=== PATIENT | female | born 1935 | race Caucasian/White ===

== ENCOUNTER → 2016-08-31 | Outpatient (CLI) | payer OTHER, MEDICARE ==
[~2016-08-31] MED LIST: ACET-1256 PO; ACET-1311 PO; ALEN70TA3 PO; ALPR1TAB2 PO; CALC-211 PO; CALC500C70 PO; CHOL1CAP57 PO; CYAN100020 PO; EMOLOIN3 EXT; FERR1TAB13 PO; FIBER PO; LACT1CAP6 PO; LACT1TAB4 PO; LISI20TA3 PO; MULT-16 PO; MULT-845 PO; PANT40TA PO; PSYL58.636 PO; SERT-234 PO; TRAM-10 PO
--- NOTE | 2016-08-31 16:37 | MAMMOGRAPHY REPORT ---
UNILATERAL RIGHT DIGITAL SCREENING MAMMOGRAM TOMOSYNTHESIS WITH CAD: 08/31/2016 CLINICAL HISTORY: Asymptomatic. Personal history of left breast cancer. TECHNIQUE: Breast tomosynthesis in addition to standard 2D mammography was performed. Current study was also evaluated with a Computer Aided Detection (CAD) system. COMPARISON: Comparison is made to exams dated: 08/29/2015 mammogram, 08/27/2014 mammogram, 08/23/2013 mammogram, 08/18/2012 mammogram, 08/17/2011 mammogram, and 08/13/2010 mammogram - [facility] nter. BREAST COMPOSITION: There are scattered areas of fibroglandular density in the right breast. FINDINGS: The parenchymal pattern is unchanged. No developing mass, architectural distortion or clu ster of suspicious microcalcifications is seen. IMPRESSION: ACR BI-RADS CATEGORY 2: BENIGN There is no mammographic evidence of malignancy. A 1 year screening mammogram is recommended. The p atient will receive written notification of the results. Approximately 10% of breast cancers are not detected with mammography. A negative mammographic repor t should not delay biopsy if a clinically suggestive mass is present. Emily St M.D. ay/:08/31/2016 15:54:14 Road Monkey: Daniella SOLOMON([place])([place]), [facility] letter sent: Normal 1/2 BI-RADS Code: ACR BI-RADS Category 2: Benign
== END | disposition home or self-care (01) ==
LOC: C.MAMM 11:40
PROVIDERS: ATTEND Internal Medicine Hematology & Oncology
DX: Z12.31 Encounter for screening mammogram for malignant neoplasm of breast (principal); Z85.3 Personal history of malignant neoplasm of breast; Z90.12 Acquired absence of left breast and nipple

== ENCOUNTER → 2016-10-15 | Outpatient (CLI) | payer OTHER, MEDICARE ==
[2015-10-15 13:19] VITALS: BP 120/79; PULSE 70
[2016-10-15 13:10] VITALS: BP 129/76; PULSE 62; TEMP 36.4; O2SAT 97
--- NOTE | 2016-10-15 16:13 | Radiation Oncology Follow-Up ---
Radiation Oncology Follow-Up Date of Visit October 15, 2016. Reason For Visit Annual follow-up Radiation Completion Date 06/21/2015 Diagnosis (1) Other specified malignant neoplasm of skin of other part of trunk Status: Acute Onset Date: 11/30/2014 Permanent Comment: Skin lesion left scapular area Status post cryotherapy Status post shave biopsy 12/04/2014 revealing squamous cell carcinoma Status post punch biopsy 04/02/2015 revealing squamous cell carcinoma Status post reexcision 04/09/2015 continued squamous cell carcinoma positive margin Status post completion of radiation therapy 06/21/2015 received 6250 cGy Last Edited By: Lissa Singh on October 15, 2015 14:12 History of Present Illness This is an 80-year-old white female previously treated for left breast cancer. She had a modified radical mastectomy in 2000. She had chemotherapy with Adriamycin and Cytoxan. Following completion of the radiation therapy she took tamoxifen for a total of 12 years. She continued regular follow-up with Dr. Stone. She unfortunately developed lesion of the left scapular area. This showed changes in appearance. She saw Dr. Diggs the lesion was evaluated and treated with cryotherapy. She then saw Dr. Maddox and had a shave biopsy and this showed an invasive well-differentiated squamous cell carcinoma extending to the base of the biopsy. He performed a punch biopsy on 04/02/2015 this showed invasive well-differentiated squamous cell carcinoma. She then went on for reexcision 04/09/2015. This showed invasive moderately squamous cell carcinoma and it extended to the peripheral margins. Due to the positive margin she was referred to referred to our office and underwent radiation therapy. She was treated from 05/05/2015 to 06/21/2015. She received 6250 cGy. 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 She was seen regularly and had close follow-up with dressing changes and debridements. The skin steadily healed without difficulty. Interim History She has been doing well over the past year. She denies any changes to her skin. She has a small area of dryness of the left scapular area. She is followed closely by dermatology. She was seen last week and there is been no signs of recurrence. She has been having some issues with her right shoulder and this is related to previous injury. She also was hospitalized last December for GI bleeding. She had the finding of a superficial gastric ulcer. Allergies Coded Allergies: Cephalexin (Verified Allergy, Intermediate, RASH, 02/24/16) Nitrofurazone (Verified Allergy, Unknown, *, 02/24/16) Nystatin (Verified Allergy, Unknown, ., 02/24/16) Penicillins (Verified Allergy, Unknown, ANAPHYLAXIS, 02/24/16) Codeine (Verified Adverse Reaction, Intermediate, N/V - can take Oxycodone , 02/19/16) Erythromycin (Verified Adverse Reaction, Unknown, GI UPSET, 02/19/16) Home Medications Scheduled Calcium/Vitamin D (Os-Vasyl 500 Plus D), 2 TAB PO BID Cholecalciferol (Vitamin D3), 2 CAPSULE PO DAILY Cyanocobalamin (Vitamin B12), 1 TAB PO QAM Fiber Laxative (Fiber Laxative), 2 TSP PO QAM Lactobacillus (Probiotic), 1 PO QAM Lisinopril (Prinivil), 20 MG PO QAM Multiple Vitamins W/ Minerals (Centrum Silver Adult 50+), 1 TAB PO QAM Pantoprazole Sodium (Protonix), 40 MG PO BID Scheduled PRN Acetaminophen (Tylenol), 500 MG PO DAILY PRN for Pain Alprazolam (Xanax), 0.5 MG PO TID PRN for Anxiety/Insomnia Review of Systems Gastrointestinal: Symptoms: WNL GI Comments: has IBS ," encourgaged to increase amounts of fiber , this helps " Oral: Symptoms: No Problems Other Oral Symptoms: Mouth is sore from having extensive dental work done recently Respiratory: Symptoms: WNL Other Respiratory: PHELPS, Dry cough at times Urinary: Symptoms: WNL Skin: Symptoms: No Problems Other Skin Symptoms: had patches of skin removed on chest and right side of face " Physical Exam Vital Signs Date Time Temp Pulse Resp B/P Pulse Ox O2 Delivery O2 Flow Rate FiO2 10/15/16 13:10 36.4 62 16 129/76 97 Pain: Pain Onset: for months Pain Duration: gets worse at times Side: Left Patient Pain Scale: 0 - 10 Initial Pain Intensity: 4.0 Pain Description: Dull, Sharp Additional Comments: occ sharp pain in the inside of her left leg Fatigue: None General Appearance: no apparent distress Eyes: normal inspection, EOMI ENT: normal ENT inspection, hearing grossly normal Neck: no adenopathy, thyroid normal Respiratory/Chest: lungs clear, no respiratory distress, no accessory muscle use Cardiovascular: regular rate, rhythm, no gallop, no murmur Extremities: no pedal edema Neurologic/Psychiatric: no motor/sensory deficits, alert, normal mood/affect Skin: warm/dry, + pertinent finding (there is an area of skin dryness left scapular area. There are no visible or palpable lesions in the area of treatment.) Assessment & Plan Plan: Continue regular follow-up with Dr. Maddox and her primary care physician. Note was sent to [facility]. This requests that Aquaphor be placed on the area of dryness in the left scapular area. We asked her to return to our office in 1 year. She may call if she has any questions or concerns in the interim. She'll continue follow-up with her primary care physician in regards to her shoulder issue. Total Time In Follow-Up I spent 20 minutes speaking to the patient and performing examination. I spent 15 minutes reviewing information in completing this note. Copy To Fermín Krishnamurthy M.D.; Sameer Maddox MD
== END | disposition home or self-care (01) ==
LOC: C.ONC 13:04
PROVIDERS: ATTEND Radiology Radiation Oncology
DX: Z08 Encounter for follow-up examination after completed treatment for malignant neoplasm (principal); Z92.3 Personal history of irradiation; Z85.89 Personal history of malignant neoplasm of other organs and systems

== ENCOUNTER 2016-11-22 05:17 | Emergency (ER) | payer OTHER, MEDICARE ==
[~2016-11-22] VITALS: Ht 157.5 cm; Wt 62.4 kg
[~2016-11-22 05:17] MED LIST changes: -ACET-1311 PO; -ALEN70TA3 PO; -CALC-211 PO; -EMOLOIN3 EXT; -FERR1TAB13 PO; -LACT1TAB4 PO; -MULT-16 PO; -PSYL58.636 PO; -SERT-234 PO; -TRAM-10 PO
[2016-11-22 05:28] VITALS: TEMP 36.6; Ht 157.5 cm; Wt 62.4 kg
[2016-11-22] MEDS ORDERED: ACETAMINOPHEN 500 MG TAB PO STA (05:34)
[2016-11-22] MEDS ORDERED: ACET-1311 PO (05:36)
[2016-11-22] MEDS ORDERED: ALEN70TA3 PO (05:37)
[2016-11-22] MEDS ORDERED: EMOLOIN3 EXT (05:40)
[2016-11-22] MEDS ORDERED: FERR1TAB13 PO (05:41)
[2016-11-22] MEDS ORDERED: LACT1TAB4 PO (05:43)
[2016-11-22] MEDS ORDERED: PSYL58.636 PO (05:46)
[2016-11-22] MEDS ORDERED: CALC-211 PO (05:47)
[2016-11-22] MEDS ORDERED: PANT40TA PO (05:48)
[2016-11-22] MEDS ORDERED: MULT-16 PO (05:50)
[2016-11-22] MEDS ORDERED: TRAM-10 PO (05:51)
--- NOTE | 2016-11-22 06:25 | EMERGENCY ROOM VISIT NOTE ---
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 Status post left modified radical mastectomy 2000 Status post chemotherapy with Adriamycin and Cytoxan followed by 5 years of tamoxifen Status post completion radiation therapy 11/30/2001 Subsequent use and completion of Arimidex Status: Resolved (3) CKD (chronic kidney disease) stage 3, GFR 30-59 ml/min Status: Chronic (4) Deep venous thrombosis Status: Resolved (5) Essential tremor Status: Chronic (6) History of breast cancer Status: Chronic (7) History of calculus of kidney Status: Chronic (8) Hyperlipidemia Status: Chronic (9) Intracranial meningioma Status: Chronic (10) left foot fracture Status: Resolved (11) left hip fracture Status: Resolved (12) Left lower extremity hematoma Status: Resolved (13) Osteoporosis Status: Chronic (14) Patent foramen ovale Status: Chronic (15) Restless legs Status: Chronic (16) Squamous cell carcinoma of leg Status: Resolved (17) Unilateral modified radical mastectomy Permanent Comment: 2000 Status: Resolved Surgical Problems: (1) Status post appendectomy Status: Chronic (2) Status post left mastectomy Status: Chronic (3) Status post total knee replacement Status: Chronic Current/Historical Medications Scheduled Alendronate/Cholecalciferol (Fosamax+D 70MG/5600 Iu), 70 MG PO WK Calcium Carbonate-Cholecalcife (Oyster Shell Calcium + D), 1 TAB PO BID Cholecalciferol (Vitamin D3), 2 CAP PO DAILY Cyanocobalamin (Vitamin B12), 1 TAB PO QAM Emollient (Aquaphor), 1 APPLN EXT HS Ferrous Sulfate (Kp Ferrous Sulfate), 325 MG PO DAILY Lactobacillus (Probiotic), 1 PO QAM Lisinopril (Prinivil), 10 MG PO QAM Multiple Vitamins W/ Minerals (Thera-M), 400 MCG PO DAILY Pantoprazole (Protonix), 40 MG PO DAILY Psyllium (Metamucil Fiber), 2 TSP PO DAILY Scheduled PRN Acetaminophen (Tylenol), 650 MG PO Q6 PRN for Pain Alprazolam (Xanax), 0.5 MG PO Q6 PRN for Anxiety/Insomnia Tramadol (Ultram), 50 MG PO Q6 PRN for Pain Allergies Coded Allergies: Cephalexin (Verified Allergy, Intermediate, RASH, 11/22/16) Nitrofurazone (Verified Allergy, Unknown, *, 11/22/16) Nystatin (Verified Allergy, Unknown, ., 11/22/16) Penicillins (Verified Allergy, Unknown, ANAPHYLAXIS, 11/22/16) Codeine (Verified Adverse Reaction, Intermediate, N/V - can take Oxycodone , 11/22/16) Erythromycin (Verified Adverse Reaction, Unknown, GI UPSET, 11/22/16) Vital Signs Date Time Temp Pulse Resp B/P (MAP) Pulse Ox O2 Delivery O2 Flow Rate FiO2 11/22/16 05:28 36.6 74 20 201/72 98 Room Air Medications Administered Medications (Trade) Dose Ordered Sig/Marzena Route Start Time Stop Time Status Last Admin Dose Admin Acetaminophen (Tylenol Tab) 1,000 mg NOW STAT PO 11/22/16 05:34 11/22/16 05:36 DC 11/22/16 05:44 1,000 MG Departure Information Referrals Timur Rabago, D.O. (PCP) Patient Instructions My [facility]
[2016-11-22] MEDS ORDERED: LISINOPRIL 20 MG TAB PO STA (06:26)
--- NOTE | 2016-11-22 07:18 | DIAGNOSTIC IMAGING REPORT ---
CT HEAD WITHOUT CONTRAST (CT) CLINICAL HISTORY: Head pain status post trauma COMPARISON STUDY: 11/06/2015 TECHNIQUE: Axial CT of the brain is performed from the vertex to the skull base. IV contrast was not administered for this examination. CT DOSE: FINDINGS: There is no CT evidence of acute cortical infarction. There is no midline shift. There is no evidence of acute hemorrhage. No calvarial fractures are visualized. There is a stable 7 mm left frontal dural based calcification. This is consistent with a small an ostosis or old burned-out meningioma. This is of doubtful acute clinical significance. There are patchy white matter hypodensities likely on a small vessel basis. There is an old lacunar infarct in the left basal ganglia versus a dilated perivascular space. There is no evidence of pathologic ventricular dilatation. There is no evidence of acute sinusitis IMPRESSION: No acute intracranial findings Electronically signed by: Jb Slaughter M.D. 11/22/2016 7:17 AM Dictated Date/Time: 11/22/2016 7:14 AM
--- NOTE | 2016-11-22 07:23 | EMERGENCY ROOM VISIT NOTE ---
History First contact with patient: 05:34 Chief Complaint: FALL Stated Complaint: FALL History of Present Illness The patient is a 81 year old female who presents to the Emergency Room with complaints of mechanical fall tonight landing on her walker sustaining a head and right shoulder injury. She follows with orthopedics. She's had prior imaging on the shoulder. Patient denies chest pain, dyspnea, back pain, numbness, tingling, abdominal pain, facial pain. No other injuries per patient. No loss of consciousness. Review of Systems See HPI for pertinent positives & negatives. A total of 10 systems reviewed and were otherwise negative. Past Medical/Surgical History Medical Problems: (1) Benign hypertension (2) Carcinoma of breast (3) CKD (chronic kidney disease) stage 3, GFR 30-59 ml/min (4) Deep venous thrombosis (5) Essential tremor (6) Gastric ulcer due to nonsteroidal anti-inflammatory drug (NSAID) (7) GI bleed (8) History of breast cancer (9) History of calculus of kidney (10) Hyperlipidemia (11) Intracranial meningioma (12) left foot fracture (13) left hip fracture (14) Left lower extremity hematoma (15) Osteoporosis (16) Patent foramen ovale (17) Restless legs (18) Squamous cell carcinoma of leg (19) Unilateral modified radical mastectomy Surgical Problems: (1) Status post appendectomy (2) Status post left mastectomy (3) Status post total knee replacement Family History Patient reports no known family medical history. Social History Smoking Status: Former Smoker Alcohol Use: none Drug Use: none Marital Status: Housing Status: lives with family Occupation Status: retired Current/Historical Medications Scheduled Alendronate/Cholecalciferol (Fosamax+D 70MG/5600 Iu), 70 MG PO WK Calcium Carbonate-Cholecalcife (Oyster Shell Calcium + D), 1 TAB PO BID Cholecalciferol (Vitamin D3), 2 CAP PO DAILY Cyanocobalamin (Vitamin B12), 1 TAB PO QAM Emollient (Aquaphor), 1 APPLN EXT HS Ferrous Sulfate (Kp Ferrous Sulfate), 325 MG PO DAILY Lactobacillus (Probiotic), 1 PO QAM Lisinopril (Prinivil), 10 MG PO QAM Multiple Vitamins W/ Minerals (Thera-M), 400 MCG PO DAILY Pantoprazole (Protonix), 40 MG PO DAILY Psyllium (Metamucil Fiber), 2 TSP PO DAILY Scheduled PRN Acetaminophen (Tylenol), 650 MG PO Q6 PRN for Pain Alprazolam (Xanax), 0.5 MG PO Q6 PRN for Anxiety/Insomnia Tramadol (Ultram), 50 MG PO Q6 PRN for Pain Allergies Coded Allergies: Cephalexin (Verified Allergy, Intermediate, RASH, 11/22/16) Nitrofurazone (Verified Allergy, Unknown, *, 11/22/16) Nystatin (Verified Allergy, Unknown, ., 11/22/16) Penicillins (Verified Allergy, Unknown, ANAPHYLAXIS, 11/22/16) Codeine (Verified Adverse Reaction, Intermediate, N/V - can take Oxycodone , 11/22/16) Erythromycin (Verified Adverse Reaction, Unknown, GI UPSET, 11/22/16) Physical Exam Vital Signs Date Time Temp Pulse Resp B/P (MAP) Pulse Ox O2 Delivery O2 Flow Rate FiO2 11/22/16 07:13 65 17 176/73 98 Room Air 11/22/16 06:22 65 18 163/60 98 Room Air 11/22/16 05:28 36.6 74 20 201/72 98 Room Air Physical Exam PHYSICAL EXAM: VITALS: Vitals are noted on the nurse's note and reviewed by myself. Vital signs stable. GENERAL: Pleasant female, in no acute distress, nondiaphoretic, well-developed well-nourished. SKIN: The skin was without obvious lacerations or abrasions. Capillary reflex less than 2 seconds. HEAD: Normocephalic atraumatic. EARS: External auditory canals clear, tympanic membranes pearly barrientos without erythema or effusion bilaterally. No hemotympanums. No lauren sign. No mastoid tenderness. EYES: Pupils equal round and reactive to light and accommodation. Conjunctivae without injection, sclerae without icterus. Extraocular movements intact. NOSE: Patent, turbinates without inflammation or discharge. No sinus tenderness. No septal hematoma or bleeding. FACE: No facial bone tenderness. Full range of motion of the jaw without tenderness. MOUTH: Mucous membranes moist. Pharynx without erythema or exudate. Uvula midline. Airway patent. Tongue does not deviate. NECK: Supple without nuchal rigidity. Cervical spine is nontender. Full range of motion of the neck without tenderness. No JVD. HEART: Regular rate and rhythm LUNGS: Clear to auscultation bilaterally without wheezes, rales or rhonchi. No dullness to percussion. No retractions or accessory muscle use. No chest wall tenderness. ABDOMEN: Positive bowel sounds x 4. Normal tympanic percussion. Soft, nontender, without masses or organomegaly. No guarding or rebound tenderness. MUSCULOSKELETAL: No tenderness of the thoracic or lumbar spine. No tenderness with pelvic rocking. Right shoulder tender to palpation with increased pain with range of motion, Full range of motion without tenderness to palpation in all other extremities. Strength 5/5 throughout. Peripheral pulses 2+. NEURO: Patient was alert and oriented to person place and time. Normal Mini- Mental status exam. Normal sensation to light and sharp touch. Cerebellar function intact. No focal neurological deficits. Medical Decision & Procedures Medications Administered Medications (Trade) Dose Ordered Sig/Marzena Route Start Time Stop Time Status Last Admin Dose Admin Acetaminophen (Tylenol Tab) 1,000 mg NOW STAT PO 11/22/16 05:34 11/22/16 05:36 DC 11/22/16 05:44 1,000 MG Lisinopril (Zestril Tab) 20 mg NOW STAT PO 11/22/16 06:26 11/22/16 06:27 DC 11/22/16 06:46 20 MG ED Course Prior records/ancillary studies reviewed. Triage Nursing notes reviewed. Additional history obtained from family. The patient's history was concerning for traumatic head injury and shoulder Differential diagnosis: Etiologies such as concussion, contusion, fracture, subdural hematoma, epidural hematoma, intraparenchymal hemorrhage, as well as other traumatic pathologies were entertained. Physical examination findings: As above. ER treatment provided: P.o. Tylenol On reassessment the patient felt better. Diagnostics interpreted by me: Imaging studies: CT HEAD WITHOUT CONTRAST (CT) CLINICAL HISTORY: Head pain status post trauma COMPARISON STUDY: 11/06/2015 TECHNIQUE: Axial CT of the brain is performed from the vertex to the skull base. IV contrast was not administered for this examination. CT DOSE: FINDINGS: There is no CT evidence of acute cortical infarction. There is no midline shift. There is no evidence of acute hemorrhage. No calvarial fractures are visualized. There is a stable 7 mm left frontal dural based calcification. This is consistent with a small an ostosis or old burned-out meningioma. This is of doubtful acute clinical significance. There are patchy white matter hypodensities likely on a small vessel basis. There is an old lacunar infarct in the left basal ganglia versus a dilated perivascular space. There is no evidence of pathologic ventricular dilatation. There is no evidence of acute sinusitis IMPRESSION: No acute intracranial findings CT OF THE CERVICAL SPINE CLINICAL HISTORY: Neck pain status post trauma COMPARISON STUDY: [address] DOSE: 930.46 mGy.cm TECHNIQUE: CT scan of the cervical spine was performed from the skull base to the thoracic inlet. Images are reviewed in the axial, sagittal, and coronal planes. IV contrast was not administered for this examination. FINDINGS: The visualized portions of the lung apices reveal no evidence of pneumothorax. There are apical blebs present. There are advanced degenerative changes present. Mild anterior subluxation of C2 on C3 and C3 on C4 is felt to be degenerative. There is partial ankylosis of the C4-C5 and C6 vertebra. Mild retrolisthesis of C4 on C5 and C5 on C6 is felt to be arthritic. No acute fractures or traumatic subluxations are visualized. IMPRESSION: Advanced multilevel degenerative change. No acute fractures or traumatic subluxations are visualized. Electronically signed by: Jb Slaughter M.D. shoulder xray with no acute fracture/dislocation or effusion per my interpretation It appears the patient has head injury and shoulder injury. Patient is neurovascularly and neurologically intact. She is well-appearing. Patient had unremarkable workup as above. No other injuries are noted. She is tolerating fluids. She was counseled on head is signs and symptoms and verbalized understanding of this. She is advised follow-up family care tomorrow here in the ER sooner for headache, fevers, numbness, tingling, worsening signs or symptoms or as needed. By the evaluation outlined above emergent etiologies such as fracture, subdural hematoma, epidural hematoma, intraparenchymal hemorrhage, as well as others were deemed relatively unlikely. The pt informed about the findings as listed above. All questions were answered and pleased with the treatment. Return instructions were outlined and the patient was discharged in stable condition. Case reviewed with my attending Referral: The patient was referred back to their primary care physician for follow-up in 2 to 3 days for a recheck of the current condition. Medical Decision As above Patient was found to have elevated blood pressure and was referred to their family doctor for recheck and further treatment. Medications reviewed. Impression Primary Impression: Fall Additional Impressions: Head injury Shoulder injury Departure Information Dispostion Home / Self-Care Condition GOOD Referrals Timur Rabago D.ODeshaun (PCP) Patient Instructions My [facility] Additional Instructions Monitor your blood pressure. It was high. Read head injury handout and return for any symptoms. Tylenol 1000 mg as needed for pain (Maximum 3000 mg Tylenol in 24 hr period). Avoid alcohol and contact sports/activities for one week and follow up with family doctor prior to returning to these activities if still symptomatic. Ice and elevate head. If your symptoms persist more than a week then follow up with the concussion clinic. Call [phone]. Return to ER sooner for headache, fevers, confusion, worsening signs or symptoms or as needed. Follow-up with family care in 2-3 days. Follow up with your orthopedics in 2-3 days. Problem Qualifiers Primary Impression: Fall Encounter type: initial encounter Qualified Codes: W19.XXXA - Unspecified fall, initial encounter Additional Impressions: Head injury Encounter type: initial encounter Qualified Codes: S09.90XA - Unspecified injury of head, initial encounter Shoulder injury Encounter type: initial encounter Laterality: right Qualified Codes: S49.91XA - Unspecified injury of right shoulder and upper arm, initial encounter
--- NOTE | 2016-11-22 08:11 | DIAGNOSTIC IMAGING REPORT ---
RIGHT SHOULDER MIN 2 VIEWS ROUTINE CLINICAL HISTORY: Right shoulder pain status post trauma COMPARISON: None. DISCUSSION: No fractures or dislocations are visualized. There is mild narrowing of the humeral acromial distance. IMPRESSION: No acute fractures or dislocations identified. Electronically signed by: Jb Slaughter M.D. 11/22/2016 8:09 AM Dictated Date/Time: 11/22/2016 8:09 AM
[2016-11-22 08:20] VITALS: BP 186/86; PULSE 65; O2SAT 98
== END 2016-11-22 08:20 | disposition home or self-care (01) ==
LOC: EDBD 05:17 → C.EDB 05:19
DX: S09.90XA Unspecified injury of head, initial encounter (principal); S49.91XA Unspecified injury of right shoulder and upper arm, initial encounter; W19.XXXA Unspecified fall, initial encounter; I10 Essential (primary) hypertension; Z85.3 Personal history of malignant neoplasm of breast; Z86.718 Personal history of other venous thrombosis and embolism; Z87.442 Personal history of urinary calculi; E78.5 Hyperlipidemia, unspecified; Z85.828 Personal history of other malignant neoplasm of skin; G25.81 Restless legs syndrome; Z87.891 Personal history of nicotine dependence; Z79.899 Other long term (current) drug therapy

== ENCOUNTER → 2017-09-29 | Outpatient (CLI) | payer OTHER, MEDICARE ==
[~2017-09-29] MED LIST changes: -ACET-1256 PO; +ACET-1311 PO; +ALEN70TA3 PO; +CALC-211 PO; -CALC500C70 PO; +EMOLOIN3 EXT; +FERR1TAB13 PO; -FIBER PO; +MULT-16 PO; -MULT-845 PO; +PSYL58.636 PO; +TRAM-10 PO
--- NOTE | 2017-09-30 14:54 | MAMMOGRAPHY REPORT ---
UNILATERAL RIGHT DIGITAL SCREENING MAMMOGRAM TOMOSYNTHESIS WITH CAD: 09/29/2017 CLINICAL HISTORY: Asymptomatic. Personal history of breast cancer. TECHNIQUE: Right breast tomosynthesis in addition to standard 2D mammography was performed. Current study was also evaluated with a Computer Aided Detection (CAD) system. COMPARISON: Comparison is made to exams dated: 08/31/2016 mammogram, 08/29/2015 mammogram, 08/27/2014 m ammogram, 08/23/2013 mammogram, 08/18/2012 mammogram, and [facility] BREAST COMPOSITION: There are scattered areas of fibroglandular density in the right breast. FINDINGS: No suspicious mass, architectural distortion or cluster of microcalcifications is seen. IMPRESSION: ACR BI-RADS CATEGORY 1: NEGATIVE There is no mammographic evidence of malignancy. A 1 year screening mammogram is recommended. The pa tient will receive written notification of the results. Approximately 10% of breast cancers are not detected with mammography. A negative mammographic report should not delay biopsy if a clinically suggestive mass is present. Emily St M.D. ay/:09/29/2017 16:05:35 [employer]: Linnette SOLOMON([place])([place]), [facility] letter sent: Normal 1/2 BI-RADS Code: ACR BI-RADS Category 1: Negative
== END | disposition home or self-care (01) ==
LOC: C.MAMM 15:17
PROVIDERS: ATTEND Family Medicine
DX: Z12.31 Encounter for screening mammogram for malignant neoplasm of breast (principal); Z90.12 Acquired absence of left breast and nipple

== ENCOUNTER 2021-07-15 16:18 | Inpatient (IN) ==
[~2021-07-15 16:18] MED LIST changes: -ACET-1311 PO; -ALEN70TA3 PO; -ALPR1TAB2 PO; -CALC-211 PO; -CHOL1CAP57 PO; -CYAN100020 PO; -EMOLOIN3 EXT; -FERR1TAB13 PO; -LACT1CAP6 PO; -LISI20TA3 PO; -MULT-16 PO; -PANT40TA PO; -PSYL58.636 PO; +SODIUM CHLORIDE 0.9% 1000ML 1,000 ML IV SCH; -TRAM-10 PO
[2021-07-15] MEDS ORDERED: OPTIRAY 320 125ml IV ONE (16:32)
[2021-07-15 16:41] LABS: Basophils # (auto) 0.03 K/uL (0-0.2); Basophils % (auto) 0.3 %; Eosinophils % (auto) 3.5 %; Hematocrit (blood only) 41.1 % (37-47); Hemoglobin 13.1 g/dL (12.0-16.0); Immature Granulocytes # (auto) 0.02 K/uL (0.00-0.02); Immature Granulocytes % (auto) 0.2 %; Lymphocytes # (auto) 3.03 K/uL (1.2-3.4); Lymphocytes % (auto) 35.1 %; Mean Corpuscular Hgb Conc 31.9 g/dL (32-36); Mean Corpuscular Volume 97.4 fL (80-100); Mean Platelet Volume 9.8 fL (7.4-10.4); Monocytes # (auto) 0.87 K/uL (0.11-0.59); Monocytes % (auto) 10.1 %; Neutrophils # (auto) 4.39 K/uL (1.4-6.5); Neutrophils % (auto) 50.8 %; Platelet Count 337 K/uL (130-400); RDW Coefficient of Variation 14.3 % (11.5-14.5); RDW Standard Deviation 51.4 fL (36.4-46.3); Red Blood Count 4.22 M/uL (4.2-5.4); White Blood Count 8.64 K/uL (4.8-10.8)
--- NOTE | 2021-07-15 16:44 | CT Scan Report ---
UNENHANCED CT OF THE BRAIN; CT ANGIOGRAM OF THE BRAIN; CT ANGIOGRAM OF THE NECK CLINICAL HISTORY: Change in mental status. Stroke like symptoms. COMPARISON STUDY: CT of the brain dated 05/17/2018. TECHNIQUE: Unenhanced axial CT scan of the brain is performed. Subsequently, following the IV adminis tration of 115 of [address] [address], CT angiogram of the head and neck was performed from the aortic arch t o the vertex. Images are reviewed in the axial, sagittal, and coronal planes. 3-D MIPS images are cre ated and assessed. IV contrast was administered without complication. All measurements were calculate d based on NASCET criteria. A dose lowering technique was utilized adhering to the principles of ALA RA. The unenhanced CT of the brain was performed twice due to motion artifact. CT DOSE: 2286.23 mGy.cm FINDINGS: Brain parenchyma: There is age-related involutional change noting [id number] subcortical and pe riventricular microangiopathic disease. There is no hemorrhage, mass effect, or evidence of acute ter ritorial ischemia by CT criteria. There is no evidence of enhancing mass lesion on the angiogram phas e images. The ventricles, sulci, and cisterns are prominent secondary to involutional change. Small c hronic lacunar infarcts are noted in the left internal capsule an the left thalamus. Handley-white matte r differentiation is preserved. No extra-axial fluid collection is seen. A 9 mm extra-axial calcifica tion along the high left frontal convexity is unchanged. Thoracic aorta: There is atherosclerotic calcification of the thoracic aorta. Visualized portions of the thoracic aorta are normal in caliber. The aortic arch demonstrates standard 3-vessel anatomy. Right carotid arterial system: The right common carotid artery is widely patent, as is the right inte rnal carotid artery. Advanced atherosclerotic plaque is noted in the carotid bulb. This causes mild t o moderate stenosis at the origin of the right external carotid artery. 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 Calcified plaque is noted in the carotid bulb. Vertebral arteries: The vertebral arteries are widely patent bilaterally and codominant. Subclavian arteries: Widely patent bilaterally. Intracranial vasculature: There is atherosclerotic calcification of the cavernous carotid and vertebr al arteries. The internal carotid arteries are patent at the skull base, as are the anterior and midd le cerebral arteries bilaterally. The vertebrobasilar system and posterior cerebral arteries are wide ly patent. The vertebral arteries are codominant. There is no aneurysm, high-grade stenosis, or focal vessel cut off seen throughout the intracranial circulation. Jugular veins: Patent bilaterally. Dural sinuses: Patent. Lung apices: Mild emphysematous change is noted in the upper lobes. Upper lobe lung parenchyma is oth erwise clear as visualized. Soft tissues: The visualized pharyngeal soft tissues are normal in appearance noting angiographic pha se technique. The oropharyngeal airway appears widely patent. The salivary and thyroid glands are nor mal in appearance. No cervical lymphadenopathy is seen. Skeletal structures: The skeletal structures are osteopenic. The calvarium appears intact. The cervic al spine is maintained noting multilevel spondylosis. No lytic or blastic lesion is seen. Arthritic c hange is seen in the shoulders, right greater than left. Bursal fluid surrounds the right shoulder. Orbits: The bony orbits are intact. Orbital contents are normal as visualized noting bilateral ocular lens implants. Sinuses and mastoids: The paranasal sinuses are clear. The mastoid air cells are well pneumatized. IMPRESSION: 1. There is no hemorrhage, mass effect, or evidence of acute territorial ischemia by CT criteria. 2. Unremarkable CT angiogram of the brain. 3. There is mild to moderate stenosis at the origin of the right external carotid artery. 4. Otherwise unremarkable CT angiogram of the neck. 5. Emphysema. 6. Additional findings as above. ACT 112: Negative or not required by law. Electronically signed by: Austen Aguilar M.D. 07/15/2021 4:43 PM
[2021-07-15] MEDS ORDERED: LABETALOL HCL IV 5 MG/ML 20ML IV STA (16:50)
[2021-07-15] MEDS ORDERED: ASPIRIN 300 MG SUPP PR ONE (16:51)
[2021-07-15 17:00] LABS: Partial Thromboplastin Ratio 1.1; Partial Thromboplastin Time 28.8 Seconds (21.0-31.0); Prothrombin Time 10.1 Seconds (9.0-12.0)
--- NOTE | 2021-07-15 17:09 | Emergency Department Note ---
History of Present Illness General Chief complaint: Stroke/CVA Symptoms Stated complaint: STROKE ALERT History of Present Illness 85-year-old female presents to the ED with a chief complaint of expressive aphasia. The patient's last known well was at 1330. She was playing bingo and was having difficulty getting words out. EMS was called and transported her here. The patient has some chronic right shoulder pain related to a rotator cuff injury. She denies any other significant symptoms. She does have a history of PE in the past. She is currently not on anticoagulation. She does have a history of GI bleed as well. The patient's expressive aphasia seems to be about 50% of the words. The patient understands speech and follows commands. Denies other complaints at this time. Home Medications Medication Instructions Recorded Confirmed Type escitalopram oxalate 10 mg tablet 10 mg PO HS 07/29/18 07/15/21 History (Lexapro) loratadine 10 mg tablet (Claritin) 10 mg PO QAM 07/29/18 07/15/21 History vitamins A,C,S-ciue-uwmscs 14,320 1 cap PO BID 07/29/18 07/15/21 History unit-226 mg-200 unit capsule (PreserVision AREDS) calcium carbonate 500 mg-vitamin 1 tab PO DAILY 08/29/19 07/15/21 History D3 5 mcg (200 unit) tablet (Calcium 500 + D) meloxicam 15 mg tablet (Mobic) 15 mg PO DAILY #30 tab 12/25/20 07/15/21 Rx alprazolam 0.5 mg tablet 0.5 mg PO Q6H PRN 03/14/21 07/15/21 History calcium polycarbophil 625 mg tablet 625 mg PO DAILY 03/14/21 07/15/21 History lisinopril 40 mg tablet 40 mg PO DAILY 03/14/21 07/15/21 History Lactobacillus acidophilus 10 10,000 mmu cells PO DAILY 07/15/21 07/15/21 History billion cell capsule (Probiotic) acetaminophen 500 mg tablet 1,000 mg PO Q OTHER DAY 07/15/21 07/15/21 History (Tylenol Extra Strength) albuterol sulfate 90 mcg/actuation 2 puff INHALATION Q6H PRN 07/15/21 07/15/21 History aerosol inhaler cholecalciferol (vitamin D3) 50 50 mcg PO DAILY 07/15/21 07/15/21 History mcg (2,000 unit) capsule (Vitamin D3) guaifenesin 600 mg tablet, 600 mg PO Q12H PRN 07/15/21 07/15/21 History extended release 12 hr (Mucinex) tdjzfmfd-quc-zvwns acid 0.4 1 tab PO DAILY 07/15/21 07/15/21 History mg-lycopene 300 mcg-lutein 250 mcg tablet (Centrum Silver) trazodone 50 mg tablet 50 mg PO HS PRN 07/15/21 07/15/21 History Allergies Allergy/AdvReac Type Severity Reaction Status Date / Time Penicillins Allergy Severe ANAPHYLAXIS--HEART Verified 07/15/21 16:31 STOPPED denosumab Allergy Intermediate bone pain Verified 07/15/21 16:31 mouse protein Allergy Intermediate bone pain Verified 07/15/21 16:31 cephalexin Allergy Mild RASH Verified 07/15/21 16:31 nitrofurazone Allergy Unknown PT NOT SURE Verified 07/15/21 16:31 nystatin Allergy Unknown PT NOT SURE Verified 07/15/21 16:31 codeine AdvReac Intermediate N/V - can Verified 07/15/21 16:31 take Oxycodone erythromycin base AdvReac Intermediate GI UPSET Verified 07/15/21 16:31 narcotics AdvReac Intermediate extreme Uncoded 07/15/21 16:31 drowsy and nausea Past Med/Surg History Medical History (Updated 07/15/21 @ 17:13 by Magan Walton DO) Anxiety and depression Asthma hasn't used PRN INH in over a year Cardiac murmur follows w/ Dr. Dhillon Cataract CKD (chronic kidney disease) stage 3, GFR 30-59 ml/min PT DENIES KIDNEY PROBLEMS Essential tremor Hearing deficit Hip problem LEFT History of breast cancer s/p left mastectomy + chemo/radiation History of DVT (deep vein thrombosis) WITHIN LAST 10 YRS History of hypothyroidism History of pulmonary embolism WITHIN LAST 10 YRS History of skin cancer removed History of stomach ulcers Hypertension Intracranial meningioma (Unknown) pt could not confirm. states "there was something small on my brain that was n't supposed to be there. nobody was really worried about it." says it was found "years ago" Limb alert care status LUE Osteoarthritis Osteoporosis Patent foramen ovale PT DENIES Rotator cuff tear, right TMJ click Surgical History History of appendectomy History of breast biopsy History of colonoscopy History of esophagogastroduodenoscopy (EGD) History of left hip replacement History of right cataract surgery Slow to wake up after anesthesia Status post left mastectomy HX OF Status post total knee replacement HX OF - BL Family History Father Diabetes Other No significant family history Social History Smoking Status: Never smoker Second Hand Exposure: Yes; Hx Alcohol Use: No Hx Substance Use: No Preferred Language: P[place] Communication Ability: Effective 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 Beliefs That Will Affect Care: None Current Living Situation: Alone and Other Current Living Situation Comment: [facility] Feels Safe at Home: Yes Assistive Devices: Cane, Glasses and Hearing Aid - Bilateral Review of Systems A total of 10 systems reviewed and were otherwise negative Physical Exam Vital Signs Vital Signs - 24 hr 07/15/21 16:17 07/15/21 16:55 07/15/21 16:58 Temperature 36.9 C Temperature Source Oral Pulse Rate 123 H Pulse Rate [Right Finger] 112 H Pulse Rate from SpO2 Sensor Respiratory Rate 24 24 Respiratory Effort / Characteristics Spontaneous Spontaneous Blood Pressure 204/117 H Blood Pressure [Right Arm] 197/92 H Blood Pressure Mean 146 Blood Pressure Mean [Right Arm] 127 Blood Pressure Position Lying Blood Pressure Position [Right Arm] Sitting Pulse Oximetry 92 89 L 100 Oxygen Delivery Method Room Air Room Air Nasal Cannula Oxygen Flow Rate 2 Sepsis Recent Fever Within 48 Hours No Sepsis New/Unexplained Change in Mental Status No Sepsis Action Taken by Nursing Physician Notified Oxygen Flow Rate - Titration 2 Pulse Oximetry Post Tiitration 100 07/15/21 17:06 07/15/21 17:10 07/15/21 17:20 Temperature Temperature Source Pulse Rate 120 H 117 H Pulse Rate [Right Finger] Pulse Rate from SpO2 Sensor 120 H 116 H 110 H Respiratory Rate 16 16 16 Respiratory Effort / Characteristics Blood Pressure Blood Pressure [Right Arm] Blood Pressure Mean Blood Pressure Mean [Right Arm] Blood Pressure Position Blood Pressure Position [Right Arm] Pulse Oximetry 99 99 100 Oxygen Delivery Method Nasal Cannula Nasal Cannula Nasal Cannula Oxygen Flow Rate 2 2 2 Sepsis Recent Fever Within 48 Hours Sepsis New/Unexplained Change in Mental Status Sepsis Action Taken by Nursing Oxygen Flow Rate - Titration Pulse Oximetry Post Tiitration 07/15/21 17:30 07/15/21 17:32 07/15/21 17:40 Temperature Temperature Source Pulse Rate 107 H 109 H 105 H Pulse Rate [Right Finger] Pulse Rate from SpO2 Sensor 107 H 105 H 104 H Respiratory Rate 17 16 15 Respiratory Effort / Characteristics Blood Pressure 194/118 H 194/118 H Blood Pressure [Right Arm] Blood Pressure Mean 143 143 Blood Pressure Mean [Right Arm] Blood Pressure Position Blood Pressure Position [Right Arm] Pulse Oximetry 99 99 99 Oxygen Delivery Method Nasal Cannula Nasal Cannula Nasal Cannula Oxygen Flow Rate 2 2 2 Sepsis Recent Fever Within 48 Hours Sepsis New/Unexplained Change in Mental Status Sepsis Action Taken by Nursing Oxygen Flow Rate - Titration Pulse Oximetry Post Tiitration 07/15/21 17:45 07/15/21 17:46 07/15/21 17:47 Temperature Temperature Source Pulse Rate 109 H 108 H 106 H Pulse Rate [Right Finger] Pulse Rate from SpO2 Sensor 109 H 111 H 107 H Respiratory Rate 23 26 H 19 Respiratory Effort / Characteristics Blood Pressure 200/105 H 200/105 H Blood Pressure [Right Arm] Blood Pressure Mean 136 136 Blood Pressure Mean [Right Arm] Blood Pressure Position Blood Pressure Position [Right Arm] Pulse Oximetry 97 99 99 Oxygen Delivery Method Nasal Cannula Nasal Cannula Oxygen Flow Rate 2 2 Sepsis Recent Fever Within 48 Hours Sepsis New/Unexplained Change in Mental Status Sepsis Action Taken by Nursing Oxygen Flow Rate - Titration Pulse Oximetry Post Tiitration 07/15/21 17:50 07/15/21 18:00 07/15/21 18:03 Temperature Temperature Source Pulse Rate 106 H 98 H 99 H Pulse Rate [Right Finger] 101 H Pulse Rate from SpO2 Sensor 105 H 96 H 99 H Respiratory Rate 18 22 20 Respiratory Effort / Characteristics Spontaneous Blood Pressure 171/91 H Blood Pressure [Right Arm] 171/91 H Blood Pressure Mean 117 Blood Pressure Mean [Right Arm] 117 Blood Pressure Position Blood Pressure Position [Right Arm] Sitting Pulse Oximetry 99 99 99 Oxygen Delivery Method Nasal Cannula Nasal Cannula Nasal Cannula Oxygen Flow Rate 2 2 2 Sepsis Recent Fever Within 48 Hours Sepsis New/Unexplained Change in Mental Status Sepsis Action Taken by Nursing Oxygen Flow Rate - Titration Pulse Oximetry Post Tiitration 07/15/21 18:10 07/15/21 18:15 07/15/21 18:20 Temperature Temperature Source Pulse Rate 94 H 93 H 95 H Pulse Rate [Right Finger] Pulse Rate from SpO2 Sensor 94 H 91 H 95 H Respiratory Rate 13 15 20 Respiratory Effort / Characteristics Blood Pressure 181/110 H Blood Pressure [Right Arm] Blood Pressure Mean 133 Blood Pressure Mean [Right Arm] Blood Pressure Position Blood Pressure Position [Right Arm] Pulse Oximetry 99 99 99 Oxygen Delivery Method Oxygen Flow Rate Sepsis Recent Fever Within 48 Hours Sepsis New/Unexplained Change in Mental Status Sepsis Action Taken by Nursing Oxygen Flow Rate - Titration Pulse Oximetry Post Tiitration 07/15/21 18:30 07/15/21 18:40 Temperature Temperature Source Pulse Rate 88 86 Pulse Rate [Right Finger] Pulse Rate from SpO2 Sensor 90 86 Respiratory Rate 14 16 Respiratory Effort / Characteristics Blood Pressure 175/96 H Blood Pressure [Right Arm] Blood Pressure Mean 122 Blood Pressure Mean [Right Arm] Blood Pressure Position Blood Pressure Position [Right Arm] Pulse Oximetry 99 99 Oxygen Delivery Method Oxygen Flow Rate Sepsis Recent Fever Within 48 Hours Sepsis New/Unexplained Change in Mental Status Sepsis Action Taken by Nursing Oxygen Flow Rate - Titration Pulse Oximetry Post Tiitration CONSTITUTIONAL/VITAL SIGNS: Reviewed / noted above. GENERAL: Non-toxic in appearance. INTEGUMENTARY: Warm, dry, and [place]. HEAD: Normocephalic. EYES: without scleral icterus or trauma. ENT/OROPHARYNX: clear and moist. LYMPHADENOPATHY/NECK: Is supple without lymphadenopathy or meningismus. RESPIRATORY: Clear to auscultation bilaterally. No increased work of breathing. CARDIOVASCULAR: Regular rate and rhythm. GI/ABDOMEN: Soft and nontender. No organomegaly or pulsatile mass. EXTREMITIES: Warm and well perfused. BACK: No CVA tenderness. NEUROLOGICAL: Intact without focal deficits. PSYCHIATRIC: normal affect. MUSCULOSKELETAL: Normally developed with good muscle tone. TRIAGE NURSING DOCUMENTATION REVIEWED. Course Administered Medications Sodium Chloride (Nss 1000ml) 1,000 mls @ 50 mls/hr IV .Q20H HAZEL Stop: 08/14/21 16:14 Last Admin: 07/15/21 17:13 Dose: 50 mls/hr Documented by: [id number] Discontinued Medications Aspirin (Aspirin 300 Mg Supp) 600 mg AL ONE ONE Stop: 07/15/21 16:52 Last Admin: 07/15/21 17:39 Dose: 600 mg Documented by: [id number] Ioversol (Optiray 320 125ml) 115 ml IV ONCE ONE Stop: 07/15/21 16:33 Last Admin: 07/15/21 16:32 Dose: 115 ml Documented by: [id number] Labetalol HCl (Labetalol Hcl Iv 5 Mg/Ml 20ml) 5 mg IV NOW STA Stop: 07/15/21 16:51 Last Admin: 07/15/21 17:50 Dose: 5 mg Documented by: [id number] Cosigned by: [id number] Morphine Sulfate (Morphine Sulfate 2 Mg/Ml Carp) 2 mg IV NOW STA Stop: 07/15/21 17:20 Last Admin: 07/15/21 17:35 Dose: 2 mg Documented by: [id number] Medical Decision Making Differential Diagnosis Differential includes acute coronary syndrome, myocardial infarction, CVA, TIA, anemia, infection, pneumonia, UTI, pyelonephritis, poor nutrition, dehydration, electrolyte disturbance,hypoglycemia. Medical Records Attestation: I reviewed the patient's medical records. Home Medications Current Medication List: was personally reviewed by me Laboratory Data Attestation: I reviewed the patient's lab results. Result diagrams: 07/15/21 16:34 07/15/21 16:34 Lab Results 07/15/21 07/15/21 07/15/21 Range/Units 16:34 16:34 16:34 WBC 8.64 (4.8-10.8) K/uL RBC 4.22 (4.2-5.4) M/uL Hgb 13.1 (12.0-16.0) g/dL Hct 41.1 (37-47) % MCV 97.4 (80-100) fL MCH 31.0 (25-34) pg MCHC 31.9 L (32-36) g/dL RDW Std Deviation 51.4 H (36.4-46.3) fL RDW Coeff of Alessandro 14.3 (11.5-14.5) % Plt Count 337 (130-400) K/uL MPV 9.8 (7.4-10.4) fL Immature Gran % (Auto) 0.2 % Neut % (Auto) 50.8 % Lymph % (Auto) 35.1 % Cross % (Auto) 10.1 % Eos % (Auto) 3.5 % Baso % (Auto) 0.3 % Neut # (Auto) 4.39 (1.4-6.5) K/uL Lymph # (Auto) 3.03 (1.2-3.4) K/uL Cross # (Auto) 0.87 H (0.11-0.59) K/uL Eos # (Auto) 0.30 (0-0.5) K/uL Baso # (Auto) 0.03 (0-0.2) K/uL Immature Gran # (Auto) 0.02 (0.00-0.02) K/uL PT 10.1 (9.0-12.0) Seconds INR 1.0 (0.9-1.1) APTT 28.8 (21.0-31.0) Seconds PTT Ratio 1.1 Sodium 136 (136-145) mmol/L Potassium 4.5 (3.5-5.1) mmol/L Chloride 101 (98-107) mmol/L Carbon Dioxide 27 (21-32) mmol/L Anion Gap 8 (3-11) BUN 17 (6-23) mg/dl Creatinine 0.79 (0.6-1.2) mg/dl Est Cr Clr Drug Dosing Not Reportable Est GFR ( Amer) 78.6 ml/min Est GFR (Non-Af Amer) 67.8 ml/min BUN/Creatinine Ratio 21.5 H (10-20) Glucose 99 (70-99(Fasting)) mg/dl Calcium 9.2 (8.5-10.1) mg/dl Magnesium 1.9 (1.7-2.4) mg/dl Total Bilirubin 0.3 (0.2-1.0) mg/dl AST 20 (13-39) U/L ALT 11 (7-52) U/L Alkaline Phosphatase 79 (34-104) U/L Troponin I < 0.03 (0-0.04) ng/ml Total Protein 7.1 (6.0-8.3) gm/dl Albumin 4.2 (3.4-5.0) gm/dl Globulin 2.9 (2.5-4.0) gm/dl Albumin/Globulin Ratio 1.4 (0.9-2) SARS-CoV-2, RNA, NAAT (NEGATIVE) 07/15/21 Range/Units 17:17 WBC (4.8-10.8) K/uL RBC (4.2-5.4) M/uL Hgb (12.0-16.0) g/dL Hct (37-47) % MCV (80-100) fL MCH (25-34) pg MCHC (32-36) g/dL RDW Std Deviation (36.4-46.3) fL RDW Coeff of Alessandro (11.5-14.5) % Plt Count (130-400) K/uL MPV (7.4-10.4) fL Immature Gran % (Auto) % Neut % (Auto) % Lymph % (Auto) % Cross % (Auto) % Eos % (Auto) % Baso % (Auto) % Neut # (Auto) (1.4-6.5) K/uL Lymph # (Auto) (1.2-3.4) K/uL Cross # (Auto) (0.11-0.59) K/uL Eos # (Auto) (0-0.5) K/uL Baso # (Auto) (0-0.2) K/uL Immature Gran # (Auto) (0.00-0.02) K/uL PT (9.0-12.0) Seconds INR (0.9-1.1) APTT (21.0-31.0) Seconds PTT Ratio Sodium (136-145) mmol/L Potassium (3.5-5.1) mmol/L Chloride (98-107) mmol/L Carbon Dioxide (21-32) mmol/L Anion Gap (3-11) BUN (6-23) mg/dl Creatinine (0.6-1.2) mg/dl Est Cr Clr Drug Dosing Est GFR ( Amer) ml/min Est GFR (Non-Af Amer) ml/min BUN/Creatinine Ratio (10-20) Glucose (70-99(Fasting)) mg/dl Calcium (8.5-10.1) mg/dl Magnesium (1.7-2.4) mg/dl Total Bilirubin (0.2-1.0) mg/dl AST (13-39) U/L ALT (7-52) U/L Alkaline Phosphatase (34-104) U/L Troponin I (0-0.04) ng/ml Total Protein (6.0-8.3) gm/dl Albumin (3.4-5.0) gm/dl Globulin (2.5-4.0) gm/dl Albumin/Globulin Ratio (0.9-2) SARS-CoV-2, RNA, NAAT NEGATIVE (NEGATIVE) Imaging Data Radiologist's Impression: Head CT 07/15/21 16:[address] OF THE BRAIN; CT ANGIOGRAM OF THE BRAIN; CT ANGIOGRAM OF THE NECK CLINICAL HISTORY: Change in mental status. Stroke like symptoms. COMPARISON STUDY: CT of the brain dated 05/17/2018. TECHNIQUE: Unenhanced axial CT scan of the brain is performed. Subsequently, following the IV administration of 115 of Optiray 320, CT angiogram of the head and neck was performed from the aortic arch to the vertex. Images are reviewed in the axial, sagittal, and coronal planes. 3-D MIPS images are created and assessed. IV contrast was administered without complication. All measurements were calculated based on NASCET criteria. A dose lowering technique was utilized adhering to the principles of ALARA. The unenhanced CT of the brain was performed twice due to motion artifact. CT DOSE: 2286.23 mGy.cm FINDINGS: Brain parenchyma: There is age-related involutional change noting [id number] subcortical and periventricular microangiopathic disease. There is no hemorrhage, mass effect, or evidence of acute territorial ischemia by CT criteria. There is no evidence of enhancing mass lesion on the angiogram phase images. The ventricles, sulci, and cisterns are prominent secondary to involutional change. Small chronic lacunar infarcts are noted in the left internal capsule an the left thalamus. Handley-white matter differentiation is pres erved. No extra-axial fluid collection is seen. A 9 mm extra-axial calcification along the high left frontal convexity is unchanged. Thoracic aorta: There is atherosclerotic calcification of the thoracic aorta. Visualized portions of the thoracic aorta are normal in caliber. The aortic arch demonstrates standard 3-vessel anatomy. Right carotid arterial system: The right common carotid artery is widely patent, as is the right internal carotid artery. Advanced atherosclerotic plaque is noted in the carotid bulb. This causes mild to moderate stenosis at the origin of the right external carotid artery. Left carotid arterial system: The left common carotid artery is widely patent, as are the left internal and external carotid arteries. Calcified plaque is noted in the carotid bulb. Vertebral arteries: The vertebral arteries are widely patent bilaterally and codominant. Subclavian arteries: Widely patent bilaterally. Intracranial vasculature: There is atherosclerotic calcification of the cavernous carotid and vertebral arteries. The internal carotid arteries are patent at the skull base, as are the anterior and middle cerebral arteries bilaterally. The vertebrobasilar system and posterior cerebral arteries are widely patent. The vertebral arteries are codominant. There is no aneurysm, high-grade stenosis, or focal vessel cut off seen throughout the intracranial circulation. Jugular veins: Patent bilaterally. Dural sinuses: Patent. Lung apices: Mild emphysematous change is noted in the upper lobes. Upper lobe lung parenchyma is otherwise clear as visualized. Soft tissues: The visualized pharyngeal soft tissues are normal in appearance noting angiographic phase technique. The oropharyngeal airway appears widely patent. The salivary and thyroid glands are normal in appearance. No cervical lymphadenopathy is seen. Skeletal structures: The skeletal structures are osteopenic. The calvarium alfredo ears intact. The cervical spine is maintained noting multilevel spondylosis. No lytic or blastic lesion is seen. Arthritic change is seen in the shoulders, right greater than left. Bursal fluid surrounds the right shoulder. Orbits: The bony orbits are intact. Orbital contents are normal as visualized noting bilateral ocular lens implants. Sinuses and mastoids: The paranasal sinuses are clear. The mastoid air cells are well pneumatized. IMPRESSION: 1. There is no hemorrhage, mass effect, or evidence of acute territorial ischemia by CT criteria. 2. Unremarkable CT angiogram of the brain. 3. There is mild to moderate stenosis at the origin of the right external carotid artery. 4. Otherwise unremarkable CT angiogram of the neck. 5. Emphysema. 6. Additional findings as above. ACT 112: Negative or not required by law. Electronically signed by: Austen Aguilar M.D. 07/15/2021 4:43 PM Head CTA 07/15/21 16:[address] OF THE BRAIN; CT ANGIOGRAM OF THE BRAIN; CT ANGIOGRAM OF THE NECK CLINICAL HISTORY: Change in mental status. Stroke like symptoms. COMPARISON STUDY: CT of the brain dated 05/17/2018. TECHNIQUE: Unenhanced axial CT scan of the brain is performed. Subsequently, following the IV administration of 115 of Optiray 320, CT angiogram of the head and neck was performed from the aortic arch to the vertex. Images are reviewed in the axial, sagittal, and coronal planes. 3-D MIPS images are created and assessed. IV contrast was administered without complication. All measurements were calculated based on NASCET criteria. A dose lowering technique was utilized adhering to the principles of ALARA. The unenhanced CT of the brain was performed twice due to motion artifact. CT DOSE: 2286.23 mGy.cm FINDINGS: Brain parenchyma: There is age-related involutional change noting [id number] subcortical and periventricular microangiopathic disease. There is no hemorrhage, mass effect, or evidence of acute territorial ischemia by CT criteria. There is no evidence of enhancing mass lesion on the angiogram phase images. The ventricles, sulci, and cisterns are prominent secondary to involutional change. Small chronic lacunar infarcts are noted in the left internal capsule an the left thalamus. Handley-white matter differentiation is preserved. No extra-axial fluid collection is seen. A 9 mm extra-axial calcification along the high left frontal convexity is unchanged. Thoracic aorta: There is atherosclerotic calcification of the thoracic aorta. Visualized portions of the thoracic aorta are normal in caliber. The aortic arch demonstrates standard 3-vessel anatomy. Right carotid arterial system: The right common carotid artery is widely patent, as is the right internal carotid artery. Advanced atherosclerotic plaque is noted in the carotid bulb. This causes mild to moderate stenosis at the origin of the right external carotid artery. Left carotid arterial system: The left common carotid artery is widely patent, as are the left internal and external carotid arteries. Calcified plaque is noted in the carotid bulb. Vertebral arteries: The vertebral arteries are widely patent bilaterally and codominant. Subclavian arteries: Widely patent bilaterally. Intracranial vasculature: There is atherosclerotic calcification of the cavernous carotid and vertebral arteries. The internal carotid arteries are patent at the skull base, as are the anterior and middle cerebral arteries bilaterally. The vertebrobasilar system and posterior cerebral arteries are widely patent. The vertebral arteries are codominant. There is no aneurysm, high-grade stenosis, or focal vessel cut off seen throughout the intracranial circulation. Jugular veins: Patent bilaterally. Dural sinuses: Patent. Lung apices: Mild emphysematous change is noted in the upper lobes. Upper lobe lung parenchyma is otherwise clear as visualized. Soft tissues: The visualized pharyngeal soft tissues are normal in appearance noting angiographic phase technique. The oropharyngeal airway appears widely patent. The salivary and thyroid glands are normal in appearance. No cervical lymphadenopathy is seen. Skeletal structures: The skeletal structures are osteopenic. The calvarium appears intact. The cervical spine is maintained noting multilevel spondylosis. No lytic or blastic lesion is seen. Arthritic change is seen in the shoulders, right greater than left. Bursal fluid surrounds the right shoulder. Orbits: The bony orbits are intact. Orbital contents are normal as visualized noting bilateral ocular lens implants. Sinuses and mastoids: The paranasal sinuses are clear. The mastoid air cells are well pneumatized. IMPRESSION: 1. There is no hemorrhage, mass effect, or evidence of acute territorial ischemia by CT criteria. 2. Unremarkable CT angiogram of the brain. 3. There is mild to moderate stenosis at the origin of the right external carotid artery. 4. Otherwise unremarkable CT angiogram of the neck. 5. Emphysema. 6. Additional findings as above. ACT 112: Negative or not required by law. Electronically signed by: Austen Aguilar M.D. 07/15/2021 4:43 PM Neck CTA 07/15/21 16:[address] OF THE BRAIN; CT ANGIOGRAM OF THE BRAIN; CT ANGIOGRAM OF THE NECK CLINICAL HISTORY: Change in mental status. Stroke like symptoms. COMPARISON STUDY: CT of the brain dated 05/17/2018. TECHNIQUE: Unenhanced axial CT scan of the brain is performed. Subsequently, following the IV administration of 115 of Optiray 320, CT angiogram of the head and neck was performed from the aortic arch to the vertex. Images are reviewed in the axial, sagittal, and coronal planes. 3-D MIPS images are created and assessed. IV contrast was administered without complication. All measurements were calculated based on NASCET criteria. A dose lowering technique was utilized adhering to the principles of ALARA. The unenhanced CT of the brain was performed twice due to motion artifact. CT DOSE: 2286.23 mGy.cm FINDINGS: Brain parenchyma: There is age-related involutional change noting [id number] subcortical and periventricular microangiopathic disease. There is no hemorrhage, mass effect, or evidence of acute territorial ischemia by CT criteria. There is no evidence of enhancing mass lesion on the angiogram phase images. The ventricles, sulci, and cisterns are prominent secondary to involutional change. Small chronic lacunar infarcts are noted in the left internal capsule an the left thalamus. Handley-white matter differentiation is preserved. No extra-axial fluid collection is seen. A 9 mm extra-axial calcification along the high left frontal convexity is unchanged. Thoracic aorta: There is atherosclerotic calcification of the thoracic aorta. Visualized portions of the thoracic aorta are normal in caliber. The aortic arch demonstrates standard 3-vessel anatomy. Right carotid arterial system: The right common carotid artery is widely patent, as is the right internal carotid artery. Advanced atherosclerotic plaque is noted in the carotid bulb. This causes mild to moderate stenosis at the origin of the right external carotid artery. Left carotid arterial system: The left common carotid artery is widely patent, as are the left internal and external carotid arteries. Calcified plaque is noted in the carotid bulb. Vertebral arteries: The vertebral arteries are widely patent bilaterally and codominant. Subclavian arteries: Widely patent bilaterally. Intracranial vasculature: There is atherosclerotic calcification of the cavernous carotid and vertebral arteries. The internal carotid arteries are patent at the skull base, as are the anterior and middle cerebral arteries bilaterally. The vertebrobasilar system and posterior cerebral arteries are widely patent. The vertebral arteries are codominant. There is no aneurysm, high-grade stenosis, or focal vessel cut off seen throughout the intracranial circulation. Jugular veins: Patent bilaterally. Dural sinuses: Patent. Lung apices: Mild emphysematous change is noted in the upper lobes. Upper lobe lung parenchyma is otherwise clear as visualized. Soft tissues: The visualized pharyngeal soft tissues are normal in appearance noting angiographic phase technique. The oropharyngeal airway appears widely patent. The salivary and thyroid glands are normal in appearance. No cervical lymphadenopathy is seen. Skeletal structures: The skeletal structures are osteopenic. The calvarium appears intact. The cervical spine is maintained noting multilevel spondylosis. No lytic or blastic lesion is seen. Arthritic change is seen in the shoulders, right greater than left. Bursal fluid surrounds the right shoulder. Orbits: The bony orbits are intact. Orbital contents are normal as visualized noting bilateral ocular lens implants. Sinuses and mastoids: The paranasal sinuses are clear. The mastoid air cells are well pneumatized. IMPRESSION: 1. There is no hemorrhage, mass effect, or evidence of acute territorial ischemia by CT criteria. 2. Unremarkable CT angiogram of the brain. 3. There is mild to moderate stenosis at the origin of the right external carotid artery. 4. Otherwise unremarkable CT angiogram of the neck. 5. Emphysema. 6. Additional findings as above. ACT 112: Negative or not required by law. Electronically signed by: Austen Aguilar M.D. 07/15/2021 4:43 PM ECG Data Attestation: I personally reviewed and interpreted this ECG as follows: Additional Comments: Twelve-lead EKG: Per my interpretation shows a sinus tach at a rate of 118. No ST elevation. No PVCs. Normal QTC. MDM Narrative 85-year-old female presents with expressive aphasia. Her aphasia represents about 50% of her words. No other focal findings on exam. Stroke scale was 1. I did speak with Dr. Hicks from stroke neurology from [facility]. Patient is not felt to be a candidate for thrombolytics based on various criteria. She recommended blood pressure control to keep the blood pressure less than 200 systolic. Rectal aspirin was also recommended although possibly not long-term depending on the patient's GI bleed risk factors. She also recommended IV fluids. I did speak to the hospitalist. They will see the patient for further inpatient evaluation and care. The patient was given aspirin rectally. She was also given some IV morphine for her shoulder pain as well as some IV fluids. Labetalol was not given as the patient's blood pressure came down after pain management. Impression & Plan Acute cerebrovascular accident (CVA) Discharge Plan Visit Data Chief Complaint: Stroke/CVA Symptoms Stated Complaint: STROKE ALERT ED Provider: Magan Walton Discharge Problem: Acute cerebrovascular accident (CVA) Patient Disposition: Admitted As Inpatient Forms Stand Alone Forms: My [facility] Prescriptions Prescriptions: No Action loratadine [Claritin] 10 mg tablet 10 mg PO QAM RF: 0 escitalopram oxalate [Lexapro] 10 mg tablet 10 mg PO HS RF: 0 vitamins A,C,[id number] [PreserVision AREDS] [id number],320-226-200 [id number] capsule 1 cap PO BID RF: 0 meloxicam [Mobic] 15 mg tablet 15 mg PO DAILY Qty: 30 RF: 3 calcium carbonate-vitamin D3 [Calcium 500 + D] 500 mg(1,250mg) -200 unit Tablet 1 tab PO DAILY RF: 0 calcium polycarbophil 625 mg Tablet 625 mg PO DAILY RF: 0 lisinopril 40 mg Tablet 40 mg PO DAILY RF: 0 alprazolam 0.5 mg tablet 0.5 mg PO Q6H PRN (Reason: Anxiety/SLEEP) RF: 0 trazodone 50 mg Tablet 50 mg PO HS PRN (Reason: Sleep) RF: 0 acetaminophen [Tylenol Extra Strength] 500 mg Tablet 1,000 mg PO Q OTHER DAY RF: 0 albuterol sulfate 90 mcg/actuation Hfa Aerosol Inhaler 2 puff INHALATION Q6H PRN (Reason: Shortness Of Breath Or Wheezing) RF: 0 Centrum Silver 0.4-300-250 mg-mcg-mcg Tablet 1 tab PO DAILY RF: 0 cholecalciferol (vitamin D3) [Vitamin D3] 50 mcg (2,000 unit) Capsule 50 mcg PO DAILY RF: 0 Probiotic 10 billion cell Capsule 10,000 mmu cells PO DAILY RF: 0 guaifenesin [Mucinex] 600 mg Tablet Extended Release 12hr 600 mg PO Q12H PRN (Reason: Congestion) RF: 0 Referrals Referrals: Timur Rabago DO [Primary Care Provider] -
[2021-07-15 17:14] LABS: Alanine Aminotransferase 11 U/L (7-52); Albumin Globulin Ratio 1.4 (0.9-2); Albumin Level 4.2 gm/dl (3.4-5.0); Alkaline Phosphatase 79 U/L (34-104); Anion Gap 8 (3-11); Aspartate Aminotransferase 20 U/L (13-39); BUN Creatinine Ratio 21.5 (10-20); Bilirubin,Total 0.3 mg/dl (0.2-1.0); Blood Urea Nitrogen 17 mg/dl (6-23); Calcium 9.2 mg/dl (8.5-10.1); Carbon Dioxide 27 mmol/L (21-32); Chloride 101 mmol/L (98-107); Est GFR (African American) 78.6 ml/min; Est GFR (Non-African American) 67.8 ml/min; Globulin 2.9 gm/dl (2.5-4.0); Glucose 99 mg/dl (70-99(Fasting)); Magnesium 1.9 mg/dl (1.7-2.4); Potassium 4.5 mmol/L (3.5-5.1); Sodium 136 mmol/L (136-145); Total Protein 7.1 gm/dl (6.0-8.3); Troponin I < 0.03 ng/ml (0-0.04)
[2021-07-15] MEDS ORDERED: MoRPHine SULFATE 2 MG/ML CARP IV STA (17:19)
--- NOTE | 2021-07-15 17:27 | History & Physical Report ---
Date of Service July 15, 2021 Assessment & Plan (1) Expressive aphasia: (2) Hypertension: (3) Asthma: (4) Anxiety and depression: Plan: This is an 85-year-old female from [facility] living with PMH of hypertension, history of TIA, dyslipidemia, history of breast cancer, asthma, R rotator cuff arthropathy, depression, history of PE and other medical problems listed below who presents as a stroke alert from [facility] this afternoon. Expressive aphasia Developed this afternoon around [address] Ct head, CTA head/neck without acute changes Brain MRI pending Given aspirin [place], statin ordered for AM History of GI bleed to consider with antiplatelet therapy Has h/o TIA and patent foramen ovale per chart review Keep NPO until able to pass dysphagia screen, speech evaluates Routine neuro consult, PT/OT consultations, neuro checks per protocol Allow for permissive HTN for first 24-48 hrs unless BP >220/120 HTN Holding lisinopril to allow for permissive HTN Asthma Stable; home inhalers PRN Anxiety Depression Continue SSRI tomorrow Chronic rotator cuff arthropathy Follows with ortho surgery at [facility]; conservative mgmt with subacromial injection on 06/19/20 DVT Ppx: SQ heparin Code status: DNR per POLST form, copy on paper chart PCP: Amanda Rabago Dispo: Admitted to PCU Patient seen in collaboration with Dr. Blackwell. Please see addendum. History of Present Illness Chief Complaint: Expressive aphasia Primary Care Provider: Timur Rabago, This is an 85-year-old female from [facility] living with PMH of hypertension, history of TIA, dyslipidemia, history of breast cancer, asthma, R rotator cuff arthropathy, depression, history of PE and other medical problems listed below who presents as a stroke alert from [facility] this afternoon. Was reportedly playing bingo with friends when she had difficulty "getting her words out". States she could think of them but could just not express them. Denies any focal weakness or difficulty swallowing. Was brought to the hospital for further evaluation and evaluate as a stroke alert. Does have history of a GI bleed in the past. Per [facility] [place], not felt to be a candidate for thrombolytics. Was given aspirin rectally. BP initially elevated but thought to be due in part to pain from chronic right shoulder injury. BP improved to 175/96 with administration of 2 mg of morphine. Patient continues to have difficulty with word finding. No fever, chills, headache, lightheadedness, chest pain, shortness of breath, nausea, vomiting, abdominal pain, dysuria, diarrhea constipation. Allergies Allergy/AdvReac Type Severity Reaction Status Date / Time Penicillins Allergy Severe ANAPHYLAXIS--HEART Verified 07/15/21 16:31 STOPPED denosumab Allergy Intermediate bone pain Verified 07/15/21 16:31 mouse protein Allergy Intermediate bone pain Verified 07/15/21 16:31 cephalexin Allergy Mild RASH Verified 07/15/21 16:31 nitrofurazone Allergy Unknown PT NOT SURE Verified 07/15/21 16:31 nystatin Allergy Unknown PT NOT SURE Verified 07/15/21 16:31 codeine AdvReac Intermediate N/V - can Verified 07/15/21 16:31 take Oxycodone erythromycin base AdvReac Intermediate GI UPSET Verified 07/15/21 16:31 narcotics AdvReac Intermediate extreme Uncoded 07/15/21 16:31 drowsy and nausea Home Medications Medication Instructions Recorded Confirmed Type escitalopram oxalate 10 mg tablet 10 mg PO DAILY 07/29/18 07/15/21 History (Lexapro) loratadine 10 mg tablet (Claritin) 10 mg PO QAM 07/29/18 07/15/21 History vitamins A,C,Z-pajv-kzumfh 14,320 1 cap PO BID 07/29/18 07/15/21 History unit-226 mg-200 unit capsule (PreserVision AREDS) calcium carbonate 500 mg-vitamin 1 tab PO DAILY 08/29/19 07/15/21 History D3 5 mcg (200 unit) tablet (Calcium 500 + D) meloxicam 15 mg tablet (Mobic) 15 mg PO DAILY #30 tab 12/25/20 07/15/21 Rx alprazolam 0.5 mg tablet 0.5 mg PO Q6H PRN 03/14/21 07/15/21 History calcium polycarbophil 625 mg tablet 625 mg PO DAILY 03/14/21 07/15/21 History lisinopril 40 mg tablet 40 mg PO DAILY 03/14/21 07/15/21 History Lactobacillus acidophilus 10 10,000 mmu cells PO DAILY 07/15/21 07/15/21 History billion cell capsule (Probiotic) acetaminophen 500 mg tablet 1,000 mg PO Q OTHER DAY 07/15/21 07/15/21 History (Tylenol Extra Strength) albuterol sulfate 90 mcg/actuation 2 puff INHALATION Q6H PRN 07/15/21 07/15/21 History aerosol inhaler cholecalciferol (vitamin D3) 50 50 mcg PO DAILY 07/15/21 07/15/21 History mcg (2,000 unit) capsule (Vitamin D3) guaifenesin 600 mg tablet, 600 mg PO Q12H PRN 07/15/21 07/15/21 History extended release 12 hr (Mucinex) twspcxlr-xcg-tbqut acid 0.4 1 tab PO DAILY 07/15/21 07/15/21 History mg-lycopene 300 mcg-lutein 250 mcg tablet (Centrum Silver) trazodone 50 mg tablet 50 mg PO HS PRN 07/15/21 07/15/21 History Past Med/Surg History Medical History (Updated 07/15/21 @ 20:13 by Consuelo Cohn PA-C) Anxiety and depression Asthma hasn't used PRN INH in over a year Cataract Essential tremor Hearing deficit Hip problem LEFT History of breast cancer s/p left mastectomy + chemo/radiation History of DVT (deep vein thrombosis) WITHIN LAST 10 YRS History of hypothyroidism History of pulmonary embolism WITHIN LAST 10 YRS History of skin cancer removed History of stomach ulcers Hypertension Intracranial meningioma (Unknown) pt could not confirm. states "there was something small on my brain that wasn't supposed to be there. nobody was really worried about it." says it was found "years ago" Limb alert care status LUE Osteoarthritis Osteoporosis Patent foramen ovale PT DENIES Rotator cuff tear, right Rupture of hip abductor tendon TMJ click Surgical History History of appendectomy History of breast biopsy History of colonoscopy History of esophagogastroduodenoscopy (EGD) History of left hip replacement History of right cataract surgery Slow to wake up after anesthesia Status post left mastectomy HX OF Status post total knee replacement HX OF - BL Family History (Updated 07/15/21 @ 19:49 by Consuelo Cohn PA-C) Father Diabetes Social History Smoking Status: Never smoker Second Hand Exposure: Yes; Hx Alcohol Use: No Hx Substance Use: No Preferred Language: Bulgarian Communication Ability: Impaired Communication Ability Comment: pt has expressive aphasia 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 Physical Exam Physical Exam: General Appearance: WD/WN, vitals as above, NAD, sitting up in bed, pleasant, anxious Head: normocephalic, atraumatic Eyes: normal inspection, PERRL, conjunctivae normal, anicteric sclerae ENT: external ear and nose normal, oropharynx normal Neck: normal visual inspection, trachea midline, no thyromegaly Respiratory: normal respiratory effort, lungs clear to auscultation, no wheeze, rales, rhonchi. No accessory muscle use Cardiovascular: tachycardic rate, regular rhythm, no murmur, normal peripheral pulses, no BLE edema. Vessels: no JVD Chest: normal inspection of chest Abdomen/GI: normal bowel sounds, soft, nontender, no hepatosplenomegaly Extremities/Musculoskeletal: + chronic RUE pain and reduced ROM, tremor. No cyanosis or clubbing, extremities motor strength 5/5 Neurologic: PERRL, EOMI, accommodation nl, no face palsy, + expressive aphasia, CN's II-XI intact bilaterally and moves all extremities Psychiatric: A+Ox3, anxious Skin: no rashes, normal color, warm/dry Results & Data Results & Data ([facility]) Vital Signs (Past 12 Hours) Vital Signs Temp Pulse Pulse Resp BP BP Pulse Ox 07/15/21 17:20 16 100 07/15/21 17:10 117 H 16 99 07/15/21 17:06 120 H 16 99 07/15/21 16:58 112 H 24 197/92 H 100 07/15/21 16:55 89 L 07/15/21 16:17 36.9 C 123 H 24 204/117 H 92 Laboratory Results Short CBC 07/15/21 Range/Units 16:34 WBC 8.64 (4.8-10.8) K/uL Hgb 13.1 (12.0-16.0) g/dL Hct 41.1 (37-47) % Plt Count 337 (130-400) K/uL BMP 07/15/21 16:34 Sodium 136 Potassium 4.5 Chloride 101 Carbon Dioxide 27 BUN 17 Creatinine 0.79 Glucose 99 Calcium 9.2 Cardiac Enzymes 07/15/21 Range/Units 16:34 Troponin I < 0.03 (0-0.04) ng/ml Liver Function 07/15/21 Range/Units 16:34 Total Bilirubin 0.3 (0.2-1.0) mg/dl AST 20 (13-39) U/L ALT 11 (7-52) U/L Alkaline Phosphatase 79 (34-104) U/L Albumin 4.2 (3.4-5.0) gm/dl Diagnostic Findings Head CT 07/15/21 16:[address] OF THE BRAIN; CT ANGIOGRAM OF THE BRAIN; CT ANGIOGRAM OF THE NECK CLINICAL HISTORY: Change in mental status. Stroke like symptoms. COMPARISON STUDY: CT of the brain dated 05/17/2018. TECHNIQUE: Unenhanced axial CT scan of the brain is performed. Subsequently, following the IV administration of 115 of Optiray 320, CT angiogram of the head and neck was performed from the aortic arch to the vertex. Images are reviewed in the axial, sagittal, and coronal planes. 3-D MIPS images are created and assessed. IV contrast was administered without complication. All measurements were calculated based on NASCET criteria. A dose lowering technique was utilized adhering to the principles of ALARA. The unenhanced CT of the brain was performed twice due to motion artifact. CT DOSE: 2286.23 mGy.cm FINDINGS: Brain parenchyma: There is age-related involutional change noting zzli-yj-zdlvprtn subcortical and periventricular microangiopathic disease. There is no hemorrhage, mass effect, or evidence of acute territorial ischemia by CT criteria. There is no evidence of enhancing mass lesion on the angiogram phase images. The ventricles, sulci, and cisterns are prominent secondary to involutional change. Small chronic lacunar infarcts are noted in the left internal capsule an the left thalamus. Handley-white matter differentiation is preserved. No extra-axial fluid collection is seen. A 9 mm extra-axial calcification along the high left frontal convexity is unchanged. Thoracic aorta: There is atherosclerotic calcification of the thoracic aorta. Visualized portions of the thoracic aorta are normal in caliber. The aortic arch demonstrates standard 3-vessel anatomy. Right carotid arterial system: The right common carotid artery is widely patent, as is the right internal carotid artery. Advanced atherosclerotic plaque is noted in the carotid bulb. This causes mild to moderate stenosis at the origin of the right external carotid artery. Left carotid arterial system: The left common carotid artery is widely patent, as are the left internal and external carotid arteries. Calcified plaque is noted in the carotid bulb. Vertebral arteries: The vertebral arteries are widely patent bilaterally and codominant. Subclavian arteries: Widely patent bilaterally. Intracranial vasculature: There is atherosclerotic calcification of the cavernous carotid and vertebral arteries. The internal carotid arteries are patent at the skull base, as are the anterior and middle cerebral arteries bilaterally. The vertebrobasilar system and posterior cerebral arteries are widely patent. The vertebral arteries are codominant. There is no aneurysm, high-grade stenosis, or focal vessel cut off seen throughout the intracranial circulation. Jugular veins: Patent bilaterally. Dural sinuses: Patent. Lung apices: Mild emphysematous change is noted in the upper lobes. Upper lobe lung parenchyma is otherwise clear as visualized. Soft tissues: The visualized pharyngeal soft tissues are normal in appearance noting angiographic phase technique. The oropharyngeal airway appears widely patent. The salivary and thyroid glands are normal in appearance. No cervical lymphadenopathy is seen. Skeletal structures: The skeletal structures are osteopenic. The calvarium appears intact. The cervical spine is maintained noting multilevel spondylosis. No lytic or blastic lesion is seen. Arthritic change is seen in the shoulders, right greater than left. Bursal fluid surrounds the right shoulder. Orbits: The bony orbits are intact. Orbital contents are normal as visualized noting bilateral ocular lens implants. Sinuses and mastoids: The paranasal sinuses are clear. The mastoid air cells are well pneumatized. IMPRESSION: 1. There is no hemorrhage, mass effect, or evidence of acute territorial ischemia by CT criteria. 2. Unremarkable CT angiogram of the brain. 3. There is mild to moderate stenosis at the origin of the right external carotid artery. 4. Otherwise unremarkable CT angiogram of the neck. 5. Emphysema. 6. Additional findings as above. ACT 112: Negative or not required by law. Electronically signed by: Austen Aguilar M.D. 07/15/2021 4:43 PM Head CTA 07/15/21 16:[address] OF THE BRAIN; CT ANGIOGRAM OF THE BRAIN; CT ANGIOGRAM OF THE NECK CLINICAL HISTORY: Change in mental status. Stroke like symptoms. COMPARISON STUDY: CT of the brain dated 05/17/2018. TECHNIQUE: Unenhanced axial CT scan of the brain is performed. Subsequently, following the IV administration of 115 of Optiray 320, CT angiogram of the head and neck was performed from the aortic arch to the vertex. Images are reviewed in the axial, sagittal, and coronal planes. 3-D MIPS images are created and assessed. IV contrast was administered without complication. All measurements were calculated based on NASCET criteria. A dose lowering technique was utilized adhering to the principles of ALARA. The unenhanced CT of the brain was performed twice due to motion artifact. CT DOSE: 2286.23 mGy.cm FINDINGS: Brain parenchyma: There is age-related involutional change noting mi uq-qt-izmxzlvm subcortical and periventricular microangiopathic disease. There is no hemorrhage, mass effect, or evidence of acute territorial ischemia by CT criteria. There is no evidence of enhancing mass lesion on the angiogram phase images. The ventricles, sulci, and cisterns are prominent secondary to involutional change. Small chronic lacunar infarcts are noted in the left internal capsule an the left thalamus. Handley-white matter differentiation is preserved. No extra-axial fluid collection is seen. A 9 mm extra-axial calcification along the high left frontal convexity is unchanged. Thoracic aorta: There is atherosclerotic calcification of the thoracic aorta. Visualized portions of the thoracic aorta are normal in caliber. The aortic arch demonstrates standard 3-vessel anatomy. Right carotid arterial system: The right common carotid artery is widely patent, as is the right internal carotid artery. Advanced atherosclerotic plaque is noted in the carotid bulb. This causes mild to moderate stenosis at the origin of the right external carotid artery. Left carotid arterial system: The left common carotid artery is widely patent, as are the left internal and external carotid arteries. Calcified plaque is noted in the carotid bulb. Vertebral arteries: The vertebral arteries are widely patent bilaterally and codominant. Subclavian arteries: Widely patent bilaterally. Intracranial vasculature: There is atherosclerotic calcification of the cavernous carotid and vertebral arteries. The internal carotid arteries are patent at the skull base, as are the anterior and middle cerebral arteries bilaterally. The vertebrobasilar system and posterior cerebral arteries are widely patent. The vertebral arteries are codominant. There is no aneurysm, high-grade stenosis, or focal vessel cut off seen throughout the intracranial circulation. Jugular veins: Patent bilaterally. Dural sinuses: Patent. Lung apices: Mild emphysematous change is noted in the upper lobes. Upper lobe lung parenchyma is otherwise clear as visualized. Soft tissues: The visualized pharyngeal soft tissues are normal in appearance noting angiographic phase technique. The oropharyngeal airway appears widely patent. The salivary and thyroid glands are normal in appearance. No cervical lymphadenopathy is seen. Skeletal structures: The skeletal structures are osteopenic. The calvarium appea rs intact. The cervical spine is maintained noting multilevel spondylosis. No lytic or blastic lesion is seen. Arthritic change is seen in the shoulders, right greater than left. Bursal fluid surrounds the right shoulder. Orbits: The bony orbits are intact. Orbital contents are normal as visualized noting bilateral ocular lens implants. Sinuses and mastoids: The paranasal sinuses are clear. The mastoid air cells are well pneumatized. IMPRESSION: 1. There is no hemorrhage, mass effect, or evidence of acute territorial ischemia by CT criteria. 2. Unremarkable CT angiogram of the brain. 3. There is mild to moderate stenosis at the origin of the right external carotid artery. 4. Otherwise unremarkable CT angiogram of the neck. 5. Emphysema. 6. Additional findings as above. ACT 112: Negative or not required by law. Electronically signed by: Austen Aguilar M.D. 07/15/2021 4:43 PM Neck CTA 07/15/21 16:[address] OF THE BRAIN; CT ANGIOGRAM OF THE BRAIN; CT ANGIOGRAM OF THE NECK CLINICAL HISTORY: Change in mental status. Stroke like symptoms. COMPARISON STUDY: CT of the brain dated 05/17/2018. TECHNIQUE: Unenhanced axial CT scan of the brain is performed. Subsequently, following the IV administration of 115 of Optiray 320, CT angiogram of the head and neck was performed from the aortic arch to the vertex. Images are reviewed in the axial, sagittal, and coronal planes. 3-D MIPS images are created and assessed. IV contrast was administered without complication. All measurements were calculated based on NASCET criteria. A dose lowering technique was utilized adhering to the principles of ALARA. The unenhanced CT of the brain was performed twice due to motion artifact. CT DOSE: 2286.23 mGy.cm FINDINGS: Brain parenchyma: There is age-related involutional change noting qevb-dm-cdytnjau subcortical and periventricular microangiopathic disease. There is no hemorrhage, mass effect, or evidence of acute territorial ischemia by CT criteria. There is no evidence of enhancing mass lesion on the angiogram phase images. The ventricles, sulci, and cisterns are prominent secondary to involutional change. Small chronic lacunar infarcts are noted in the left internal capsule an the left thalamus. Handley-white matter differentiation is preserved. No extra-axial fluid collection is seen. A 9 mm extra-axial calci fication along the high left frontal convexity is unchanged. Thoracic aorta: There is atherosclerotic calcification of the thoracic aorta. Visualized portions of the thoracic aorta are normal in caliber. The aortic arch demonstrates standard 3-vessel anatomy. Right carotid arterial system: The right common carotid artery is widely patent, as is the right internal carotid artery. Advanced atherosclerotic plaque is noted in the carotid bulb. This causes mild to moderate stenosis at the origin of the right external carotid artery. Left carotid arterial system: The left common carotid artery is widely patent, as are the left internal and external carotid arteries. Calcified plaque is noted in the carotid bulb. Vertebral arteries: The vertebral arteries are widely patent bilaterally and codominant. Subclavian arteries: Widely patent bilaterally. Intracranial vasculature: There is atherosclerotic calcification of the cavernous carotid and vertebral arteries. The internal carotid arteries are patent at the skull base, as are the anterior and middle cerebral arteries bilaterally. The vertebrobasilar system and posterior cerebral arteries are widely patent. The vertebral arteries are codominant. There is no aneurysm, high-grade stenosis, or focal vessel cut off seen throughout the intracranial circulation. Jugular veins: Patent bilaterally. Dural sinuses: Patent. Lung apices: Mild emphysematous change is noted in the upper lobes. Upper lobe lung parenchyma is otherwise clear as visualized. Soft tissues: The visualized pharyngeal soft tissues are normal in appearance noting angiographic phase technique. The oropharyngeal airway appears widely patent. The salivary and thyroid glands are normal in appearance. No cervical lymphadenopathy is seen. Skeletal structures: The skeletal structures are osteopenic. The calvarium appears intact. The cervical spine is maintained noting multilevel spondylosis. No lytic or blastic lesion is seen. Arthritic change is seen in the shoulders, right greater than left. Bursal fluid surrounds the right shoulder. Orbits: The bony orbits are intact. Orbital contents are normal as visualized noting bilateral ocular lens implants. Sinuses and mastoids: The paranasal sinuses are clear. The mastoid air cells are well pneumatized. IMPRESSION: 1. There is no hemorrhage, mass effect, or evidence of acute territorial i schemia by CT criteria. 2. Unremarkable CT angiogram of the brain. 3. There is mild to moderate stenosis at the origin of the right external carotid artery. 4. Otherwise unremarkable CT angiogram of the neck. 5. Emphysema. 6. Additional findings as above. ACT 112: Negative or not required by law. Electronically signed by: Austen Aguilar M.D. 07/15/2021 4:43 PM ECG Additional Comments: Sinus tachycardia at 118, nonspecific ST and T wave abnormalities Supervising Physician Co-Signing Physician Notes I have seen and examined the patient and have discussed the case with the provider above. I agree with the assessment and plan as stated. 85 yo resident of [facility] presents with stroke-like symptoms. Brain MRI reveals small chronic lacunar infarcts in the left thalamus and the left cerebellar he misphere, but no acute abnormality can be seen on the imaging. Angiograms of head and neck are unremarkable, also. She is currently articulating her words well but has some difficulty with word finding, especially when it comes to describing her right arm which she reports is limited and very sore. She is guarding this arm and winces in pain wtih each BP measurement that is taken. She has restricted ROM. She is oriented x 3 and able to answer most questions correctly. Physical exam reveals a WNWD elderly woman in [facility], CN 2-12 intact, oriented, speech is normal, some word finding difficulty observed with frustration apparent, moving extremities equally except for her right arm with is fully straight by her side with limited movement in all planes and limited bending at the elbow. Lungs are CTAB and CV exam reveals S1/2 heard without m/g/r. No peripheral edema and sensation reportedly intact. Extremities are warm and well perfused. Patellar DTR 2+ bilaterally. Gait not assessed as she is a fall risk. Cont with aspirin/statin. TTE in am, speech PT and OT evaluation and neuro consulted. DO Rishi
--- NOTE | 2021-07-15 19:52 | Magnetic Resonance Report ---
MRI OF THE BRAIN WITHOUT IV CONTRAST CLINICAL HISTORY: Strokelike symptoms. Aphasia. COMPARISON STUDY: CT of the brain dated 07/15/2021. TECHNIQUE: MRI of the brain was performed utilizing various T1 and T2-weighted sequences in the axial , sagittal, and coronal planes. IV contrast was not administered for this examination. FINDINGS: Brain parenchyma: There is age-related involutional change noting moderate subcortical and periventri cular microangiopathic disease. There is no hemorrhage or mass effect. There is no restricted diffusi on to suggest acute ischemia. There are small chronic lacunar infarcts in the left thalamus and the l eft cerebellar hemisphere. Handley-white matter differentiation is preserved. No extra-axial fluid colle ction is seen. The cerebellar tonsils are normal in configuration. Ventricles, sulci, and cisterns: Prominent secondary to involutional change. Pituitary and sella: Unremarkable. Intracranial vasculature: Normal flow voids are maintained at the skull base. Orbits: The bony orbits are grossly intact. Orbital contents are normal in appearance noting bilatera l ocular lens implants. Sinuses and mastoids: Clear. Calvarium: Unremarkable. Cervical cord: Partially visualized cervical spinal cord is normal in morphology and signal intensity . IMPRESSION: No acute intracranial abnormality. ACT 112: Negative or not required by law. Electronically signed by: Austen Aguilar M.D. 07/15/2021 7:51 PM
[2021-07-15] MEDS ORDERED: ACETAMINOPHEN 1,000 MG/100 ML VIAL IV PRN (20:20)
[2021-07-15] MEDS ORDERED: PHARMACIST DISCHARGE MED REC CONSULT PRN (20:33)
[2021-07-15] MEDS ORDERED: ALPRAZolam 0.5 MG TABLET PO PRN (20:33)
[2021-07-15] MEDS ORDERED: ALBUTEROL HFA 8 GM INHALER INH PRN (20:33)
[2021-07-16 07:21] LABS: Hematocrit (blood only) 36.7 % (37-47); Hemoglobin 11.5 g/dL (12.0-16.0); Mean Corpuscular Hgb Conc 31.3 g/dL (32-36); Mean Corpuscular Volume 95.8 fL (80-100); Platelet Count 280 K/uL (130-400); RDW Coefficient of Variation 14.5 % (11.5-14.5); RDW Standard Deviation 51.2 fL (36.4-46.3); Red Blood Count 3.83 M/uL (4.2-5.4); White Blood Count 6.71 K/uL (4.8-10.8)
[2021-07-16 07:32] LABS: Estimated Average Glucose 123 mg/dl; Hemoglobin A1C 5.9 % (4.5-5.6)
[2021-07-16 07:48] LABS: BUN Creatinine Ratio 16.7 (10-20); Calcium 8.3 mg/dl (8.5-10.1); Chol HDL Ratio 3.5 (0-5); Creatinine Clr Calc Pharmacy 48.4 ml/min; Est GFR (African American) 92.7 ml/min; Potassium 4.1 mmol/L (3.5-5.1)
[2021-07-16] MEDS: ESCITALOPRAM OXALATE 10 MG TAB PO SCH (08:58)
[2021-07-16] MEDS: ATORVASTATIN 40 MG TAB PO SCH (08:59)
[2021-07-16] MEDS: CEROVITE ADV FORMULA TAB PO SCH (09:00)
[2021-07-16] MEDS ORDERED: lisinopril 5 MG TAB PO SCH (09:00)
[2021-07-16] MEDS: HEPARIN SOD 5,000 UNIT/0.5 ML VIAL SQ SCH ×2 (09:02→19:41)
[2021-07-16] MEDS: ASPIRIN 81 MG ECTAB PO SCH (09:02)
--- NOTE | 2021-07-16 10:36 | Neurology Consultation ---
Date of Consultation July 16, 2021 Assessment & Plan (1) Expressive aphasia: 1. aspirin 81 mg daily 2. PT/OT for discharge needs 3. MRI no acute findings 4. CTA head and neck no acute findings 5. optimize HTN HLD DM LDL <70 consider patients age 6. fall precautions 7. ZIO as outpatient (2) Acute cerebrovascular accident (CVA): (3) Hypertension: Supervising Physician Co-Signing Physician Notes Patient was seen and examined. Had intermittent speach difficulty which has since resolved. Denies numbness weakness or facial droop. No history of stroke. Not on ASA recently. Stopped per direction of provider per patient. MRI Negative. CTA head and neck Negative for high grade stenosis. Differential diagnosis includes TIA. Recommend restarting home ASA 81 mg daily. Follow up with Neuro in 8 weeks. History of Present Illness Reason for Consultation: stroke work up Requesting Physician: Wilber Millan MD Attending Physician: Wilber Millan MD History of Present Illness Evy is an 85 year old female living at [facility] independent living with PMH- HTN, history of TIA, HLD, history of breast cancer, asthma, R rotator cuff arthropathy, depression, history of PE. She presented to [facility] as a stroke alert from [facility] 07/15/21. She was reportedly playing bingo with friends when she had difficulty "getting her words out".She could think of them but could just not express them.She was brought to the hospital for further evaluation and evaluate as a stroke alert. She was not a candidate for thrombolytics. She was given aspirin rectally. Her BP was elevated at presentation and was continuing to have difficulty with word finding but in the am the word finding issues had resolved. She remembers something like this happening years ago when she was on a flight from [place] to [place]. She thinks that episode lasted about 20 minutes. denies CP, SOB, abdominal pain, one sided weakness, +right shoulder pain. Allergies Allergy/AdvReac Type Severity Reaction Status Date / Time Penicillins Allergy Severe ANAPHYLAXIS--HEART Verified 07/15/21 16:31 STOPPED denosumab Allergy Intermediate bone pain Verified 07/15/21 16:31 mouse protein Allergy Intermediate bone pain Verified 07/15/21 16:31 cephalexin Allergy Mild RASH Verified 07/15/21 16:31 nitrofurazone Allergy Unknown PT NOT SURE Verified 07/15/21 16:31 nystatin Allergy Unknown PT NOT SURE Verified 07/15/21 16:31 codeine AdvReac Intermediate N/V - can Verified 07/15/21 16:31 take Oxycodone erythromycin base AdvReac Intermediate GI UPSET Verified 07/15/21 16:31 narcotics AdvReac Intermediate extreme Uncoded 07/15/21 16:31 drowsy and nausea Home Medications Medication Instructions Recorded Confirmed Type escitalopram oxalate 10 mg tablet 10 mg PO DAILY 07/29/18 07/15/21 History (Lexapro) loratadine 10 mg tablet (Claritin) 10 mg PO QAM 07/29/18 07/15/21 History vitamins A,C,K-pujx-hlbkys 14,320 1 cap PO BID 07/29/18 07/15/21 History unit-226 mg-200 unit capsule (PreserVision AREDS) calcium carbonate 500 mg-vitamin 1 tab PO DAILY 08/29/19 07/15/21 History D3 5 mcg (200 unit) tablet (Calcium 500 + D) meloxicam 15 mg tablet (Mobic) 15 mg PO DAILY #30 tab 12/25/20 07/15/21 Rx alprazolam 0.5 mg tablet 0.5 mg PO Q6H PRN 03/14/21 07/15/21 History calcium polycarbophil 625 mg tablet 625 mg PO DAILY 03/14/21 07/15/21 History lisinopril 40 mg tablet 40 mg PO DAILY 03/14/21 07/15/21 History Lactobacillus acidophilus 10 10,000 mmu cells PO DAILY 07/15/21 07/15/21 History billion cell capsule (Probiotic) acetaminophen 500 mg tablet 1,000 mg PO Q OTHER DAY 07/15/21 07/15/21 History (Tylenol Extra Strength) albuterol sulfate 90 mcg/actuation 2 puff INHALATION Q6H PRN 07/15/21 07/15/21 History aerosol inhaler cholecalciferol (vitamin D3) 50 50 mcg PO DAILY 07/15/21 07/15/21 History mcg (2,000 unit) capsule (Vitamin D3) guaifenesin 600 mg tablet, 600 mg PO Q12H PRN 07/15/21 07/15/21 History extended release 12 hr (Mucinex) hxiifnpz-muz-pwuld acid 0.4 1 tab PO DAILY 07/15/21 07/15/21 History mg-lycopene 300 mcg-lutein 250 mcg tablet (Centrum Silver) trazodone 50 mg tablet 50 mg PO HS PRN 07/15/21 07/15/21 History Patient History Medical History (Updated 07/15/21 @ 20:13 by Consuelo Cohn PA-C) Anxiety and depression Asthma hasn't used PRN INH in over a year Cataract Essential tremor Hearing deficit Hip problem LEFT History of breast cancer s/p left mastectomy + chemo/radiation History of DVT (deep vein thrombosis) WITHIN LAST 10 YRS History of hypothyroidism History of pulmonary embolism WITHIN LAST 10 YRS History of skin cancer removed History of stomach ulcers Hypertension Intracranial meningioma (Unknown) pt could not confirm. states "there was something small on my brain that wasn't supposed to be there. nobody was really worried about it." says it was found "years ago" Limb alert care status LUE Osteoarthritis Osteoporosis Patent foramen ovale PT DENIES Rotator cuff tear, right Rupture of hip abductor tendon TMJ click Surgical History History of appendectomy History of breast biopsy History of colonoscopy History of esophagogastroduodenoscopy (EGD) History of left hip replacement History of right cataract surgery Slow to wake up after anesthesia Status post left mastectomy HX OF Status post total knee replacement HX OF - BL Family History (Updated 07/15/21 @ 19:49 by Consuelo Cohn PA-C) Father Diabetes Social History Smoking Status: Never smoker Second Hand Exposure: Yes; Hx Alcohol Use: No Hx Substance Use: No Preferred Language: Estonian Communication Ability: Impaired Communication Ability Comment: pt has expressive aphasia and 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 [employer] Required: No Beliefs That Will Affect Care: None Current Living Situation: Other Current Living Situation Comment: pt lives in [facility] independent living Feels Safe at Home: Yes Safety Concerns: Feels Safe At This Time Assistive Devices: Walker Review of Systems Review of Systems: All systems reviewed & are unremarkable except as noted in HPI & below Physical Exam Physical Exam: Physical Exam: Constitutional: appearance nourished, healthy and thin Ears, Nose, Mouth and Throat: mucous membranes moist, no injection and skin normal, eyes normal Cardiovascular: normal S-1 and S-2 and regular rate and rhythm Respiratory: clear to auscultation (CTA) and no rales, rhonchi or wheeze Musculoskeletal: no peripheral edema and good distal pulses, limited ROM left shoulder Skin: no stigmata of neurocutaneous disease noted and normal and intact, left buttock bullous free moving fluid Eyes: extraocular muscles intact (EOMI) and pupils equal, round and reactive to light (PERRL) NEUROLOGIC EXAMINATION: Mental status: Alert and interactive Oriented to person Speech fluent with no evidence of aphasia Cranial Nerves smile eye brow raise symmetric Reflexes: Deep tendon reflexes were symmetrical and graded 2/5. Sensory: light and cool touch Coordination: finger to nose on left but right unable due to shoulder pain Gait/Stance: Posture normal. Gait normal: with steady with steps, base, turning, heel and toe walking and tandem gait. Motor: Negative for pronator drift of out stretched arms with eyes closed. Strength: Normal - 5/5 all extremities Results & Data ([facility]) Vital Signs (Past 12 Hours) Vital Signs Temp Pulse Pulse Resp BP Pulse Ox 07/16/21 08:25 37.1 C 75 145/78 H 95 07/16/21 03:39 37.0 C 79 22 158/89 H 93 07/16/21 01:06 76 07/15/21 23:11 36.8 C 81 18 160/79 H 93 Laboratory Results Abnormal lab results 07/15/21 07/15/21 07/16/21 Range/Units 16:34 16:34 06:37 RBC 3.83 L (4.2-5.4) M/uL Hgb 11.5 L (12.0-16.0) g/dL Hct 36.7 L (37-47) % MCHC 31.9 L 31.3 L (32-36) g/dL RDW Std Deviation 51.4 H 51.2 H (36.4-46.3) fL Cherry # (Auto) 0.87 H (0.11-0.59) K/uL BUN/Creatinine Ratio 21.5 H (10-20) Hemoglobin A1c (4.5-5.6) % Calcium (8.5-10.1) mg/dl 07/16/21 07/16/21 Range/Units 06:37 06:37 RBC (4.2-5.4) M/uL Hgb (12.0-16.0) g/dL Hct (37-47) % MCHC (32-36) g/dL RDW Std Deviation (36.4-46.3) fL Cherry # (Auto) (0.11-0.59) K/uL BUN/Creatinine Ratio (10-20) Hemoglobin A1c 5.9 H (4.5-5.6) % Calcium 8.3 L (8.5-10.1) mg/dl Diagnostic Findings CT CTA head-There is no hemorrhage, mass effect, or evidence of acute territorial ischemia by CT criteria. Unremarkable CT angiogram of the brain. There is mild to moderate stenosis at the origin of the right external carotid artery. CTA- neck unremarkable. MRI brain- Brain parenchyma: There is age-related involutional change noting moderate subcortical and periventricular microangiopathic disease. There is no hemorrhage or mass effect. There is no restricted diffusion to suggest acute ischemia. There are small chronic lacunar infarcts in the left thalamus and the left cerebellar hemisphere. Handley-white matter differentiation is preserved. No extra-axial fluid collection is seen. The cerebellar tonsils are normal in configuration. TTE- 50-55% EF, severe atrial enlargement, known PFO
--- NOTE | 2021-07-16 11:22 | Electrocardiogram Report ---
Test Reason : Blood Pressure : / mmHG Vent. Rate : 118 BPM Atrial Rate : 118 BPM P-R Int : 162 ms QRS Dur : 084 ms QT Int : 318 ms P-R-T Axes : 079 065 -32 degrees QTc Int : 445 ms Poor data quality, interpretation may be adversely affected Sinus tachycardia Voltage criteria for left ventricular hypertrophy Nonspecific ST and T wave abnormality Abnormal ECG When compared with ECG of 17-DEC-2015 16:34, Significant changes have occurred Confirmed by Polo Valenzuela ([id number]) on 07/16/2021 11:22:13 AM Referred By: REFERRED SELF Confirmed By:Polo Valenzuela
--- NOTE | 2021-07-16 13:05 | Hospitalist Progress Note ---
Date of Service July 16, 2021 Assessment & Plan (1) Expressive aphasia: Plan: Likely TIA MRI brain negative for stroke Does not need permissive HTN with stroke ruled out aspirin, statin CTA head/neck shows mild- mod right external carotid disease TTE - normal EF, grade 2 diastolic dysfunction, mod MR neurology consult pending (2) Hypertension: Plan: resume lisinopril but at 5mg daily avoid hypotension (3) Asthma: Plan: stable (4) Anxiety and depression: Plan: stable, continue home medications Plan: DVT Ppx: SQ heparin Code status: DNR per POLST form, copy on paper chart PCP: Amanda Rabago Dispo: from [facility], evaluated by PT --recommending SNF. CM notified Admission and Anticipated Discharge Date Admission Date: July 15, 2021 Subjective Patient reports her speech difficulties have resolved but she is having difficulty remembering her 's phone number Patient dissatisfied with having a room mate Patient would consider SNF only at certain facilities Review of Systems Review of Systems: denies difficulty with word finding or speech, chest pain, shortness of breath, weakness Reports memory impairment (uncertain if this is new) Physical Exam Physical Exam: sitting in chair at bedside, no acute distress, comfortable ENMT: mucous membrane moist Neck: supple Respiratory: breathing comfortably on room air, no wheezing/rhonchi/rales Cardiovascular: regular rate and rhythm, no murmurs/rubs/gallops Gastrointestinal (Abdomen): soft, non tender Musculoskeletal: no edema Neurologic: awake, alert, reliable historian, 5/5 strength upper and lower extremities bilaterally, speech is intact Results & Data Results & Data ([facility]) Vital Signs (Past 12 Hours) Vital Signs Temp Pulse Pulse Resp BP Pulse Ox 07/16/21 11:28 37.0 C 71 156/81 H 94 07/16/21 08:25 37.1 C 75 145/78 H 95 07/16/21 03:39 37.0 C 79 22 158/89 H 93 07/16/21 01:06 76
[2021-07-16] MEDS: ACETAMINOPHEN 325 MG TAB PO PRN (18:03)
[2021-07-17 07:00] LABS: Hematocrit (blood only) 37.9 % (37-47); Hemoglobin 12.1 g/dL (12.0-16.0); Mean Corpuscular Hemoglobin 30.3 pg (25-34); Mean Corpuscular Hgb Conc 31.9 g/dL (32-36); Mean Corpuscular Volume 94.8 fL (80-100); Mean Platelet Volume 9.9 fL (7.4-10.4); Platelet Count 270 K/uL (130-400); RDW Coefficient of Variation 14.2 % (11.5-14.5); RDW Standard Deviation 49.1 fL (36.4-46.3); White Blood Count 4.89 K/uL (4.8-10.8)
[2021-07-17 07:26] LABS: BUN Creatinine Ratio 20.6 (10-20); Calcium 8.6 mg/dl (8.5-10.1); Creatinine Clr Calc Pharmacy 50.7 ml/min; Est GFR (African American) 94.1 ml/min; Est GFR (Non-African American) 81.2 ml/min
[2021-07-17] MEDS: ASPIRIN 81 MG ECTAB PO SCH (08:53)
[2021-07-17] MEDS: lisinopril 40 MG TAB PO SCH (08:54)
[2021-07-17] MEDS: ATORVASTATIN 40 MG TAB PO SCH (08:54)
[2021-07-17] MEDS: CEROVITE ADV FORMULA TAB PO SCH (08:55)
[2021-07-17] MEDS: ESCITALOPRAM OXALATE 10 MG TAB PO SCH (08:55)
[2021-07-17] MEDS: CALCIUM 600MG + VIT D 400 IU TAB PO SCH (08:55)
[2021-07-17] MEDS: HEPARIN SOD 5,000 UNIT/0.5 ML VIAL SQ SCH ×2 (08:56→20:37)
[2021-07-17] MEDS: ACETAMINOPHEN 325 MG TAB PO PRN (09:27)
--- NOTE | 2021-07-17 13:07 | Hospitalist Progress Note ---
Date of Service July 17, 2021 Assessment & Plan (1) Expressive aphasia: Plan: Likely TIA MRI brain negative for stroke Does not need permissive HTN with stroke ruled out aspirin, statin CTA head/neck shows mild- mod right external carotid disease TTE - normal EF, grade 2 diastolic dysfunction, mod MR neurology consult, appreciate input (2) Hypertension: Plan: s/p lisinopril 5mg daily yesterday with poor BP control Lisinopril 40mg daily resumed today (3) Asthma: Plan: stable (4) Anxiety and depression: Plan: stable, continue home medications Plan: DVT Ppx: SQ heparin Code status: DNR per POLST form, copy on paper chart PCP: Amanda Rabago Dispo: from [facility], evaluated by PT --recommending SNF. Referral made to [facility] Admission and Anticipated Discharge Date Admission Date: July 15, 2021 Anticipated date of discharge: 07/18/21 Subjective Patient feels well but is "devastated I am still here" Physical Exam Physical Exam: Sitting in bed, pleasant, comfortable Respiratory: breathing comfortably on room air, no wheezing/rhonchi/rales Cardiovascular: regular rate and rhythm, no murmurs/rubs/gallops Gastrointestinal (Abdomen): soft, non tender, non distended Neurologic: awake, alert, spontaneously moving extremities Results & Data Results & Data ([facility]) Vital Signs (Past 12 Hours) Vital Signs Temp Pulse Pulse Resp BP Pulse Ox 07/17/21 12:13 36.5 C 80 20 149/86 H 96 07/17/21 10:25 78 07/17/21 08:00 36.8 C 88 18 159/72 H 95 07/17/21 03:44 36.6 C 87 16 162/79 H 93
[2021-07-18] MEDS: ACETAMINOPHEN 325 MG TAB PO PRN (02:28)
[2021-07-18] MEDS: CALCIUM 600MG + VIT D 400 IU TAB PO SCH (08:37)
[2021-07-18] MEDS: HEPARIN SOD 5,000 UNIT/0.5 ML VIAL SQ SCH (08:37)
[2021-07-18] MEDS: ASPIRIN 81 MG ECTAB PO SCH (08:37)
[2021-07-18] MEDS: ATORVASTATIN 40 MG TAB PO SCH (08:37)
[2021-07-18] MEDS: CEROVITE ADV FORMULA TAB PO SCH (08:37)
[2021-07-18] MEDS: ESCITALOPRAM OXALATE 10 MG TAB PO SCH (08:38)
[2021-07-18] MEDS: lisinopril 40 MG TAB PO SCH (08:39)
--- NOTE | 2021-07-18 12:08 | Discharge Summary ---
Date of Service July 18, 2021 Admission HPI Per Admitting Provider This is an 85-year-old female from [facility] independent living with PMH of hypertension, history of TIA, dyslipidemia, history of breast cancer, asthma, R rotator cuff arthropathy, depression, history of PE and other medical problems listed below who presents as a stroke alert from [facility] this afternoon. Was reportedly playing bingo with friends when she had difficulty "getting her words out". States she could think of them but could just not express them. Denies any focal weakness or difficulty swallowing. Was brought to the hospital for further evaluation and evaluate as a stroke alert. Does have history of a GI bleed in the past. Per [facility] telestroke evaluation, not felt to be a candidate for thrombolytics. Was given aspirin rectally. BP initially elevated but thought to be due in part to pain from chronic right shoulder injury. BP improved to 175/96 with administration of 2 mg of morphine. Patient continues to have difficulty with word finding. No fever, chills, headache, lightheadedness, chest pain, shortness of breath, nausea, vomiting, abdominal pain, dysuria, diarrhea constipation. Principal Diagnosis TIA Debility Mild to mod right external carotid stenosis Discharge Exam Patient was observed ambulating with physical therapy using a walker. Towards end of session she appeared fatigue. When back in bed, she was well. Breathing comfortably on room air. Happy to be leaving today Discharge Data Allergies Allergy/AdvReac Type Severity Reaction Status Date / Time Penicillins Allergy Severe ANAPHYLAXIS--HEART Verified 07/15/21 16:31 STOPPED denosumab Allergy Intermediate bone pain Verified 07/15/21 16:31 mouse protein Allergy Intermediate bone pain Verified 07/15/21 16:31 cephalexin Allergy Mild RASH Verified 07/15/21 16:31 nitrofurazone Allergy Unknown PT NOT SURE Verified 07/15/21 16:31 nystatin Allergy Unknown PT NOT SURE Verified 07/15/21 16:31 codeine AdvReac Intermediate N/V - can Verified 07/15/21 16:31 take Oxycodone erythromycin base AdvReac Intermediate GI UPSET Verified 07/15/21 16:31 narcotics AdvReac Intermediate extreme Uncoded 07/15/21 16:31 drowsy and nausea Consultations 07/15/21 17:19 ED Decision to Admit Stat 07/15/21 20:33 Consult Neurology Routine Ordered Studies 07/15/21 16:19 CT angio head w con Stat CT angio neck with con Stat - mild to moderate right external carotid artery stenosis CT head/brain wo con Stat 07/15/21 17:10 MR brain wo con Stat - negative for acute findings Hospital Course (1) Expressive aphasia: Likely TIA MRI brain negative for stroke started aspirin, atorvastatin 40mg while here CTA head/neck shows mild- mod right external carotid disease TTE - normal EF, grade 2 diastolic dysfunction, mod MR neurology consult, appreciate input (2) Hypertension: well controlled on Lisinopril 40mg daily (3) Asthma: stable (4) Anxiety and depression: stable, continue home medications DVT Ppx: SQ heparin Code status: DNR per POLST form, copy on paper chart PCP: Amanda Rabago Dispo: from [facility], evaluated by PT --recommending SNF. Referral made to [facility] Total Time Total Time Spent Total Time Spent (In Minutes): 38 minutes Discharge Plan Discharge Items Patient Disposition: Transfer Care Home Fac Reason For Visit: STROKE EVAL Discharge Diagnosis: TIA Expressive Aphasia Debility Condition on Discharge: Good Health Concerns: Ongoing blood pressure management Activity: Resume your previous activity Weightbearing: Full weightbearing Non-emergency contact: Primary Care Provider and Neurologist Call non-emergency contact if: you have any medication questions Follow-up/Referrals: Timur Rabago, [Primary Care Provider] - Diet: Low Fat and Low Sodium (2gm) Addtl Attending Provider Instructions: You were admitted for difficulty speaking which has since resolved. Your blood pressure was elevated on presentation but is now improved Your stroke workup was negative but did show some mild disease in your right external carotid artery You were started on aspirin and lipitor Please follow up with Neurology Pending Studies at Discharge: No Stand-Alone Forms: My [facility] Skilled Items Patient informed of condition?: Yes DNR: Yes Discharge Level of Care: Skilled Communicable Disease: No Discharge Prognosis: Stable Lines: None Urinary Catheter: No Medications and DC Order Prescriptions: New atorvastatin 40 mg Tablet 40 mg PO QAM 30 Days Qty: 30 RF: 0 aspirin 81 mg Tablet,Delayed Release (Dr/Ec) 81 mg PO QAM 90 Days Qty: 90 RF: 0 Continued loratadine [Claritin] 10 mg tablet 10 mg PO QAM RF: 0 escitalopram oxalate [Lexapro] 10 mg tablet 10 mg PO DAILY RF: 0 vitamins A,C,R-zioj-aznyil [PreserVision AREDS] 14,320-226-200 pghk-bb-vxtx capsule 1 cap PO BID RF: 0 meloxicam [Mobic] 15 mg tablet 15 mg PO DAILY Qty: 30 RF: 3 calcium carbonate-vitamin D3 [Calcium 500 + D] 500 mg(1,250mg) -200 unit Tablet 1 tab PO DAILY RF: 0 calcium polycarbophil 625 mg Tablet 625 mg PO DAILY RF: 0 lisinopril 40 mg Tablet 40 mg PO DAILY RF: 0 alprazolam 0.5 mg tablet 0.5 mg PO Q6H PRN (Reason: Anxiety/SLEEP) RF: 0 trazodone 50 mg Tablet 50 mg PO HS PRN (Reason: Sleep) RF: 0 acetaminophen [Tylenol Extra Strength] 500 mg Tablet 1,000 mg PO Q OTHER DAY RF: 0 albuterol sulfate 90 mcg/actuation Hfa Aerosol Inhaler 2 puff INHALATION Q6H PRN (Reason: Shortness Of Breath Or Wheezing) RF: 0 Centrum Silver 0.4-300-250 mg-mcg-mcg Tablet 1 tab PO DAILY RF: 0 cholecalciferol (vitamin D3) [Vitamin D3] 50 mcg (2,000 unit) Capsule 50 mcg PO DAILY RF: 0 Probiotic 10 billion cell Capsule 10,000 mmu cells PO DAILY RF: 0 guaifenesin [Mucinex] 600 mg Tablet Extended Release 12hr 600 mg PO Q12H PRN (Reason: Congestion) RF: 0 Discharge Orders: Discharge Order (Routine); Ordered 07/18/21 Ordered By: Wilber Bowman/Other Patient Handouts: Stroke and Heart Disease, Hypertension Dc Admission Data Admit Date/Time: 07/15/21 17:31 Attending Provider: Wilber Millan Admit Provider: Love Blackwell Primary Care Provider: Timur Rabago Other Providers: Love Blackwell ; Enoc Solano ; [facility]
--- NOTE | 2021-07-18 12:13 | Hospitalist Progress Note ---
Date of Service July 16, 2021 Assessment & Plan Admission and Anticipated Discharge Date Admission Date: July 15, 2021 Results & Data Results & Data ([facility]) Vital Signs (Past 12 Hours) Vital Signs Temp Pulse Resp BP Pulse Ox 07/16/21 11:28 37.0 C 71 156/81 H 94 07/16/21 08:25 37.1 C 75 145/78 H 95 07/16/21 03:39 37.0 C 79 22 158/89 H 93
== END 2021-07-18 13:02 | DRG 69 ==
LOC: ED 16:18 → 2S 17:31 → SUATTDRO 17:31 → 2S 20:05

== ENCOUNTER 2021-12-31 12:55 | Inpatient (IN) ==
[2021-12-31 13:50] LABS: Basophils # (auto) 0.08 K/uL (0-0.2); Eosinophils # (auto) 0.16 K/uL (0-0.50); Eosinophils % (auto) 2.1 %; Hematocrit (blood only) 31.5 % (34.1-44.9); Immature Granulocytes # (auto) 0.03 K/uL (0.00-0.02); Immature Granulocytes % (auto) 0.4 %; Lymphocytes # (auto) 1.86 K/uL (1.2-3.4); Lymphocytes % (auto) 24.3 %; Mean Corpuscular Hemoglobin 28.7 pg (25.0-34.0); Mean Corpuscular Hgb Conc 31.7 g/dL (32.0-36.0); Mean Corpuscular Volume 90.5 fL (80.0-100.0); Mean Platelet Volume 9.8 fL (9.4-12.3); Monocytes % (auto) 9.2 %; Neutrophils # (auto) 4.81 K/uL (1.4-6.5); Platelet Count 354 K/uL (130-400); RDW Coefficient of Variation 14.6 % (11.5-14.5); RDW Standard Deviation 48.6 fL (36.4-46.3); Red Blood Count 3.48 M/uL (3.93-5.22); White Blood Count 7.64 K/ul (4.8-10.8)
--- NOTE | 2021-12-31 13:59 | XRay Report ---
XR chest 1V portable CLINICAL HISTORY: Chest Pain. COMPARISON STUDY: 12 4 ACT TECHNIQUE: 1 view of the chest FINDINGS: Single frontal view of the chest demonstrates the heart to now be moderately enlarged. Increased alve olar density is present in the retrocardiac space suspicious for the presence of an underlying pneumo mabel. There is also blunting left costophrenic angle representing small to moderate-sized left pleural effusion. The right hemithorax is clear. No definite right pleural effusion is seen. There is no evidence for v ascular congestion. There is no acute osseous pathology. IMPRESSION: 1. Increased alveolar opacity in the retrocardiac space on the left and evidence for left pleural eff usion. PA and lateral radiographs would be the study of choice for further evaluation. ACT 112: Negative or not required by law. Electronically signed by: Tony Mcguire M.D. 12/31/2021 1:58 PM
[2021-12-31 14:04] LABS: INR 1.2 (0.9-1.1); Prothrombin Time 12.4 Seconds (9.0-12.0)
[2021-12-31 14:07] LABS: Troponin I High Sensitivity 18.3 pg/ml (0-14)
[2021-12-31 14:14] LABS: Alanine Aminotransferase 15 U/L (7-52); Albumin Globulin Ratio 1.4 (0.9-2); Albumin Level 3.8 gm/dl (3.4-5.0); Alkaline Phosphatase 82 U/L (34-104); Anion Gap 8 (3-11); Aspartate Aminotransferase 21 U/L (13-39); BUN Creatinine Ratio 20.5 (10-20); Bilirubin,Total 0.4 mg/dl (0.2-1.0); Blood Urea Nitrogen 16 mg/dl (6-23); Calcium 8.7 mg/dl (8.5-10.1); Carbon Dioxide 25 mmol/L (21-32); Chloride 101 mmol/L (98-107); Est GFR (African American) 79.2 ml/min; Est GFR (Non-African American) 68.4 ml/min; Globulin 2.8 gm/dl (2.5-4.0); Glucose 96 mg/dl (70-99(Fasting)); Lipase 49 U/L (11-82); Potassium 4.5 mmol/L (3.5-5.1); Sodium 134 mmol/L (136-145); Total Protein 6.6 gm/dl (6.0-8.3)
--- NOTE | 2021-12-31 14:36 | Emergency Department Note ---
Impression & Plan PHELPS (dyspnea on exertion), Chest pain, Diastolic CHF ED Provider Note Provider: Henok Zuniga MD DATE OF SERVICE: 12/31/2021 CHIEF COMPLAINT:Chest pain, leg swelling HISTORY OF PRESENT ILLNESS: Patient is a 86-year-old female with a past medical history including hypertension, pulmonary embolism, GI bleed, TIA, Grade 2 diastolic dysfunction presenting here today referred from outpatient clinic for chest pain on and off over the past 25 to 6 days worsened overnight last night into this morning as well as some leg swelling the last several days. Patient states she has felt may be a touch short of breath as well. Denies abdominal symptoms of significance. Denies falling but states she was having some difficulty ambulating this morning due to her leg swelling and fatigue. Not currently on anticoagulation. Denies fever. REVIEW OF SYSTEMS: A total of 10 review of systems was obtained and negative except as stated above in the HPI. PAST MEDICAL HISTORY: As noted above MEDICATIONS: Home medications reviewed SOCIAL HISTORY: , currently living in assisted living PHYSICAL EXAM: GENERAL: alert and oriented in no acute distress on stretcher Head: normocephalic and atraumatic EYES: No injection, discharge or icterus. NECK: Trachea midline. ENT: Mucous membranes pink and moist. LUNGS: Airway patent. No retractions. Breath sounds with some diminished bases/crackles HEART: Irregular rate and rhythm. No chest wall tenderness ABDOMEN: Soft and non-tender, without guarding or rebound. SKIN: Acyanotic, warm, dry, without rashes EXTREMITIES: Without significant deformity and some stockings still with 1-2+ edema bilaterally. NEUROLOGICAL: No focal deficits. No aphasia. No facial droop or slurred speech. Ambulatory. EK beats for a sinus rhythm with PAC. No acute ST segment elevation or depression with a QTC of 440. CONTINUOUS CARDIAC MONITORING: was ordered and showed a heart rate of 60s-80s bpm in sinus rhythm w/ PACs Patient's laboratory studies and imaging reviewed. Differential includes Reactive airway disease, pneumonia, pneumothorax, COPD, CH F, infections, cardiac ischemia, pulmonary embolism, musculoskeletal, gastrointestinal, as well as other pathologies. IMPRESSION/MEDICAL DECISION MAKING: Patient with some leg swelling and developing intermittent chest pain describes a burning sensation in the mid chest with dyspnea on exertion. PET scan negative. Numbers pneumonia. Doubt this is infectious. Question some fluid overload and has a history of type II diastolic dysfunction. Will give a small amount of Lasix. Did order ultrasounds to exclude DVT in lower extremities although again I think is likely fluid overload. COVID-negative. Discussed with the patient. Troponin minimally elevated. Given her age with significant dyspnea with ambulation to the bathroom here feel, that monitored diuresis would be beneficial. She is in agreement. Hospitalist to be contacted. DIAGNOSIS: Dyssystolic CHF exacerbation, dyspnea on exertion, chest pain DISPOSITION: Hospitalist will evaluate Patient was agreeable with this plan. Past Med/Surg History Medical History (Updated 12/31/21 @ 15:56 by Henok Zuniga M.D.) Anxiety and depression Asthma hasn't used PRN INH in over a year Cataract Essential tremor Hearing deficit Hip problem LEFT History of breast cancer s/p left mastectomy + chemo/radiation History of DVT (deep vein thrombosis) WITHIN LAST 10 YRS History of hypothyroidism History of pulmonary embolism WITHIN LAST 10 YRS History of skin cancer removed History of stomach ulcers Hypertension Intracranial meningioma (Unknown) pt could not confirm. states "there was something small on my brain that wasn't supposed to be there. nobody was really worried about it." says it was found "years ago" Limb alert care status LUE Osteoarthritis Osteoporosis Patent foramen ovale PT DENIES Rotator cuff tear, right Rupture of hip abductor tendon TMJ click Surgical History History of appendectomy History of breast biopsy History of colonoscopy History of esophagogastroduodenoscopy (EGD) History of left hip replacement History of right cataract surgery Slow to wake up after anesthesia Status post left mastectomy HX OF Status post total knee replacement HX OF - BL Family History (Updated 07/15/21 @ 19:49 by Consuelo Cohn PA-C) Father Diabetes Social History Smoking Status: Unknown if ever smoked Second Hand Exposure: Yes; Hx Alcohol Use: No Hx Substance Use: No Preferred Language: Portuguese Communication Ability: Effective Molder Machine Required: No Beliefs That Will Affect Care: None marital status: Current Living Situation: Other Current Living Situation Comment: pt lives in [facility] independent living How many Children do You have: 2 Feels Safe at Home: Yes Assistive Devices: Walker Allergies Allergies Allergy/AdvReac Type Severity Reaction Status Date / Time Penicillins Allergy Severe ANAPHYLAXIS--HEART Verified 12/31/21 17:11 STOPPED denosumab Allergy Intermediate bone pain Verified 12/31/21 17:11 mouse protein Allergy Intermediate bone pain Verified 12/31/21 17:11 cephalexin Allergy Mild RASH Verified 12/31/21 17:11 nitrofurazone Allergy Unknown PT NOT SURE Verified 12/31/21 17:11 nystatin Allergy Unknown PT NOT SURE Verified 12/31/21 17:11 codeine AdvReac Intermediate N/V - can Verified 12/31/21 17:11 take Oxycodone erythromycin base AdvReac Intermediate GI UPSET Verified 12/31/21 17:11 oxycodone AdvReac Intermediate NAUSEA/VOMI Verified 12/31/21 17:11 TING narcotics AdvReac Intermediate extreme Uncoded 12/31/21 17:11 drowsy and nausea Home Meds Home Medications Medication Instructions Recorded Confirmed escitalopram oxalate 10 mg tablet 10 mg PO DAILY 07/29/18 12/31/21 (Lexapro) loratadine 10 mg tablet (Claritin) 10 mg PO QAM 07/29/18 12/31/21 vitamins A,C,C-dxcx-xlunpd 14,320 1 cap PO BID 07/29/18 12/31/21 unit-226 mg-200 unit capsule (PreserVision AREDS) calcium carbonate 500 mg-vitamin 1 tab PO DAILY 08/29/19 12/31/21 D3 5 mcg (200 unit) tablet (Calcium 500 + D) alprazolam 0.5 mg tablet 0.5 mg PO HS PRN Anxiety/SLEEP 03/14/21 12/31/21 calcium polycarbophil 625 mg tablet 625 mg PO DAILY 03/14/21 12/31/21 lisinopril 40 mg tablet 40 mg PO DAILY 03/14/21 12/31/21 Lactobacillus acidophilus 10 10,000 mmu cells PO DAILY 07/15/21 12/31/21 billion cell capsule (Probiotic) acetaminophen 500 mg tablet 1,000 mg PO Q OTHER DAY 07/15/21 12/31/21 (Tylenol Extra Strength) albuterol sulfate 90 mcg/actuation 2 puff inhalation Q6H PRN 07/15/21 12/31/21 aerosol inhaler Shortness Of Breath Or Wheezing cholecalciferol (vitamin D3) 50 50 mcg PO DAILY 07/15/21 12/31/21 mcg (2,000 unit) capsule (Vitamin D3) guaifenesin 600 mg tablet, 600 mg PO Q12H PRN Congestion 07/15/21 12/31/21 extended release 12 hr (Mucinex) ntystmtq-gsc-otrjf acid 0.4 1 tab PO DAILY 07/15/21 12/31/21 mg-lycopene 300 mcg-lutein 250 mcg tablet (Centrum Silver) aspirin 81 mg tablet,delayed 81 mg PO DAILY 12/31/21 12/31/21 release atorvastatin 40 mg tablet 40 mg PO DAILY 12/31/21 12/31/21 diclofenac sodium 1 % topical gel 2 g topical QID PRN Pain 12/31/21 12/31/21 meloxicam 15 mg tablet 15 mg PO DAILY 12/31/21 12/31/21 metoprolol succinate 25 mg 25 mg PO DAILY 12/31/21 12/31/21 tablet,extended release 24 hr triamcinolone acetonide 0.05 % 1 applic topical BID PRN Skin 12/31/21 12/31/21 topical ointment Irritation Results & Data (ED) Vital Signs Vital Signs - 24 hr 12/31/21 13:42 12/31/21 13:15 12/31/21 13:20 Temperature 36.8 C Temperature Source Oral Pulse Rate 75 71 71 Pulse Rate from SpO2 Sensor 80 69 Pulse Rhythm Respiratory Rate 14 17 18 Respiratory Depth Normal Blood Pressure 150/81 H Blood Pressure Mean 104 Pulse Oximetry 95 95 95 Oxygen Delivery Method Room Air Sepsis Recent Fever Within 48 Hours No Sepsis New/Unexplained Change in Mental Status No Sepsis Action Taken by Nursing No Action Required 12/31/21 13:30 12/31/21 13:40 12/31/21 13:50 Temperature Temperature Source Pulse Rate 74 74 72 Pulse Rate from SpO2 Sensor Pulse Rhythm Respiratory Rate 22 19 22 Respiratory Depth Blood Pressure Blood Pressure Mean Pulse Oximetry Oxygen Delivery Method Sepsis Recent Fever Within 48 Hours Sepsis New/Unexplained Change in Mental Status Sepsis Action Taken by Nursing 12/31/21 15:22 Temperature Temperature Source Pulse Rate 70 Pulse Rate from SpO2 Sensor Pulse Rhythm Irregular Respiratory Rate Respiratory Depth Blood Pressure Blood Pressure Mean Pulse Oximetry 95 Oxygen Delivery Method Room Air Sepsis Recent Fever Within 48 Hours Sepsis New/Unexplained Change in Mental Status Sepsis Action Taken by Nursing Laboratory Data Result diagrams: 12/31/21 13:10 12/31/21 13:10 Lab Results 12/31/21 12/31/21 12/31/21 Range/Units 13:10 13:10 13:10 WBC 7.64 (4.8-10.8) K/ul RBC 3.48 L (3.93-5.22) M/uL Hgb 10.0 L (12.0-16.0) g/dl Hct 31.5 L (34.1-44.9) % MCV 90.5 (80.0-100.0) fL MCH 28.7 (25.0-34.0) pg MCHC 31.7 L (32.0-36.0) g/dL RDW Std Deviation 48.6 H (36.4-46.3) fL RDW Coeff of Alessandro 14.6 H (11.5-14.5) % Plt Count 354 (130-400) K/uL MPV 9.8 (9.4-12.3) fL Immature Gran % (Auto) 0.4 % Neut % (Auto) 63.0 % Lymph % (Auto) 24.3 % Sebastian % (Auto) 9.2 % Eos % (Auto) 2.1 % Baso % (Auto) 1.0 % Neut # (Auto) 4.81 (1.4-6.5) K/uL Lymph # (Auto) 1.86 (1.2-3.4) K/uL Sebastian # (Auto) 0.70 (0.24-0.82) K/uL Eos # (Auto) 0.16 (0-0.50) K/uL Baso # (Auto) 0.08 (0-0.2) K/uL Immature Gran # (Auto) 0.03 H (0.00-0.02) K/uL PT 12.4 H (9.0-12.0) Seconds INR 1.2 H (0.9-1.1) APTT 28.0 (21.0-31.0) Seconds PTT Ratio 1.0 Sodium 134 L (136-145) mmol/L Potassium 4.5 (3.5-5.1) mmol/L Chloride 101 (98-107) mmol/L Carbon Dioxide 25 (21-32) mmol/L Anion Gap 8 (3-11) BUN 16 (6-23) mg/dl Creatinine 0.78 (0.6-1.2) mg/dl Est Cr Clr Drug Dosing Not Reportable Est GFR ( Amer) 79.2 ml/min Est GFR (Non-Af Amer) 68.4 ml/min BUN/Creatinine Ratio 20.5 H (10-20) Glucose 96 (70-99(Fasting)) mg/dl Calcium 8.7 (8.5-10.1) mg/dl Total Bilirubin 0.4 (0.2-1.0) mg/dl AST 21 (13-39) U/L ALT 15 (7-52) U/L Alkaline Phosphatase 82 (34-104) U/L Troponin I High Sens 18.3 H (0-14) pg/ml Total Protein 6.6 (6.0-8.3) gm/dl Albumin 3.8 (3.4-5.0) gm/dl Globulin 2.8 (2.5-4.0) gm/dl Albumin/Globulin Ratio 1.4 (0.9-2) Lipase 49 (11-82) U/L SARS-CoV-2, RNA, NAAT (NEGATIVE) 12/31/21 Range/Units 13:50 WBC (4.8-10.8) K/ul RBC (3.93-5.22) M/uL Hgb (12.0-16.0) g/dl Hct (34.1-44.9) % MCV (80.0-100.0) fL MCH (25.0-34.0) pg MCHC (32.0-36.0) g/dL RDW Std Deviation (36.4-46.3) fL RDW Coeff of Alessandro (11.5-14.5) % Plt Count (130-400) K/uL MPV (9.4-12.3) fL Immature Gran % (Auto) % Neut % (Auto) % Lymph % (Auto) % Sebastian % (Auto) % Eos % (Auto) % Baso % (Auto) % Neut # (Auto) (1.4-6.5) K/uL Lymph # (Auto) (1.2-3.4) K/uL Sebastian # (Auto) (0.24-0.82) K/uL Eos # (Auto) (0-0.50) K/uL Baso # (Auto) (0-0.2) K/uL Immature Gran # (Auto) (0.00-0.02) K/uL PT (9.0-12.0) Seconds INR (0.9-1.1) APTT (21.0-31.0) Seconds PTT Ratio Sodium (136-145) mmol/L Potassium (3.5-5.1) mmol/L Chloride (98-107) mmol/L Carbon Dioxide (21-32) mmol/L Anion Gap (3-11) BUN (6-23) mg/dl Creatinine (0.6-1.2) mg/dl Est Cr Clr Drug Dosing Est GFR ( Amer) ml/min Est GFR (Non-Af Amer) ml/min BUN/Creatinine Ratio (10-20) Glucose (70-99(Fasting)) mg/dl Calcium (8.5-10.1) mg/dl Total Bilirubin (0.2-1.0) mg/dl AST (13-39) U/L ALT (7-52) U/L Alkaline Phosphatase (34-104) U/L Troponin I High Sens (0-14) pg/ml Total Protein (6.0-8.3) gm/dl Albumin (3.4-5.0) gm/dl Globulin (2.5-4.0) gm/dl Albumin/Globulin Ratio (0.9-2) Lipase (11-82) U/L SARS-CoV-2, RNA, NAAT NEGATIVE (NEGATIVE) Administered Medications Discontinued Medications Ioversol (Optiray 320 125ml) 120 ml IV ONCE ONE Stop: 12/31/21 15:03 Last Admin: 12/31/21 15:05 Dose: 120 ml Documented By: [facility] Imaging Data Radiologist's Impression: Chest CTA 12/31/21 13:42 CHEST CTA for PULMONARY ARTERIES CT DOSE: 223.61 mGy.cm HISTORY: Atypical chest pain. Shortness of breath. TECHNIQUE: Multiaxial CT images of the chest were performed following the intravenous administration of contrast to evaluate the pulmonary arteries. Maximal intensity projection images were also obtained. A dose lowering technique was utilized adhering to the principles of ALARA. COMPARISON STUDY: Chest CTA 02/26/2015. FINDINGS: There is an old mild superior endplate compression deformity at L1. Old, healed fractures within the right posterior 11th rib and mid sternum. There is mild motion artifact. No definite acute fractures identified within the chest. Mild retrograde opacification of the hepatic veins. Otherwise, the visual ized liver, spleen, and adrenal glands appear unremarkable. Small bilateral pleural effusions. No significant mediastinal or hilar lymphadenopathy. The heart is enlarged. No pericardial effusion. Normal esophagus. Mild body wall edema. There are mitral annulus calcifications. Mild calcified plaque within the left coronary artery. The thoracic aorta is not opacified due to the timing of contrast but appears normal in caliber. Nondiagnostic evaluation of the bilateral lower lobe subsegmental pulmonary arteries due to the motion artifact. However, the remaining pulmonary arteries show no filling defects to suggest a pulmonary embolus. There is a fat-containing right-sided Bochdalek hernia. No p neumothorax. Mild bronchial wall thickening. Otherwise, the central airways are patent. There is mild emphysema. A few scattered micronodules are seen within the lungs. These are of doubtful clinical significance given the patient's age. Mild bibasilar subsegmental atelectasis. Otherwise, no focal lung consolidations to suggest pneumonia. IMPRESSION: 1. No evidence for pulmonary embolus with limitations as described above. 2. Small bilateral pleural effusions. 3. Cardiomegaly. 4. Emphysema. ACT 112: Negative or not required by law. Electronically signed by: Royer Garcia M.D. 12/31/2021 3:29 PM Chest X-Ray 12/31/21 13:42 XR chest 1V portable CLINICAL HISTORY: Chest Pain. COMPARISON STUDY: 12 4 ACT TECHNIQUE: 1 view of the chest FINDINGS: Single frontal view of the chest demonstrates the heart to now be moderately e nlarged. Increased alveolar density is present in the retrocardiac space suspicious for the presence of an underlying pneumonia. There is also blunting left costophrenic angle representing small to moderate-sized left pleural effusion. The right hemithorax is clear. No definite right pleural effusion is seen. There is no evidence for vascular congestion. There is no acute osseous pathology. IMPRESSION: 1. Increased alveolar opacity in the retrocardiac space on the left and evidence for left pleural effusion. PA and lateral radiographs would be the study of choice for further evaluation. ACT 112: Negative or not required by law. Electronically signed by: Tony Mcguire M.D. 12/31/2021 1:58 PM Discharge Plan Visit Data Chief Complaint: Chest Pain Stated Complaint: CHEST PAIN, SOB ED Provider: Henok Zuniga Discharge Problem: PHELPS (dyspnea on exertion), Chest pain, Diastolic CHF Patient Disposition: Being Evaluated by Hospitalist Forms Stand Alone Forms: My [facility] Prescriptions Prescriptions: No Action loratadine [Claritin] 10 mg tablet 10 mg PO QAM escitalopram oxalate [Lexapro] 10 mg tablet 10 mg PO DAILY vitamins A,C,E-misx-aclsto [PreserVision AREDS] 14,320-226-200 lxnc-tg-scvt capsule 1 cap PO BID calcium carbonate-vitamin D3 [Calcium 500 + D] 500 mg(1,250mg) -200 unit Tablet 1 tab PO DAILY calcium polycarbophil 625 mg Tablet 625 mg PO DAILY lisinopril 40 mg Tablet 40 mg PO DAILY alprazolam 0.5 mg tablet 0.5 mg PO HS PRN (Reason: Anxiety/SLEEP) atorvastatin 40 mg tablet 40 mg PO DAILY meloxicam 15 mg tablet 15 mg PO DAILY aspirin 81 mg Tablet,Delayed Release (Dr/Ec) 81 mg PO DAILY metoprolol succinate 25 mg tablet extended release 24 hr 25 mg PO DAILY triamcinolone acetonide 0.05 % Ointment 1 applic TOPICAL BID PRN (Reason: Skin Irritation) diclofenac sodium 1 % Gel 2 g TOPICAL QID PRN (Reason: Pain) Rx Instructions: apply to single elbow, wrist or hand; for hand includes palm/fingers/back of hand acetaminophen [Tylenol Extra Strength] 500 mg Tablet 1,000 mg PO Q OTHER DAY albuterol sulfate 90 mcg/actuation Hfa Aerosol Inhaler 2 puff INHALATION Q6H PRN (Reason: Shortness Of Breath Or Wheezing) Centrum Silver 0.4-300-250 mg-mcg-mcg Tablet 1 tab PO DAILY cholecalciferol (vitamin D3) [Vitamin D3] 50 mcg (2,000 unit) Capsule 50 mcg PO DAILY Probiotic 10 billion cell Capsule 10,000 mmu cells PO DAILY guaifenesin [Mucinex] 600 mg Tablet Extended Release 12hr 600 mg PO Q12H PRN (Reason: Congestion) Referrals Referrals: Timur Rabago, [Primary Care Provider] - : Chest pain Qualifiers: Chest pain type: unspecified Qualified Code(s): R07.9 - Chest pain, unspecified Diastolic CHF Qualifiers: Heart failure chronicity: acute on chronic Qualified Code(s): I50.33 - Acute on chronic diastolic (congestive) heart failure
[2021-12-31] MEDS ORDERED: OPTIRAY 320 125ml IV ONE (15:02)
--- NOTE | 2021-12-31 15:31 | CT Scan Report ---
CHEST CTA for PULMONARY ARTERIES CT DOSE: 223.61 mGy.cm HISTORY: Atypical chest pain. Shortness of breath. TECHNIQUE: Multiaxial CT images of the chest were performed following the intravenous administration of contrast to evaluate the pulmonary arteries. Maximal intensity projection images were also obtaine d. A dose lowering technique was utilized adhering to the principles of ALARA. COMPARISON STUDY: Chest CTA 02/26/2015. FINDINGS: There is an old mild superior endplate compression deformity at L1. Old, healed fractures w ithin the right posterior 11th rib and mid sternum. There is mild motion artifact. No definite acute fractures identified within the chest. Mild retrograde opacification of the hepatic veins. Otherwise, the visualized liver, spleen, and adrenal glands appear unremarkable. Small bilateral pleural effusi ons. No significant mediastinal or hilar lymphadenopathy. The heart is enlarged. No pericardial effus ion. Normal esophagus. Mild body wall edema. There are mitral annulus calcifications. Mild calcified plaque within the left coronary artery. The thoracic aorta is not opacified due to the timing of cont rast but appears normal in caliber. Nondiagnostic evaluation of the bilateral lower lobe subsegmental pulmonary arteries due to the motion artifact. However, the remaining pulmonary arteries show no michel ling defects to suggest a pulmonary embolus. There is a fat-containing right-sided Bochdalek hernia. No pneumothorax. Mild bronchial wall thickening. Otherwise, the central airways are patent. There is mild emphysema. A few scattered micronodules are seen within the lungs. These are of doubtful clinica l significance given the patient's age. Mild bibasilar subsegmental atelectasis. Otherwise, no focal lung consolidations to suggest pneumonia. IMPRESSION: 1. No evidence for pulmonary embolus with limitations as described above. 2. Small bilateral pleural effusions. 3. Cardiomegaly. 4. Emphysema. ACT 112: Negative or not required by law. Electronically signed by: Royer Garcia M.D. 12/31/2021 3:29 PM
[2021-12-31] MEDS ORDERED: FUROSEMIDE INJ 20 MG/2 ML VIAL IV ONE (15:52)
--- NOTE | 2021-12-31 16:54 | History & Physical Report ---
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 Patient presents with a 3 to 4-week history of feet swelling, progressively worsening PHELPS and 1 week of intermittent precordial chest pain along with easy fatigability. So far ER work-up relatively unremarkable. Imaging does reveal small bilateral pleural effusions and emphysema. She doesn't exam frankly volume overloaded. Does have a mildly bumped troponin, decrease in hemoglobin from 12-10 since July. Symptoms of PHELPS/chest burning may be multifactorial in setting of possible mild exacerbation of acute HFpEF, decrease in hemoglobin, findings of emphysema on chest CT; doubt ACS Precordial Chest Pain PHELPS Elevated troponin Possible acute HFpEF Admit to PCU Lasix 20 mg IV ordered in ED, will monitor response Given Lasix reta so will continue 20 mg IV daily Obtain updated echocardiogram, recently done in 08/05 which revealed preserved EF, moderate AV sclerosis, severe mitral annular calcification with moderate MR Cycle troponin Consult cardiology, she is an established patient with [facility] Obtain anemia panel to to monitor for iron deficiency events possible cause of easy fatigability Obtain TSH, BNP Doubt ACS Findings of emphysema on CT, no prior smoking history, if no improvement with d iuresis could consider LABA inhaler, no gabriela exacerbation of asthma/copd though hx of TIA continue asa, statin Anemia hgb 12 in feb, now 10 anemia panel in a.m. HTN PAC continue metoprolol RLE pretibial wound pt states old skin tear, non healing x 6 weeks consult wound care Depression with Anxiety continue escitalopram DVT ppx: SQ heparin bid Dispo: PCU PCP: Melly Rabago DNR/DNI Pt was seen and examined in collaboration with Dr. Razo, please see addendum History of Present Illness Chief Complaint: Lower ext swelling in feet x 3 week, increased SOB and intermittent CP. 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 She complains of bilateral lower ext swelling in feet x 3 weeks. She also complains of increased difficulty with breathing and burning chest pain. She noticed with in the last month she was having increased SOB with activity. She has noticed a gradual worsening of this to the point even walking to the bathroom makes her labored. She complains of lack of energy and wanting to sleep all the time. Her burning in the chest started ~ 1 week ago across the anterior aspect of chest. She describes it as a burning, comes and goes, breathing makes it worse, exertion makes it worse ( moving from bed to wheel chair), nitro spray seemed to help the sensation, it is not made worse with MSK movement, and she denies ever having anything like this in past. She denies cough, hemoptysis, URI sx, F/C/S, lightheaded, dizziness, n/v/d, dysuria, hematuria, increased urg/freq with urination, melena or hematochezia. She denies orthopnea/PND. She denies any prior cardiac history. She currently lives at [facility] and manages all of her medications. She has been taking them regularly. Of significance patient was hospitalized July 2021 due to expressive aphasia. She was diagnosed with TIA. She was placed on aspirin and statin. At this time an echocardiogram was performed which revealed EF 50 to 55%, grade 2 diastolic dysfunction, AV sclerosis, severe mitral annular calcification, moderate MR and severe left a trial enlargement. Post hospitalization she did follow-up with neurology and cardiology. She was placed on 25 mg of metoprolol succinate secondary to PACs. She did have a Zio patch which was negative for arrhythmia. In ED patient remained hemodynamically stable. Her H&H was 10.0 and 31.5, sodium 134 and troponin 18.3. Chest x-ray revealed evidence for left pleural effusion. Chest CTA was negative for PE revealed small bilateral pleural effusions, cardiomegaly and emphysema. Allergies Allergy/AdvReac Type Severity Reaction Status Date / Time Penicillins Allergy Severe ANAPHYLAXIS--HEART Verified 12/31/21 17:11 STOPPED denosumab Allergy Intermediate bone pain Verified 12/31/21 17:11 mouse protein Allergy Intermediate bone pain Verified 12/31/21 17:11 cephalexin Allergy Mild RASH Verified 12/31/21 17:11 nitrofurazone Allergy Unknown PT NOT SURE Verified 12/31/21 17:11 nystatin Allergy Unknown PT NOT SURE Verified 12/31/21 17:11 codeine AdvReac Intermediate N/V - can Verified 12/31/21 17:11 take Oxycodone erythromycin base AdvReac Intermediate GI UPSET Verified 12/31/21 17:11 oxycodone AdvReac Intermediate NAUSEA/VOMI Verified 12/31/21 17:11 TING narcotics AdvReac Intermediate extreme Uncoded 12/31/21 17:11 drowsy and nausea Home Medications Medication Instructions Recorded Confirmed Type escitalopram oxalate 10 mg tablet 10 mg PO DAILY 07/29/18 12/31/21 History (Lexapro) loratadine 10 mg tablet (Claritin) 10 mg PO QAM 07/29/18 12/31/21 History vitamins A,C,U-evgk-xiyfym 14,320 1 cap PO BID 07/29/18 12/31/21 History unit-226 mg-200 unit capsule (PreserVision AREDS) calcium carbonate 500 mg-vitamin 1 tab PO DAILY 08/29/19 12/31/21 History D3 5 mcg (200 unit) tablet (Calcium 500 + D) calcium polycarbophil 625 mg tablet 625 mg PO BID 03/14/21 12/31/21 History lisinopril 40 mg tablet 40 mg PO DAILY 03/14/21 12/31/21 History Lactobacillus acidophilus 10 10,000 mmu cells PO DAILY 07/15/21 12/31/21 History billion cell capsule (Probiotic) acetaminophen 500 mg tablet 1,000 mg PO TID 07/15/21 12/31/21 History (Tylenol Extra Strength) albuterol sulfate 90 mcg/actuation 2 puff inhalation Q6H PRN 07/15/21 12/31/21 History aerosol inhaler Shortness Of Breath Or Wheezing cholecalciferol (vitamin D3) 50 50 mcg PO DAILY 07/15/21 12/31/21 History mcg (2,000 unit) capsule (Vitamin D3) edcnagrb-nnk-eitmg acid 0.4 1 tab PO DAILY 07/15/21 12/31/21 History mg-lycopene 300 mcg-lutein 250 mcg tablet (Centrum Silver) aspirin 81 mg tablet,delayed 81 mg PO DAILY 12/31/21 12/31/21 History release atorvastatin 40 mg tablet 40 mg PO DAILY 12/31/21 12/31/21 History meloxicam 15 mg tablet 15 mg PO DAILY 12/31/21 12/31/21 History metoprolol succinate 25 mg 25 mg PO DAILY 12/31/21 12/31/21 History tablet,extended release 24 hr triamcinolone acetonide 0.05 % 1 applic topical BID PRN Skin 12/31/21 12/31/21 History topical ointment Irritation Past Med/Surg History Medical History Anxiety and depression Asthma hasn't used PRN INH in over a year Cataract Essential tremor Hearing deficit Hip problem LEFT History of breast cancer s/p left mastectomy + chemo/radiation History of DVT (deep vein thrombosis) WITHIN LAST 10 YRS History of hypothyroidism History of pulmonary embolism WITHIN LAST 10 YRS History of skin cancer removed History of stomach ulcers Hypertension Intracranial meningioma (Unknown) pt could not confirm. states "there was something small on my brain that wasn't supposed to be there. nobody was really worried about it." says it was found "years ago" Limb alert care status LUE Osteoarthritis Osteoporosis Patent foramen ovale PT DENIES Rotator cuff tear, right Rupture of hip abductor tendon TMJ click Surgical History History of appendectomy History of breast biopsy History of colonoscopy History of esophagogastroduodenoscopy (EGD) History of left hip replacement History of right cataract surgery Slow to wake up after anesthesia Status post left mastectomy HX OF Status post total knee replacement HX OF - BL Family History Father Diabetes Social History (Updated 12/31/21 @ 17:49 by Salima Hall PA-C) Smoking Status: Never smoker Second Hand Exposure: Yes; Hx Alcohol Use: No Hx Substance Use: No Preferred Language: Irish Communication Ability: Effective Relay Motorman Required: No Beliefs That Will Affect Care: None marital status: Current Living Situation: Other Current Living Situation Comment: pt lives in [facility] independent living How many Children do You have: 2 Feels Safe at Home: Yes Assistive Devices: Walker Review of Systems Review of Systems: All systems reviewed & are unremarkable except as noted in HPI & below Physical Exam Physical Exam: Constitutional: WD/WN, vitals as above, NAD, sitting up in bed, pleasant, conversing easily but does get dyspneic with conversation Head: Normocephalic, Atraumatic Eyes: PERRL, conjunctivae normal, anicteric sclerae ENMT: external ear and nose normal, oropharynx normal Neck: trachea midline, no thyromegaly normal visual inspection Respiratory: normal respiratory effort, lungs clear to auscultation, no wheeze, rales, rhonchi. Normal insp/exp effort, no accessory muscle use Cardiovascular: RRR with frequent ectopy, no murmur, no edema , evidence of nonhealing skin tear to the lateral aspect of right pretibial, no surrounding erythema or warmth. Bilateral pedal pulse +1 and equal vessels: no JVD or carotid bruit Chest: normal inspection of chest Abdomen: normal bowel sounds, soft, nontender, no hepatosplenomegaly Musculoskeletal: no cyanosis or clubbing, extremities motor strength 5/5 Skin: no rashes, warm and dry normal turgor Neurologic: PERRL, EOMI, accommodation nl, no face palsy, no dysarthria CN's II-XI intact bilaterally and moves all extremities Psychiatric: A+Ox3, euthymic affect Lymphatic: no cervical or axillary lymphadenopathy : deferred Results & Data Results & Data ([facility]) Vital Signs (Past 12 Hours) Vital Signs Temp Pulse Resp BP Pulse Ox O2 Del Method 12/31/21 15:22 70 95 Room Air 12/31/21 13:50 72 12/31/21 13:40 74 19 12/31/21 13:30 74 22 12/31/21 13:20 71 18 95 12/31/21 13:15 71 17 95 12/31/21 13:42 36.8 C 75 14 150/81 H 95 Room Air Diagnostic Findings Chest CTA 12/31/21 13:42 CHEST CTA for PULMONARY ARTERIES CT DOSE: 223.61 mGy.cm HISTORY: Atypical chest pain. Shortness of breath. TECHNIQUE: Multiaxial CT images of the chest were performed following the intravenous administration of contrast to evaluate the pulmonary arteries. Maximal intensity projection images were also obtained. A dose lowering technique was utilized adhering to the principles of ALARA. COMPARISON STUDY: Chest CTA 02/26/2015. FINDINGS: There is an old mild superior endplate compression deformity at L1. Old, healed fractures within the right posterior 11th rib and mid sternum. There is mild motion artifact. No definite acute fractures identified within the chest. Mild retrograde opacification of the hepatic veins. Otherwise, the visualized liver, spleen, and adrenal glands appear unremarkable. Small bilate ral pleural effusions. No significant mediastinal or hilar lymphadenopathy. The heart is enlarged. No pericardial effusion. Normal esophagus. Mild body wall edema. There are mitral annulus calcifications. Mild calcified plaque within the left coronary artery. The thoracic aorta is not opacified due to the timing of contrast but appears normal in caliber. Nondiagnostic evaluation of the bilateral lower lobe subsegmental pulmonary arteries due to the motion artifact. However, the remaining pulmonary arteries show no filling defects to suggest a pulmonary embolus. There is a fat-containing right-sided Bochdalek hernia. No pneumothorax. Mild bronchial wall thickening. Otherwise, the central airways are patent. There is mild emphysema. A few scattered micronodules are seen within the lungs. These are of doubtful clinical significance given the patient's age. Mild bibasilar subsegmental atelectasis. Otherwise, no focal lung consolidations to suggest pneumonia. IMPRESSION: 1. No evidence for pulmonary embolus with limitations as described above. 2. Small bilateral pleural effusions. 3. Cardiomegaly. 4. Emphysema. ACT 112: Negative or not required by law. Electronically signed by: Royer Garcia M.D. 12/31/2021 3:29 PM Chest X-Ray 12/31/21 13:42 XR chest 1V portable CLINICAL HISTORY: Chest Pain. COMPARISON STUDY: 12 4 ACT TECHNIQUE: 1 view of the chest FINDINGS: Single frontal view of the chest demonstrates the heart to now be moderately enlarged. Increased alveolar density is present in the retrocardiac space suspicious for the presence of an underlying pneumonia. There is also blunting left costophrenic angle representing small to moderate-sized left pleural effusion. The right hemithorax is clear. No definite right pleural effusion is seen. There is no evidence for vascular congestion. There is no acute osseous pathology. IMPRESSION: 1. Increased alveolar opacity in the retrocardiac space on the left and evidence for left pleural effusion. PA and lateral radiographs would be the study of choice for further evaluation. ACT 112: Negative or not required by law. Electronically signed by: Tony Mcguire M.D. 12/31/2021 1:58 PM Medications Administered Medication List Discontinued Medications Ioversol (Optiray 320 125ml) 120 ml IV ONCE ONE Stop: 12/31/21 15:03 Last Admin: 12/31/21 15:05 Dose: 120 ml Documented By: [facility] ECG Rate (beats per minute): 68 Rhythm: normal sinus Findings: + PAC Additional Comments: t wave flattening in leads v5-6 COVID-19 Results Results COVID-19 Adm Lab Results: RBC 3.48 M/uL (3.93-5.22) L 12/31/21 WBC 7.64 K/ul (4.8-10.8) 12/31/21 Hgb 10.0 g/dl (12.0-16.0) L 12/31/21 Hct 31.5 % (34.1-44.9) L 12/31/21 Plt Count 354 K/uL (130-400) 12/31/21 Neutrophils (%) (Auto) 63.0 % 12/31/21 Lymphocytes (%) (Auto) 24.3 % 12/31/21 Monocytes # (Auto) 0.70 K/uL (0.24-0.82) 12/31/21 Eosinophils # (Auto) 0.16 K/uL (0-0.50) 12/31/21 Immature Granulocyte % (Auto) 0.4 % 12/31/21 Neutrophils # (Auto) 4.81 K/uL (1.4-6.5) 12/31/21 Lymphocytes # (Auto) 1.86 K/uL (1.2-3.4) 12/31/21 Monocytes # (Auto) 0.70 K/uL (0.24-0.82) 12/31/21 Eosinophils # (Auto) 0.16 K/uL (0-0.50) 12/31/21 Basophils # (Auto) 0.08 K/uL (0-0.2) 12/31/21 Immature Granulocyte # (Auto) 0.03 K/uL (0.00-0.02) H 12/31 Na 134 mmol/L (136-145) L 12/31/21 K 4.5 mmol/L (3.5-5.1) 12/31/21 Cl 101 mmol/L (98-107) 12/31/21 CO2 25 mmol/L (21-32) 12/31/21 Anion Gap 8 (3-11) 12/31/21 BUN 16 mg/dl (6-23) 12/31/21 Creatinine 0.78 mg/dl (0.6-1.2) 12/31/21 BUN/Creatinine Ratio 20.5 (10-20) H 12/31/21 Glucose Level 96 mg/dl (70-99(Fasting)) 12/31/21 Ca 8.7 mg/dl (8.5-10.1) 12/31/21 Total Bilirubin 0.4 mg/dl (0.2-1.0) 12/31/21 AST/SGOT 21 U/L (13-39) 12/31/21 ALT/SGPT 15 U/L (7-52) 12/31/21 Alkaline Phosphatase 82 U/L (34-104) 12/31/21 Total Protein 6.6 gm/dl (6.0-8.3) 12/31/21 Albumin 3.8 gm/dl (3.4-5.0) 12/31/21 Globulin 2.8 gm/dl (2.5-4.0) 12/31/21 Albumin/Globulin Ratio 1.4 (0.9-2) 12/31/21 PTT 28.0 Seconds (21.0-31.0) 12/31/21 INR 1.2 (0.9-1.1) H 12/31/21 SARS-CoV-2, RNA, NAAT NEGATIVE (NEGATIVE) 12/31/21 Chest X-Ray 12/31/21 Code Status & VTE Plan Code Status DNR/DNI VTE Prophylaxis Plan VTE Prophylaxis will be ordered: Yes Supervising Physician Co-Signing Physician Notes This is an attending cosign note for full report and documentation please see the full dictation by SANIYA following is a synopsis. Patient presenting with worsening lower extremity edema worsening over the past 2 to 3 weeks associated with subsequent shortness of breath with exertional activity initially. Also noted to have vague chest pain. Also noted to have anemia 2 points below previous level had atraumatic chest largely clear mildly diminished at the base. Regular rate and rhythm. Abdomen soft. No significant lower extremity edema. We can obtain a limited echo. Cardiology consultation. Trend troponins. Low- dose Lasix. (1) Chest pain Chest pain type: unspecified Qualified Code(s): R07.9 - Chest pain, unspecified
--- NOTE | 2021-12-31 16:54 | Electrocardiogram Report ---
Test Reason : Blood Pressure : / mmHG Vent. Rate : 068 BPM Atrial Rate : 068 BPM P-R Int : 166 ms QRS Dur : 084 ms QT Int : 414 ms P-R-T Axes : 069 -13 077 degrees QTc Int : 440 ms Sinus rhythm with Premature atrial complexes Nonspecific T wave abnormality Abnormal ECG When compared with ECG of 15-JUL-2021 16:41, Premature atrial complexes are now Present Vent. rate has decreased BY 50 BPM Questionable change in QRS axis ST no longer depressed in Inferior leads T wave amplitude has decreased in Anterior leads Confirmed by Polo Valenzuela ([id number]) on 12/31/2021 4:54:50 PM Referred By: REFERRED SELF Confirmed By:Polo Valenzuela
--- NOTE | 2021-12-31 18:56 | Ultrasound Report ---
ULTRASOUND BILATERAL LOWER EXTREMITY VENOUS CLINICAL HISTORY: Lower extremity edema. COMPARISON STUDY: Right lower extremity venous ultrasound dated 03/09/2016. Left lower extremity venou s ultrasound dated 12/30/2015 TECHNIQUE: Real-time, grayscale, and color Doppler sonography of the deep veins of the right and left lower extremity was performed from the inguinal crease to the calf. Compression and augmentation wer e utilized. FINDINGS: There is no sonographic evidence of deep venous thrombosis identified in the right or left lower extremity. The common femoral, superficial femoral, and popliteal veins are patent and normally compressible bilaterally. The greater saphenous vein and the profunda femoris vein at the junction w ith the common femoral vein are clear in both legs. The visualized calf veins are patent bilaterally. Prominent inguinal lymph nodes are likely reactive. IMPRESSION: There is no sonographic evidence of deep venous thrombosis identified in the right or lef t lower extremity. ACT 112: Negative or not required by law. Electronically signed by: Austen Aguilar M.D. 12/31/2021 6:55 PM
[2021-12-31] MEDS ORDERED: ALUMINUM/MAGNESIUM SUSP 30 ML UDC PO PRN (19:18)
[2021-12-31] MEDS ORDERED: ONDANSETRON INJ 2 MG/ML 2 ML VIAL IV PRN (19:18)
[2021-12-31] MEDS ORDERED: POLYETHYLENE (MIRALAX) 17 GM PACK PO PRN (19:18)
[2021-12-31] MEDS ORDERED: ALBUTEROL HFA 8 GM INHALER INH PRN (19:18)
[2021-12-31] MEDS ORDERED: ACETAMINOPHEN 325 MG TAB PO PRN (19:18)
[2021-12-31 20:10] LABS: Troponin I High Sensitivity 17.7 pg/ml (0-14)
[2021-12-31 20:31] LABS: Magnesium 1.7 mg/dl (1.7-2.4)
[2021-12-31] MEDS: ACETAMINOPHEN 500 MG TAB PO SCH (21:10)
[2021-12-31] MEDS: ENOXAPARIN INJ 30 MG/0.3 ML SYR SQ SCH (21:10)
[2021-12-31] MEDS: CALCIUM POLYCARBOPHIL 625MG TAB PO SCH (21:10)
[2022-01-01 07:00] LABS: Basophils # (auto) 0.07 K/uL (0-0.2); Basophils % (auto) 0.9 %; Eosinophils # (auto) 0.12 K/uL (0-0.50); Eosinophils % (auto) 1.5 %; Hematocrit (blood only) 33.2 % (34.1-44.9); Hemoglobin 10.5 g/dl (12.0-16.0); Immature Granulocytes # (auto) 0.03 K/uL (0.00-0.02); Immature Granulocytes % (auto) 0.4 %; Lymphocytes # (auto) 1.97 K/uL (1.2-3.4); Lymphocytes % (auto) 24.6 %; Mean Corpuscular Hemoglobin 28.5 pg (25.0-34.0); Mean Corpuscular Hgb Conc 31.6 g/dL (32.0-36.0); Mean Platelet Volume 9.4 fL (9.4-12.3); Monocytes # (auto) 0.83 K/uL (0.24-0.82); Monocytes % (auto) 10.3 %; Neutrophils % (auto) 62.3 %; Platelet Count 331 K/uL (130-400); RDW Coefficient of Variation 14.4 % (11.5-14.5); RDW Standard Deviation 46.7 fL (36.4-46.3); Red Blood Count 3.69 M/uL (3.93-5.22); White Blood Count 8.02 K/ul (4.8-10.8)
[2022-01-01 07:25] LABS: Albumin Globulin Ratio 1.4 (0.9-2); Albumin Level 3.7 gm/dl (3.4-5.0); BUN Creatinine Ratio 18.5 (10-20); Bilirubin,Total 0.5 mg/dl (0.2-1.0); Calcium 8.3 mg/dl (8.5-10.1); Creatinine Clr Calc Pharmacy 48.2 ml/min; Est GFR (African American) 92.5 ml/min; Est GFR (Non-African American) 79.8 ml/min; Globulin 2.7 gm/dl (2.5-4.0); Magnesium 1.7 mg/dl (1.7-2.4); Potassium 4.1 mmol/L (3.5-5.1); Total Protein 6.4 gm/dl (6.0-8.3)
[2022-01-01 07:37] LABS: Ferritin 18.4 ng/ml (8-388)
[2022-01-01] MEDS: CALCIUM POLYCARBOPHIL 625MG TAB PO SCH ×2 (07:42→20:12)
[2022-01-01 07:43] LABS: Folate (Folic Acid) > 22.30 ng/ml (>5.38)
[2022-01-01] MEDS: LORATADINE 10 MG TAB PO SCH (07:43)
[2022-01-01] MEDS: CHOLECALCIFEROL 1,000 UNITS 25 MCG TAB PO SCH (07:43)
[2022-01-01] MEDS: ATORVASTATIN 40 MG TAB PO SCH (07:43)
[2022-01-01] MEDS: ESCITALOPRAM OXALATE 10 MG TAB PO SCH (07:43)
[2022-01-01] MEDS: CALCIUM 600MG + VIT D 400 IU TAB PO SCH (07:43)
[2022-01-01] MEDS: ASPIRIN 81 MG ECTAB PO SCH (07:43)
[2022-01-01] MEDS: ACETAMINOPHEN 500 MG TAB PO SCH ×3 (07:43→21:45)
[2022-01-01 07:44] LABS: Vitamin B12 1061 pg/ml (180-914)
[2022-01-01] MEDS: CEROVITE ADV FORMULA TAB PO SCH (07:44)
[2022-01-01] MEDS: MELOXICAM 7.5 MG TAB PO SCH (07:44)
[2022-01-01] MEDS: METOPROLOL SUCC 25MG EXT REL TAB PO SCH (07:44)
[2022-01-01] MEDS: lisinopril 40 MG TAB PO SCH (07:45)
[2022-01-01] MEDS: ADVANCED PROBIOTIC 1250 MG CAPSULE PO SCH (07:45)
[2022-01-01] MEDS: FUROSEMIDE INJ 20 MG/2 ML VIAL IV SCH ×2 (07:46→07:56)
--- NOTE | 2022-01-01 10:52 | Cardiology Consultation ---
Date of Consultation January 01, 2022 Assessment & Plan (1) Systolic and diastolic CHF, acute on chronic: (2) Orthopnea: (3) Elevated troponin: (4) PHELPS (dyspnea on exertion): (5) Chest pain: (6) Hypertension: Plan 86-year-old female admitted with complaints of progressive shortness of breath with activity and orthopnea, lower extremity peripheral edema, atypical chest discomfort. History, examination, and chest x-ray findings raise concern for left ventricular systolic dysfunction. Volume status: Mildly hypervolemic. Resting echocardiogram pending. Agree with low dose IV diuresis as prescribed. Recommend initiation of mineralocorticoid receptor antagonist therapy, low dose spironolactone, 12.5 mg/day. Continue evidence based beta-vijaya (metoprolol succinate 25 mg/day) and lisinopril, considering transitioning to Entresto down the road. Patient will likely require oral diuretic therapy on discharge which will be new. Continue aspirin and moderate intensity statin therapy. Further recommendations pending the above, evaluation by Dr. Dhillon, and the patient's ongoing hospitalization. Supervising Physician Co-Signing Physician Notes Patient was seen and examined, chart, medications, telemetry reviewed. Assessment and plan as above. Patient with prior history of low-grade cardiomyopathy with improved LV function after medical therapies who presents now with signs and symptoms of increasing lower extremity edema. Chest x-ray is consistent with mild congestive heart failure with left pleural effusion Echocardiogram today demonstrates reduced ejection fraction EF 25 to 30% with moderate to severe mitral and tricuspid insufficiency Symptoms have initially responded to IV diuretic. We will adjust medications as noted with ultimate goals achieving compensated status with medical therapies . Will need to treat underlying iron deficiency anemia Plan as above In addition we will add additional metoprolol succinate 12.5 mg every afternoon for further heart rate and blood pressure control Will add oral nitrates 10 mg Isordil twice daily History of Present Illness Reason for Consultation: Acute on chronic heart failure with preserved left ventricular systolic function Requesting Physician: Isabel Attending Physician: Juani History of Present Illness Ms. Evy Hancock is a pleasant 86-year-old female who was referred for hospitalization after initially presenting to [facility] on Wednesday, December 31, 2021 with complaints of worsening exertional dyspnea, orthopnea, lower extremity peripheral edema, and mild chest discomfort seem to be worse with deep inspiration. EKG on presentation revealed sinus rhythm at 68 bpm with premature atrial complexes, nonspecific T wave abnormality. High-sensitivity troponin I minimally elevated at 18.3 pg/mL then 17.7 pg/ml. Chest x-ray reveals a moderately enlarged heart with blunting on the left suggestive of a left-sided pleural effusion. CTA of the chest showed no evidence of pulmonary emboli, revealing small bilateral pleural effusions, cardiomegaly, and evidence of emphysema. Mild retrograde notification of the hepatic veins noted. Venous duplex on admission showed no evidence of DVT in either the right or the left lower extremity. Low-dose IV furosemide ordered on admission. Resting echocardiography pending. Increased patient notes ongoing symptoms, dyspnea, orthopnea. Peripheral edema has improved. No overt pleuritic chest pain. No overt angina. No palpitations. No PND. No dizziness or syncope. No fevers or chills. No melena or hematochezia. Past Medical and Surgical History: Prior LV systolic dysfunction, resolved, without documented history of ischemic heart disease Labile hypertension Diastolic dysfunction Mitral regurgitation Patent foramen ovale Frequent atrial ectopy, without documented history of atrial fibrillation Dyslipidemia History of left lower extremity DVT and PE, as complication of orthopedic surgery, 2012 Stage III chronic kidney disease Remote history of transient global amnesia Left-sided breast cancer status post chemotherapy, mastectomy History of NSAID induced gastric ulcer, with associated GI bleeding, December 2015 GERD Transient ischemic attack x2, lasting July 2021, with resultant expressive aphasia Chart history of asthma History of tobacco abuse, 1.5 ppd x 21 years, quit in 1976 Squamous cell carcinoma of leg Essential tremor Restless leg syndrome Cervical disc disease Lumbar disc disease Glaucoma Osteoporosis Left hip fracture status postrepair Status post bilateral knee replacements Bladder surgery Cataract extraction D&C Appendectomy Social History: History of tobacco abuse, 1.5 ppd x 21 years, quit in 1976. No significant alcohol. No illegal drug use. Resident of [facility]. Son in an MVA at 42. Family History: Father with CAD and diabetes, passing with an IL at 90. Mother with Parkinsons disease, passing at 88. Sister at 67, primary progressive aphasia. Daughter with atrial fibrillation Complete Review of Systems was difficult to discern. ? Underlying mild dementia. Otherwise, as stated above or negative. Allergies Allergy/AdvReac Type Severity Reaction Status Date / Time Penicillins Allergy Severe ANAPHYLAXIS--HEART Verified 12/31/21 17:11 STOPPED denosumab Allergy Intermediate bone pain Verified 12/31/21 17:11 mouse protein Allergy Intermediate bone pain Verified 12/31/21 17:11 cephalexin Allergy Mild RASH Verified 12/31/21 17:11 nitrofurazone Allergy Unknown PT NOT SURE Verified 12/31/21 17:11 nystatin Allergy Unknown PT NOT SURE Verified 12/31/21 17:11 codeine AdvReac Intermediate N/V - can Verified 12/31/21 17:11 take Oxycodone erythromycin base AdvReac Intermediate GI UPSET Verified 12/31/21 17:11 oxycodone AdvReac Intermediate NAUSEA/VOMI Verified 12/31/21 17:11 TING narcotics AdvReac Intermediate extreme Uncoded 12/31/21 17:11 drowsy and nausea Home Medications Medication Instructions Recorded Confirmed Type escitalopram oxalate 10 mg tablet 10 mg PO DAILY 07/29/18 12/31/21 History (Lexapro) loratadine 10 mg tablet (Claritin) 10 mg PO QAM 07/29/18 12/31/21 History vitamins A,C,Q-efkg-jxmtoi 14,320 1 cap PO BID 07/29/18 12/31/21 History unit-226 mg-200 unit capsule (PreserVision AREDS) calcium carbonate 500 mg-vitamin 1 tab PO DAILY 08/29/19 12/31/21 History D3 5 mcg (200 unit) tablet (Calcium 500 + D) calcium polycarbophil 625 mg tablet 625 mg PO BID 03/14/21 12/31/21 History lisinopril 40 mg tablet 40 mg PO DAILY 03/14/21 12/31/21 History Lactobacillus acidophilus 10 10,000 mmu cells PO DAILY 07/15/21 12/31/21 History billion cell capsule (Probiotic) acetaminophen 500 mg tablet 1,000 mg PO TID 07/15/21 12/31/21 History (Tylenol Extra Strength) albuterol sulfate 90 mcg/actuation 2 puff inhalation Q6H PRN 07/15/21 12/31/21 History aerosol inhaler Shortness Of Breath Or Wheezing cholecalciferol (vitamin D3) 50 50 mcg PO DAILY 07/15/21 12/31/21 History mcg (2,000 unit) capsule (Vitamin D3) [id number] acid 0.4 1 tab PO DAILY 07/15/21 12/31/21 History mg-lycopene 300 mcg-lutein 250 mcg tablet (Centrum Silver) aspirin 81 mg tablet,delayed 81 mg PO DAILY 12/31/21 12/31/21 History release atorvastatin 40 mg tablet 40 mg PO DAILY 12/31/21 12/31/21 History meloxicam 15 mg tablet 15 mg PO DAILY 12/31/21 12/31/21 History metoprolol succinate 25 mg 25 mg PO DAILY 12/31/21 12/31/21 History tablet,extended release 24 hr triamcinolone acetonide 0.05 % 1 applic topical BID PRN Skin 12/31/21 12/31/21 History topical ointment Irritation Patient History Medical History Anxiety and depression Asthma hasn't used PRN INH in over a year Cataract Essential tremor Hearing deficit Hip problem LEFT History of breast cancer s/p left mastectomy + chemo/radiation History of DVT (deep vein thrombosis) WITHIN LAST 10 YRS History of hypothyroidism History of pulmonary embolism WITHIN LAST 10 YRS History of skin cancer removed History of stomach ulcers Hypertension Intracranial meningioma (Unknown) pt could not confirm. states "there was something small on my brain that wasn't supposed to be there. nobody was really worried about it." says it was found "years ago" Limb alert care status LUE Osteoarthritis Osteoporosis Patent foramen ovale PT DENIES Rotator cuff tear, right Rupture of hip abductor tendon TMJ click Surgical History History of appendectomy History of breast biopsy History of colonoscopy History of esophagogastroduodenoscopy (EGD) History of left hip replacement History of right cataract surgery Slow to wake up after anesthesia Status post left mastectomy HX OF Status post total knee replacement HX OF - BL Family History Father Diabetes Social History Smoking Status: Never smoker Second Hand Exposure: Yes; Hx Alcohol Use: No Hx Substance Use: No Preferred Language: American Communication Ability: Effective Administrative Services Director Required: No Beliefs That Will Affect Care: None marital status: Current Living Situation: Personal Care Facility Current Living Situation Comment: pt lives in [facility] independent living How many Children do You have: 2 Other Information That Helps Us Care for You: No Feels Safe at Home: Yes Safety Concerns: Feels Safe At This Time Assistive Devices: Walker Physical Exam Physical Exam: General: A&Ox3. NAD. HENT: Normocephalic. Atraumatic. Eyes: PER. Conjunctiva pink, sclera clear. Neck: Bilateral carotid bruits. + JVD. + HJR. Heart: Regular with an occasional ectopic beat. Grade II/ apical systolic murmur. No diastolic murmur. No rub. Lungs: Decreased at the bases however clear to auscultation. Abdomen: +BS. Soft. Nontender. No masses or organomegaly. Extremities: No clubbing, cyanosis, or edema. Limited neurological examination is without focal deficits. Pulses: radial=2/4, posterior tibial=1/4. Results & Data ([facility]) Vital Signs (Past 12 Hours) Vital Signs Temp Pulse Pulse Resp BP Pulse Ox O2 Del Method 01/01/22 08:19 Room Air 01/01/22 07:31 36.4 C L 80 20 158/83 H 93 Room Air 01/01/22 07:18 55 L 01/01/22 04:45 36.5 C 10 L 16 152/93 H 93 Room Air 01/01/22 00:39 78 01/01/22 00:03 36.4 C L 79 16 159/77 H 92 Room Air Laboratory Results Laboratory Results - last 24 hr 12/31/21 12/31/21 12/31/21 13:10 13:10 13:10 WBC 7.64 RBC 3.48 L Hgb 10.0 L Hct 31.5 L MCV 90.5 MCH 28.7 MCHC 31.7 L RDW Std Deviation 48.6 H RDW Coeff of Alessandro 14.6 H Plt Count 354 MPV 9.8 Immature Gran % (Auto) 0.4 Neut % (Auto) 63.0 Lymph % (Auto) 24.3 [place] % (Auto) 9.2 Eos % (Auto) 2.1 Baso % (Auto) 1.0 Neut # (Auto) 4.81 Lymph # (Auto) 1.86 [place] # (Auto) 0.70 Eos # (Auto) 0.16 Baso # (Auto) 0.08 Immature Gran # (Auto) 0.03 H PT 12.4 H INR 1.2 H APTT 28.0 PTT Ratio 1.0 Sodium 134 L Potassium 4.5 Chloride 101 Carbon Dioxide 25 Anion Gap 8 BUN 16 Creatinine 0.78 Est Cr Clr Drug Dosing Not Reportable Est GFR ( Amer) 79.2 Est GFR (Non-Af Amer) 68.4 BUN/Creatinine Ratio 20.5 H Glucose 96 Calcium 8.7 Magnesium Iron Transferrin Ferritin Total Bilirubin 0.4 AST 21 ALT 15 Alkaline Phosphatase 82 Troponin I High Sens 18.3 H B-Natriuretic Peptide Total Protein 6.6 Albumin 3.8 Globulin 2.8 Albumin/Globulin Ratio 1.4 Lipase 49 Vitamin B12 Folate TSH SARS-CoV-2, RNA, NAAT 12/31/21 12/31/21 12/31/21 13:50 18:40 18:40 WBC RBC Hgb Hct MCV MCH MCHC RDW Std Deviation RDW Coeff of Alessandro Plt Count MPV Immature Gran % (Auto) Neut % (Auto) Lymph % (Auto) [place] % (Auto) Eos % (Auto) Baso % (Auto) Neut # (Auto) Lymph # (Auto) [place] # (Auto) Eos # (Auto) Baso # (Auto) Immature Gran # (Auto) PT INR APTT PTT Ratio Sodium Potassium Chloride Carbon Dioxide Anion Gap BUN Creatinine Est Cr Clr Drug Dosing Est GFR ( Amer) Est GFR (Non-Af Amer) BUN/Creatinine Ratio Glucose Calcium Magnesium 1.7 Iron Transferrin Ferritin Total Bilirubin AST ALT Alkaline Phosphatase Troponin I High Sens 17.7 H B-Natriuretic Peptide 2130 H Total Protein Albumin Globulin Albumin/Globulin Ratio Lipase Vitamin B12 Folate TSH SARS-CoV-2, RNA, NAAT NEGATIVE 12/31/21 01/01/22 01/01/22 18:40 06:41 06:41 WBC 8.02 RBC 3.69 L Hgb 10.5 L Hct 33.2 L MCV 90.0 MCH 28.5 MCHC 31.6 L RDW Std Deviation 46.7 H RDW Coeff of Alessandro 14.4 Plt Count 331 MPV 9.4 Immature Gran % (Auto) 0.4 Neut % (Auto) 62.3 Lymph % (Auto) 24.6 [place] % (Auto) 10.3 Eos % (Auto) 1.5 Baso % (Auto) 0.9 Neut # (Auto) 5.00 Lymph # (Auto) 1.97 [place] # (Auto) 0.83 H Eos # (Auto) 0.12 Baso # (Auto) 0.07 Immature Gran # (Auto) 0.03 H PT INR APTT PTT Ratio Sodium 133 L Potassium 4.1 Chloride 102 Carbon Dioxide 24 Anion Gap 7 BUN 12 Creatinine 0.65 Est Cr Clr Drug Dosing 48.2 Est GFR ( Amer) 92.5 Est GFR (Non-Af Amer) 79.8 BUN/Creatinine Ratio 18.5 Glucose 114 H Calcium 8.3 L Magnesium 1.7 Iron 21 L Transferrin 291 Ferritin 18.4 Total Bilirubin 0.5 AST 22 ALT 16 Alkaline Phosphatase 83 Troponin I High Sens B-Natriuretic Peptide Total Protein 6.4 Albumin 3.7 Globulin 2.7 Albumin/Globulin Ratio 1.4 Lipase Vitamin B12 Folate TSH 2.137 SARS-CoV-2, RNA, NAAT 01/01/22 06:41 WBC RBC Hgb Hct MCV MCH MCHC RDW Std Deviation RDW Coeff of Alessandro Plt Count MPV Immature Gran % (Auto) Neut % (Auto) Lymph % (Auto) [place] % (Auto) Eos % (Auto) Baso % (Auto) Neut # (Auto) Lymph # (Auto) [place] # (Auto) Eos # (Auto) Baso # (Auto) Immature Gran # (Auto) PT INR APTT PTT Ratio Sodium Potassium Chloride Carbon Dioxide Anion Gap BUN Creatinine Est Cr Clr Drug Dosing Est GFR ( Amer) Est GFR (Non-Af Amer) BUN/Creatinine Ratio Glucose Calcium Magnesium Iron Transferrin Ferritin Total Bilirubin AST ALT Alkaline Phosphatase Troponin I High Sens B-Natriuretic Peptide Total Protein Albumin Globulin Albumin/Globulin Ratio Lipase Vitamin B12 1061 H Folate > 22.30 TSH SARS-CoV-2, RNA, NAAT (1) Chest pain Chest pain type: unspecified Qualified Code(s): R07.9 - Chest pain, unspecified
[2022-01-01] MEDS: SPIRONOLACTONE 12.5 MG TAB PO SCH (12:16)
[2022-01-01] MEDS: ISOSORBIDE DINITRATE 10 MG TAB PO SCH (17:02)
--- NOTE | 2022-01-01 19:05 | Hospitalist Progress Note ---
Date of Service January 01, 2022 Assessment & Plan (1) Systolic and diastolic CHF, acute on chronic: (2) Anemia: (3) Hypertension: (4) Anxiety and depression: (5) Leg wound, right: Plan This is a 86-year-old female who has a significant past medical history of HTN, HLD, diastolic dysfunction, history of TIA, asthma, GERD, RLS, history of squamous cell carcinoma on back, migraine, polyneuropathy, depression, history of provoked DVT/PE postsurgery, history of NSAID induced peptic ulcer GI bleed, PFO who presents to ED secondary to feet swelling x3 weeks, worsening shortness of breath x3 weeks and chest pain x1 week. Acute on chronic systolic and diastolic CHF- - Echo 01/01/22 with EF 25-30 % with mod-sev mitral and tricuspid insufficiency - Cardio following - Continue iv lasix, daily weight, strict I and Os - Continue GDMT- toprol increased to bid, isordil and aldactone added per cardio H/o TIA- continue asa, statin Anemia- hgb 12 in jul, now 10. Iron def in labs. VIt B12 and folate normal. will start on iron supplementation HTN- continue metoprolol, lisinopri RLE pretibial wound- pt states old skin tear, non healing x 6 weeks; WOCN following Depression with Anxiety- continue escitalopram Generalized weakness- PT/OT eval DVT ppx: SQ lovenox Dispo: PCU; continue iv diuresis for volume optimization. PT/OT eval Admission and Anticipated Discharge Date Admission Date: December 31, 2021 Subjective Her external catheter had dislodged and she was all soaked during my encounter and was requesting for help to get changed. States she still feels weak. Dyspnea and swelling improved. No fever, chills, chest pain. No N/V Physical Exam Physical Exam: General: Elderly female, sitting in chair, not in distress, on room air HEENT: EOMI, KRYSTA, MMM Chest: Clear breath sounds bilaterally, decreased at bases CVS: Regular rate and rhythm, normal heart sounds, systolic murmur Abdomen: Soft, non tender, not distended, normal bowel sounds Neuro: Awake, alert, oriented, conversing well, non focal Extremities: No edema Results & Data Results & Data ([facility]) Vital Signs (Past 12 Hours) Vital Signs Temp Pulse Pulse Pulse Resp BP Pulse Ox 01/01/22 16:13 36.7 C 78 16 162/87 H 92 01/01/22 14:50 93 H 01/01/22 11:31 36.5 C 74 16 154/80 H 95 01/01/22 08:19 01/01/22 07:31 36.4 C L 80 20 158/83 H 93 01/01/22 07:18 55 L O2 Del Method 01/01/22 16:13 Room Air 01/01/22 14:50 01/01/22 11:31 Room Air 01/01/22 08:19 Room Air 01/01/22 07:31 Room Air 01/01/22 07:18 Laboratory Results Short CBC 01/01/22 Range/Units 06:41 WBC 8.02 (4.8-10.8) K/ul Hgb 10.5 L (12.0-16.0) g/dl Hct 33.2 L (34.1-44.9) % Plt Count 331 (130-400) K/uL BMP 01/01/22 06:41 Sodium 133 L Potassium 4.1 Chloride 102 Carbon Dioxide 24 BUN 12 Creatinine 0.65 Glucose 114 H Calcium 8.3 L Liver Function 01/01/22 Range/Units 06:41 Total Bilirubin 0.5 (0.2-1.0) mg/dl AST 22 (13-39) U/L ALT 16 (7-52) U/L Alkaline Phosphatase 83 (34-104) U/L Albumin 3.7 (3.4-5.0) gm/dl Medications Administered Current Inpatient Medications Acetaminophen (Acetaminophen 500 Mg Tab) 1,000 mg PO TID [facility] Stop: 01/30/22 20:59 Last Admin: 01/01/22 14:47 Dose: 1,000 mg Al Hydrox/Mg Hydrox/Simethicone (Aluminum/Magnesium Susp 30 Ml Udc) 15 ml PO Q4H PRN PRN Reason: Dyspepsia Stop: 01/30/22 19:17 Albuterol (Albuterol Hfa 8 Gm Inhaler) 2 puffs INH Q6H PRN PRN Reason: Shortness Of Breath Or Wheezin Stop: 01/30/22 19:17 Aspirin (Aspirin 81 Mg Ectab) 81 mg PO DAILY [facility] Stop: 01/31/22 08:59 Last Admin: 01/01/22 07:43 Dose: 81 mg Atorvastatin Calcium (Atorvastatin 40 Mg Tab) 40 mg PO DAILY [facility] Stop: 01/31/22 08:59 Last Admin: 01/01/22 07:43 Dose: 40 mg Calcium Polycarbophil (Calcium Polycarbophil 625mg Tab) 625 mg PO BID [facility] Stop: 01/30/22 20:59 Last Admin: 01/01/22 07:42 Dose: 625 mg Enoxaparin Sodium (Enoxaparin Inj 30 Mg/0.3 Ml Syr) 30 mg SQ Q24H [facility] Stop: 01/30/22 20:59 Last Admin: 12/31/21 21:10 Dose: 30 mg Escitalopram Oxalate (Escitalopram Oxalate 10 Mg Tab) 10 mg PO DAILY [facility] Stop: 01/31/22 08:59 Last Admin: 01/01/22 07:43 Dose: 10 mg Furosemide (Furosemide Inj 20 Mg/2 Ml Vial) 20 mg IV DAILY [facility] Stop: 01/31/22 07:59 Last Admin: 01/01/22 07:56 Dose: Not Given Isosorbide Dinitrate (Isosorbide Dinitrate 10 Mg Tab) 10 mg PO BID@0700,1200 [facility] Stop: 01/31/22 16:59 Last Admin: 01/01/22 17:02 Dose: 10 mg Lactobacillus Acidophilus (Advanced Probiotic 1250 Mg Capsule) 2 cap PO DAILY [facility] Stop: 01/31/22 08:59 Last Admin: 01/01/22 07:45 Dose: 2 cap Lisinopril (Lisinopril 40 Mg Tab) 40 mg PO DAILY [facility] Stop: 01/31/22 08:59 Last Admin: 01/01/22 07:45 Dose: 40 mg Loratadine (Loratadine 10 Mg Tab) 10 mg PO QAM [facility] Stop: 01/31/22 08:59 Last Admin: 01/01/22 07:43 Dose: 10 mg Meloxicam (Meloxicam 7.5 Mg Tab) 15 mg PO DAILY [facility] Stop: 01/31/22 08:59 Last Admin: 01/01/22 07:44 Dose: 15 mg Metoprolol Succinate (Metoprolol Succ 25mg Ext Rel Tab) 25 mg PO DAILY [facility] Stop: 01/31/22 08:59 Last Admin: 01/01/22 07:44 Dose: 25 mg Metoprolol Succinate (Metoprolol Succ 25mg Ext Rel Tab) 12.5 mg PO QPM [facility] Stop: 01/31/22 20:59 Miscellaneous (*Preservision Areds*Order Awaiting Action) 1 each N/A QS [facility] Stop: 01/31/22 00:00 Last Admin: 01/01/22 15:26 Dose: Not Given Multivitamins/Minerals (Cerovite Adv Formula Tab) 1 tab PO DAILY [facility] Stop: 01/31/22 08:59 Last Admin: 01/01/22 07:44 Dose: 1 tab Multivitamins/Minerals (Calcium 600mg + Vit D 400 Iu Tab) 1 tab PO DAILY [facility] Stop: 01/31/22 08:59 Last Admin: 01/01/22 07:43 Dose: 1 tab Ondansetron HCl (Ondansetron Inj 2 Mg/Ml 2 Ml Vial) 4 mg IV Q6H PRN PRN Reason: Nausea Stop: 01/30/22 19:17 Polyethylene Glycol (Polyethylene (Miralax) 17 Gm Pack) 17 gm PO DAILY PRN PRN Reason: Constipation Stop: 01/30/22 19:17 Spironolactone (Spironolactone 12.5 Mg Tab) 12.5 mg PO DAILY [facility] Stop: 01/31/22 11:29 Last Admin: 01/01/22 12:16 Dose: 12.5 mg Vitamin D (Cholecalciferol 1,000 Units 25 Mcg Tab) 2,000 units PO DAILY [facility] Stop: 01/31/22 08:59 Last Admin: 01/01/22 07:43 Dose: 2,000 units
[2022-01-01] MEDS: ENOXAPARIN INJ 30 MG/0.3 ML SYR SQ SCH (20:12)
[2022-01-01] MEDS: FERROUS SULFATE 325 MG TAB PO SCH (20:37)
[2022-01-01] MEDS ORDERED: METOPROLOL SUCC 25MG EXT REL TAB PO SCH (21:00)
[2022-01-02 06:24] LABS: Hematocrit (blood only) 31.6 % (34.1-44.9); Hemoglobin 10.2 g/dl (12.0-16.0); Mean Corpuscular Hemoglobin 28.3 pg (25.0-34.0); Mean Corpuscular Hgb Conc 32.3 g/dL (32.0-36.0); Mean Corpuscular Volume 87.5 fL (80.0-100.0); Mean Platelet Volume 9.6 fL (9.4-12.3); Platelet Count 344 K/uL (130-400); RDW Coefficient of Variation 14.2 % (11.5-14.5); RDW Standard Deviation 45.7 fL (36.4-46.3); Red Blood Count 3.61 M/uL (3.93-5.22); White Blood Count 7.37 K/ul (4.8-10.8)
[2022-01-02 06:59] LABS: BUN Creatinine Ratio 17.6 (10-20); Calcium 8.3 mg/dl (8.5-10.1); Creatinine Clr Calc Pharmacy 46.1 ml/min; Est GFR (African American) 91.2 ml/min; Est GFR (Non-African American) 78.6 ml/min; Magnesium 1.7 mg/dl (1.7-2.4); Phosphorus 3.4 mg/dl (2.5-4.9); Potassium 3.9 mmol/L (3.5-5.1)
[2022-01-02] MEDS: ACETAMINOPHEN 500 MG TAB PO SCH ×3 (07:27→20:34)
[2022-01-02] MEDS: ADVANCED PROBIOTIC 1250 MG CAPSULE PO SCH (07:28)
[2022-01-02] MEDS: FERROUS SULFATE 325 MG TAB PO SCH (07:28)
[2022-01-02] MEDS: lisinopril 40 MG TAB PO SCH (07:28)
[2022-01-02] MEDS: CHOLECALCIFEROL 1,000 UNITS 25 MCG TAB PO SCH (07:28)
[2022-01-02] MEDS: ISOSORBIDE DINITRATE 10 MG TAB PO SCH (07:29)
[2022-01-02] MEDS: CALCIUM POLYCARBOPHIL 625MG TAB PO SCH ×2 (07:29→20:33)
[2022-01-02] MEDS: LORATADINE 10 MG TAB PO SCH (07:29)
[2022-01-02] MEDS: MELOXICAM 7.5 MG TAB PO SCH (07:29)
[2022-01-02] MEDS: ESCITALOPRAM OXALATE 10 MG TAB PO SCH (07:29)
[2022-01-02] MEDS: CALCIUM 600MG + VIT D 400 IU TAB PO SCH (07:30)
[2022-01-02] MEDS: ASPIRIN 81 MG ECTAB PO SCH (07:30)
[2022-01-02] MEDS: SPIRONOLACTONE 12.5 MG TAB PO SCH (07:30)
[2022-01-02] MEDS: METOPROLOL SUCC 25MG EXT REL TAB PO SCH ×2 (07:30→20:34)
[2022-01-02] MEDS: CEROVITE ADV FORMULA TAB PO SCH (07:31)
[2022-01-02] MEDS: FUROSEMIDE INJ 20 MG/2 ML VIAL IV SCH (07:31)
[2022-01-02] MEDS: ATORVASTATIN 40 MG TAB PO SCH (08:18)
--- NOTE | 2022-01-02 09:53 | Cardiology Progress Note ---
Date of Service January 02, 2022 Assessment & Plan (1) Systolic and diastolic CHF, acute on chronic: (2) Orthopnea: (3) Elevated troponin: (4) PHELPS (dyspnea on exertion): (5) Chest pain: (6) Hypertension: Plan 86-year-old female admitted with signs and symptoms of acute acute decompensated systolic and diastolic congestive heart failure. Chest x-ray consistent with mild congestive heart failure with left pleural effusion. Resting echocardiography demonstrates an LVEF of 25 to 30% with moderate to severe mitral and tricuspidinsufficiency. Symptoms improving with IV diuretic therapy. Mild hyponatremia noted along with acceptable renal function and normokalemia. Blood pressures remain elevated. Continue IV diuresis today, reassessing need for ongoing use in AM Patient will require oral diuretic therapy on discharge which will be new. Spironolactone added this admission. Increase metoprolol succinate for heart rate (frequent atrial ectopy) and blood pressure control Increase Isordil for additional blood pressure control. Treat underlying iron deficiency anemia Outpatient [facility] Consultation to assist with transiting Lisinopril to Sacubitril and valsartan (Entresto) unless cost prohibitive. Outpatient Zio monitor to assess for atrial fibrillation. Continue aspirin and moderate intensity statin therapy. Admission and Anticipated Discharge Date Admission Date: December 31, 2021 Supervising Physician Co-Signing Physician Notes Patient was seen and personally examined. Assessment and plan as above. Patient clinically is improved by description though with increased wheezing on examination. No dizziness or lightheadedness. Blood pressure has increased allowing room for upward titration of medications as above Subjective Patient seen and examined. Chart, medications, and telemetry reviewed. Feeling better overall. Breathing easier. Less cough. Chest tightness has improved but not resolved. Legs are weak bilaterally. Decreased appetite. I/O's negative 915 mL's overall Telemetry: Sinus in the 70's with frequent PAC's. No atrial fibrillation. January 01, 2022 TTE Interpretation Summary ([facility], Dr. Dhillon): Normal size LV. Moderate concentric LVH. Moderate to severe global hypokinesis of the LV. EF 25- 30%. Severely dilated LA. Mild AI. Moderate to severe MR. Moderate TR. RVSP 40- 50 mmHg. Review of Systems Review of Systems: Complete Review of Systems is as stated above, negative, or noncontributory. Physical Exam Physical Exam: General: A&Ox3. NAD. HENT: Normocephalic. Atraumatic. Eyes: PER. Conjunctiva pink, sclera clear. Neck: Bilateral carotid bruits. No JVD. Heart: Irregular, with frequent ectopy. Soft apical systolic murmur. No diastolic murmur. No rub. Lungs: Decreased at the bases however clear to auscultation. Abdomen: +BS. Soft. Nontender. No masses or organomegaly. Extremities: No clubbing, cyanosis, or edema. Limited neurological examination is without focal deficits. Pulses: radial=2/4, posterior tibial=1/4. Results & Data ([facility]) Vital Signs (Past 12 Hours) Vital Signs Temp Pulse Pulse Resp BP Pulse Ox O2 Del Method 01/02/22 07:37 Room Air 01/02/22 07:13 36.5 C 72 18 187/83 H 94 Room Air 01/02/22 07:12 76 01/02/22 03:00 36.7 C 66 20 161/81 H 97 Room Air 01/01/22 22:58 72 01/01/22 22:23 36.3 C L 69 16 174/91 H 95 Room Air 01/01/22 22:08 60 24 94 Room Air Laboratory Results Laboratory Results - last 24 hr 01/02/22 01/02/22 06:06 06:06 WBC 7.37 RBC 3.61 L Hgb 10.2 L Hct 31.6 L MCV 87.5 MCH 28.3 MCHC 32.3 RDW Std Deviation 45.7 RDW Coeff of Alessandro 14.2 Plt Count 344 MPV 9.6 Sodium 131 L Potassium 3.9 Chloride 98 Carbon Dioxide 25 Anion Gap 8 BUN 12 Creatinine 0.68 Est Cr Clr Drug Dosing 46.1 Est GFR ( Amer) 91.2 Est GFR (Non-Af Amer) 78.6 BUN/Creatinine Ratio 17.6 Glucose 100 H Calcium 8.3 L Phosphorus 3.4 Magnesium 1.7 (1) Chest pain Chest pain type: unspecified Qualified Code(s): R07.9 - Chest pain, unspecified
--- NOTE | 2022-01-02 11:41 | Hospitalist Progress Note ---
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 Acute on chronic systolic and diastolic CHF- - Echo 01/01/22 with EF 25-30 % with mod-sev mitral and tricuspid insufficiency - Cardio following - Continue iv lasix, daily weight, strict I and Os - Continue GDMT- toprol increased to bid, isordil and aldactone added per cardio H/o TIA- continue asa, statin Anemia- hgb 12 in jul, now 10. Iron def in labs. VIt B12 and folate normal. will start on iron supplementation. Will give 1 dose iv venofer today. HTN- continue metoprolol, lisinopril RLE pretibial wound- pt states old skin tear, non healing x 6 weeks; WOCN following Depression with Anxiety- continue escitalopram Generalized weakness- PT/OT eval Hyponatremia- trending down, now 131, will monitor with diuresis. DVT ppx: SQ lovenox Dispo: PCU; continue iv diuresis for volume optimization. PT/OT eval Admission and Anticipated Discharge Date Admission Date: December 31, 2021 Subjective Still feels weak. States some dyspnea on exertion. She would like to be able to walk around and go to the bathroom. Leg swelling is resolved. No other issues. Physical Exam Physical Exam: General: Elderly female, sitting in chair, not in distress, on room air HEENT: EOMI, KRYSTA, MMM Chest: Clear breath sounds bilaterally, decreased at bases CVS: Regular rate and rhythm, normal heart sounds, systolic murmur Abdomen: Soft, non tender, not distended, normal bowel sounds Neuro: Awake, alert, oriented, conversing well, non focal Extremities: No edema Results & Data Results & Data ([facility]) Vital Signs (Past 12 Hours) Vital Signs Temp Pulse Pulse Resp BP Pulse Ox O2 Del Method 01/02/22 11:35 36.6 C 81 18 157/80 H 92 Room Air 01/02/22 07:37 Room Air 01/02/22 07:13 36.5 C 72 18 187/83 H 94 Room Air 01/02/22 07:12 76 01/02/22 03:00 36.7 C 66 20 161/81 H 97 Room Air Laboratory Results Short CBC 01/02/22 Range/Units 06:06 WBC 7.37 (4.8-10.8) K/ul Hgb 10.2 L (12.0-16.0) g/dl Hct 31.6 L (34.1-44.9) % Plt Count 344 (130-400) K/uL BMP 01/02/22 06:06 Sodium 131 L Potassium 3.9 Chloride 98 Carbon Dioxide 25 BUN 12 Creatinine 0.68 Glucose 100 H Calcium 8.3 L Medications Administered Current Inpatient Medications Acetaminophen (Acetaminophen 500 Mg Tab) 1,000 mg PO TID [facility] Stop: 01/30/22 20:59 Last Admin: 01/02/22 07:27 Dose: 1,000 mg Al Hydrox/Mg Hydrox/Simethicone (Aluminum/Magnesium Susp 30 Ml Udc) 15 ml PO Q4H PRN PRN Reason: Dyspepsia Stop: 01/30/22 19:17 Albuterol (Albuterol Hfa 8 Gm Inhaler) 2 puffs INH Q6H PRN PRN Reason: Shortness Of Breath Or Wheezin Stop: 01/30/22 19:17 Last Admin: 01/01/22 22:06 Dose: 2 puffs Aspirin (Aspirin 81 Mg Ectab) 81 mg PO DAILY [facility] Stop: 01/31/22 08:59 Last Admin: 01/02/22 07:30 Dose: 81 mg Atorvastatin Calcium (Atorvastatin 40 Mg Tab) 40 mg PO DAILY [facility] Stop: 01/31/22 08:59 Last Admin: 01/02/22 08:18 Dose: 40 mg Calcium Polycarbophil (Calcium Polycarbophil 625mg Tab) 625 mg PO BID [facility] Stop: 01/30/22 20:59 Last Admin: 01/02/22 07:29 Dose: 625 mg Enoxaparin Sodium (Enoxaparin Inj 30 Mg/0.3 Ml Syr) 30 mg SQ Q24H [facility] Stop: 01/30/22 20:59 Last Admin: 01/01/22 20:12 Dose: 30 mg Escitalopram Oxalate (Escitalopram Oxalate 10 Mg Tab) 10 mg PO DAILY [facility] Stop: 01/31/22 08:59 Last Admin: 01/02/22 07:29 Dose: 10 mg Ferrous Sulfate (Ferrous Sulfate 325 Mg Tab) 325 mg PO QAM [facility] Stop: 01/31/22 19:14 Last Admin: 01/02/22 07:28 Dose: 325 mg Furosemide (Furosemide Inj 20 Mg/2 Ml Vial) 20 mg IV DAILY [facility] Stop: 01/31/22 07:59 Last Admin: 01/02/22 07:31 Dose: 20 mg Isosorbide Dinitrate (Isosorbide Dinitrate 20 Mg Tab) 20 mg PO 0700,1200,1700 [facility] Stop: 02/01/22 10:44 Lactobacillus Acidophilus (Advanced Probiotic 1250 Mg Capsule) 2 cap PO DAILY [facility] Stop: 01/31/22 08:59 Last Admin: 01/02/22 07:28 Dose: 2 cap Lisinopril (Lisinopril 40 Mg Tab) 40 mg PO DAILY [facility] Stop: 01/31/22 08:59 Last Admin: 01/02/22 07:28 Dose: 40 mg Loratadine (Loratadine 10 Mg Tab) 10 mg PO QAM [facility] Stop: 01/31/22 08:59 Last Admin: 01/02/22 07:29 Dose: 10 mg Meloxicam (Meloxicam 7.5 Mg Tab) 15 mg PO DAILY [facility] Stop: 01/31/22 08:59 Last Admin: 01/02/22 07:29 Dose: 15 mg Metoprolol Succinate (Metoprolol Succ 25mg Ext Rel Tab) 25 mg PO BID [facility] Stop: 02/01/22 20:59 Multivitamins/Minerals (Cerovite Adv Formula Tab) 1 tab PO DAILY [facility] Stop: 01/31/22 08:59 Last Admin: 01/02/22 07:31 Dose: 1 tab Multivitamins/Minerals (Calcium 600mg + Vit D 400 Iu Tab) 1 tab PO DAILY [facility] Stop: 01/31/22 08:59 Last Admin: 01/02/22 07:30 Dose: 1 tab Ondansetron HCl (Ondansetron Inj 2 Mg/Ml 2 Ml Vial) 4 mg IV Q6H PRN PRN Reason: Nausea Stop: 01/30/22 19:17 Polyethylene Glycol (Polyethylene (Miralax) 17 Gm Pack) 17 gm PO DAILY PRN PRN Reason: Constipation Stop: 01/30/22 19:17 Last Admin: 01/01/22 20:08 Dose: 17 gm Spironolactone (Spironolactone 12.5 Mg Tab) 12.5 mg PO DAILY [facility] Stop: 01/31/22 11:29 Last Admin: 01/02/22 07:30 Dose: 12.5 mg Vitamin D (Cholecalciferol 1,000 Units 25 Mcg Tab) 2,000 units PO DAILY [facility] Stop: 01/31/22 08:59 Last Admin: 01/02/22 07:28 Dose: 2,000 units
[2022-01-02] MEDS: ISOSORBIDE DINITRATE 20 MG TAB PO SCH ×2 (11:46→18:16)
[2022-01-02] MEDS ORDERED: IRON SUCROSE 300 MG in SODIUM CHLORIDE 0.9% 250 ML IV ONE (12:15)
[2022-01-02] MEDS: ENOXAPARIN INJ 30 MG/0.3 ML SYR SQ SCH (20:33)
[2022-01-03] MEDS: ISOSORBIDE DINITRATE 20 MG TAB PO SCH ×3 (06:02→17:10)
[2022-01-03 08:41] LABS: Creatinine Clr Calc Pharmacy 48.2 ml/min; Est GFR (African American) 92.5 ml/min; Est GFR (Non-African American) 79.8 ml/min; Magnesium 1.6 mg/dl (1.7-2.4); Potassium 3.7 mmol/L (3.5-5.1)
[2022-01-03] MEDS: ATORVASTATIN 40 MG TAB PO SCH (09:03)
[2022-01-03] MEDS: CHOLECALCIFEROL 1,000 UNITS 25 MCG TAB PO SCH (09:03)
[2022-01-03] MEDS: SPIRONOLACTONE 12.5 MG TAB PO SCH (09:03)
[2022-01-03] MEDS: lisinopril 40 MG TAB PO SCH (09:03)
[2022-01-03] MEDS: ADVANCED PROBIOTIC 1250 MG CAPSULE PO SCH (09:03)
[2022-01-03] MEDS: CALCIUM 600MG + VIT D 400 IU TAB PO SCH (09:03)
[2022-01-03] MEDS: ACETAMINOPHEN 500 MG TAB PO SCH ×3 (09:03→21:00)
[2022-01-03] MEDS: LORATADINE 10 MG TAB PO SCH (09:03)
[2022-01-03] MEDS: ESCITALOPRAM OXALATE 10 MG TAB PO SCH (09:03)
[2022-01-03] MEDS: CEROVITE ADV FORMULA TAB PO SCH (09:03)
[2022-01-03] MEDS: FERROUS SULFATE 325 MG TAB PO SCH (09:03)
[2022-01-03] MEDS: METOPROLOL SUCC 25MG EXT REL TAB PO SCH ×2 (09:04→21:00)
[2022-01-03] MEDS: FUROSEMIDE INJ 20 MG/2 ML VIAL IV SCH (09:04)
[2022-01-03] MEDS: CALCIUM POLYCARBOPHIL 625MG TAB PO SCH ×2 (09:04→21:00)
[2022-01-03] MEDS: ASPIRIN 81 MG ECTAB PO SCH (09:04)
[2022-01-03] MEDS: methylPREDNISolone 40 MG in SYRINGE 0 ML IV SCH ×2 (10:01→17:10)
[2022-01-03] MEDS: MELOXICAM 7.5 MG TAB PO SCH (10:01)
[2022-01-03] MEDS: MAGNESIUM OXIDE 400 MG TAB PO SCH ×2 (10:01→20:59)
[2022-01-03] MEDS: ALBUT/IPRATROP 3MG/0.5MG NEB 3 ML VIAL NEB SCH ×3 (11:33→19:14)
[2022-01-03] MEDS: BUDESONIDE 0.5 MG/2 ML VIAL (PULMICORT) NEB SCH ×2 (11:33→19:15)
--- NOTE | 2022-01-03 11:36 | Hospitalist Progress Note ---
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 Acute on chronic systolic and diastolic CHF- - Echo 01/01/22 with EF 25-30 % with mod-sev mitral and tricuspid insufficiency - Cardio following - Continue iv lasix, daily weight, strict I and Os - Continue GDMT- toprol increased to bid, isordil and aldactone added per cardio Ashtma exacerbation- bilateral diffuse wheezes but saturating well in room air. Will start on iv solumedrol, nebs. Likely change to po prednisone in am. H/o TIA- continue asa, statin Anemia- hgb 12 in feb, now 10. Iron def in labs. Vitamin B12 and folate normal. s/p iv venofer x1 01/02. Continue oral iron supplementation. will start on iron supplementation. Will give 1 dose iv venofer today. HTN- continue metoprolol, lisinopril RLE pretibial wound- pt states old skin tear, non healing x 6 weeks; WOCN following Depression with Anxiety- continue escitalopram Generalized weakness- PT/OT eval Hyponatremia- trending up, now 132, will monitor with diuresis. Hypomagnesemia- replete, rechecek in am DVT ppx: SQ lovenox Dispo: PCU; continue iv diuresis for volume optimization, iv steroids for asthma exacerbation, PT/OT eval Admission and Anticipated Discharge Date Admission Date: December 31, 2021 Subjective States her breathing does not feel right. Has some cough, wheezing and dyspnea on exertion. She thinks this is her asthma acting up. No fever or chills. No chest pain, dizziness. States she is still weak. Physical Exam Physical Exam: General: Elderly female, sitting in bed, not in distress, on room air HEENT: EOMI, KRYSTA, MMM Chest: Bilateral diffuse wheezes CVS: Regular rate and rhythm, normal heart sounds, systolic murmur Abdomen: Soft, non tender, not distended, normal bowel sounds Neuro: Awake, alert, oriented, conversing well, non focal Extremities: No edema Results & Data Results & Data ([facility]) Vital Signs (Past 12 Hours) Vital Signs Temp Pulse Pulse Resp BP Pulse Ox O2 Del Method 01/03/22 11:27 36.9 C 64 16 135/74 97 Room Air 01/03/22 10:20 Room Air 01/03/22 08:28 62 01/03/22 07:26 36.8 C 68 18 142/70 H 92 Room Air 01/03/22 02:37 36.6 C 67 16 157/84 H 90 Room Air Laboratory Results [facility] 01/03/22 07:17 Sodium 132 L Potassium 3.7 Chloride 98 Carbon Dioxide 27 BUN 13 Creatinine 0.65 Glucose 84 Calcium 8.0 L Medications Administered Current Inpatient Medications Acetaminophen (Acetaminophen 500 Mg Tab) 1,000 mg PO TID [facility] Stop: 01/30/22 20:59 Last Admin: 01/03/22 09:03 Dose: 1,000 mg Al Hydrox/Mg Hydrox/Simethicone (Aluminum/Magnesium Susp 30 Ml Udc) 15 ml PO Q4H PRN PRN Reason: Dyspepsia Stop: 01/30/22 19:17 Albuterol (Albuterol Hfa 8 Gm Inhaler) 2 puffs INH Q6H PRN PRN Reason: Shortness Of Breath Or Wheezin Stop: 01/30/22 19:17 Last Admin: 01/01/22 22:06 Dose: 2 puffs Albuterol (Albut/Ipratrop 3mg/0.5mg Neb 3 Ml Vial) 3 ml NEB QIDR [facility]; Protocol Stop: 02/02/22 10:59 Last Admin: 01/03/22 11:33 Dose: 3 ml Aspirin (Aspirin 81 Mg Ectab) 81 mg PO DAILY [facility] Stop: 01/31/22 08:59 Last Admin: 01/03/22 09:04 Dose: 81 mg Atorvastatin Calcium (Atorvastatin 40 Mg Tab) 40 mg PO DAILY [facility] Stop: 01/31/22 08:59 Last Admin: 01/03/22 09:03 Dose: 40 mg Budesonide (Budesonide 0.5 Mg/2 Ml Vial (Pulmicort)) 0.5 mg NEB BIDR [facility] Stop: 02/02/22 09:44 Last Admin: 01/03/22 11:33 Dose: 0.5 mg Calcium Polycarbophil (Calcium Polycarbophil 625mg Tab) 625 mg PO BID [facility] Stop: 01/30/22 20:59 Last Admin: 01/03/22 09:04 Dose: 625 mg Enoxaparin Sodium (Enoxaparin Inj 30 Mg/0.3 Ml Syr) 30 mg SQ Q24H [facility] Stop: 01/30/22 20:59 Last Admin: 01/02/22 20:33 Dose: 30 mg Escitalopram Oxalate (Escitalopram Oxalate 10 Mg Tab) 10 mg PO DAILY [facility] Stop: 01/31/22 08:59 Last Admin: 01/03/22 09:03 Dose: 10 mg Ferrous Sulfate (Ferrous Sulfate 325 Mg Tab) 325 mg PO QAM [facility] Stop: 01/31/22 19:14 Last Admin: 01/03/22 09:03 Dose: 325 mg Furosemide (Furosemide Inj 20 Mg/2 Ml Vial) 20 mg IV DAILY [facility] Stop: 01/31/22 07:59 Last Admin: 01/03/22 09:04 Dose: 20 mg Methylprednisolone 40 mg/ (Syringe) 0.64 mls @ 1.5 mls/min IV Q8H [facility] Stop: 02/02/22 09:59 Last Admin: 01/03/22 10:01 Dose: 1.5 mls/min Isosorbide Dinitrate (Isosorbide Dinitrate 20 Mg Tab) 20 mg PO 0700,1200,1700 [facility] Stop: 02/01/22 10:44 Last Admin: 01/03/22 06:02 Dose: 20 mg Lactobacillus Acidophilus (Advanced Probiotic 1250 Mg Capsule) 2 cap PO DAILY [facility] Stop: 01/31/22 08:59 Last Admin: 01/03/22 09:03 Dose: 2 cap Lisinopril (Lisinopril 40 Mg Tab) 40 mg PO DAILY [facility] Stop: 01/31/22 08:59 Last Admin: 01/03/22 09:03 Dose: 40 mg Loratadine (Loratadine 10 Mg Tab) 10 mg PO QAM [facility] Stop: 01/31/22 08:59 Last Admin: 01/03/22 09:03 Dose: 10 mg Magnesium Oxide (Magnesium Oxide 400 Mg Tab) 400 mg PO BID [facility] Stop: 02/02/22 09:44 Last Admin: 01/03/22 10:01 Dose: 400 mg Meloxicam (Meloxicam 7.5 Mg Tab) 15 mg PO DAILY [facility] Stop: 01/31/22 08:59 Last Admin: 01/03/22 10:01 Dose: 15 mg Metoprolol Succinate (Metoprolol Succ 25mg Ext Rel Tab) 25 mg PO BID [facility] Stop: 02/01/22 20:59 Last Admin: 01/03/22 09:04 Dose: 25 mg Multivitamins/Minerals (Cerovite Adv Formula Tab) 1 tab PO DAILY [facility] Stop: 01/31/22 08:59 Last Admin: 01/03/22 09:03 Dose: 1 tab Multivitamins/Minerals (Calcium 600mg + Vit D 400 Iu Tab) 1 tab PO DAILY [facility] Stop: 01/31/22 08:59 Last Admin: 01/03/22 09:03 Dose: 1 tab Ondansetron HCl (Ondansetron Inj 2 Mg/Ml 2 Ml Vial) 4 mg IV Q6H PRN PRN Reason: Nausea Stop: 01/30/22 19:17 Polyethylene Glycol (Polyethylene (Miralax) 17 Gm Pack) 17 gm PO DAILY PRN PRN Reason: Constipation Stop: 01/30/22 19:17 Last Admin: 01/01/22 20:08 Dose: 17 gm Spironolactone (Spironolactone 12.5 Mg Tab) 12.5 mg PO DAILY [facility] Stop: 01/31/22 11:29 Last Admin: 01/03/22 09:03 Dose: 12.5 mg Vitamin D (Cholecalciferol 1,000 Units 25 Mcg Tab) 2,000 units PO DAILY [facility] Stop: 01/31/22 08:59 Last Admin: 01/03/22 09:03 Dose: 2,000 units
--- NOTE | 2022-01-03 14:47 | Cardiology Progress Note ---
Date of Service January 03, 2022 Assessment & Plan (1) Systolic and diastolic CHF, acute on chronic: (2) Orthopnea: (3) Elevated troponin: (4) PHELPS (dyspnea on exertion): (5) Chest pain: (6) Hypertension: Plan 86-year-old female admitted with signs and symptoms of acute acute decompensated systolic and diastolic congestive heart failure. Chest x-ray consistent with mild congestive heart failure with left pleural effusion. Resting echocardiography demonstrates an LVEF of 25 to 30% with moderate to severe mitral and tricuspidinsufficiency. Symptoms improving with IV diuretic therapy. Mild hyponatremia noted along with acceptable renal function and normokalemia. Blood pressures remain elevated. Continue IV diuresis today, will follow volume status clinically Patient will require oral diuretic therapy on discharge which will be new. Spironolactone added this admission. Continue current doses of metoprolol succinate and Isordil Treat underlying iron deficiency anemia Outpatient [facility] Consultation to assist with transiting Lisinopril to Sacubitril and valsartan (Entresto) unless cost prohibitive. Outpatient Zio monitor to assess for atrial fibrillation. Continue aspirin and moderate intensity statin therapy. Admission and Anticipated Discharge Date Admission Date: December 31, 2021 Subjective Patient seen and examined, chart reviewed. States that her breathing is improved but nursing reports significant wheezing this a.m. and received nebs. Otherwise states that she feels well and denies chest pain or palpitations Telemetry reviewed: Normal sinus rhythm without arrhythmia Review of Systems Review of Systems: All systems reviewed & are unremarkable except as noted in HPI & below Physical Exam Physical Exam: General: Awake, alert and oriented x 3. No acute distress. HEENT: Normocephalic, atraumatic. Pupils equal, round and reactive to light and accommodation. Extraocular muscles are intact. Anicteric sclera. Moist mucous membranes. Neck: No JVD. No bruit. Cardiovascular: Regular. Positive S-4. Normal S-1 and S-2. No S-3. 3/6 holosystolic ejection murmur, left sternal border, mid-clavicular line with radiation to the axilla. No rubs. Pulmonary: Coarse breath sounds with diffuse wheezing Abdomen: Bowel sounds x 4, soft. No rebound, guarding or tenderness. No organomegaly. Extremities: No clubbing, cyanosis or edema. +2 pedal pulses bilaterally. Skin: Warm and dry. Results & Data ([facility]) Vital Signs (Past 12 Hours) Vital Signs Temp Pulse Pulse Pulse Resp BP Pulse Ox 01/03/22 14:29 70 18 95 01/03/22 12:52 95 01/03/22 12:50 88 L 01/03/22 11:33 87 16 94 01/03/22 11:27 36.9 C 64 16 135/74 97 01/03/22 10:20 01/03/22 08:28 62 01/03/22 07:26 36.8 C 68 18 142/70 H 92 O2 Del Method O2 Flow Rate 01/03/22 14:29 Nasal Cannula 2 01/03/22 12:52 Nasal Cannula 2 01/03/22 12:50 Room Air 01/03/22 11:33 Room Air 01/03/22 11:27 Room Air 01/03/22 10:20 Room Air 01/03/22 08:28 01/03/22 07:26 Room Air (1) Chest pain Chest pain type: unspecified Qualified Code(s): R07.9 - Chest pain, unspecified
[2022-01-03] MEDS: ENOXAPARIN INJ 30 MG/0.3 ML SYR SQ SCH (21:05)
[2022-01-04] MEDS: methylPREDNISolone 40 MG in SYRINGE 0 ML IV SCH (01:43)
[2022-01-04] MEDS: ISOSORBIDE DINITRATE 20 MG TAB PO SCH ×3 (06:15→18:04)
[2022-01-04] MEDS: ALBUT/IPRATROP 3MG/0.5MG NEB 3 ML VIAL NEB SCH ×4 (06:59→19:52)
[2022-01-04] MEDS: BUDESONIDE 0.5 MG/2 ML VIAL (PULMICORT) NEB SCH ×2 (06:59→19:53)
[2022-01-04 07:41] LABS: BUN Creatinine Ratio 22.4 (10-20); Calcium 8.3 mg/dl (8.5-10.1); Creatinine Clr Calc Pharmacy 46.8 ml/min; Est GFR (African American) 91.6 ml/min; Potassium 4.1 mmol/L (3.5-5.1)
[2022-01-04] MEDS: ACETAMINOPHEN 500 MG TAB PO SCH ×3 (08:04→20:49)
[2022-01-04] MEDS: MAGNESIUM OXIDE 400 MG TAB PO SCH ×2 (08:04→20:48)
[2022-01-04] MEDS: CALCIUM POLYCARBOPHIL 625MG TAB PO SCH ×2 (08:05→20:48)
[2022-01-04] MEDS: LORATADINE 10 MG TAB PO SCH (08:06)
[2022-01-04] MEDS: METOPROLOL SUCC 25MG EXT REL TAB PO SCH ×2 (08:06→20:48)
[2022-01-04] MEDS: FUROSEMIDE INJ 20 MG/2 ML VIAL IV SCH (08:06)
[2022-01-04] MEDS: CEROVITE ADV FORMULA TAB PO SCH (08:07)
[2022-01-04] MEDS: ATORVASTATIN 40 MG TAB PO SCH (08:07)
[2022-01-04] MEDS: CHOLECALCIFEROL 1,000 UNITS 25 MCG TAB PO SCH (08:07)
[2022-01-04] MEDS: ESCITALOPRAM OXALATE 10 MG TAB PO SCH (08:07)
[2022-01-04] MEDS: ADVANCED PROBIOTIC 1250 MG CAPSULE PO SCH (08:08)
[2022-01-04] MEDS: lisinopril 40 MG TAB PO SCH (08:08)
[2022-01-04] MEDS: FERROUS SULFATE 325 MG TAB PO SCH (08:08)
[2022-01-04] MEDS: MELOXICAM 7.5 MG TAB PO SCH (08:08)
[2022-01-04] MEDS: ASPIRIN 81 MG ECTAB PO SCH (08:09)
[2022-01-04] MEDS: SPIRONOLACTONE 12.5 MG TAB PO SCH (08:09)
[2022-01-04] MEDS: CALCIUM 600MG + VIT D 400 IU TAB PO SCH (08:09)
[2022-01-04] MEDS: predniSONE 20 MG TAB PO SCH (10:11)
--- NOTE | 2022-01-04 10:49 | Cardiology Progress Note ---
Date of Service January 04, 2022 Assessment & Plan (1) Systolic and diastolic CHF, acute on chronic: (2) Orthopnea: (3) Elevated troponin: (4) PHELPS (dyspnea on exertion): (5) Chest pain: (6) Hypertension: Plan 86-year-old female admitted with signs and symptoms of acute acute decompensated systolic and diastolic congestive heart failure. Chest x-ray consistent with mild congestive heart failure with left pleural effusion. Resting echocardiography demonstrates an LVEF of 25 to 30% with moderate to severe mitral and tricuspidinsufficiency. Symptoms improving with IV diuretic therapy. Mild hyponatremia noted along with acceptable renal function and normokalemia. Blood pressures remain elevated. Spironolactone added this admission. Continue current doses of metoprolol succinate and Isordil Treat underlying iron deficiency anemia Outpatient [facility] Consultation to assist with transiting Lisinopril to Sacubitril and valsartan (Entresto) unless cost prohibitive. Outpatient Zio monitor to assess for atrial fibrillation. Continue aspirin and moderate intensity statin therapy. No longer examines as volume overloaded and shortness of breath improved Will DC IV diuretics Should be discharged to home with torsemide 20 mg p.o. every morning along with as needed dose in the p.m. for shortness of breath, weight gain or signs of volume overload My office will arrange for close follow-up in the CHF clinic Okay to discharge from a cardiac standpoint Admission and Anticipated Discharge Date Admission Date: December 31, 2021 Subjective Patient seen and examined, chart reviewed. States that she is feeling much better today and breathing appears to be back to baseline. Denies chest pain or palpitations Review of Systems Review of Systems: All systems reviewed & are unremarkable except as noted in HPI & below Physical Exam Physical Exam: General: Awake, alert and oriented x 3. No acute distress. HEENT: Normocephalic, atraumatic. Pupils equal, round and reactive to light and accommodation. Extraocular muscles are intact. Anicteric sclera. Moist mucous membranes. Neck: No JVD. No bruit. Cardiovascular: Regular. Positive S-4. Normal S-1 and S-2. No S-3. 3/6 holosystolic ejection murmur, left sternal border, mid-clavicular line with radiation to the axilla. No rubs. Pulmonary: Coarse breath sounds with diffuse wheezing Abdomen: Bowel sounds x 4, soft. No rebound, guarding or tenderness. No organomegaly. Extremities: No clubbing, cyanosis or edema. +2 pedal pulses bilaterally. Skin: Warm and dry. Results & Data ([facility]) Vital Signs (Past 12 Hours) Vital Signs Temp Pulse Pulse Resp BP Pulse Ox O2 Del Method 01/04/22 10:39 Nasal Cannula 01/04/22 07:37 75 01/04/22 06:59 76 16 94 Nasal Cannula 01/04/22 06:43 36.5 C 86 16 166/80 H 97 Room Air 01/04/22 03:00 36.5 C 81 16 163/91 H 98 Room Air 01/04/22 00:32 83 01/03/22 23:56 Nasal Cannula 01/03/22 22:55 36.6 C 78 18 122/84 90 Room Air O2 Flow Rate 01/04/22 10:39 2 01/04/22 07:37 01/04/22 06:59 2 01/04/22 06:43 01/04/22 03:00 01/04/22 00:32 01/03/22 23:56 2 01/03/22 22:55 (1) Chest pain Chest pain type: unspecified Qualified Code(s): R07.9 - Chest pain, unspecified
--- NOTE | 2022-01-04 11:54 | Hospitalist Progress Note ---
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 Acute on chronic systolic and diastolic CHF- - Echo 01/01/22 with EF 25-30 % with mod-sev mitral and tricuspid insufficiency - Cardio following - Continue iv lasix, daily weight, strict I and Os - Continue GDMT- toprol increased to bid, isordil and aldactone added per cardio - Will need oral diuretic at discharge, likely change iv o po tomorrow - OP Noelle [facility] clinic consult to assist with transitioning lisinopril to entresto per cardio PAF- went into Afib overnight, rate controlled. Per cardio, OP zio monitor to assess for A fib. Defer anticoag decision to cardiology. Asthma exacerbation- bilateral diffuse wheezes significantly improved, will change iv solumedrol to prednisone for 5 day course. Continue nebs, inhalers. No indication for ABx. H/o TIA- continue asa, statin Anemia- hgb 12 in feb, now 10. Iron def in labs. Vitamin B12 and folate normal. s/p iv venofer x1 01/02. Continue oral iron supplementation. HTN- continue metoprolol, lisinopril RLE pretibial wound- pt states old skin tear, non healing x 6 weeks; WOCN following Depression with Anxiety- continue escitalopram Generalized weakness- PT/OT eval Hyponatremia- overall stable at 131-132. monitor with diuresis. Hypomagnesemia- repleted, recheck in am DVT ppx: SQ lovenox Dispo: PT eval pending. Will need 2 step O2 eval at discharge. Admission and Anticipated Discharge Date Admission Date: December 31, 2021 Subjective States her heart rate were high overnight. Breathing and wheezing improved. States she still feels weak and can't walk to the bathroom. Asking when she will be released. Physical Exam Physical Exam: General: Elderly female, sitting in bed, not in distress, on NC HEENT: EOMI, KRYSTA, MMM Chest: Fair breath sounds bilaterally, no wheezes CVS:Irregular, normal heart sounds, systolic murmur Abdomen: Soft, non tender, not distended, normal bowel sounds Neuro: Awake, alert, oriented, conversing well, non focal Extremities: No edema Results & Data Results & Data ([facility]) Vital Signs (Past 12 Hours) Vital Signs Temp Pulse Pulse Pulse Resp BP Pulse Ox 01/04/22 11:27 36.8 C 97 H 18 135/68 94 01/04/22 11:03 73 18 98 01/04/22 10:39 01/04/22 07:37 75 01/04/22 06:59 76 16 94 01/04/22 06:43 36.5 C 86 16 166/80 H 97 01/04/22 03:00 36.5 C 81 16 163/91 H 98 01/04/22 00:32 83 01/03/22 23:56 O2 Del Method O2 Flow Rate 01/04/22 11:27 Nasal Cannula 2 01/04/22 11:03 Nasal Cannula 2 01/04/22 10:39 Nasal Cannula 2 01/04/22 07:37 01/04/22 06:59 Nasal Cannula 2 01/04/22 06:43 Room Air 01/04/22 03:00 Room Air 01/04/22 00:32 01/03/22 23:56 Nasal Cannula 2 Laboratory Results [facility] 01/04/22 07:04 Sodium 131 L Potassium 4.1 Chloride 96 L Carbon Dioxide 29 BUN 15 Creatinine 0.67 Glucose 155 H Calcium 8.3 L Medications Administered Current Inpatient Medications Acetaminophen (Acetaminophen 500 Mg Tab) 1,000 mg PO TID [facility] Stop: 01/30/22 20:59 Last Admin: 01/04/22 08:04 Dose: 1,000 mg Al Hydrox/Mg Hydrox/Simethicone (Aluminum/Magnesium Susp 30 Ml Udc) 15 ml PO Q4H PRN PRN Reason: Dyspepsia Stop: 01/30/22 19:17 Albuterol (Albuterol Hfa 8 Gm Inhaler) 2 puffs INH Q6H PRN PRN Reason: Shortness Of Breath Or Wheezin Stop: 01/30/22 19:17 Last Admin: 01/01/22 22:06 Dose: 2 puffs Albuterol (Albut/Ipratrop 3mg/0.5mg Neb 3 Ml Vial) 3 ml NEB QIDR [facility]; Protocol Stop: 02/02/22 10:59 Last Admin: 01/04/22 11:02 Dose: 3 ml Aspirin (Aspirin 81 Mg Ectab) 81 mg PO DAILY [facility] Stop: 01/31/22 08:59 Last Admin: 01/04/22 08:09 Dose: 81 mg Atorvastatin Calcium (Atorvastatin 40 Mg Tab) 40 mg PO DAILY [facility] Stop: 01/31/22 08:59 Last Admin: 01/04/22 08:07 Dose: 40 mg Budesonide (Budesonide 0.5 Mg/2 Ml Vial (Pulmicort)) 0.5 mg NEB BIDR [facility] Stop: 02/02/22 09:44 Last Admin: 01/04/22 06:59 Dose: 0.5 mg Calcium Polycarbophil (Calcium Polycarbophil 625mg Tab) 625 mg PO BID [facility] Stop: 01/30/22 20:59 Last Admin: 01/04/22 08:05 Dose: 625 mg Enoxaparin Sodium (Enoxaparin Inj 30 Mg/0.3 Ml Syr) 30 mg SQ Q24H [facility] Stop: 01/30/22 20:59 Last Admin: 01/03/22 21:05 Dose: 30 mg Escitalopram Oxalate (Escitalopram Oxalate 10 Mg Tab) 10 mg PO DAILY [facility] Stop: 01/31/22 08:59 Last Admin: 01/04/22 08:07 Dose: 10 mg Ferrous Sulfate (Ferrous Sulfate 325 Mg Tab) 325 mg PO QAM [facility] Stop: 01/31/22 19:14 Last Admin: 01/04/22 08:08 Dose: 325 mg Furosemide (Furosemide Inj 20 Mg/2 Ml Vial) 20 mg IV DAILY [facility] Stop: 01/31/22 07:59 Last Admin: 01/04/22 08:06 Dose: 20 mg Isosorbide Dinitrate (Isosorbide Dinitrate 20 Mg Tab) 20 mg PO 0700,1200,1700 [facility] Stop: 02/01/22 10:44 Last Admin: 01/04/22 06:15 Dose: 20 mg Lactobacillus Acidophilus (Advanced Probiotic 1250 Mg Capsule) 2 cap PO DAILY [facility] Stop: 01/31/22 08:59 Last Admin: 01/04/22 08:08 Dose: 2 cap Lisinopril (Lisinopril 40 Mg Tab) 40 mg PO DAILY [facility] Stop: 01/31/22 08:59 Last Admin: 01/04/22 08:08 Dose: 40 mg Loratadine (Loratadine 10 Mg Tab) 10 mg PO QAM [facility] Stop: 01/31/22 08:59 Last Admin: 01/04/22 08:06 Dose: 10 mg Magnesium Oxide (Magnesium Oxide 400 Mg Tab) 400 mg PO BID [facility] Stop: 02/02/22 09:44 Last Admin: 01/04/22 08:04 Dose: 400 mg Meloxicam (Meloxicam 7.5 Mg Tab) 15 mg PO DAILY [facility] Stop: 01/31/22 08:59 Last Admin: 01/04/22 08:08 Dose: 15 mg Metoprolol Succinate (Metoprolol Succ 25mg Ext Rel Tab) 25 mg PO BID [facility] Stop: 02/01/22 20:59 Last Admin: 01/04/22 08:06 Dose: 25 mg Multivitamins/Minerals (Cerovite Adv Formula Tab) 1 tab PO DAILY [facility] Stop: 01/31/22 08:59 Last Admin: 01/04/22 08:07 Dose: 1 tab Multivitamins/Minerals (Calcium 600mg + Vit D 400 Iu Tab) 1 tab PO DAILY [facility] Stop: 01/31/22 08:59 Last Admin: 01/04/22 08:09 Dose: 1 tab Ondansetron HCl (Ondansetron Inj 2 Mg/Ml 2 Ml Vial) 4 mg IV Q6H PRN PRN Reason: Nausea Stop: 01/30/22 19:17 Polyethylene Glycol (Polyethylene (Miralax) 17 Gm Pack) 17 gm PO DAILY PRN PRN Reason: Constipation Stop: 01/30/22 19:17 Last Admin: 01/01/22 20:08 Dose: 17 gm Prednisone (Prednisone 20 Mg Tab) 40 mg PO DAILY [facility] Stop: 01/09/22 09:59 Last Admin: 01/04/22 10:11 Dose: 40 mg Spironolactone (Spironolactone 12.5 Mg Tab) 12.5 mg PO DAILY [facility] Stop: 01/31/22 11:29 Last Admin: 01/04/22 08:09 Dose: 12.5 mg Vitamin D (Cholecalciferol 1,000 Units 25 Mcg Tab) 2,000 units PO DAILY [facility] Stop: 01/31/22 08:59 Last Admin: 01/04/22 08:07 Dose: 2,000 units
[2022-01-04] MEDS: ENOXAPARIN INJ 30 MG/0.3 ML SYR SQ SCH (20:48)
[2022-01-05 05:45] LABS: Hematocrit (blood only) 29.9 % (34.1-44.9); Hemoglobin 9.8 g/dl (12.0-16.0)
[2022-01-05 06:06] LABS: BUN Creatinine Ratio 35.1 (10-20); Calcium 8.5 mg/dl (8.5-10.1); Creatinine Clr Calc Pharmacy 40.7 ml/min; Est GFR (African American) 80.5 ml/min; Est GFR (Non-African American) 69.4 ml/min; Magnesium 1.9 mg/dl (1.7-2.4); Potassium 4.3 mmol/L (3.5-5.1)
[2022-01-05] MEDS: ALBUT/IPRATROP 3MG/0.5MG NEB 3 ML VIAL NEB SCH (07:06)
[2022-01-05] MEDS: BUDESONIDE 0.5 MG/2 ML VIAL (PULMICORT) NEB SCH (07:06)
[2022-01-05] MEDS: CALCIUM POLYCARBOPHIL 625MG TAB PO SCH ×2 (08:32→20:34)
[2022-01-05] MEDS: MAGNESIUM OXIDE 400 MG TAB PO SCH ×2 (08:32→20:33)
[2022-01-05] MEDS: ACETAMINOPHEN 500 MG TAB PO SCH ×3 (08:33→20:33)
[2022-01-05] MEDS: METOPROLOL SUCC 25MG EXT REL TAB PO SCH ×2 (08:33→20:31)
[2022-01-05] MEDS: ADVANCED PROBIOTIC 1250 MG CAPSULE PO SCH (08:34)
[2022-01-05] MEDS: ESCITALOPRAM OXALATE 10 MG TAB PO SCH (08:34)
[2022-01-05] MEDS: ATORVASTATIN 40 MG TAB PO SCH (08:34)
[2022-01-05] MEDS: SPIRONOLACTONE 12.5 MG TAB PO SCH (08:35)
[2022-01-05] MEDS: CEROVITE ADV FORMULA TAB PO SCH (08:35)
[2022-01-05] MEDS: ASPIRIN 81 MG ECTAB PO SCH (08:35)
[2022-01-05] MEDS: FERROUS SULFATE 325 MG TAB PO SCH (08:35)
[2022-01-05] MEDS: lisinopril 40 MG TAB PO SCH (08:35)
[2022-01-05] MEDS: CALCIUM 600MG + VIT D 400 IU TAB PO SCH (08:35)
[2022-01-05] MEDS: ISOSORBIDE DINITRATE 20 MG TAB PO SCH ×3 (08:36→17:14)
[2022-01-05] MEDS: LORATADINE 10 MG TAB PO SCH (08:36)
[2022-01-05] MEDS: predniSONE 20 MG TAB PO SCH (08:37)
[2022-01-05] MEDS: CHOLECALCIFEROL 1,000 UNITS 25 MCG TAB PO SCH (08:37)
[2022-01-05] MEDS ORDERED: BUDESONIDE 0.5 MG/2 ML VIAL (PULMICORT) NEB PRN (08:52)
[2022-01-05 15:54] LABS: BUN Creatinine Ratio 22.9 (10-20); Calcium 8.8 mg/dl (8.5-10.1); Creatinine Clr Calc Pharmacy 26.6 ml/min; Est GFR (Non-African American) 41.4 ml/min; Potassium 4.8 mmol/L (3.5-5.1)
--- NOTE | 2022-01-05 16:58 | Hospitalist Progress Note ---
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 Acute on chronic systolic and diastolic CHF- - Echo 01/01/22 with EF 25-30 % with mod-sev mitral and tricuspid insufficiency - Cardio following - s/p iv lasix now on hold due to worsening hyponatremia, daily weight, strict I and Os - Continue GDMT- toprol increased to bid, isordil and aldactone added per cardio - Will need oral diuretic at discharge - OP Noelle [facility] clinic consult to assist with transitioning lisinopril to entresto per cardio PAF- on NSR. Per cardio, OP zio monitor to assess for A fib. Defer anticoag decision to cardiology. Asthma exacerbation- improved, no more wheezes, on room air. s/p iv solumedrol and now on prednisone for 5 day course. Continue nebs, inhalers. No indication for ABx. H/o TIA- continue asa, statin Anemia- hgb 12 in jul, now 10. Iron def in labs. Vitamin B12 and folate normal. will give 1 more dose of venofer. Follow up Hb. HTN- continue metoprolol, lisinopril RLE pretibial wound- pt states old skin tear, non healing x 6 weeks- improving- no infection Depression with Anxiety- continue escitalopram Generalized weakness- PT recommends rehab Hyponatremia- worsening Na down to 125. Labs do not suggest SIADH but patient was receiving diuretics. Holding lasix for now. Recommended extra salt, liberalize diet. Nephrology managing. Recheck in am. Hypomagnesemia- resolved DEXTER- Cr worsened from 0.7 to 1.2. Holding lasix. Might need gentle ivf but cautious with EF of 25-30%. Recheck in am. DVT ppx: SQ lovenox Dispo: Worsening hyponatremia- being managed and monitored. PT recommends rehab- CM following. Updated stepdaughter Reema at bedside Admission and Anticipated Discharge Date Admission Date: December 31, 2021 Subjective She feels better today. Asking when she will go to rehab. Asking how her insurance would cover her rehab stay. No fever, chills, N/V, CP, shortness of breath. Physical Exam Physical Exam: General: Elderly female, sitting in bed, not in distress, on room air HEENT: EOMI, KRYSTA, MMM Chest: Fair breath sounds bilaterally, no wheezes CVS:Irregular, normal heart sounds, systolic murmur Abdomen: Soft, non tender, not distended, normal bowel sounds Neuro: Awake, alert, oriented, conversing well, non focal Extremities: No edema Results & Data Results & Data ([facility]) Vital Signs (Past 12 Hours) Vital Signs Temp Pulse Pulse Resp BP Pulse Ox O2 Del Method 01/05/22 16:16 80 01/05/22 15:19 37.2 C 71 16 150/75 H 93 Room Air 01/05/22 11:18 36.9 C 74 16 151/79 H 93 Room Air 01/05/22 10:12 Room Air 01/05/22 08:00 36.7 C 75 18 160/90 H 100 Room Air 01/05/22 07:07 67 16 93 Room Air 01/05/22 07:08 80 Laboratory Results Short CBC 01/05/22 Range/Units 05:27 Hgb 9.8 L (12.0-16.0) g/dl Hct 29.9 L (34.1-44.9) % BMP 01/05/22 01/05/22 05:27 15:15 Sodium 127 L 125 L Potassium 4.3 4.8 Chloride 93 L 91 L Carbon Dioxide 28 30 BUN 27 H 27 H Creatinine 0.77 1.18 D Glucose 121 H 162 H Calcium 8.5 8.8 Medications Administered Current Inpatient Medications Acetaminophen (Acetaminophen 500 Mg Tab) 1,000 mg PO TID [facility] Stop: 01/30/22 20:59 Last Admin: 01/05/22 14:44 Dose: 1,000 mg Al Hydrox/Mg Hydrox/Simethicone (Aluminum/Magnesium Susp 30 Ml Udc) 15 ml PO Q4H PRN PRN Reason: Dyspepsia Stop: 01/30/22 19:17 Albuterol (Albuterol Hfa 8 Gm Inhaler) 2 puffs INH Q6H PRN PRN Reason: Shortness Of Breath Or Wheezin Stop: 01/30/22 19:17 Last Admin: 01/01/22 22:06 Dose: 2 puffs Aspirin (Aspirin 81 Mg Ectab) 81 mg PO DAILY [facility] Stop: 01/31/22 08:59 Last Admin: 01/05/22 08:35 Dose: 81 mg Atorvastatin Calcium (Atorvastatin 40 Mg Tab) 40 mg PO DAILY [facility] Stop: 01/31/22 08:59 Last Admin: 01/05/22 08:34 Dose: 40 mg Budesonide (Budesonide 0.5 Mg/2 Ml Vial (Pulmicort)) 0.5 mg NEB BIDR PRN PRN Reason: Shortness Of Breath Or Wheezin Stop: 02/02/22 09:44 Calcium Polycarbophil (Calcium Polycarbophil 625mg Tab) 625 mg PO BID [facility] Stop: 01/30/22 20:59 Last Admin: 01/05/22 08:32 Dose: 625 mg Enoxaparin Sodium (Enoxaparin Inj 30 Mg/0.3 Ml Syr) 30 mg SQ Q24H [facility] Stop: 01/30/22 20:59 Last Admin: 01/04/22 20:48 Dose: 30 mg Escitalopram Oxalate (Escitalopram Oxalate 10 Mg Tab) 10 mg PO DAILY [facility] Stop: 01/31/22 08:59 Last Admin: 01/05/22 08:34 Dose: 10 mg Ferrous Sulfate (Ferrous Sulfate 325 Mg Tab) 325 mg PO QAM [facility] Stop: 01/31/22 19:14 Last Admin: 01/05/22 08:35 Dose: 325 mg Furosemide (Furosemide Inj 20 Mg/2 Ml Vial) 20 mg IV DAILY [facility] Stop: 01/31/22 07:59 Last Admin: 01/04/22 08:06 Dose: 20 mg Isosorbide Dinitrate (Isosorbide Dinitrate 20 Mg Tab) 20 mg PO 0700,1200,1700 [facility] Stop: 02/01/22 10:44 Last Admin: 01/05/22 11:34 Dose: 20 mg Lactobacillus Acidophilus (Advanced Probiotic 1250 Mg Capsule) 2 cap PO DAILY [facility] Stop: 01/31/22 08:59 Last Admin: 01/05/22 08:34 Dose: 2 cap Lisinopril (Lisinopril 40 Mg Tab) 40 mg PO DAILY [facility] Stop: 01/31/22 08:59 Last Admin: 01/05/22 08:35 Dose: 40 mg Loratadine (Loratadine 10 Mg Tab) 10 mg PO QAM [facility] Stop: 01/31/22 08:59 Last Admin: 01/05/22 08:36 Dose: 10 mg Magnesium Oxide (Magnesium Oxide 400 Mg Tab) 400 mg PO BID [facility] Stop: 02/02/22 09:44 Last Admin: 01/05/22 08:32 Dose: 400 mg Meloxicam (Meloxicam 7.5 Mg Tab) 15 mg PO DAILY [facility] Stop: 01/31/22 08:59 Last Admin: 01/04/22 08:08 Dose: 15 mg Metoprolol Succinate (Metoprolol Succ 25mg Ext Rel Tab) 25 mg PO BID [facility] Stop: 02/01/22 20:59 Last Admin: 01/05/22 08:33 Dose: 25 mg Multivitamins/Minerals (Cerovite Adv Formula Tab) 1 tab PO DAILY [facility] Stop: 01/31/22 08:59 Last Admin: 01/05/22 08:35 Dose: 1 tab Multivitamins/Minerals (Calcium 600mg + Vit D 400 Iu Tab) 1 tab PO DAILY [facility] Stop: 01/31/22 08:59 Last Admin: 01/05/22 08:35 Dose: 1 tab Ondansetron HCl (Ondansetron Inj 2 Mg/Ml 2 Ml Vial) 4 mg IV Q6H PRN PRN Reason: Nausea Stop: 01/30/22 19:17 Last Admin: 01/05/22 08:39 Dose: 4 mg Polyethylene Glycol (Polyethylene (Miralax) 17 Gm Pack) 17 gm PO DAILY PRN PRN Reason: Constipation Stop: 01/30/22 19:17 Last Admin: 01/01/22 20:08 Dose: 17 gm Prednisone (Prednisone 20 Mg Tab) 40 mg PO DAILY [facility] Stop: 01/09/22 09:59 Last Admin: 01/05/22 08:37 Dose: 40 mg Spironolactone (Spironolactone 12.5 Mg Tab) 12.5 mg PO DAILY [facility] Stop: 01/31/22 11:29 Last Admin: 01/05/22 08:35 Dose: 12.5 mg Vitamin D (Cholecalciferol 1,000 Units 25 Mcg Tab) 2,000 units PO DAILY [facility] Stop: 01/31/22 08:59 Last Admin: 01/05/22 08:37 Dose: 2,000 units
[2022-01-05] MEDS ORDERED: IRON SUCROSE 300 MG in SODIUM CHLORIDE 0.9% 250 ML IV ONE (17:03)
--- NOTE | 2022-01-05 17:53 | Nephrology Consultation ---
Date of Consultation January 05, 2022 Assessment & Plan (1) Chronic hyponatremia: hypervolemic hyponatremia. sodium 125 on steady downtrend since yesterday AM value of 131 and already on lower side. she is 2.7 L negativ marlene admission at least and actually heavier on standing wts today (57.1) than 12/31 56.3 -last lasix IV dose yesterday AM -no torsemide given today >will give lasix 20 mg IV x 1 now and again same dose in 4 hrs >recheck bmp in am and evaluate for next steps >K should tolerate lasix above History of Present Illness Reason for Consultation: worsening hyponatremia Requesting Physician: Dr Gloria Attending Physician: Simon Gloria MD History of Present Illness 86 y/o F whom I'm asked to see for worsening hyponatremia was admitted 12/31 for a combined systolic and diastolic acute on chronic HF exacerbation and serum sodium of 134 after presenting with 3 wks of worsening edema and dyspnea and 1 wk of chest pain. Her soduim stayed in the low 130s until this am when it was 127, 125 on repeat this PM. 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 She has been diuresed. Today cardiology stopped lasix 20 mg daily IV w/ transition to torsemide 20 mg p o daily w/ prn dose same mg for worsening OL sx and for close cardiology f/u. Spironolactone also added this admission. She denies sob or uncontrolled edema or pain or palptiations. she is frustrated not to have a clear handle on on inpatient care plan and that her medications are changing. no dysuria or gross hematuria. + conistipation. Allergies Allergy/AdvReac Type Severity Reaction Status Date / Time Penicillins Allergy Severe ANAPHYLAXIS--HEART Verified 12/31/21 17:11 STOPPED denosumab Allergy Intermediate bone pain Verified 12/31/21 17:11 mouse protein Allergy Intermediate bone pain Verified 12/31/21 17:11 cephalexin Allergy Mild RASH Verified 12/31/21 17:11 nitrofurazone Allergy Unknown PT NOT SURE Verified 12/31/21 17:11 nystatin Allergy Unknown PT NOT SURE Verified 12/31/21 17:11 codeine AdvReac Intermediate N/V - can Verified 12/31/21 17:11 take Oxycodone erythromycin base AdvReac Intermediate GI UPSET Verified 12/31/21 17:11 oxycodone AdvReac Intermediate NAUSEA/VOMI Verified 12/31/21 17:11 TING narcotics AdvReac Intermediate extreme Uncoded 12/31/21 17:11 drowsy and nausea Home Medications Medication Instructions Recorded Confirmed Type escitalopram oxalate 10 mg tablet 10 mg PO DAILY 07/29/18 12/31/21 History (Lexapro) loratadine 10 mg tablet (Claritin) 10 mg PO QAM 07/29/18 12/31/21 History vitamins A,C,A-ulmz-ccdlhw 14,320 1 cap PO BID 07/29/18 12/31/21 History unit-226 mg-200 unit capsule (PreserVision AREDS) calcium carbonate 500 mg-vitamin 1 tab PO DAILY 08/29/19 12/31/21 History D3 5 mcg (200 unit) tablet (Calcium 500 + D) calcium polycarbophil 625 mg tablet 625 mg PO BID 03/14/21 12/31/21 History lisinopril 40 mg tablet 40 mg PO DAILY 03/14/21 12/31/21 History Lactobacillus acidophilus 10 10,000 mmu cells PO DAILY 07/15/21 12/31/21 History billion cell capsule (Probiotic) acetaminophen 500 mg tablet 1,000 mg PO TID 07/15/21 12/31/21 History (Tylenol Extra Strength) albuterol sulfate 90 mcg/actuation 2 puff inhalation Q6H PRN 07/15/21 12/31/21 History aerosol inhaler Shortness Of Breath Or Wheezing cholecalciferol (vitamin D3) 50 50 mcg PO DAILY 07/15/21 12/31/21 History mcg (2,000 unit) capsule (Vitamin D3) [id number] acid 0.4 1 tab PO DAILY 07/15/21 12/31/21 History mg-lycopene 300 mcg-lutein 250 mcg tablet (Centrum Silver) aspirin 81 mg tablet,delayed 81 mg PO DAILY 12/31/21 12/31/21 History release atorvastatin 40 mg tablet 40 mg PO DAILY 12/31/21 12/31/21 History meloxicam 15 mg tablet 15 mg PO DAILY 12/31/21 12/31/21 History metoprolol succinate 25 mg 25 mg PO DAILY 12/31/21 12/31/21 History tablet,extended release 24 hr triamcinolone acetonide 0.05 % 1 applic topical BID PRN Skin 12/31/21 12/31/21 History topical ointment Irritation Patient History Medical History Anxiety and depression Asthma hasn't used PRN INH in over a year Cataract Essential tremor Hearing deficit Hip problem LEFT History of breast cancer s/p left mastectomy + chemo/radiation History of DVT (deep vein thrombosis) WITHIN LAST 10 YRS History of hypothyroidism History of pulmonary embolism WITHIN LAST 10 YRS History of skin cancer removed History of stomach ulcers Hypertension Intracranial meningioma (Unknown) pt could not confirm. states "there was something small on my brain that wasn't supposed to be there. nobody was really worried about it." says it was found "years ago" Limb alert care status LUE Osteoarthritis Osteoporosis Patent foramen ovale PT DENIES Rotator cuff tear, right Rupture of hip abductor tendon TMJ click Surgical History History of appendectomy History of breast biopsy History of colonoscopy History of esophagogastroduodenoscopy (EGD) History of left hip replacement History of right cataract surgery Slow to wake up after anesthesia Status post left mastectomy HX OF Status post total knee replacement HX OF - BL Family History Father Diabetes Social History Smoking Status: Never smoker Second Hand Exposure: Yes; Hx Alcohol Use: No Hx Substance Use: No Preferred Language: Dutch Communication Ability: Effective Waste Management Specialist Required: No Beliefs That Will Affect Care: None marital status: Current Living Situation: Personal Care Facility Current Living Situation Comment: pt lives in [facility] independent living How many Children do You have: 2 Other Information That Helps Us Care for You: No Feels Safe at Home: Yes Safety Concerns: Feels Safe At This Time Assistive Devices: Walker Physical Exam Constitutional: well developed, well nourished, + frail appearing and cooperative; no acute distress Eyes: EOM intact bilaterally ENMT: Ears: no external ear abnormality Nose: no external nose abnormality Mouth: + dry oral mucous membranes Neck: no nuchal rigidity Respiratory: normal respiratory effort Auscultation: + diminished lung sounds Cardiovascular: Rate/Rhythm: regular rate and regular rhythm Extremities: no edema Gastrointestinal (Abdomen): Inspection/Auscultation: normal bowel sounds Percussion/Palpation: abdomen soft; abdomen nontender Musculoskeletal: Extremities: strength 5/5 throughout Skin: no rashes, warm and dry Neurologic: buchanan, fluent speech, no tremor Results & Data ([facility]) Vital Signs (Past 12 Hours) Vital Signs Temp Pulse Pulse Resp BP Pulse Ox O2 Del Method 01/05/22 16:16 80 01/05/22 15:19 37.2 C 71 16 150/75 H 93 Room Air 01/05/22 11:18 36.9 C 74 16 151/79 H 93 Room Air 01/05/22 10:12 Room Air 01/05/22 08:00 36.7 C 75 18 160/90 H 100 Room Air 01/05/22 07:07 67 16 93 Room Air 01/05/22 07:08 80 Laboratory Results 01/05/22 05:27 01/05/22 15:15 Diagnostic Findings CTA 12/31 1. No evidence for pulmonary embolus with limitations as described above. 2. Small bilateral pleural effusions. 3. Cardiomegaly. 4. Emphysema.
[2022-01-05] MEDS ORDERED: FUROSEMIDE INJ 20 MG/2 ML VIAL IV ONE ×2 (18:00→22:00)
[2022-01-05] MEDS: ENOXAPARIN INJ 30 MG/0.3 ML SYR SQ SCH (20:34)
[2022-01-06 06:09] LABS: Hematocrit (blood only) 28.9 % (34.1-44.9); Hemoglobin 9.4 g/dl (12.0-16.0); Mean Corpuscular Hemoglobin 28.7 pg (25.0-34.0); Mean Corpuscular Hgb Conc 32.5 g/dL (32.0-36.0); Mean Corpuscular Volume 88.4 fL (80.0-100.0); Mean Platelet Volume 9.2 fL (9.4-12.3); Platelet Count 297 K/uL (130-400); RDW Standard Deviation 47.1 fL (36.4-46.3); Red Blood Count 3.27 M/uL (3.93-5.22); White Blood Count 9.01 K/ul (4.8-10.8)
[2022-01-06 06:38] LABS: BUN Creatinine Ratio 30.7 (10-20); Calcium 8.4 mg/dl (8.5-10.1); Creatinine Clr Calc Pharmacy 35.6 ml/min; Est GFR (African American) 68.5 ml/min; Est GFR (Non-African American) 59.1 ml/min
[2022-01-06] MEDS: MAGNESIUM OXIDE 400 MG TAB PO SCH (08:28)
[2022-01-06] MEDS: CEROVITE ADV FORMULA TAB PO SCH (08:28)
[2022-01-06] MEDS: ISOSORBIDE DINITRATE 20 MG TAB PO SCH ×2 (08:28→12:38)
[2022-01-06] MEDS: CALCIUM POLYCARBOPHIL 625MG TAB PO SCH (08:28)
[2022-01-06] MEDS: lisinopril 40 MG TAB PO SCH (08:29)
[2022-01-06] MEDS: ATORVASTATIN 40 MG TAB PO SCH (08:29)
[2022-01-06] MEDS: FERROUS SULFATE 325 MG TAB PO SCH (08:29)
[2022-01-06] MEDS: SPIRONOLACTONE 12.5 MG TAB PO SCH (08:29)
[2022-01-06] MEDS: ASPIRIN 81 MG ECTAB PO SCH (08:29)
[2022-01-06] MEDS: METOPROLOL SUCC 25MG EXT REL TAB PO SCH (08:29)
[2022-01-06] MEDS: ACETAMINOPHEN 500 MG TAB PO SCH ×2 (08:29→13:00)
[2022-01-06] MEDS: CALCIUM 600MG + VIT D 400 IU TAB PO SCH (08:29)
[2022-01-06] MEDS: ESCITALOPRAM OXALATE 10 MG TAB PO SCH (08:30)
[2022-01-06] MEDS: ADVANCED PROBIOTIC 1250 MG CAPSULE PO SCH (08:31)
[2022-01-06] MEDS: LORATADINE 10 MG TAB PO SCH (08:31)
[2022-01-06] MEDS: predniSONE 20 MG TAB PO SCH (08:31)
[2022-01-06] MEDS: CHOLECALCIFEROL 1,000 UNITS 25 MCG TAB PO SCH (08:31)
[2022-01-06] MEDS ORDERED: POTASSIUM CHLORIDE CRTAB 20 MEQ TABCR PO ONE (13:54)
--- NOTE | 2022-01-06 13:55 | Nephrology Progress Note ---
Date of Service January 06, 2022 Assessment & Plan (1) Chronic hyponatremia: Plan: hypervolemic hyponatremiamarkedly improved w/ low dose lasix sodium 125 on 01/05 on steady downtrend since 01/06 AM value of 131 and already on lower side. she is 2.7 L negative on admission at least and actually heavier on standing wts 01/05 (57.1) than 12/31 56.3 -no torsemide given today >will give lasix 20 mg IV x 1 now and again same dose in 4 hrs >recheck bmp in am and evaluate for next steps >will give po K 40 mEq po x 1 Admission and Anticipated Discharge Date Admission Date: December 31, 2021 Subjective drowsy but wakens enough to deny pain or worsenign sob or n/v Review of Systems Review of Systems: All systems reviewed & are unremarkable except as noted in Subjective Physical Exam Constitutional: well developed, well nourished, + frail appearing and cooperative; no acute distress Eyes: EOM intact bilaterally ENMT: Ears: no external ear abnormality Nose: no external nose abnormality Mouth: + dry oral mucous membranes Neck: no nuchal rigidity Respiratory: normal respiratory effort Auscultation: + diminished lung sounds Cardiovascular: Rate/Rhythm: regular rate and regular rhythm Extremities: no edema Gastrointestinal (Abdomen): Inspection/Auscultation: normal bowel sounds Percussion/Palpation: abdomen soft; abdomen nontender Musculoskeletal: Extremities: strength 5/5 throughout Skin: no rashes, warm and dry Neurologic: buchanan, fluent speech, no tremor Psychiatric: Orientation: oriented to person and oriented to place Results & Data ([facility]) Vital Signs (Past 12 Hours) Vital Signs Temp Pulse Pulse Pulse Resp BP Pulse Ox 01/06/22 12:12 37.1 C 82 16 173/96 H 90 01/06/22 09:38 01/06/22 07:01 36.6 C 70 18 150/81 H 97 01/06/22 06:52 76 01/06/22 03:00 36.6 C 73 18 163/85 H 99 01/06/22 02:10 76 O2 Del Method O2 Flow Rate 01/06/22 12:12 Nasal Cannula 2 01/06/22 09:38 Room Air 01/06/22 07:01 Nasal Cannula 2 01/06/22 06:52 01/06/22 03:00 Nasal Cannula 2 01/06/22 02:10 Laboratory Results 01/06/22 05:46 01/06/22 05:46
[2022-01-06] MEDS ORDERED: FUROSEMIDE 40 MG/4 ML VIAL IV SCH (14:00)
--- NOTE | 2022-01-06 15:43 | Discharge Summary ---
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 She complains of bilateral lower ext swelling in feet x 3 weeks. She also complains of increased difficulty with breathing and burning chest pain. She noticed with in the last month she was having increased SOB with activity. She has noticed a gradual worsening of this to the point even walking to the bathroom makes her labored. She complains of lack of energy and wanting to sleep all the time. Her burning in the chest started ~ 1 week ago across the anterior aspect of chest. She describes it as a burning, comes and goes, breathing makes it worse, exertion makes it worse ( mo ving from bed to wheel chair), nitro spray seemed to help the sensation, it is not made worse with MSK movement, and she denies ever having anything like this in past. She denies cough, hemoptysis, URI sx, F/C/S, lightheaded, dizziness, n/v/d, dysuria, hematuria, increased urg/freq with urination, melena or hematochezia. She denies orthopnea/PND. She denies any prior cardiac history. She currently lives at [facility] and manages all of her medications. She has been taking them regularly. Of significance patient was hospitalized July 2021 due to expressive aphasia. She was diagnosed with TIA. She was placed on aspirin and statin. At this time an echocardiogram was performed which revealed EF 50 to 55%, grade 2 diastolic dysfunction, AV sclerosis, severe mitral annular calcification, moderate MR and severe left atrial enlargement. Post hospitalization she did follow-up with neurology and cardiology. She was placed on 25 mg of metoprolol succinate secondary to PACs. She did have a Zio patch which was negative for arrhythmia. In ED patient remained hemodynamically stable. Her H&H was 10.0 and 31.5, sodium 134 and troponin 18.3. Chest x-ray revealed evidence for left pleural effusion. Chest CTA was negative for PE revealed small bilateral pleural effusions, cardiomegaly and emphysema. Admission Exam Per Admitting Provider Constitutional: WD/WN, vitals as above, NAD, sitting up in bed, pleasant, conversing easily but does get dyspneic with conversation Head: Normocephalic, Atraumatic Eyes: PERRL, conjunctivae normal, anicteric sclerae ENMT: external ear and nose normal, oropharynx normal Neck: trachea midline, no thyromegaly normal visual inspection Respiratory: normal respiratory effort, lungs clear to auscultation, no wheeze, rales, rhonchi. Normal insp/exp effort, no accessory muscle use Cardiovascular: RRR with frequent ectopy, no murmur, no edema , evidence of nonhealing skin tear to the lateral aspect of right pretibial, no surrounding erythema or warmth. Bilateral pedal pulse +1 and equal vessels: no JVD or carotid bruit Chest: normal inspection of chest Abdomen: normal bowel sounds, soft, nontender, no hepatosplenomegaly Musculoskeletal: no cyanosis or clubbing, extremities motor strength 5/5 Skin: no rashes, warm and dry normal turgor Neurologic: PERRL, EOMI, accommodation nl, no face palsy, no dysarthria CN's II-XI intact bilaterally and moves all extremities Psychiatric: A+Ox3, euthymic affect Lymphatic: no cervical or axillary lymphadenopathy : deferred Principal Diagnosis Acute on chronic systolic diastolic CHF, hyponatremia, Asthma exacerbation Discharge Exam General: Elderly female, Lying comfortably in bed, not in distress, on room air HEENT: EOMI, KRYSTA, MMM Chest: Diminished breath sounds bilaterally, no wheezes or crackles appreciated CVS: Regular rate and rhythm, normal heart sounds, no murmur Abdomen: Soft, non tender, not distended, normal bowel sounds Neuro: Awake, alert, oriented, conversing well, non focal Extremities: No cyanosis, clubbing or edema Discharge Data Allergies Allergy/AdvReac Type Severity Reaction Status Date / Time Penicillins Allergy Severe ANAPHYLAXIS--HEART Verified 12/31/21 17:11 STOPPED denosumab Allergy Intermediate bone pain Verified 12/31/21 17:11 mouse protein Allergy Intermediate bone pain Verified 12/31/21 17:11 cephalexin Allergy Mild RASH Verified 12/31/21 17:11 nitrofurazone Allergy Unknown PT NOT SURE Verified 12/31/21 17:11 nystatin Allergy Unknown PT NOT SURE Verified 12/31/21 17:11 codeine AdvReac Intermediate N/V - can Verified 12/31/21 17:11 take Oxycodone erythromycin base AdvReac Intermediate GI UPSET Verified 12/31/21 17:11 oxycodone AdvReac Intermediate NAUSEA/VOMI Verified 12/31/21 17:11 TING narcotics AdvReac Intermediate extreme Uncoded 12/31/21 17:11 drowsy and nausea Consultations 12/31/21 15:58 ED Decision to Admit Stat 12/31/21 19:18 Consult Cardiology Routine 01/05/22 07:43 Consult Nephrology Routine Ordered Studies 12/31/21 13:41 US venous doppler LE BI Stat 12/31/21 13:42 CT angio chest PE protocol Stat Laboratory Results WBC 9.01 K/ul (4.8-10.8) 01/06/22 05:46 RBC 3.27 M/uL (3.93-5.22) L 01/06/22 05:46 Hgb 9.4 g/dl (12.0-16.0) L 01/06/22 05:46 Hct 28.9 % (34.1-44.9) L 01/06/22 05:46 MCV 88.4 fL (80.0-100.0) 01/06/22 05:46 MCH 28.7 pg (25.0-34.0) 01/06/22 05:46 MCHC 32.5 g/dL (32.0-36.0) 01/06/22 05:46 RDW Std Deviation 47.1 fL (36.4-46.3) H 01/06/22 05:46 RDW Coeff of Alessandro 15.0 % (11.5-14.5) H 01/06/22 05:46 Plt Count 297 K/uL (130-400) 01/06/22 05:46 MPV 9.2 fL (9.4-12.3) L 01/06/22 05:46 Immature Gran % (Auto) 0.4 % 01/01/22 06:41 Neut % (Auto) 62.3 % 01/01/22 06:41 Lymph % (Auto) 24.6 % 01/01/22 06:41 [place] % (Auto) 10.3 % 01/01/22 06:41 Eos % (Auto) 1.5 % 01/01/22 06:41 Baso % (Auto) 0.9 % 01/01/22 06:41 Neut # (Auto) 5.00 K/uL (1.4-6.5) 01/01/22 06:41 Lymph # (Auto) 1.97 K/uL (1.2-3.4) 01/01/22 06:41 [place] # (Auto) 0.83 K/uL (0.24-0.82) H 01/01/22 06:41 Eos # (Auto) 0.12 K/uL (0-0.50) 01/01/22 06:41 Baso # (Auto) 0.07 K/uL (0-0.2) 01/01/22 06:41 Immature Gran # (Auto) 0.03 K/uL (0.00-0.02) H 01/01/22 06:41 PT 12.4 Seconds (9.0-12.0) H 12/31/21 13:10 INR 1.2 (0.9-1.1) H 12/31/21 13:10 APTT 28.0 Seconds (21.0-31.0) 12/31/21 13:10 PTT Ratio 1.0 12/31/21 13:10 Sodium 132 mmol/L (136-145) L 01/06/22 05:46 Potassium 4.0 mmol/L (3.5-5.1) 01/06/22 05:46 Chloride 94 mmol/L (98-107) L 01/06/22 05:46 Carbon Dioxide 34 mmol/L (21-32) H 01/06/22 05:46 Anion Gap 4 (3-11) 01/06/22 05:46 BUN 27 mg/dl (6-23) H 01/06/22 05:46 Creatinine 0.88 mg/dl (0.6-1.2) D 01/06/22 05:46 Est Cr Clr Drug Dosing 35.6 ml/min 01/06/22 05:46 Est GFR ( Amer) 68.5 ml/min 01/06/22 05:46 Est GFR (Non-Af Amer) 59.1 ml/min 01/06/22 05:46 BUN/Creatinine Ratio 30.7 (10-20) H 01/06/22 05:46 Glucose 116 mg/dl (70-99(Fasting)) H 01/06/22 05:46 Osmolality 276 mOsm/kg (280-300) L 01/05/22 15:15 Calcium 8.4 mg/dl (8.5-10.1) L 01/06/22 05:46 Phosphorus 3.4 mg/dl (2.5-4.9) 01/02/22 06:06 Magnesium 2.0 mg/dl (1.7-2.4) 01/06/22 05:46 Iron 21 mcg/dl (35-150) L 01/01/22 06:41 Transferrin 291 mg/dl (200-360) 01/01/22 06:41 Ferritin 18.4 ng/ml (8-388) 01/01/22 06:41 Total Bilirubin 0.5 mg/dl (0.2-1.0) 01/01/22 06:41 AST 22 U/L (13-39) 01/01/22 06:41 ALT 16 U/L (7-52) 01/01/22 06:41 Alkaline Phosphatase 83 U/L (34-104) 01/01/22 06:41 Troponin I High Sens 17.7 pg/ml (0-14) H 12/31/21 18:40 B-Natriuretic Peptide 2130 pg/ml (0-100) H 12/31/21 18:40 Total Protein 6.4 gm/dl (6.0-8.3) 01/01/22 06:41 Albumin 3.7 gm/dl (3.4-5.0) 01/01/22 06:41 Globulin 2.7 gm/dl (2.5-4.0) 01/01/22 06:41 Albumin/Globulin Ratio 1.4 (0.9-2) 01/01/22 06:41 Lipase 49 U/L (11-82) 12/31/21 13:10 Vitamin B12 1061 pg/ml (180-914) H 01/01/22 06:41 Folate > 22.30 ng/ml (>5.38) 01/01/22 06:41 TSH 2.137 uIu/ml (0.300-4.500) 12/31/21 18:40 Urine Osmolality 559 mOsm/kg (500-800) 01/05/22 11:29 Ur Random Sodium 12 mmol/L 01/05/22 11:29 SARS-CoV-2, RNA, NAAT NEGATIVE (NEGATIVE) 12/31/21 13:50 Impressions Venous Doppler Study 12/31/21 13:41 ULTRASOUND BILATERAL LOWER EXTREMITY VENOUS CLINICAL HISTORY: Lower extremity edema. COMPARISON STUDY: Right lower extremity venous ultrasound dated 03/09/2016. Left lower extremity venous ultrasound dated 12/30/2015 TECHNIQUE: Real-time, grayscale, and color Doppler sonography of the deep veins of the right and left lower extremity was performed from the inguinal crease to the calf. Compression and augmentation were utilized. FINDINGS: There is no sonographic evidence of deep venous thrombosis identified in the right or left lower extremity. The common femoral, superficial femoral, and popliteal veins are patent and normally compressible bilaterally. The greater saphenous vein and the profunda femoris vein at the junction with the common femoral vein are clear in both legs. The visualized calf veins are patent bilaterally. Prominent inguinal lymph nodes are likely reactive. IMPRESSION: There is no sonographic evidence of deep venous thrombosis identified in the right or left lower extremity. ACT 112: Negative or not required by law. Electronically signed by: Austen Aguilar M.D. 12/31/2021 6:55 PM Chest CTA 12/31/21 13:42 CHEST CTA for PULMONARY ARTERIES CT DOSE: 223.61 mGy.cm HISTORY: Atypical chest pain. Shortness of breath. TECHNIQUE: Multiaxial CT images of the chest were performed following the intravenous administration of contrast to evaluate the pulmonary arteries. Maximal intensity projection images were also obtained. A dose lowering technique was utilized adhering to the principles of ALARA. COMPARISON STUDY: Chest CTA 02/26/2015. FINDINGS: There is an old mild superior endplate compression deformity at L1. Old, healed fractures within the right posterior 11th rib and mid sternum. There is mild motion artifact. No definite acute fractures identified within the chest. Mild retrograde opacification of the hepatic veins. Otherwise, the visualized liver, spleen, and adrenal glands appear unremarkable. Small bilateral pleural effusions. No significant mediastinal or hilar lymphade nopathy. The heart is enlarged. No pericardial effusion. Normal esophagus. Mild body wall edema. There are mitral annulus calcifications. Mild calcified plaque within the left coronary artery. The thoracic aorta is not opacified due to the timing of contrast but appears normal in caliber. Nondiagnostic evaluation of the bilateral lower lobe subsegmental pulmonary arteries due to the motion artifact. However, the remaining pulmonary arteries show no filling defects to suggest a pulmonary embolus. There is a fat-containing right-sided Bochdalek hernia. No pneumothorax. Mild bronchial wall thickening. Otherwise, the central airways are patent. There is mild emphysema. A few scattered micronodules are seen within the lungs. These are of doubtful clinical significance given the patient's age. Mild bibasilar subsegmental atelectasis. Otherwise, no focal lung consolidations to suggest pneumonia. IMPRESSION: 1. No evidence for pulmonary embolus with limitations as described above. 2. Small bilateral pleural effusions. 3. Cardiomegaly. 4. Emphysema. ACT 112: Negative or not required by law. Electronically signed by: Royer Garcia M.D. 12/31/2021 3:29 PM Chest X-Ray 12/31/21 13:42 XR chest 1V portable CLINICAL HISTORY: Chest Pain. COMPARISON STUDY: 12 4 ACT TECHNIQUE: 1 view of the chest FINDINGS: Single frontal view of the chest demonstrates the heart to now be moderately enlarged. Increased alveolar density is present in the retrocardiac space suspicious for the presence of an underlying pneumonia. There is also blunting left costophrenic angle representing small to moderate-sized left pleural effusion. The right hemithorax is clear. No definite right pleural effusion is seen. There is no evidence for vascular congestion. There is no acute osseous pathology. IMPRESSION: 1. Increased alveolar opacity in the retrocardiac space on the left and evidence for left pleural effusion. PA and lateral radiographs would be the study of choice for further evaluation. ACT 112: Negative or not required by law. Electronically signed by: Tony Mcguire M.D. 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 Found to have acute on chronic systolic diastolic CHF with valvular heart disease EF 25-30%. Diuresed well on lasix with improvement of symptoms but had hyponatremia and was seen by nephro. It was due to hypervolemic hyponatremia and improved with escalation of lasix dose. Also had asthma exacerbation which rapidly cleared with iv steroid and nebs and now on prednisone short course. Seen by PT and recommended rehab. Going to [facility]- comfortable and stable for discharge. Cleared by nephro and cardio for discharge. Acute on chronic systolic and diastolic CHF with valvular heart disease - Echo 01/01/22 with EF 25-30 % with mod-sev mitral and tricuspid insufficiency - s/p iv lasix with improvement and changed to torsemide at discharge (20 mg daily, additional 20 mg prn for shortness of breath, volume overload or weight gain) - Continue GDMT- toprol increased to bid, isordil and aldactone added per cardio - [facility] consult to assist with transitioning lisinopril to entresto per cardio - Seen by cardio and follow up with them at discharge PAF- on NSR. Per cardio, OP zio monitor to assess for A fib. Defer anticoag decision to cardiology. Asthma exacerbation- resolved, no more wheezes, on room air. s/p iv solumedrol and now on prednisone for 5 day course. Continue nebs, inhalers. No indication for ABx. H/o TIA- continue asa, statin Anemia- hgb 12 in b, now 10. Iron def in labs. Vitamin B12 and folate normal. s/p iv venoferx2. Hb stable >9. continue oral iron supplementation at discharge HTN- continue metoprolol, lisinopril, torsemide RLE pretibial wound- pt states old skin tear, non healing x 6 weeks- improving- no infection. local wound care Depression with Anxiety- continue escitalopram Generalized weakness- PT recommends rehab. [facility] Hyponatremia- due to hypervolemia, improving to 132 at discharge with escalation of lasix dose. repeat BMP in 3 days and a week afterward per nephro. Hypomagnesemia- resolved Total Time Total Time Spent Total Time Spent (In Minutes): 50 Discharge Plan Discharge Items Patient Disposition: Transfer Inpatient Rehab Fac Reason For Visit: A/C HFPEF, ELEVATED TROP Discharge Diagnosis: Acute systolic CHF, hyponatremia, Asthma exacerbation Condition on Discharge: Good Activity: Resume your previous activity Non-emergency contact: Primary Care Provider Call non-emergency contact if: you have any medication questions and your symptoms worsen Follow-up/Referrals: Linnette Leonard MD, PhD [Physician] - Timur Rabago DO [Primary Care Provider] - Diet: Heart Healthy Fluids: 1500ml (6 cups) Addtl Attending Provider Instructions: Continue torsemide 1 tab daily in the morning. If you have increasing shortness of breath, weight gain or swelling, you can take an extra dose in the afternoon. Monitor your weight daily Increase your toprol to two times daily Aldactone and isordil have been added to help the heart's pumping function Continue prednisone for 3 more days for your asthma Stop meloxicam and other over the counter pain medications like advil/motrin/aleve etc as they can hurt the kidney. you can take tylenol for pain Repeat blood work on 01/09 and in a week Follow up with the heart doctor, kidney doctor and family doctor Addtl [employer] Provider Instructions: Call 911 and go to the Emergency Room if: * You have tightness or pain in your chest that does not go away with rest or Nitroglycerin * You are very short of breath even with rest Call your doctor if any of the following symptoms or problems start or get worse: * Shortness of breath or difficulty breathing * Wake up at night short of breath * Chest pain * Cough * Swelling of your hands, fee, or legs * More fatigued or tired with your normal activity * Palpitations - sudden fast heart beats WEIGHT * Weigh yourself every morning after using the bathroom. * Use the same scale. * Wear the same amount of clothing. * Write your weight down on your chart. * Call your doctor if you gain more than 2-3 pounds in 1-2 days. MEDICATIONS * Use this discharge instruction sheet for instructions. * Take your medications at the time your doctor ordered. * Do not skip a dose of your medicines. * If you miss a dose of medicine, take as soon as possible, but DO NOT DOUBLE A DOSE. * Read your medicine information when you get home. * Know all of the side effects of your medicine. * Call your doctor's office if you have any side effects. * Be sure all of your doctors know what medicine and herbs you take (including cold, flu, and herbal medicine). * Pain Medicine: If you do not get relief from your pain, please call your doctor for help. Take the following with you to your follow-up doctor appointments: * Weight Chart * Medication List * List of questions Do not drink excessive alcohol, beer or wine. Pending Studies at Discharge: No Stand-Alone Forms: [employer], Smoking Cessation Skilled Items Patient informed of condition?: Yes DNR: No Discharge Level of Care: Acute rehab Communicable Disease: No Discharge Prognosis: Stable Lines: None Urinary Catheter: No Medications and DC Order Prescriptions: New ferrous sulfate 325 mg (65 mg iron) Tablet,Delayed Release (Dr/Ec) 325 mg PO QAM Qty: 30 0RF isosorbide dinitrate 20 mg Tablet 20 mg PO TID Qty: 90 0RF spironolactone 25 mg Tablet 12.5 mg PO DAILY Qty: 30 0RF prednisone 20 mg Tablet 40 mg PO DAILY Qty: 3 0RF torsemide 20 mg tablet 20 mg PO UD Qty: 30 0RF Rx Instructions: Daily in am. Can take as needed dose in pm if shortness of breath, swelling or weight gain Continued loratadine [Claritin] 10 mg tablet 10 mg PO QAM escitalopram oxalate [Lexapro] 10 mg tablet 10 mg PO DAILY vitamins A,C,A-[id number] [PreserVision AREDS] [id number],[id number] [id number] capsule 1 cap PO BID calcium carbonate-vitamin D3 [Calcium 500 + D] 500 mg(1,250mg) -200 unit Tablet 1 tab PO DAILY calcium polycarbophil 625 mg Tablet 625 mg PO BID lisinopril 40 mg Tablet 40 mg PO DAILY atorvastatin 40 mg tablet 40 mg PO DAILY aspirin 81 mg Tablet,Delayed Release (Dr/Ec) 81 mg PO DAILY triamcinolone acetonide 0.05 % Ointment 1 applic TOPICAL BID PRN (Reason: Skin Irritation) acetaminophen [Tylenol Extra Strength] 500 mg Tablet 1,000 mg PO TID albuterol sulfate 90 mcg/actuation Hfa Aerosol Inhaler 2 puff INHALATION Q6H PRN (Reason: Shortness Of Breath Or Wheezing) Centrum Silver 0.4-300-250 mg-mcg-mcg Tablet 1 tab PO DAILY cholecalciferol (vitamin D3) [Vitamin D3] 50 mcg (2,000 unit) Capsule 50 mcg PO DAILY Probiotic 10 billion cell Capsule 10,000 mmu cells PO DAILY Changed metoprolol succinate 25 mg tablet extended release 24 hr 25 mg PO BID Qty: 60 0RF Discontinued meloxicam 15 mg tablet 15 mg PO DAILY Discharge Orders: Discharge Order (Routine); Ordered 01/06/22 Ordered By: Simon Gloria Admission Data Admit Date/Time: 12/31/21 16:47 Attending Provider: Simon Gloria Admit Provider: John Razo Primary Care Provider: Timur Rabago Other Providers: John Razo ; Isaiah Dhillon ; [facility] ; Linnette Leonard
== END 2022-01-06 17:30 | DRG 291 ==
LOC: ED 12:55 → 2S 16:47 → SUATTDRO 16:47 → 2S 18:05

== ENCOUNTER 2022-01-11 12:48 | Observation (INO) ==
--- NOTE | 2022-01-11 13:28 | CT Scan Report ---
CT OF THE HEAD WITHOUT CONTRAST CLINICAL HISTORY: Stroke Alert COMPARISON STUDY: Head CT and MRI the brain July 15, 2021. CT DOSE: 537.48 mGy.cm TECHNIQUE: Helical axial images of the head were obtained without IV contrast. Automated exposure con trol was utilized for the study. A dose lowering technique was utilized adhering to the principles o f ALARA. FINDINGS: No acute intracranial hemorrhage, midline shift or mass effect is present. The ventricular system is stable. White matter hypodensities are similar to prior examinations favor small vessel dis ease. Prominence of the extra-axial spaces is unchanged. 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 9 mm extra-axial calcific density along the inner table of the left frontal bone is stable . The basal cisterns are patent. No extra-axial collections are present. There are no findings to sug gest acute dural sinus thrombosis or acute territorial infarct. No significant calvarial abnormalitie s are present. Visualized portions of the sinuses and mastoid air cells are clear. IMPRESSION: No acute intracranial findings. ACT 112: Negative or not required by law. Electronically signed by: Mina Vora M.D. 01/11/2022 1:26 PM
--- NOTE | 2022-01-11 13:29 | XRay Report ---
XR chest 1V portable CLINICAL HISTORY: stroke alert COMPARISON STUDY: Chest radiograph and chest CT December 31, 2021. FINDINGS: Elevation of the left hemidiaphragm is unchanged. Bilateral pleural effusions have decrease d in size. No evidence for pulmonary edema. Hazy right basilar density corresponds to a fat attenuati on density on prior chest CT. This is benign. Cardiomediastinal silhouette is stable. There is mild j oint Calcification. Old right-sided rib fractures are incidentally noted IMPRESSION: 1. Interval decrease in size of small bilateral pleural effusions. 2. No consolidation to suggest pneumonia. 3. No evidence for pulmonary edema. ACT 112: Negative or not required by law. Electronically signed by: iMna Vora M.D. 01/11/2022 1:28 PM
[2022-01-11 13:46] LABS: iSTAT Hemoglobin 14.6 g/dl (12.0-16.0); iSTAT Ionized Calcium 1.13 mmol/l (1.12-1.32); iSTAT Potassium 4.3 mmol/L (3.3-5.0)
[2022-01-11 13:57] LABS: Hemoglobin 12.8 g/dl (12.0-16.0); Mean Corpuscular Hemoglobin 28.5 pg (25.0-34.0); Mean Corpuscular Hgb Conc 31.2 g/dL (32.0-36.0); Mean Corpuscular Volume 91.3 fL (80.0-100.0); Mean Platelet Volume 9.2 fL (9.4-12.3); Platelet Count 372 K/uL (130-400); RDW Coefficient of Variation 17.1 % (11.5-14.5); RDW Standard Deviation 53.1 fL (36.4-46.3); Red Blood Count 4.49 M/uL (3.93-5.22); White Blood Count 9.88 K/ul (4.8-10.8)
[2022-01-11 14:05] LABS: Partial Thromboplastin Ratio 0.9; Partial Thromboplastin Time 24.7 Seconds (21.0-31.0); Prothrombin Time 10.9 Seconds (9.0-12.0)
[2022-01-11 14:12] LABS: Albumin Globulin Ratio 1.5 (0.9-2); Albumin Level 3.8 gm/dl (3.4-5.0); BUN Creatinine Ratio 36.2 (10-20); Bilirubin,Total 0.6 mg/dl (0.2-1.0); Calcium 9.1 mg/dl (8.5-10.1); Creatinine Clr Calc Pharmacy 34.9 ml/min; Est GFR (African American) 63.2 ml/min; Est GFR (Non-African American) 54.5 ml/min; Globulin 2.6 gm/dl (2.5-4.0); Magnesium 2.2 mg/dl (1.7-2.4); Potassium 4.4 mmol/L (3.5-5.1); Total Protein 6.4 gm/dl (6.0-8.3)
--- NOTE | 2022-01-11 14:37 | Emergency Department Note ---
History of Present Illness General Chief complaint: TIA Symptoms Time Seen by Provider: 01/11/22 13:06 History of Present Illness -year-old female presents to the ED with a chief complaint of some expressive aphasia. The patient was at [facility] for rehab. She apparently had an episode today where she has some expressive aphasia. The exact timing of this was unclear but her last known well was around 11 AM. The patient had resolution of symptoms by the time she got here. While she was here she had a brief episode where she had some expressive aphasia when she was talking to the nurse. When I evaluated the patient, the patient did not have any symptoms. Patient denies any specific symptoms at this time. Home Medications Medication Instructions Recorded Confirmed Type escitalopram oxalate 10 mg tablet 10 mg PO DAILY 07/29/18 12/31/21 History (Lexapro) loratadine 10 mg tablet (Claritin) 10 mg PO QAM 07/29/18 12/31/21 History vitamins A,C,U-yzvr-pwzlex 14,320 1 cap PO BID 07/29/18 12/31/21 History unit-226 mg-200 unit capsule (PreserVision AREDS) calcium carbonate 500 mg-vitamin 1 tab PO DAILY 08/29/19 12/31/21 History D3 5 mcg (200 unit) tablet (Calcium 500 + D) calcium polycarbophil 625 mg tablet 625 mg PO BID 03/14/21 12/31/21 History lisinopril 40 mg tablet 40 mg PO DAILY 03/14/21 12/31/21 History Lactobacillus acidophilus 10 10,000 mmu cells PO DAILY 07/15/21 12/31/21 History billion cell capsule (Probiotic) acetaminophen 500 mg tablet 1,000 mg PO TID 07/15/21 12/31/21 History (Tylenol Extra Strength) albuterol sulfate 90 mcg/actuation 2 puff inhalation Q6H PRN 07/15/21 12/31/21 History aerosol inhaler Shortness Of Breath Or Wheezing cholecalciferol (vitamin D3) 50 50 mcg PO DAILY 07/15/21 12/31/21 History mcg (2,000 unit) capsule (Vitamin D3) [id number]-[id number] acid 0.4 1 tab PO DAILY 07/15/21 12/31/21 History mg-lycopene 300 mcg-lutein 250 mcg tablet (Centrum Silver) aspirin 81 mg tablet,delayed 81 mg PO DAILY 12/31/21 12/31/21 History release atorvastatin 40 mg tablet 40 mg PO DAILY 12/31/21 12/31/21 History triamcinolone acetonide 0.05 % 1 applic topical BID PRN Skin 12/31/21 12/31/21 History topical ointment Irritation ferrous sulfate 325 mg (65 mg 325 mg PO QAM #30 tabs 01/06/22 Rx iron) tablet,delayed release isosorbide dinitrate 20 mg tablet 20 mg PO TID #90 tabs 01/06/22 Rx metoprolol succinate 25 mg 25 mg PO BID #60 tabs 01/06/22 Rx tablet,extended release 24 hr prednisone 20 mg tablet 40 mg PO DAILY #3 tabs 01/06/22 Rx spironolactone 25 mg tablet 12.5 mg PO DAILY #30 tabs 01/06/22 Rx torsemide 20 mg tablet 20 mg PO UD #30 tabs 01/06/22 Rx Allergies Allergy/AdvReac Type Severity Reaction Status Date / Time Penicillins Allergy Severe ANAPHYLAXIS--HEART Verified 12/31/21 17:11 STOPPED denosumab Allergy Intermediate bone pain Verified 12/31/21 17:11 mouse protein Allergy Intermediate bone pain Verified 12/31/21 17:11 cephalexin Allergy Mild RASH Verified 12/31/21 17:11 nitrofurazone Allergy Unknown PT NOT SURE Verified 12/31/21 17:11 nystatin Allergy Unknown PT NOT SURE Verified 12/31/21 17:11 codeine AdvReac Intermediate N/V - can Verified 12/31/21 17:11 take Oxycodone erythromycin base AdvReac Intermediate GI UPSET Verified 12/31/21 17:11 oxycodone AdvReac Intermediate NAUSEA/VOMI Verified 12/31/21 17:11 TING narcotics AdvReac Intermediate extreme Uncoded 12/31/21 17:11 drowsy and nausea Past Med/Surg History Medical History Anxiety and depression Asthma hasn't used PRN INH in over a year Cataract Essential tremor Hearing deficit Hip problem LEFT History of breast cancer s/p left mastectomy + chemo/radiation History of DVT (deep vein thrombosis) WITHIN LAST 10 YRS History of hypothyroidism History of pulmonary embolism WITHIN LAST 10 YRS History of skin cancer removed History of stomach ulcers Hypertension Intracranial meningioma (Unknown) pt could not confirm. states "there was something small on my brain that wasn't supposed to be there. nobody was really worried about it." says it was found "years ago" Limb alert care status LUE Osteoarthritis Osteoporosis Patent foramen ovale PT DENIES Rotator cuff tear, right Rupture of hip abductor tendon TMJ click Surgical History History of appendectomy History of breast biopsy History of colonoscopy History of esophagogastroduodenoscopy (EGD) History of left hip replacement History of right cataract surgery Slow to wake up after anesthesia Status post left mastectomy HX OF Status post total knee replacement HX OF - BL Family History Father Diabetes Social History Smoking Status: Former smoker Tobacco Type: Cigarettes Second Hand Exposure: Yes; Hx Alcohol Use: No Hx Substance Use: No Preferred Language: [place] Communication Ability: Effective [employer]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 Beliefs That Will Affect Care: None marital status: Current Living Situation: Personal Care Facility Current Living Situation Comment: pt lives in [facility] How many Children do You have: 2 Feels Safe at Home: Yes Assistive Devices: Walker Review of Systems A total of 10 systems reviewed and were otherwise negative Physical Exam Vital Signs Vital Signs - 24 hr 01/11/22 12:54 01/11/22 13:30 01/11/22 13:40 Temperature 36.7 C Temperature Source Oral Pulse Rate 67 Pulse Rate [Apical] 68 67 Pulse Rhythm [Apical] Regular Pulse Strength [Apical] Normal Normal Respiratory Rate 18 18 16 Respiratory Effort / Characteristics Non-Labored Spontaneous Non-Labored Spontaneous Non-Labored Spontaneous Respiratory Depth Normal Normal Normal Respiratory Pattern Regular Regular Blood Pressure 159/82 H Blood Pressure [Right Arm] 142/78 H 136/68 Blood Pressure Mean 107 Blood Pressure Mean [Right Arm] 99 90 Blood Pressure Position Lying Blood Pressure Position [Right Arm] Lying Lying Pulse Oximetry 98 95 95 Oxygen Delivery Method Room Air Room Air Room Air Sepsis Recent Fever Within 48 Hours No Sepsis New/Unexplained Change in Mental Status No Sepsis Action Taken by Nursing No Action Required 01/11/22 13:53 Temperature Temperature Source Pulse Rate Pulse Rate [Apical] 70 Pulse Rhythm [Apical] Pulse Strength [Apical] Respiratory Rate 16 Respiratory Effort / Characteristics Non-Labored Spontaneous Respiratory Depth Normal Respiratory Pattern Blood Pressure Blood Pressure [Right Arm] 154/77 H Blood Pressure Mean Blood Pressure Mean [Right Arm] 102 Blood Pressure Position Blood Pressure Position [Right Arm] Pulse Oximetry 95 Oxygen Delivery Method Room Air Sepsis Recent Fever Within 48 Hours Sepsis New/Unexplained Change in Mental Status Sepsis Action Taken by Nursing CONSTITUTIONAL/VITAL SIGNS: Reviewed / noted above. GENERAL: Non-toxic in appearance. INTEGUMENTARY: Warm, dry, and [place]. HEAD: Normocephalic. EYES: without scleral icterus or trauma. ENT/OROPHARYNX: clear and moist. LYMPHADENOPATHY/NECK: Is supple without lymphadenopathy or meningismus. RESPIRATORY: Clear to auscultation bilaterally. No increased work of breathing. CARDIOVASCULAR: Regular rate and rhythm. GI/ABDOMEN: Soft and nontender. No organomegaly or pulsatile mass. EXTREMITIES: Warm and well perfused. BACK: No CVA tenderness. NEUROLOGICAL: The patient is awake, alert and oriented. She has no gross focal deficits. The only possible deficit is when she speaks, she occasionally seems to have some difficulty with her thought process. Sometimes she seems to have some difficulty with words although it is not clear if this is just based on some baseline confusion or acute process. PSYCHIATRIC: normal affect. MUSCULOSKELETAL: Normally developed with good muscle tone. TRIAGE NURSING DOCUMENTATION REVIEWED. Medical Decision Making Medical Records Attestation: I reviewed the patient's medical records. Home Medications Current Medication List: was personally reviewed by me Laboratory Data Attestation: I reviewed the patient's lab results. Result diagrams: 01/11/22 13:30 01/11/22 13:30 Lab Results 01/11/22 01/11/22 01/11/22 Range/Units 13:30 13:30 13:30 WBC 9.88 (4.8-10.8) K/ul RBC 4.49 (3.93-5.22) M/uL Hgb 12.8 (12.0-16.0) g/dl POC Hgb (12.0-16.0) g/dl Hct 41.0 (34.1-44.9) % POC Hct (37-47) % MCV 91.3 (80.0-100.0) fL MCH 28.5 (25.0-34.0) pg MCHC 31.2 L (32.0-36.0) g/dL RDW Std Deviation 53.1 H (36.4-46.3) fL RDW Coeff of Alessandro 17.1 H (11.5-14.5) % Plt Count 372 (130-400) K/uL MPV 9.2 L (9.4-12.3) fL PT 10.9 (9.0-12.0) Seconds INR 1.0 (0.9-1.1) APTT 24.7 (21.0-31.0) Seconds PTT Ratio 0.9 POC Sodium (135-144) mmol/L Sodium 134 L (136-145) mmol/L POC Potassium (3.3-5.0) mmol/L Potassium 4.4 (3.5-5.1) mmol/L POC Chloride (101-112) mmol/L Chloride 91 L (98-107) mmol/L Carbon Dioxide 36 H (21-32) mmol/L POC Total CO2 (24-31) mmol/L Anion Gap 7 (3-11) POC Anion Gap (16-25) mmol/L POC BUN (7-18) mg/dl BUN 34 H (6-23) mg/dl Creatinine 0.94 (0.6-1.2) mg/dl POC Creatinine (0.6-1.3) mg/dl Est Cr Clr Drug Dosing 34.9 ml/min Est GFR ( Amer) 63.2 ml/min Est GFR (Non-Af Amer) 54.5 ml/min BUN/Creatinine Ratio 36.2 H (10-20) Glucose 88 (70-99(Fasting)) mg/dl POC Glucose (other) (70-99) mg/dl Calcium 9.1 (8.5-10.1) mg/dl POC Ioniz Calcium Lucho (1.12-1.32) mmol/l Magnesium 2.2 (1.7-2.4) mg/dl Total Bilirubin 0.6 (0.2-1.0) mg/dl AST 22 (13-39) U/L ALT 17 (7-52) U/L Alkaline Phosphatase 59 (34-104) U/L Total Protein 6.4 (6.0-8.3) gm/dl Albumin 3.8 (3.4-5.0) gm/dl Globulin 2.6 (2.5-4.0) gm/dl Albumin/Globulin Ratio 1.5 (0.9-2) 01/11/22 Range/Units 13:34 WBC (4.8-10.8) K/ul RBC (3.93-5.22) M/uL Hgb (12.0-16.0) g/dl POC Hgb 14.6 (12.0-16.0) g/dl Hct (34.1-44.9) % POC Hct 43 (37-47) % MCV (80.0-100.0) fL MCH (25.0-34.0) pg MCHC (32.0-36.0) g/dL RDW Std Deviation (36.4-46.3) fL RDW Coeff of Alessandro (11.5-14.5) % Plt Count (130-400) K/uL MPV (9.4-12.3) fL PT (9.0-12.0) Seconds INR (0.9-1.1) APTT (21.0-31.0) Seconds PTT Ratio POC Sodium 133 L (135-144) mmol/L Sodium (136-145) mmol/L POC Potassium 4.3 (3.3-5.0) mmol/L Potassium (3.5-5.1) mmol/L POC Chloride 90 L (101-112) mmol/L Chloride (98-107) mmol/L Carbon Dioxide (21-32) mmol/L POC Total CO2 38 H (24-31) mmol/L Anion Gap (3-11) POC Anion Gap 10.0 L (16-25) mmol/L POC BUN 37 H (7-18) mg/dl BUN (6-23) mg/dl Creatinine (0.6-1.2) mg/dl POC Creatinine 1.0 (0.6-1.3) mg/dl Est Cr Clr Drug Dosing ml/min Est GFR ( Amer) ml/min Est GFR (Non-Af Amer) ml/min BUN/Creatinine Ratio (10-20) Glucose (70-99(Fasting)) mg/dl POC Glucose (other) 96 (70-99) mg/dl Calcium (8.5-10.1) mg/dl POC Ioniz Calcium Lucho 1.13 (1.12-1.32) mmol/l Magnesium (1.7-2.4) mg/dl Total Bilirubin (0.2-1.0) mg/dl AST (13-39) U/L ALT (7-52) U/L Alkaline Phosphatase (34-104) U/L Total Protein (6.0-8.3) gm/dl Albumin (3.4-5.0) gm/dl Globulin (2.5-4.0) gm/dl Albumin/Globulin Ratio (0.9-2) Imaging Data Radiologist's Impression: Chest X-Ray 01/11/22 13:08 XR chest 1V portable CLINICAL HISTORY: stroke alert COMPARISON STUDY: Chest radiograph and chest CT December 31, 2021. FINDINGS: Elevation of the left hemidiaphragm is unchanged. Bilateral pleural effusions have decreased in size. No evidence for pulmonary edema. Hazy right basilar density corresponds to a fat attenuation density on prior chest CT. This is benign. Cardiomediastinal silhouette is stable. There is mild joint Calcification. Old right-sided rib fractures are incidentally noted IMPRESSION: 1. Interval decrease in size of small bilateral pleural effusions. 2. No consolidation to suggest pneumonia. 3. No evidence for pulmonary edema. ACT 112: Negative or not required by law. Electronically signed by: Mina Vora M.D. 01/11/2022 1:[address] 01/11/22 13:08 CT OF THE HEAD WITHOUT CONTRAST CLINICAL HISTORY: Stroke Alert COMPARISON STUDY: Head CT and MRI the brain July 15, 2021. CT DOSE: 537.48 mGy.cm TECHNIQUE: Helical axial images of the head were obtained without IV contrast. Automated exposure control was utilized for the study. A dose lowering technique was utilized adhering to the principles of ALARA. FINDINGS: No acute intracranial hemorrhage, midline shift or mass effect is present. The ventricular system is stable. White matter hypodensities are similar to prior examinations favor small vessel disease. Prominence of the extra-axial spaces is unchanged. 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 9 mm extra-axial calcific density along the inner table of the left frontal bone is stable. The basal cisterns are patent. No extra-axial collections are present. There are no findings to suggest acute dural sinus thrombosis or acute territorial infarct. No significant calvarial abnormalities are present. Visualized portions of the sinuses and mastoid air cells are clear. IMPRESSION: No acute intracranial findings. ACT 112: Negative or not required by law. Electronically signed by: Mina Vora M.D. 01/11/2022 1:26 PM ECG Data Attestation: I personally reviewed and interpreted this ECG as follows: Additional Comments: 12 Lead EKG: Per my interpretation shows a normal sinus rhythm at a rate of 65. No ST elevation. No PVCs. Normal QTC. MDM Narrative 86-year-old female presents to the ED with a chief complaint of some mild confusion or possibly TIA symptoms. The patient has no focal motor deficits on my exam. Cerebellar testing was within normal limits. A CT scan of the brain did not show acute process. She did have CT angiograms in July of her head and neck that were unremarkable. The patient CBC and chemistry panel was u nremarkable. Sinus rhythm. The patient was made a stroke alert when she first came in. After speaking with the stroke neurologist, she did not feel the patient was a candidate for thrombolytics. She did recommend observing the patient and working up as an inpatient including metabolic infectious causes for possible confusion. I did speak to the hospitalist, who will see the patient for further evaluation and care. Impression & Plan Transient confusion, Brain TIA Discharge Plan Visit Data Chief Complaint: TIA Symptoms ED Provider: Magan Walton Discharge Problem: Transient confusion, Brain TIA Patient Disposition: Being Evaluated by Hospitalist Forms Stand Alone Forms: My [facility] Prescriptions Prescriptions: No Action loratadine [Claritin] 10 mg tablet 10 mg PO QAM escitalopram oxalate [Lexapro] 10 mg tablet 10 mg PO DAILY vitamins A,C,T-vxgy-[id number] [PreserVision AREDS] 14,320-226-200 [id number]-[id number] capsule 1 cap PO BID calcium carbonate-vitamin D3 [Calcium 500 + D] 500 mg(1,250mg) -200 unit Tablet 1 tab PO DAILY calcium polycarbophil 625 mg Tablet 625 mg PO BID lisinopril 40 mg Tablet 40 mg PO DAILY atorvastatin 40 mg tablet 40 mg PO DAILY aspirin 81 mg Tablet,Delayed Release (Dr/Ec) 81 mg PO DAILY triamcinolone acetonide 0.05 % Ointment 1 applic TOPICAL BID PRN (Reason: Skin Irritation) ferrous sulfate 325 mg (65 mg iron) Tablet,Delayed Release (Dr/Ec) 325 mg PO QAM Qty: 30 0RF isosorbide dinitrate 20 mg Tablet 20 mg PO TID Qty: 90 0RF spironolactone 25 mg Tablet 12.5 mg PO DAILY Qty: 30 0RF prednisone 20 mg Tablet 40 mg PO DAILY Qty: 3 0RF torsemide 20 mg tablet 20 mg PO UD Qty: 30 0RF Rx Instructions: Daily in am. Can take as needed dose in pm if shortness of breath, swelling or weight gain metoprolol succinate 25 mg tablet extended release 24 hr 25 mg PO BID Qty: 60 0RF acetaminophen [Tylenol Extra Strength] 500 mg Tablet 1,000 mg PO TID albuterol sulfate 90 mcg/actuation Hfa Aerosol Inhaler 2 puff INHALATION Q6H PRN (Reason: Shortness Of Breath Or Wheezing) Centrum Silver 0.4-300-250 mg-mcg-mcg Tablet 1 tab PO DAILY cholecalciferol (vitamin D3) [Vitamin D3] 50 mcg (2,000 unit) Capsule 50 mcg PO DAILY Probiotic 10 billion cell Capsule 10,000 mmu cells PO DAILY Referrals Referrals: [facility] [Primary Care Provider] -
[2022-01-11] MEDS ORDERED: PHARMACIST DISCHARGE MED REC CONSULT PRN (15:57)
--- NOTE | 2022-01-11 15:58 | History & Physical Report ---
Date of Service January 11, 2022 Assessment & Plan (1) Stroke-like symptom: (2) Chronic combined systolic and diastolic CHF (congestive heart failure): Plan 86 year old female presented to the ED from [facility] for aphasia/word finding difficulty Aphasia/word finding difficulty- r/o TIA. similar episode to back in Jul 2021. CT head with no acute abnormality. Will admit with stroke protocol, neuro check, telemetry, CTA head/neck, MRI brain. Echo done a week ago, so will have less u tility in repeating. Continue aspirin, lipitor. Will add plavix. Consult neurology. Check lipid panel and HA1c in am. Will allow permissive HTN till tomorrow morning. - Found to have frequent atrial ectopy but no definite evidence of Afib per cardio during recent admission. OP zio was planned per cardio. Will monitor in tele. If evidence of Afib, will need anticoagulation. Chronic systolic diastolic CHF- looks euvolemic. Will hold diuretic for now. resume at discharge. Resume GDMT from tomorrow. Hyponatremia- stable, currently at 134. Recheck in am HTN- will allow permissive HTN for today. 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 Patient was recently admitted to [facility] from 12/31-01/06 with dyspnea and weakness and found to have acute systolic CHF with EF 25-30% and started on torsemide, isordil and aldactone. Also had asthma exacerbation resolved with steroids and hyponatremia improved with increasing diuretic. She was discharged to [facility] rehab on 01/06. This morning, around 11 am she was noted to have aphasia and word finding difficulty and sent to the ED for further evaluation. Initial work up was unremarkable. CT head with no acute abnormality. CBC, BMP stable. EKG NSR. Hospitalist service consulted for further management. During our encounter, she still was struggling with word finding difficulty at times intermittently but she did not have any expressive aphasia. She states she still does not feel right. She states this was similar to her TIA episode in 07/2021. No numbness, weakness, tingling. No other neurological deficits. Allergies Allergy/AdvReac Type Severity Reaction Status Date / Time Penicillins Allergy Severe ANAPHYLAXIS--HEART Verified 12/31/21 17:11 STOPPED denosumab Allergy Intermediate bone pain Verified 12/31/21 17:11 mouse protein Allergy Intermediate bone pain Verified 12/31/21 17:11 cephalexin Allergy Mild RASH Verified 12/31/21 17:11 nitrofurazone Allergy Unknown PT NOT SURE Verified 12/31/21 17:11 nystatin Allergy Unknown PT NOT SURE Verified 12/31/21 17:11 codeine AdvReac Intermediate N/V - can Verified 12/31/21 17:11 take Oxycodone erythromycin base AdvReac Intermediate GI UPSET Verified 12/31/21 17:11 oxycodone AdvReac Intermediate NAUSEA/VOMI Verified 12/31/21 17:11 TING narcotics AdvReac Intermediate extreme Uncoded 12/31/21 17:11 drowsy and nausea Home Medications Medication Instructions Recorded Confirmed Type escitalopram oxalate 10 mg tablet 10 mg PO DAILY 07/29/18 12/31/21 History (Lexapro) loratadine 10 mg tablet (Claritin) 10 mg PO QAM 07/29/18 12/31/21 History vitamins A,C,I-twea-bvgciv 14,320 1 cap PO BID 07/29/18 12/31/21 History unit-226 mg-200 unit capsule (PreserVision AREDS) calcium carbonate 500 mg-vitamin 1 tab PO DAILY 08/29/19 12/31/21 History D3 5 mcg (200 unit) tablet (Calcium 500 + D) calcium polycarbophil 625 mg tablet 625 mg PO BID 03/14/21 12/31/21 History lisinopril 40 mg tablet 40 mg PO DAILY 03/14/21 12/31/21 History Lactobacillus acidophilus 10 10,000 mmu cells PO DAILY 07/15/21 12/31/21 History billion cell capsule (Probiotic) acetaminophen 500 mg tablet 1,000 mg PO TID 07/15/21 12/31/21 History (Tylenol Extra Strength) albuterol sulfate 90 mcg/actuation 2 puff inhalation Q6H PRN 07/15/21 12/31/21 History aerosol inhaler Shortness Of Breath Or Wheezing cholecalciferol (vitamin D3) 50 50 mcg PO DAILY 07/15/21 12/31/21 History mcg (2,000 unit) capsule (Vitamin D3) lhneewvz-dvh-wggnj acid 0.4 1 tab PO DAILY 07/15/21 12/31/21 History mg-lycopene 300 mcg-lutein 250 mcg tablet (Centrum Silver) aspirin 81 mg tablet,delayed 81 mg PO DAILY 12/31/21 12/31/21 History release atorvastatin 40 mg tablet 40 mg PO DAILY 12/31/21 12/31/21 History triamcinolone acetonide 0.05 % 1 applic topical BID PRN Skin 12/31/21 12/31/21 History topical ointment Irritation ferrous sulfate 325 mg (65 mg 325 mg PO QAM #30 tabs 01/06/22 Rx iron) tablet,delayed release isosorbide dinitrate 20 mg tablet 20 mg PO TID #90 tabs 01/06/22 Rx metoprolol succinate 25 mg 25 mg PO BID #60 tabs 01/06/22 Rx tablet,extended release 24 hr prednisone 20 mg tablet 40 mg PO DAILY #3 tabs 01/06/22 Rx spironolactone 25 mg tablet 12.5 mg PO DAILY #30 tabs 01/06/22 Rx torsemide 20 mg tablet 20 mg PO UD #30 tabs 01/06/22 Rx Past Med/Surg History Medical History Anxiety and depression Asthma hasn't used PRN INH in over a year Cataract Essential tremor Hearing deficit Hip problem LEFT History of breast cancer s/p left mastectomy + chemo/radiation History of DVT (deep vein thrombosis) WITHIN LAST 10 YRS History of hypothyroidism History of pulmonary embolism WITHIN LAST 10 YRS History of skin cancer removed History of stomach ulcers Hypertension Intracranial meningioma (Unknown) pt could not confirm. states "there was something small on my brain that wasn't supposed to be there. nobody was really worried about it." says it was found "years ago" Limb alert care status LUE Osteoarthritis Osteoporosis Patent foramen ovale PT DENIES Rotator cuff tear, right Rupture of hip abductor tendon TMJ click Surgical History History of appendectomy History of breast biopsy History of colonoscopy History of esophagogastroduodenoscopy (EGD) History of left hip replacement History of right cataract surgery Slow to wake up after anesthesia Status post left mastectomy HX OF Status post total knee replacement HX OF - BL Family History Father Diabetes Social History Smoking Status: Former smoker Tobacco Type: Cigarettes Second Hand Exposure: Yes; Hx Alcohol Use: No Hx Substance Use: No Preferred Language: Italian Communication Ability: Effective Telemetry Tech Required: No Beliefs That Will Affect Care: None marital status: Current Living Situation: Personal Care Facility Current Living Situation Comment: pt lives in [facility] independent living How many Children do You have: 2 Feels Safe at Home: Yes Assistive Devices: Walker Review of Systems Review of Systems: All systems reviewed & are unremarkable except as noted in Subjective Physical Exam Physical Exam: General: Lying comfortably in bed, not in distress, on room air HEENT: EOMI, KRYSTA, MMM Chest: Clear breath sounds bilaterally, no wheezes or crackles CVS: Regular rate and rhythm, normal heart sounds, no murmur Abdomen: Soft, non tender, not distended, normal bowel sounds Neuro: Awake, alert, oriented, conversing well, non focal. No pronator drift. Strength 5/5. Sensation grossly intact. Finger nose test normal. CN grossly intact. Speech clear, no dysarthria. Extremities: No cyanosis, clubbing or edema Results & Data Results & Data ([facility]) Vital Signs (Past 12 Hours) Vital Signs Temp Pulse Pulse Resp BP BP Pulse Ox 01/11/22 14:56 70 18 137/59 L 96 01/11/22 13:53 70 16 154/77 H 95 01/11/22 13:40 67 16 136/68 95 01/11/22 13:30 68 18 142/78 H 95 01/11/22 12:54 36.7 C 67 18 159/82 H 98 O2 Del Method 01/11/22 14:56 Room Air 01/11/22 13:53 Room Air 01/11/22 13:40 Room Air 01/11/22 13:30 Room Air 01/11/22 12:54 Room Air Laboratory Results Short CBC 01/11/22 Range/Units 13:30 WBC 9.88 (4.8-10.8) K/ul Hgb 12.8 (12.0-16.0) g/dl Hct 41.0 (34.1-44.9) % Plt Count 372 (130-400) K/uL BMP 01/11/22 13:30 Sodium 134 L Potassium 4.4 Chloride 91 L Carbon Dioxide 36 H BUN 34 H Creatinine 0.94 Glucose 88 Calcium 9.1 Liver Function 01/11/22 Range/Units 13:30 Total Bilirubin 0.6 (0.2-1.0) mg/dl AST 22 (13-39) U/L ALT 17 (7-52) U/L Alkaline Phosphatase 59 (34-104) U/L Albumin 3.8 (3.4-5.0) gm/dl Diagnostic Findings Chest X-Ray 01/11/22 13:08 XR chest 1V portable CLINICAL HISTORY: stroke alert COMPARISON STUDY: Chest radiograph and chest CT December 31, 2021. FINDINGS: Elevation of the left hemidiaphragm is unchanged. Bilateral pleural effusions have decreased in size. No evidence for pulmonary edema. Hazy right basilar density corresponds to a fat attenuation density on prior chest CT. This is benign. Cardiomediastinal silhouette is stable. There is mild joint Calcification. Old right-sided rib fractures are incidentally noted IMPRESSION: 1. Interval decrease in size of small bilateral pleural effusions. 2. No consolidation to suggest pneumonia. 3. No evidence for pulmonary edema. ACT 112: Negative or not required by law. Electronically signed by: Mina Vora M.D. 01/11/2022 1:[address] 01/11/22 13:08 CT OF THE HEAD WITHOUT CONTRAST CLINICAL HISTORY: Stroke Alert COMPARISON STUDY: Head CT and MRI the brain July 15, 2021. CT DOSE: 537.48 mGy.cm TECHNIQUE: Helical axial images of the head were obtained without IV contrast. Automated exposure control was utilized for the study. A dose lowering technique was utilized adhering to the principles of ALARA. FINDINGS: No acute intracranial hemorrhage, midline shift or mass effect is present. The ventricular system is stable. White matter hypodensities are similar to prior examinations favor small vessel disease. Prominence of the extra-axial spaces is unchanged. 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 9 mm extra-axial calcific density along the inner table of the left frontal bone is stable. The basal cisterns are patent. No extra-axial collections are present. There are no findings to suggest acute dural sinus thrombosis or acute territorial infarct. No significant calvarial abnormalities are present. Visualized portions of the sinuses and mastoid air cells are clear. IMPRESSION: No acute intracranial findings. ACT 112: Negative or not required by law. Electronically signed by: Mina Vora M.D. 01/11/2022 1:26 PM
[2022-01-11] MEDS ORDERED: ALBUTEROL HFA 8 GM INHALER INH PRN (16:05)
[2022-01-11 16:18] LABS: Appearance Urine Clear (Clear); Bacteria Urine Automated Negative (Negative); Bilirubin Urine Negative (Negative); Blood Urine Negative (Negative); Cast Urine Automated 0 /lpf (0-5); Color Urine Yellow; Glucose Urine UA Negative (Negative); Ketones Urine Negative (Negative); Leukocyte Esterase Urine 2+ (Negative); Nitrite Urine Negative (Negative); Protein Urine Negative (Negative); RBC Urine Automated 0-4 /hpf (0-4); Specific Gravity Urine 1.012 (1.000-1.030); Urobilinogen Urine Negative (Negative); pH Urine 8.5 (4.5-7.5)
[2022-01-11] MEDS ORDERED: CLOPIDOGREL BISULFATE 75 MG TAB PO STA (17:17)
--- NOTE | 2022-01-11 17:27 | Magnetic Resonance Report ---
MRI OF THE BRAIN WITHOUT CONTRAST CLINICAL HISTORY: word finding difficulty, aphasia COMPARISON STUDY: MRI of the brain July 15, 2021. Head CT performed earlier today. TECHNIQUE: Utilizing a 1.5 Kathya magnet and dedicated coil, multiplanar, multiecho imaging of the bra in was performed without IV contrast. FINDINGS: There are no foci of restricted diffusion to suggest acute infarct. No acute intracranial h emorrhage, midline shift or mass effect is present. Ventricular dilatation is unchanged and related t o central atrophy. The appearance of the brain is unchanged since MRI of July 15, 2021. A 8 mm old lacunar infarct within left thalamus is unchanged. Old infarcts within the inferior left cerebellar hemisphere are noted. White matter T2 hyperintense foci are similar to prior exam and favor small ves john disease. A 9 mm suspected meningioma overlying the left frontal lobe is unchanged. No intracrania l masses identified on this unenhanced examination. IMPRESSION: No acute intracranial findings. No change in appearance of the brain since MRI of 2021. ACT 112: Negative or not required by law. Electronically signed by: Mina Vora M.D. 01/11/2022 5:24 PM
[2022-01-11] MEDS ORDERED: OPTIRAY 320 125ml IV ONE (18:02)
--- NOTE | 2022-01-11 18:21 | CT Scan Report ---
CT ANGIOGRAPHY OF THE NECK WITH CONTRAST CLINICAL HISTORY: word finding difficulty, aphasia COMPARISON STUDY: CTA of the neck July 15, 2021. Technique: CT angiography of the carotid and vertebral arteries was obtained using Optiray and 3D rec onstruction on an independent workstation. NASCET criteria was utilized. Automated exposure control was utilized for the study. A dose lowering technique was utilized adhering to the principles of ALA RA. Findings: Multilevel degenerative changes within the cervical spine with reversal the normal cervical lordosis are again noted. Emphysema is noted within the lung apices. No cervical lymphadenopathy is present. There is extensive plaque within the proximal right internal carotid artery without signific ant stenosis of this vessel. There is moderate narrowing at the origin of the right external carotid artery which is similar to CTA of July 15, 2021. No stenosis within the left common carotid or cer vical internal carotid arteries is noted. There is no dissection within the major vessels of the neck . Apparent stenosis of the distal cervical portion of the right vertebral artery is most likely artif actual. Intracranial portion of this vessel is patent. Moderate plaque of the visualized aortic arch is noted. IMPRESSION: 1. No stenosis within the bilateral common carotid or cervical internal carotid arteries. Extensive p laque within the proximal right internal carotid artery. 2. No change in moderate stenosis at the origin of the right external carotid artery since prior CTA. 3. Apparent narrowing of the distal cervical portion of the left vertebral artery which is likely art ifactual. ACT 112: Negative or not required by law. Electronically signed by: Mina Vora M.D. 01/11/2022 6:18 PM
--- NOTE | 2022-01-11 18:28 | CT Scan Report ---
CTA ANGIOGRAPHY OF THE HEAD CLINICAL HISTORY: word finding difficulty, aphasia COMPARISON STUDY: MRI of the brain and head CT performed earlier today. CTA of the head July 15, 2021 TECHNIQUE: Helical axial images of the head were obtained following uneventful intravenous administr ation of 119 cc of Optiray. Sagittal and coronal reconstructions were viewed as well as maximal inten sity projections on an independent 3-D workstation. Automated exposure control was utilized for the study. A dose lowering technique was utilized adhering to the principles of ALARA. CT DOSE: 372.86 mGy.cm FINDINGS: Ventricular system is stable. Mild ventricular dilatation is due to atrophy. No extra-axial collections are present. Basal cisterns are patent. Suspected 9 mm meningioma overlying the left fro ntal lobe remains unchanged. Moderate plaque within the bilateral cavernous carotids is noted. There is no significant stenosis. The bilateral M1, M2, A1 and A2 segments are patent. No central vessel oc clusion is present. Apparent narrowing of the distal cervical portion of the left vertebral artery is probably artifactual. Intracranial portion of this vessel is normal. IMPRESSION: 1. No central vessel occlusion. No intracranial aneurysm. 2. Apparent short segment stenosis of the distal cervical portion of the left vertebral artery. This is likely artifactual. A short segment dissection could appear similar although is considered less li ora. If indicated, repeat CTA of the neck could be obtained. ACT 112: Negative or not required by law. Electronically signed by: Mina Vora M.D. 01/11/2022 6:25 PM
[2022-01-11] MEDS: METOPROLOL SUCC 25MG EXT REL TAB PO SCH (21:41)
[2022-01-11] MEDS: ACETAMINOPHEN 500 MG TAB PO SCH (21:42)
[2022-01-12] MEDS ORDERED: POLYETHYLENE (MIRALAX) 17 GM PACK PO PRN (04:29)
[2022-01-12] MEDS ORDERED: POLYETHYLENE (MIRALAX) 17 GM PACK PO STA (04:29)
[2022-01-12] MEDS ORDERED: DOCUSATE SODIUM/SENNA 50/8.6MG TAB PO STA (04:38)
--- NOTE | 2022-01-12 05:49 | Electrocardiogram Report ---
Test Reason : Blood Pressure : / mmHG Vent. Rate : 065 BPM Atrial Rate : 065 BPM P-R Int : 170 ms QRS Dur : 084 ms QT Int : 476 ms P-R-T Axes : 053 -18 049 degrees QTc Int : 495 ms Normal sinus rhythm Left ventricular hypertrophy with repolarization abnormality Prolonged QT Abnormal ECG When compared with ECG of 31-DEC-2021 13:08, Premature atrial complexes are no longer Present Confirmed by Diony Alexander ([id number]) on 01/12/2022 5:48:44 AM Referred By: ED Confirmed By:Diony Alexander
[2022-01-12 06:44] LABS: Basophils # (auto) 0.02 K/uL (0-0.2); Basophils % (auto) 0.3 %; Eosinophils # (auto) 0.36 K/uL (0-0.50); Eosinophils % (auto) 4.5 %; Hematocrit (blood only) 40.5 % (34.1-44.9); Hemoglobin 13.1 g/dl (12.0-16.0); Immature Granulocytes # (auto) 0.05 K/uL (0.00-0.02); Immature Granulocytes % (auto) 0.6 %; Lymphocytes # (auto) 2.09 K/uL (1.2-3.4); Lymphocytes % (auto) 26.1 %; Mean Corpuscular Hemoglobin 28.5 pg (25.0-34.0); Mean Corpuscular Hgb Conc 32.3 g/dL (32.0-36.0); Mean Corpuscular Volume 88.2 fL (80.0-100.0); Mean Platelet Volume 9.4 fL (9.4-12.3); Monocytes # (auto) 0.86 K/uL (0.24-0.82); Monocytes % (auto) 10.8 %; Neutrophils # (auto) 4.62 K/uL (1.4-6.5); Neutrophils % (auto) 57.7 %; Platelet Count 344 K/uL (130-400); RDW Coefficient of Variation 17.2 % (11.5-14.5); RDW Standard Deviation 52.9 fL (36.4-46.3); Red Blood Count 4.59 M/uL (3.93-5.22)
[2022-01-12 06:59] LABS: Estimated Average Glucose 123 mg/dl; Hemoglobin A1C 5.9 % (4.5-5.6)
[2022-01-12 07:04] LABS: BUN Creatinine Ratio 29.6 (10-20); Calcium 8.6 mg/dl (8.5-10.1); Chol HDL Ratio 2.4 (0-5); Creatinine Clr Calc Pharmacy 38.7 ml/min; Est GFR (African American) 75.7 ml/min; Est GFR (Non-African American) 65.3 ml/min; Potassium 4.1 mmol/L (3.5-5.1)
[2022-01-12] MEDS: ACETAMINOPHEN 500 MG TAB PO SCH ×3 (08:41→19:54)
[2022-01-12] MEDS: ASPIRIN 81 MG ECTAB PO SCH (08:41)
[2022-01-12] MEDS: ENOXAPARIN INJ 40 MG/0.4 ML SYR SQ SCH (08:41)
[2022-01-12] MEDS: METOPROLOL SUCC 25MG EXT REL TAB PO SCH ×2 (08:41→22:01)
[2022-01-12] MEDS: ATORVASTATIN 40 MG TAB PO SCH (08:41)
[2022-01-12] MEDS: ESCITALOPRAM OXALATE 10 MG TAB PO SCH (08:41)
[2022-01-12] MEDS: LORATADINE 10 MG TAB PO SCH (08:42)
[2022-01-12] MEDS: SPIRONOLACTONE 12.5 MG TAB PO SCH (08:42)
[2022-01-12] MEDS: POLYETHYLENE (MIRALAX) 17 GM PACK PO SCH ×2 (08:46→19:53)
[2022-01-12] MEDS: DOCUSATE SODIUM/SENNA 50/8.6MG TAB PO SCH (08:46)
[2022-01-12] MEDS ORDERED: CLOPIDOGREL BISULFATE 75 MG TAB PO SCH (09:00)
--- NOTE | 2022-01-12 14:40 | Hospitalist Progress Note ---
Date of Service January 12, 2022 Assessment & Plan (1) Stroke-like symptom: (2) Chronic combined systolic and diastolic CHF (congestive heart failure): Plan 86 year old female presented to the ED from [facility] for aphasia/word finding difficulty Aphasia/word finding difficulty- r/o TIA. symptoms resolved. similar episode to back in Jul 2021. Stroke work up with CT head, CTA head and neck, MRI brain unremarkable for acute abnormality. Echo done a week ago, so will have less utility in repeating. On ASA, lipitor. Neuro eval pending. PT eval pending. - Found to have frequent atrial ectopy but no definite evidence of Afib per cardio during recent admission. OP zio was planned per cardio. Will monitor in tele. If evidence of Afib, will need anticoagulation. Chronic systolic diastolic CHF- looks euvolemic. Resume at discharge. Resume GDMT. Hyponatremia- stable, currently at 134. Recheck in am HTN- BP stable, continue home meds. Depression/anxiety- continue escitalopram DVT ppx- sc lovenox Dispo- Discharge back to [facility] after neuro eval Admission and Anticipated Discharge Date Admission Date: January 11, 2022 Subjective Feels much better. Symptoms resolved. She states she still does not have a BM yet and states she will feel better if she has one. No new neurological symptoms. Physical Exam Physical Exam: General: Lying comfortably in bed, not in distress, on room air HEENT: EOMI, KRYSTA, MMM Chest: Clear breath sounds bilaterally, no wheezes or crackles CVS: Regular rate and rhythm, normal heart sounds, no murmur Abdomen: Soft, non tender, not distended, normal bowel sounds Neuro: Awake, alert, oriented, conversing well, non focal. Extremities: No edema Results & Data Results & Data ([facility]) Vital Signs (Past 12 Hours) Vital Signs Temp Pulse Pulse Pulse Resp BP Pulse Ox 01/12/22 13:18 01/12/22 11:45 36.5 C 75 20 110/51 L 97 01/12/22 10:25 70 01/12/22 07:34 36.6 C 73 20 154/65 H 96 01/12/22 02:42 36.4 C L 68 16 152/73 H 98 O2 Del Method 01/12/22 13:18 Room Air 01/12/22 11:45 Room Air 01/12/22 10:25 01/12/22 07:34 Room Air 01/12/22 02:42 Room Air Laboratory Results Short CBC 01/12/22 Range/Units 05:48 WBC 8.00 (4.8-10.8) K/ul Hgb 13.1 (12.0-16.0) g/dl Hct 40.5 (34.1-44.9) % Plt Count 344 (130-400) K/uL BMP 01/12/22 05:48 Sodium 133 L Potassium 4.1 Chloride 96 L Carbon Dioxide 30 BUN 24 H Creatinine 0.81 Glucose 142 H Calcium 8.6 Urine 01/11/22 Range/Units 16:06 Urine Color Yellow Urine Appearance Clear (Clear) Urine pH 8.5 H (4.5-7.5) Ur Specific [place] 1.012 (1.000-1.030) Urine Protein Negative (Negative) Urine Glucose (UA) Negative (Negative)
[2022-01-12] MEDS: ISOSORBIDE DINITRATE 20 MG TAB PO SCH (17:02)
--- NOTE | 2022-01-12 21:30 | Consultation Report ---
NEUROLOGY CONSULTATION NOTE DATE OF CF CONSULTATION: 01/12/2022. CHIEF COMPLAINT: Word finding difficulty. HISTORY OF PRESENT ILLNESS: An 86-year-old female with a history of hypertension, hyperlipidemia, prior TIA, migraine headache as well as a provoked DVT/PE admitted with aphasia and word finding difficulty. Symptom onset was yesterday at rehab. She was recently admitted from 01/03/2022 through 01/06/2022 with dyspnea and weakness and found to have systolic congestive heart failure with reduced ejection fraction and started on diuretics. She also was noted to have an asthma exacerbation, which improved with steroids. She was discharged to [facility] on 01/06/2022. Yesterday, she was found around 11:00 a.m., noted to be aphasic with word finding difficulty and sent to the Emergency Department. She underwent a stat CT head which showed no acute intracranial abnormality. CBC and BMP were stable. EKG showed normal sinus rhythm. She was admitted for possible stroke workup. Neurology was consulted on admission. ALLERGIES: PENICILLIN, CEPHALEXIN, NYSTATIN, CODEINE, ERYTHROMYCIN, OXYCODONE, DENOSUMAB. HOME MEDICATIONS: Lexapro, loratadine, vitamins, calcium, lisinopril, acetaminophen, vitamin D, aspirin 81 mg daily, Lipitor 40 mg daily, iron, metoprolol, prednisone 40 mg daily, spironolactone 12.5 mg daily. PAST MEDICAL HISTORY: TIA, hypertension, anxiety, asthma, cataracts, hearing deficit, breast cancer, status post mastectomy, history of DVT, hypothyroidism, pulmonary embolism, skin cancer, osteoarthritis, osteoporosis. PAST SURGICAL HISTORY: Appendectomy, breast biopsy, colonoscopy, EGD, left hip replacement, right cataract surgery, status post left mastectomy, status post bilateral knee replacements. SOCIAL HISTORY: She is a former smoker. No alcohol use. She lives in a personal care facility. She has 2 children. REVIEW OF SYSTEMS: Pertinent for word finding difficulties/aphasia. All other review of systems was negative. PHYSICAL EXAMINATION: VITAL SIGNS: Blood pressure 110/51, pulse is 75, respiratory rate is 20, temperature is 36.5 degrees Celsius, oxygen saturation is 97% on room air. GENERAL: The patient appears stated age, in no acute distress. HEENT: Head is atraumatic, normocephalic. Eyes are midline. No ptosis. NECK: Supple. LUNGS: Normal respiratory effort. CARDIAC: Pulses are intact. ABDOMEN: Nondistended. SKIN: No skin rash. PSYCHIATRIC: Mood is normal. NEUROLOGIC: She is awake, alert, oriented to person, place, and time. Face is symmetric. Hearing is intact. Palate is symmetric. Tongue is midline. Extraocular muscles intact. Pupils are symmetric. Speech is clear. She is following simple commands. She has no pronator drift. Mild tremor, no ataxia with sypaqy-nb-aest testing. Gait evaluation deferred. Sensation is intact to light touch. No focal weakness. Sensation is intact to light touch. DIAGNOSTIC TESTING AND LABORATORY VALUES: WBC 8.0, hemoglobin 13.0, platelet count 344. Sodium was 133, potassium 4.1, chloride 96, carbon dioxide 30, BUN 24, creatinine 0.81. Hemoglobin A1c is 5.9, calcium is 8.6, triglycerides 162, LDL is 42. Urinalysis showed 2+ leukocyte esterase that was performed on 01/11/2022. COVID-19 testing on 01/11/2022 was negative. Head and neck CTA showed no stenosis of the bilateral common carotid or cervical internal carotid arteries. Extensive plaque within the proximal right internal carotid artery. No change in moderate stenosis at the origin of the right external carotid artery. Apparent narrowing of the distal cervical portion of the left vertebral artery, which is likely artifactual. No central vessel occlusion. No intracranial aneurysm. Short segment stenosis of the distal cervical portion of the left vertebral artery. MRI of the brain performed on 01/11/2022 showed no acute intracranial findings. No change in appearance of the brain since 07/15/2021. This was performed for word finding difficulty and aphasia. ASSESSMENT AND PLAN: An 86-year-old female with multiple medical comorbidities, admitted with word finding difficulties/concern for expressive aphasia. MRI of the brain without contrast showed no evidence of acute ischemic stroke. CTA of the head and neck showed no large vessel occlusion. Unclear etiology possibly related to unerlying neurocognitive disorder such as alzheimer or vascular dementia. Low TIA possible although seems less likely. Hemoglobin A1c was 5.9. Recommend to continue aspirin 81 mg daily as well as high-intensity statin. Recommend outpatient Zio patch. Recommend outpatient Neurology followup in 8 weeks. Blood pressure goal systolic blood pressure less than 140, diastolic blood pressure less than 90. Otherwise, no additional neurology recommendations at this time. Please call me with any additional questions or concerns. Job ID: [id number] [facility]
[2022-01-13 07:42] LABS: Basophils # (auto) 0.02 K/uL (0-0.2); Basophils % (auto) 0.3 %; Eosinophils # (auto) 0.37 K/uL (0-0.50); Hematocrit (blood only) 36.7 % (34.1-44.9); Hemoglobin 11.7 g/dl (12.0-16.0); Immature Granulocytes # (auto) 0.02 K/uL (0.00-0.02); Immature Granulocytes % (auto) 0.3 %; Lymphocytes # (auto) 2.08 K/uL (1.2-3.4); Lymphocytes % (auto) 28.3 %; Mean Corpuscular Hemoglobin 28.7 pg (25.0-34.0); Mean Corpuscular Hgb Conc 31.9 g/dL (32.0-36.0); Mean Platelet Volume 9.7 fL (9.4-12.3); Monocytes % (auto) 10.9 %; Neutrophils # (auto) 4.07 K/uL (1.4-6.5); Neutrophils % (auto) 55.2 %; Platelet Count 300 K/uL (130-400); RDW Coefficient of Variation 16.9 % (11.5-14.5); RDW Standard Deviation 53.3 fL (36.4-46.3); Red Blood Count 4.08 M/uL (3.93-5.22); White Blood Count 7.36 K/ul (4.8-10.8)
[2022-01-13 08:25] LABS: BUN Creatinine Ratio 37.8 (10-20); Calcium 8.4 mg/dl (8.5-10.1); Creatinine Clr Calc Pharmacy 42.4 ml/min; Est GFR (African American) 84.4 ml/min; Est GFR (Non-African American) 72.8 ml/min; Magnesium 2.1 mg/dl (1.7-2.4); Potassium 4.2 mmol/L (3.5-5.1)
[2022-01-13] MEDS ORDERED: DOCUSATE SODIUM/SENNA 50/8.6MG TAB PO SCH (09:00)
[2022-01-13] MEDS ORDERED: TORSEMIDE 20 MG TAB PO SCH (09:00)
[2022-01-13] MEDS: SPIRONOLACTONE 12.5 MG TAB PO SCH (09:11)
[2022-01-13] MEDS: ATORVASTATIN 40 MG TAB PO SCH (09:11)
[2022-01-13] MEDS: METOPROLOL SUCC 25MG EXT REL TAB PO SCH (09:11)
[2022-01-13] MEDS: ACETAMINOPHEN 500 MG TAB PO SCH ×2 (09:12→14:05)
[2022-01-13] MEDS: ASPIRIN 81 MG ECTAB PO SCH (09:12)
[2022-01-13] MEDS: LORATADINE 10 MG TAB PO SCH (09:12)
[2022-01-13] MEDS: ESCITALOPRAM OXALATE 10 MG TAB PO SCH (09:12)
[2022-01-13] MEDS: ISOSORBIDE DINITRATE 20 MG TAB PO SCH ×2 (09:12→12:58)
[2022-01-13] MEDS: ENOXAPARIN INJ 40 MG/0.4 ML SYR SQ SCH (09:13)
[2022-01-13] MEDS: POLYETHYLENE (MIRALAX) 17 GM PACK PO SCH (09:39)
[2022-01-13] MEDS: DOCUSATE SODIUM/SENNA 50/8.6MG TAB PO SCH (09:39)
--- NOTE | 2022-01-13 13:46 | Discharge Summary ---
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 Patient was recently admitted to [facility] from 12/31-01/06 with dyspnea and weakness and found to have acute systolic CHF with EF 25-30% and started on torsemide, isordil and aldactone. Also had asthma exacerbation resolved with steroids and hyponatremia improved with increasing diuretic. She was discharged to [facility] on 01/06. This morning, around 11 am she was noted to have aphasia and word finding difficulty and sent to the ED for further evaluation. Initial work up was unremarkable. CT head with no acute abnormality. CBC, BMP stable. EKG NSR. Hospitalist service consulted for further management. During our encounter, she still was struggling with word finding difficulty at times intermittently but she did not have any expressive aphasia. She states she still does not feel right. She states this was similar to her TIA episode in 07/2021. No numbness, weakness, tingling. No other neurological deficits. Admission Exam Per Admitting Provider General: Lying comfortably in bed, not in distress, on room air HEENT: EOMI, KRYSTA, MMM Chest: Clear breath sounds bilaterally, no wheezes or crackles CVS: Regular rate and rhythm, normal heart sounds, no murmur Abdomen: Soft, non tender, not distended, normal bowel sounds Neuro: Awake, alert, oriented, conversing well, non focal. No pronator drift. Strength 5/5. Sensation grossly intact. Finger nose test normal. CN grossly intact. Speech clear, no dysarthria. Extremities: No cyanosis, clubbing or edema Principal Diagnosis Aphasia/word finding difficulty likely neurocognitive impairment, unlikely TIA/CVA Discharge Exam General: Lying comfortably in bed, not in distress, on room air HEENT: EOMI, KRYSTA, MMM Chest: Clear breath sounds bilaterally, no wheezes or crackles CVS: Regular rate and rhythm, normal heart sounds, no murmur Abdomen: Soft, non tender, not distended, normal bowel sounds Neuro: Awake, alert, oriented, conversing well, non focal. Extremities: No edema Discharge Data Allergies Allergy/AdvReac Type Severity Reaction Status Date / Time Penicillins Allergy Severe ANAPHYLAXIS--HEART Verified 12/31/21 17:11 STOPPED denosumab Allergy Intermediate bone pain Verified 12/31/21 17:11 mouse protein Allergy Intermediate bone pain Verified 12/31/21 17:11 cephalexin Allergy Mild RASH Verified 12/31/21 17:11 nitrofurazone Allergy Unknown PT NOT SURE Verified 12/31/21 17:11 nystatin Allergy Unknown PT NOT SURE Verified 12/31/21 17:11 codeine AdvReac Intermediate N/V - can Verified 12/31/21 17:11 take Oxycodone erythromycin base AdvReac Intermediate GI UPSET Verified 12/31/21 17:11 oxycodone AdvReac Intermediate NAUSEA/VOMI Verified 12/31/21 17:11 TING narcotics AdvReac Intermediate extreme Uncoded 12/31/21 17:11 drowsy and nausea Consultations 01/11/22 14:53 ED Decision to Admit Stat 01/11/22 15:58 Consult Neurology Routine Ordered Studies 01/11/22 13:08 CT head/brain wo con Stat 01/11/22 15:57 MR brain wo con Routine 01/11/22 15:59 CT angio head w con Routine 01/11/22 16:00 CT angio neck with con Routine Laboratory Results WBC 7.36 K/ul (4.8-10.8) 01/13/22 06:53 RBC 4.08 M/uL (3.93-5.22) 01/13/22 06:53 Hgb 11.7 g/dl (12.0-16.0) L 01/13/22 06:53 POC Hgb 14.6 g/dl (12.0-16.0) 01/11/22 13:34 Hct 36.7 % (34.1-44.9) 01/13/22 06:53 POC Hct 43 % (37-47) 01/11/22 13:34 MCV 90.0 fL (80.0-100.0) 01/13/22 06:53 MCH 28.7 pg (25.0-34.0) 01/13/22 06:53 MCHC 31.9 g/dL (32.0-36.0) L 01/13/22 06:53 RDW Std Deviation 53.3 fL (36.4-46.3) H 01/13/22 06:53 RDW Coeff of Alessandro 16.9 % (11.5-14.5) H 01/13/22 06:53 Plt Count 300 K/uL (130-400) 01/13/22 06:53 MPV 9.7 fL (9.4-12.3) 01/13/22 06:53 Immature Gran % (Auto) 0.3 % 01/13/22 06:53 Neut % (Auto) 55.2 % 01/13/22 06:53 Lymph % (Auto) 28.3 % 01/13/22 06:53 Davidson % (Auto) 10.9 % 01/13/22 06:53 Eos % (Auto) 5.0 % 01/13/22 06:53 Baso % (Auto) 0.3 % 01/13/22 06:53 Neut # (Auto) 4.07 K/uL (1.4-6.5) 01/13/22 06:53 Lymph # (Auto) 2.08 K/uL (1.2-3.4) 01/13/22 06:53 Davidson # (Auto) 0.80 K/uL (0.24-0.82) 01/13/22 06:53 Eos # (Auto) 0.37 K/uL (0-0.50) 01/13/22 06:53 Baso # (Auto) 0.02 K/uL (0-0.2) 01/13/22 06:53 Immature Gran # (Auto) 0.02 K/uL (0.00-0.02) 01/13/22 06:53 PT 10.9 Seconds (9.0-12.0) 01/11/22 13:30 INR 1.0 (0.9-1.1) 01/11/22 13:30 APTT 24.7 Seconds (21.0-31.0) 01/11/22 13:30 PTT Ratio 0.9 01/11/22 13:30 POC Sodium 133 mmol/L (135-144) L 01/11/22 13:34 Sodium 131 mmol/L (136-145) L 01/13/22 06:53 POC Potassium 4.3 mmol/L (3.3-5.0) 01/11/22 13:34 Potassium 4.2 mmol/L (3.5-5.1) 01/13/22 06:53 POC Chloride 90 mmol/L (101-112) L 01/11/22 13:34 Chloride 97 mmol/L (98-107) L 01/13/22 06:53 Carbon Dioxide 28 mmol/L (21-32) 01/13/22 06:53 POC Total CO2 38 mmol/L (24-31) H 01/11/22 13:34 Anion Gap 6 (3-11) 01/13/22 06:53 POC Anion Gap 10.0 mmol/L (16-25) L 01/11/22 13:34 POC BUN 37 mg/dl (7-18) H 01/11/22 13:34 BUN 28 mg/dl (6-23) H 01/13/22 06:53 Creatinine 0.74 mg/dl (0.6-1.2) 01/13/22 06:53 POC Creatinine 1.0 mg/dl (0.6-1.3) 01/11/22 13:34 Est Cr Clr Drug Dosing 42.4 ml/min 01/13/22 06:53 Est GFR ( Amer) 84.4 ml/min 01/13/22 06:53 Est GFR (Non-Af Amer) 72.8 ml/min 01/13/22 06:53 BUN/Creatinine Ratio 37.8 (10-20) H 01/13/22 06:53 Glucose 94 mg/dl (70-99(Fasting)) 01/13/22 06:53 POC Glucose (other) 96 mg/dl (70-99) 01/11/22 13:34 Estimat Average Glucose 123 mg/dl 01/12/22 05:48 Hemoglobin A1c 5.9 % (4.5-5.6) H 01/12/22 05:48 Calcium 8.4 mg/dl (8.5-10.1) L 01/13/22 06:53 POC Ioniz Calcium Lucho 1.13 mmol/l (1.12-1.32) 01/11/22 13:34 Magnesium 2.1 mg/dl (1.7-2.4) 01/13/22 06:53 Total Bilirubin 0.6 mg/dl (0.2-1.0) 01/11/22 13:30 AST 22 U/L (13-39) 01/11/22 13:30 ALT 17 U/L (7-52) 01/11/22 13:30 Alkaline Phosphatase 59 U/L (34-104) 01/11/22 13:30 Total Protein 6.4 gm/dl (6.0-8.3) 01/11/22 13:30 Albumin 3.8 gm/dl (3.4-5.0) 01/11/22 13:30 Globulin 2.6 gm/dl (2.5-4.0) 01/11/22 13:30 Albumin/Globulin Ratio 1.5 (0.9-2) 01/11/22 13:30 Triglycerides 162 mg/dl (0-150) H 01/12/22 05:48 Cholesterol 128 mg/dl (0-200) 01/12/22 05:48 LDL Cholesterol, Calc 42 mg/dl 01/12/22 05:48 VLDL Cholesterol, Calc 32 mg/dl (0-30) H 01/12/22 05:48 HDL Cholesterol 54 mg/dl 01/12/22 05:48 Cholesterol/HDL Ratio 2.4 (0-5) 01/12/22 05:48 Urine Color Yellow 01/11/22 16:06 Urine Appearance Clear (Clear) 01/11/22 16:06 Urine pH 8.5 (4.5-7.5) H 01/11/22 16:06 Ur Specific [place] 1.012 (1.000-1.030) 01/11/22 16:06 Urine Protein Negative (Negative) 01/11/22 16:06 Urine Glucose (UA) Negative (Negative) 01/11/22 16:06 Urine Ketones Negative (Negative) 01/11/22 16:06 Urine Blood Negative (Negative) 01/11/22 16:06 Urine Nitrite Negative (Negative) 01/11/22 16:06 Urine Bilirubin Negative (Negative) 01/11/22 16:06 Urine Urobilinogen Negative (Negative) 01/11/22 16:06 Ur Leukocyte Esterase 2+ (Negative) H 01/11/22 16:06 Urine WBC (Auto) 5-10 /hpf (0-5) H 01/11/22 16:06 Urine RBC (Auto) 0-4 /hpf (0-4) 01/11/22 16:06 U Hyaline Cast (Auto) 0 /lpf (0-5) 01/11/22 16:06 U Epithel Cells (Auto) 10-20 /lpf (0-5) H 01/11/22 16:06 Urine Bacteria (Auto) Negative (Negative) 01/11/22 16:06 SARS-CoV-2, RNA, NAAT NEGATIVE (NEGATIVE) 01/11/22 17:28 Impressions Chest X-Ray 01/11/22 13:08 XR chest 1V portable CLINICAL HISTORY: stroke alert COMPARISON STUDY: Chest radiograph and chest CT December 31, 2021. FINDINGS: Elevation of the left hemidiaphragm is unchanged. Bilateral pleural effusions have decreased in size. No evidence for pulmonary edema. Hazy right basilar density corresponds to a fat attenuation density on prior chest CT. This is benign. Cardiomediastinal silhouette is stable. There is mild joint Calcification. Old right-sided rib fractures are incidentally noted IMPRESSION: 1. Interval decrease in size of small bilateral pleural effusions. 2. No consolidation to suggest pneumonia. 3. No evidence for pulmonary edema. ACT 112: Negative or not required by law. Electronically signed by: Mina Vora M.D. 01/11/2022 1:[address] 01/11/22 13:08 CT OF THE HEAD WITHOUT CONTRAST CLINICAL HISTORY: Stroke Alert COMPARISON STUDY: Head CT and MRI the brain July 15, 2021. CT DOSE: 537.48 mGy.cm TECHNIQUE: Helical axial images of the head were obtained without IV contrast. Automated exposure control was utilized for the study. A dose lowering technique was utilized adhering to the principles of ALARA. FINDINGS: No acute intracranial hemorrhage, midline shift or mass effect is present. The ventricular system is stable. White matter hypodensities are similar to prior examinations favor small vessel disease. Prominence of the extra-axial spaces is unchanged. 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 9 mm extra-axial calcific density along the inner table of the left frontal bone is stable. The basal cisterns are patent. No extra-axial collections are present. There are no findings to suggest acute dural sinus thrombosis or acute territorial infarct. No significant calvarial abnormalities are present. Visualized portions of the sinuses and mastoid air cells are clear. IMPRESSION: No acute intracranial findings. ACT 112: Negative or not required by law. Electronically signed by: Mina Vora M.D. 01/11/2022 1:26 PM Brain MRI 01/11/22 15:57 MRI OF THE BRAIN WITHOUT CONTRAST CLINICAL HISTORY: word finding difficulty, aphasia COMPARISON STUDY: MRI of the brain July 15, 2021. Head CT performed earlier today. TECHNIQUE: Utilizing a 1.5 Kathya magnet and dedicated coil, multiplanar, multiecho imaging of the brain was performed without IV contrast. FINDINGS: There are no foci of restricted diffusion to suggest acute infarct. No acute intracranial hemorrhage, midline shift or mass effect is present. Ventricular dilatation is unchanged and related to central atrophy. The appearance of the brain is unchanged since MRI of July 15, 2021. A 8 mm old lacunar infarct within left thalamus is unchanged. Old infarcts within the inferior left cerebellar hemisphere are noted. White matter T2 hyperintense foci are similar to prior exam and favor small vessel disease. A 9 mm suspected meningioma overlying the left frontal lobe is unchanged. No intracranial masses identified on this unenhanced examination. IMPRESSION: No acute intracranial findings. No change in appearance of the brain since MRI of July 15, 2021. ACT 112: Negative or not required by law. Electronically signed by: Mina Vora M.D. 01/11/2022 5:24 PM Head CTA 01/11/22 15:59 CTA ANGIOGRAPHY OF THE HEAD CLINICAL HISTORY: word finding difficulty, aphasia COMPARISON STUDY: MRI of the brain and head CT performed earlier today. CTA of the head July 15, 2021 TECHNIQUE: Helical axial images of the head were obtained following uneventful intravenous administration of 119 cc of Optiray. Sagittal and coronal reconstructions were viewed as well as maximal intensity projections on an independent 3-D workstation. Automated exposure control was utilized for the study. A dose lowering technique was utilized adhering to the principles of ALARA. CT DOSE: 372.86 mGy.cm FINDINGS: Ventricular system is stable. Mild ventricular dilatation is due to atrophy. No extra-axial collections are present. Basal cisterns are patent. Suspected 9 mm meningioma overlying the left frontal lobe remains unchanged. Moderate plaque within the bilateral cavernous carotids is noted. There is no significant stenosis. The bilateral M1, M2, A1 and A2 segments are patent. No central vessel occlusion is present. Apparent narrowing of the distal cervical portion of the left vertebral artery is probably artifactual. Intracranial portion of this vessel is normal. IMPRESSION: 1. No central vessel occlusion. No intracranial aneurysm. 2. Apparent short segment stenosis of the distal cervical portion of the left vertebral artery. This is likely artifactual. A short segment dissection could appear similar although is considered less likely. If indicated, repeat CTA of the neck could be obtained. ACT 112: Negative or not required by law. Electronically signed by: Mina Vora M.D. 01/11/2022 6:25 PM Neck CTA 01/11/22 16:00 CT ANGIOGRAPHY OF THE NECK WITH CONTRAST CLINICAL HISTORY: word finding difficulty, aphasia COMPARISON STUDY: CTA of the neck July 15, 2021. Technique: CT angiography of the carotid and vertebral arteries was obtained using Optiray and 3D reconstruction on an independent workstation. NASCET criteria was utilized. Automated exposure control was utilized for the study. A dose lowering technique was utilized adhering to the principles of ALARA. Findings: Multilevel degenerative changes within the cervical spine with reversal the normal cervical lordosis are again noted. Emphysema is noted within the lung apices. No cervical lymphadenopathy is present. There is extensive plaque within the proximal right internal carotid artery without significant stenosis of this vessel. There is moderate narrowing at the origin of the right external carotid artery which is similar to CTA of July 15, 2021. No stenosis within the left common carotid or cervical internal carotid arteries is noted. There is no dissection within the major vessels of the neck. Apparent stenosis of the distal cervical portion of the right vertebral artery is most likely artifactual. Intracranial portion of this vessel is patent. Moderate plaque of the visualized aortic arch is noted. IMPRESSION: 1. No stenosis within the bilateral common carotid or cervical internal carotid arteries. Extensive plaque within the proximal right internal carotid artery. 2. No change in moderate stenosis at the origin of the right external carotid artery since prior CTA. 3. Apparent narrowing of the distal cervical portion of the left vertebral artery which is likely artifactual. ACT 112: Negative or not required by law. Electronically signed by: Mina Vora M.D. 01/11/2022 6:18 PM Hospital Course (1) Stroke-like symptom: (2) Chronic combined systolic and diastolic CHF (congestive heart failure): Plan 86 year old female presented to the ED from [facility] for aphasia/word finding difficulty. Stroke work up with CT head, CTA head and neck, MRI brain unremarkable for acute abnormality. Echo done a week ago, so will have less utility in repeating. She had similar episode back in Jul 2021 and work up at that time was unremarkable too. She was seen by neurology and thought TIA to be less likely and suspected underlying neurocognitive disorder. They did not recommend any medication changes and recommended OP follow up with neuro as well as zio patch. Her symptoms have resolved. She will continue her aspirin, lipitor. She is comfortable and stable to go back to [facility]. Reviewed discharge plan and recommendations with her Reymundo over the phone at the time of discharge. Aphasia/word finding difficulty- etiology unclear possibly related to underlying neurocognitive disorder per neuro, less likely TIA. Stroke work up was negative. Symptoms resolved - continue aspirin, lipitor - f/u with neuro in 8 weeks - OP zio patch- f/u with cardio. Tele and EKG with no Afib but she was found to have frequent atrial ectopy but no definite evidence of Afib per cardio during recent admission. Chronic systolic diastolic CHF- looks euvolemic. Continue her GDMT and torsemide. F/u with cardio as OP. Hyponatremia- overall stable. continue torsemide. Recommend repeat BMP in next 4-5 days. HTN- BP stable, continue home meds. Depression/anxiety- continue escitalopram Total Time Total Time Spent Total Time Spent (In Minutes): 35 Discharge Plan Discharge Items Patient Disposition: Home - Self-Care Reason For Visit: APHASIA, WORD FINDING DIFFICULTY Discharge Diagnosis: Transient aphasia, unlikely TIA or CVA Activity: Resume your previous activity Non-emergency contact: Primary Care Provider Call non-emergency contact if: you have any medication questions and your symptoms worsen Follow-up/Referrals: Timur Rabago, [Primary Care Provider] - Diet: Heart Healthy Fluids: 1500ml (6 cups) Addtl Attending Provider Instructions: We have not changed any of your medications. You did not have a stroke or TIA. Probablyl some underlying neurocognitive disorder per neuro. Recommend outpatient cardiology follow up for Thanh brito to monitor the heart rate. Follow up with neurology in 8 weeks. Pending Studies at Discharge: No Stand-Alone Forms: My [employer], Smoking Cessation Medications and DC Order Prescriptions: Continued loratadine [Claritin] 10 mg tablet 10 mg PO QAM escitalopram oxalate [Lexapro] 10 mg tablet 10 mg PO DAILY vitamins A,C,A-nlpu-mhguvt [PreserVision AREDS] [id number],320-226-200 [id number] capsule 1 cap PO BID calcium carbonate-vitamin D3 [Calcium 500 + D] 500 mg(1,250mg) -200 unit Tablet 1 tab PO DAILY calcium polycarbophil 625 mg Tablet 625 mg PO BID lisinopril 40 mg Tablet 40 mg PO DAILY atorvastatin 40 mg tablet 40 mg PO DAILY aspirin 81 mg Tablet,Delayed Release (Dr/Ec) 81 mg PO DAILY triamcinolone acetonide 0.05 % Ointment 1 applic TOPICAL BID PRN (Reason: Skin Irritation) ferrous sulfate 325 mg (65 mg iron) Tablet,Delayed Release (Dr/Ec) 325 mg PO QAM Qty: 30 0RF isosorbide dinitrate 20 mg Tablet 20 mg PO TID Qty: 90 0RF spironolactone 25 mg Tablet 12.5 mg PO DAILY Qty: 30 0RF torsemide 20 mg tablet 20 mg PO UD Qty: 30 0RF Rx Instructions: Daily in am. Can take as needed dose in pm if shortness of breath, swelling or weight gain metoprolol succinate 25 mg tablet extended release 24 hr 25 mg PO BID Qty: 60 0RF acetaminophen [Tylenol Extra Strength] 500 mg Tablet 1,000 mg PO TID albuterol sulfate 90 mcg/actuation Hfa Aerosol Inhaler 2 puff INHALATION Q6H PRN (Reason: Shortness Of Breath Or Wheezing) Centrum Silver 0.4-300-250 mg-mcg-mcg Tablet 1 tab PO DAILY cholecalciferol (vitamin D3) [Vitamin D3] 50 mcg (2,000 unit) Capsule 50 mcg PO DAILY Probiotic 10 billion cell Capsule 10,000 mmu cells PO DAILY Discontinued prednisone 20 mg Tablet 40 mg PO DAILY Qty: 3 0RF Discharge Orders: Discharge Order (Routine); Ordered 01/13/22 Ordered By: Simon Gloria Admission Data Admit Date/Time: 01/11/22 16:03 Attending Provider: Simon Gloria Admit Provider: Simon Gloria Primary Care Provider: Timur Rabago Other Providers: Simon Gloria ; Enoc Solano ; [facility] [facility]
== END 2022-01-13 14:37 | disposition home or self-care (01) ==
LOC: ED 12:48 → 2N 12:48

== ENCOUNTER 2022-03-20 12:21 | Inpatient (IN) ==
[2022-03-20] MEDS ORDERED: OPTIRAY 300 500mL IV ONE (12:41)
--- NOTE | 2022-03-20 12:53 | CT Scan Report ---
CT OF THE HEAD WITHOUT CONTRAST CLINICAL HISTORY: Stroke Like Symptoms COMPARISON STUDY: Head CT, MRI of the brain and CT of the head January 11, 2022. TECHNIQUE: Helical axial images of the head were obtained without IV contrast. Automated exposure con trol was utilized for the study. A dose lowering technique was utilized adhering to the principles o f ALARA. FINDINGS: No acute intracranial hemorrhage, midline shift or mass effect is present. The ventricular system is stable. White matter hypodensities are unchanged and favor small vessel disease. 8 mm old i nfarct within the anterior left thalamus is unchanged. A calcified density along the inner table of t he left frontal bone remains unchanged. The basal cisterns are patent. No extra-axial collections are present. There are no findings to suggest acute dural sinus thrombosis or acute territorial infarct. No significant calvarial abnormalities are present. Visualized portions of the sinuses and mastoid a ir cells are clear. IMPRESSION: No acute intracranial findings. No change in appearance of the brain. ACT 112: Negative or not required by law. Electronically signed by: Mina Vora M.D. 03/20/2022 12:50 PM
[2022-03-20 13:01] LABS: Basophils # (auto) 0.05 K/uL (0-0.2); Basophils % (auto) 0.9 %; Eosinophils # (auto) 0.08 K/uL (0-0.50); Eosinophils % (auto) 1.4 %; Hematocrit (blood only) 33.3 % (34.1-44.9); Hemoglobin 10.8 g/dl (12.0-16.0); Immature Granulocytes # (auto) 0.01 K/uL (0.00-0.02); Immature Granulocytes % (auto) 0.2 %; Lymphocytes # (auto) 1.99 K/uL (1.2-3.4); Lymphocytes % (auto) 35.5 %; Mean Corpuscular Hemoglobin 30.4 pg (25.0-34.0); Mean Corpuscular Hgb Conc 32.4 g/dL (32.0-36.0); Mean Corpuscular Volume 93.8 fL (80.0-100.0); Mean Platelet Volume 10.2 fL (9.4-12.3); Monocytes # (auto) 0.57 K/uL (0.24-0.82); Monocytes % (auto) 10.2 %; Neutrophils % (auto) 51.8 %; Platelet Count 203 K/uL (130-400); RDW Coefficient of Variation 18.1 % (11.5-14.5); RDW Standard Deviation 61.3 fL (36.4-46.3); Red Blood Count 3.55 M/uL (3.93-5.22)
--- NOTE | 2022-03-20 13:02 | CT Scan Report ---
HEAD CTA HISTORY: Stroke Like Symptoms TECHNIQUE: Multiaxial CT images of the head were performed both before and after the intravenous admi nistration of contrast to evaluate the major cerebral vessels. Maximum intensity projection images we re also obtained. A dose lowering technique was utilized adhering to the principles of ALARA. COMPARISON: Head CT 01/11/2022. FINDINGS: There is no mass, hematoma, midline shift, or acute infarct. Visualized intracranial sourcing internship al carotid arteries, distal vertebral arteries, and basilar artery are widely patent. There is no sig nificant stenosis, occlusion, or aneurysm seen within the bilateral ACAs, MCAs, or organ pipe voicer. The major du ral venous sinuses are patent. Calcified plaque within the bilateral carotid siphons again noted. IMPRESSION: No significant stenosis, occlusion, or aneurysm within the [place]. ACT 112: Negative or not required by law. Electronically signed by: Royer Garcia M.D. 03/20/2022 1:01 PM
--- NOTE | 2022-03-20 13:06 | CT Scan Report ---
CT ANGIOGRAM OF THE NECK CLINICAL HISTORY: Strokelike symptoms. COMPARISON STUDY: CT angiogram the neck dated 01/11/2022. TECHNIQUE: Following the IV administration of 113 of Optiray 300, CT angiogram of the neck was perfor med from the aortic arch to the skull base. Images are reviewed in the axial, sagittal, and coronal p lanes. 3-D MIPS images are created and assessed. IV contrast was administered without complication. A ll measurements were calculated based on NASCET criteria. A dose lowering technique was utilized adh ering to the principles of ALARA. FINDINGS: Thoracic aorta: There is atherosclerotic calcification of the thoracic aorta. Visualized portions of the thoracic aorta are normal in caliber. The aortic arch demonstrates standard 3-vessel anatomy. Right carotid arterial system: The right common carotid artery is patent, as are the right internal a nd extra carotid arteries. Atherosclerotic plaque is noted in the carotid bulb. The right internal ca rotid artery is widely patent. Moderate stenosis at the origin of the right external carotid artery i s unchanged. Left carotid arterial system: The left common carotid artery is patent, as are the left internal and external carotid arteries. Plaque is seen within the distal left common carotid artery and within the carotid bulb. Vertebral arteries: Widely patent bilaterally and codominant. Subclavian arteries: Widely patent bilaterally. Intracranial vasculature: The visualized intracranial vessels at the skull base are patent. Jugular veins: Widely patent bilaterally. Brain parenchyma: The visualized brain parenchyma the skull base is within normal limits noting age-r elated involutional change. Lung apices: Emphysematous change is noted. Upper lobe lung parenchyma is otherwise clear as imaged. Soft tissues: The visualized pharyngeal soft tissues are normal in appearance noting angiographic pha se technique. The oropharyngeal airway appears widely patent. The salivary and thyroid glands are nor mal in appearance. No cervical lymphadenopathy is seen. Skeletal structures: The skeletal structures are osteopenic. The visualized calvarium at the skull ba se appears intact. The imaged cervical spine is maintained noting advanced multilevel spondylosis. No lytic or blastic lesion is seen. Sinuses and mastoids: The visualized paranasal sinuses are clear. The mastoid air cells are well pneu matized. IMPRESSION: 1. No significant change from 01/11/2022 or 07/15/2021. 2. 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 3. Otherwise unremarkable CT angiogram of the neck. ACT 112: Negative or not required by law. Electronically signed by: Austen Aguilar M.D. 03/20/2022 1:05 PM
--- NOTE | 2022-03-20 13:11 | XRay Report ---
XR chest 1V portable HISTORY: 86 years-old Female Stroke Like Symptoms acute strokelike symptoms COMPARISON: Chest radiograph 01/11/2022 TECHNIQUE: AP view the chest FINDINGS: Cardiac silhouette is enlarged. Mitral annular calcifications. Atherosclerosis of the thoracic aorta. No pneumothorax, large pleural effusion or overt pulmonary edema. Chronic blunting of the costophren ic angles with subsegmental bibasilar densities suggestive of atelectasis versus scarring. There is a large amount of contrast present within the soft tissues of the right upper extremity. Contrast note d within the renal collecting systems. Abdominal left upper quadrant. Possible left renal calculus. IMPRESSION: 1. Cardiomegaly without acute process of the chest. 2. Large amount of contrast extravasation of the right upper extremity. ACT 112: Negative or not required by law. The above report was generated using voice recognition software. It may contain grammatical, syntax o r spelling errors. Electronically signed by: Juanito Fernandez M.D. 03/20/2022 1:09 PM
[2022-03-20] MEDS ORDERED: SODIUM CHLORIDE 0.9% 250 ML IV ONE (13:13)
[2022-03-20 13:15] LABS: INR 1.2 (0.9-1.1); Partial Thromboplastin Ratio 0.9; Partial Thromboplastin Time 26.1 Seconds (21.0-31.0); Prothrombin Time 12.4 Seconds (9.0-12.0)
--- NOTE | 2022-03-20 13:21 | Emergency Department Note ---
Impression & Plan Stroke-like symptom, Aphasia, Hypertension ED Provider Note NAME: MARLY RAMSAY AGE: 86 SEX: F ARRIVES VIA: Ambulance INFORMANT: Patient ED PROVIDER(S): Zach Rose MD CHIEF COMPLAINT: Aphasia, unresponsiveness PLAN: Disposition: Admit MEDICAL DECISION MAKING: The patient is a 86-year-old woman the patient is a pleasant 86-year-old woman with a past medical history of hypertension, hyperlipidemia, CHF with diastolic and systolic dysfunction, asthma, GERD, restless leg syndrome, migraines, polyneuropathy, depression, PUD, hyponatremia who presents to the emergency department from her assisted living facility at [facility] for episode of unresponsiveness per staff and upon becoming responsive was noted to have aphasia. Case was discussed with EMS crew prior to arrival via medical command per this provider. Given the report of new aphasia a stroke alert was activated. However review of the patient's recent admission in January of this year shows the patient had similar episode with unremarkable imaging including negative MRI and symptoms were suspected to be related to underlying neurocognitive disorder including possible vascular dementia. Per EMS the patient's last known well was approximately 930 prior to taking her nap. On arrival the patient is in no acute distress, afebrile blood pressure 180s/90s and vital signs otherwise stable. She appears clinically dry. She has no focal extremity weakness. She does have notable word finding difficulty but follows commands well. EKG is without overt acute ischemia. Chest x-ray negative for acute cardiopulmonary process. Incidental note is made of IV contrast extravasation. WBC and platelets within normal limits. H/H approximate to prior values. Chemistry without metabolic acidosis. BUN/creatinine> 20 consistent with the patient's clinically dry appearance. Electrolytes without significant abnormality. High-sensitivity troponin 9.5, within normal limits. UA without evidence of infection. COVID-19 RNA, BRENT test was negative. CT of the head and CT of the head and neck were performed and negative for acute process. Given the patient was outside of the tPA window following return from CT tPA not indicated and moreover given similar presentation with evaluation not consistent with stroke. Additionally, given no large vessel occlusion telestroke monitor evaluation was deferred. The patient did have some improvement upon evaluation however still significant word finding difficulty. The patient's [id number] had arrived to the bedside. Findings were reviewed and agree with plan for admission for further evaluation. Case was discussed with Noelle Alanis, with Noelle Cheung hospitalist who will evaluate the patient for admission. Triage Nursing notes reviewed and agree them. Prior medical records reviewed Vital Signs: reviewed and remarkable for hypertension. Differential diagnosis: Infection, dehydration, metabolic abnormality, hypo/hyperglycemia, electrolyte disturbance, anemia, hypoxia, cardiac sources, intracerebral event, toxicologic, neurologic, as well as other pathologies. ER treatment provided: See below. Diagnostics interpreted by me: ECG: Normal sinus rhythm with sinus arrhythmia, 93 bpm, LVH with repolarization abnormality, no overt ST elevation or depression, QTC 460, QRS 86. Cardiac Monitoring: An order for continuous cardiac monitoring was placed and demonstrated Normal sinus rhythm with sinus arrhythmia, 93 bpm, LVH with repolarization abnormality, no ectopy. Laboratory studies: See below Imaging studies: See below Consultation(s): Noelle Alanis, with Noelle Cheung hospitalist. HPI: The patient is a 86-year-old woman the patient is a pleasant 86-year-old woman with a past medical history of hypertension, hyperlipidemia, CHF with diastolic and systolic dysfunction, asthma, GERD, restless leg syndrome, migraines, polyneuropathy, depression, PUD, hyponatremia who presents to the emergency department from her assisted living facility at [facility] for episode of unresponsiveness per staff and upon becoming responsive was noted to have aphasia. Case was discussed with EMS crew prior to arrival via medical command per this provider. Given the report of new aphasia a stroke alert was activated. However review of the patient's recent admission in January of this year shows the patient had similar episode with unremarkable imaging including negative MRI and symptoms were suspected to be related to underlying neurocognitive disorder including possible vascular dementia. Per EMS the patient's last known well was approximately 930 prior to taking her nap. ROS: See above HPI for pertinent positives & negatives. A total of 10 systems reviewed and were otherwise negative. VITALS:See Below PHYSICAL EXAMINATION: GENERAL: Awake, alert, anxious-appearing, in no distress HENT: Normocephalic, atraumatic. Oropharynx with dry mucous membranes and otherwise unremarkable. EYES: Normal conjunctiva. Sclera non-icteric. EOMI. No nystamgus. PEARRL. NECK: Supple. No nuchal rigidity. FROM. No JVD. RESPIRATORY: Clear to auscultation. CARDIAC: Regular rate, normal rhythm. Extremities warm and well perfused. Pulses equal. ABDOMEN: Soft, non-distended. No tenderness to palpation. No rebound or guarding. No masses. RECTAL: Deferred. MUSCULOSKELETAL: Chest examination reveals no tenderness. The back is symmetrical on inspection without obvious abnormality. There is no CVA tenderness to palpation. No joint edema. LOWER EXTREMITIES: Calves are equal size bilaterally and non-tender. No edema. No discoloration. NEURO: Moderate word finding difficulty/aphasia. No overt dysarthria. 5/5 strength in all extremities. Range of motion of right shoulder is chronically limited due to shoulder injury. SKIN: No rash or jaundice noted. Zach Rose MD Past Med/Surg History Medical History (Updated 03/20/22 @ 23:29 by Zach Rose MD) Anxiety and depression Asthma hasn't used PRN INH in over a year Cataract Essential tremor Hearing deficit Hip problem LEFT History of breast cancer s/p left mastectomy + chemo/radiation History of DVT (deep vein thrombosis) WITHIN LAST 10 YRS History of hypothyroidism History of pulmonary embolism WITHIN LAST 10 YRS History of skin cancer removed History of stomach ulcers HTN (hypertension) Hypertension Intracranial meningioma (Unknown) pt could not confirm. states "there was something small on my brain that wasn't supposed to be there. nobody was really worried about it." says it was found "years ago" Limb alert care status LUE Osteoarthritis Osteoporosis Patent foramen ovale PT DENIES Rotator cuff tear, right Rupture of hip abductor tendon Swelling of joint, shoulder, right TMJ click Surgical History History of appendectomy History of breast biopsy History of colonoscopy History of esophagogastroduodenoscopy (EGD) History of left hip replacement History of right cataract surgery Slow to wake up after anesthesia Status post left mastectomy HX OF Status post total knee replacement HX OF - BL Family History Father Diabetes Social History Smoking Status: Former smoker Tobacco Type: Cigarettes Second Hand Exposure: No; Do You Dip or Chew Tobacco: No; Tobacco Cessation Education Requested by Patient: No Hx Alcohol Use: No Hx Substance Use: No Preferred Language: Citizen Of [place] Communication Ability: aphasia Communication Ability Comment: pt has expressive aphasia 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 Beliefs That Will Affect Care: None marital status: Current Living Situation: Personal Care Facility Current Living Situation Comment: pt lives at [facility] How many Children do You have: 2 Other Information That Helps Us Care for You: No Feels Safe at Home: Yes Safety Concerns: Feels Safe At This Time Assistive Devices: Wheelchair Allergies Allergies Allergy/AdvReac Type Severity Reaction Status Date / Time Penicillins Allergy Severe ANAPHYLAXIS--HEART Verified 03/20/22 16:05 STOPPED denosumab Allergy Intermediate bone pain Verified 03/20/22 16:05 mouse protein Allergy Intermediate bone pain Verified 03/20/22 16:05 cephalexin Allergy Mild RASH Verified 03/20/22 16:05 nitrofurazone Allergy Unknown PT NOT SURE Verified 03/20/22 16:05 nystatin Allergy Unknown PT NOT SURE Verified 03/20/22 16:05 codeine AdvReac Intermediate N/V - can Verified 03/20/22 16:05 take Oxycodone erythromycin base AdvReac Intermediate GI UPSET Verified 03/20/22 16:05 oxycodone AdvReac Intermediate NAUSEA/VOMI Verified 03/20/22 16:05 TING narcotics AdvReac Intermediate extreme Uncoded 03/20/22 16:05 drowsy and nausea Home Meds Home Medications Medication Instructions Recorded Confirmed escitalopram oxalate 10 mg tablet 10 mg PO DAILY 07/29/18 03/20/22 (Lexapro) vitamins A,C,P-[id number] 14,320 1 cap PO BID 07/29/18 03/20/22 unit-226 mg-200 unit capsule (PreserVision AREDS) calcium carbonate 500 mg-vitamin 1 tab PO DAILY 08/29/19 03/20/22 D3 5 mcg (200 unit) tablet (Calcium 500 + D) acetaminophen 500 mg tablet 1,000 mg PO Q8 07/15/21 03/20/22 (Tylenol Extra Strength) cholecalciferol (vitamin D3) 50 50 mcg PO DAILY 07/15/21 03/20/22 mcg (2,000 unit) capsule (Vitamin D3) aspirin 81 mg tablet,delayed 81 mg PO DAILY 12/31/21 03/20/22 release atorvastatin 40 mg tablet 40 mg PO DAILY 12/31/21 03/20/22 Saccharomyces boulardii 250 mg 250 mg PO BID 03/20/22 03/20/22 capsule loratadine 10 mg tablet (Claritin) 10 mg PO DAILY 03/20/22 03/20/22 metoprolol succinate 25 mg 25 mg PO DAILY 03/20/22 03/20/22 tablet,extended release 24 hr multivitamin 1 tab PO DAILY 03/20/22 03/20/22 Previous Rx's Medication Instructions Recorded ferrous sulfate 325 mg (65 mg 325 mg PO QAM #30 tabs 01/06/22 iron) tablet,delayed release Results & Data (ED) Vital Signs Vital Signs - 24 hr 03/20/22 12:42 03/20/22 12:42 03/20/22 12:41 Temperature 36.7 C Temperature Source Oral Pulse Rate 90 95 H Pulse Rate [Apical] Pulse Rate from SpO2 Sensor Pulse Strength [Apical] Respiratory Rate 24 15 Respiratory Effort / Characteristics Non-Labored Spontaneous Respiratory Depth Normal Respiratory Pattern Regular Blood Pressure Blood Pressure [Right Arm] Blood Pressure Mean Blood Pressure Mean [Right Arm] Blood Pressure Position Lying Blood Pressure Position [Right Arm] Pulse Oximetry 96 Oxygen Delivery Method Room Air Room Air Room Air Sepsis Recent Fever Within 48 Hours No Sepsis New/Unexplained Change in Mental Status No Sepsis Action Taken by Nursing No Action Required 03/20/22 12:47 03/20/22 12:47 03/20/22 12:50 Temperature Temperature Source Pulse Rate 90 85 Pulse Rate [Apical] Pulse Rate from SpO2 Sensor 91 H 83 Pulse Strength [Apical] Respiratory Rate 15 18 Respiratory Effort / Characteristics Respiratory Depth Respiratory Pattern Blood Pressure 208/109 H Blood Pressure [Right Arm] Blood Pressure Mean 142 Blood Pressure Mean [Right Arm] Blood Pressure Position Blood Pressure Position [Right Arm] Pulse Oximetry 98 97 Oxygen Delivery Method Room Air Room Air Room Air Sepsis Recent Fever Within 48 Hours Sepsis New/Unexplained Change in Mental Status Sepsis Action Taken by Nursing 03/20/22 12:51 03/20/22 12:51 03/20/22 13:00 Temperature Temperature Source Pulse Rate 85 Pulse Rate [Apical] Pulse Rate from SpO2 Sensor 86 Pulse Strength [Apical] Respiratory Rate Respiratory Effort / Characteristics Respiratory Depth Respiratory Pattern Blood Pressure 193/80 H 183/93 H Blood Pressure [Right Arm] Blood Pressure Mean 117 123 Blood Pressure Mean [Right Arm] Blood Pressure Position Blood Pressure Position [Right Arm] Pulse Oximetry 97 Oxygen Delivery Method Room Air Room Air Room Air Sepsis Recent Fever Within 48 Hours Sepsis New/Unexplained Change in Mental Status Sepsis Action Taken by Nursing 03/20/22 13:00 03/20/22 13:10 03/20/22 14:05 Temperature Temperature Source Pulse Rate 82 73 Pulse Rate [Apical] 63 Pulse Rate from SpO2 Sensor Pulse Strength [Apical] Normal Respiratory Rate 21 21 17 Respiratory Effort / Characteristics Non-Labored Spontaneous Respiratory Depth Normal Respiratory Pattern Regular Blood Pressure Blood Pressure [Right Arm] 199/84 H Blood Pressure Mean Blood Pressure Mean [Right Arm] 122 Blood Pressure Position Blood Pressure Position [Right Arm] Sitting Pulse Oximetry 93 Oxygen Delivery Method Room Air Room Air Room Air Sepsis Recent Fever Within 48 Hours Sepsis New/Unexplained Change in Mental Status Sepsis Action Taken by Nursing 03/20/22 13:20 03/20/22 13:30 03/20/22 13:30 Temperature Temperature Source Pulse Rate 72 72 Pulse Rate [Apical] Pulse Rate from SpO2 Sensor Pulse Strength [Apical] Respiratory Rate 17 15 Respiratory Effort / Characteristics Respiratory Depth Respiratory Pattern Blood Pressure 185/92 H Blood Pressure [Right Arm] Blood Pressure Mean 123 Blood Pressure Mean [Right Arm] Blood Pressure Position Blood Pressure Position [Right Arm] Pulse Oximetry Oxygen Delivery Method Sepsis Recent Fever Within 48 Hours Sepsis New/Unexplained Change in Mental Status Sepsis Action Taken by Nursing 03/20/22 13:42 03/20/22 13:50 03/20/22 13:50 Temperature Temperature Source Pulse Rate 75 77 Pulse Rate [Apical] Pulse Rate from SpO2 Sensor 75 77 Pulse Strength [Apical] Respiratory Rate 23 19 Respiratory Effort / Characteristics Respiratory Depth Respiratory Pattern Blood Pressure 174/104 H Blood Pressure [Right Arm] Blood Pressure Mean 127 Blood Pressure Mean [Right Arm] Blood Pressure Position Blood Pressure Position [Right Arm] Pulse Oximetry 96 95 Oxygen Delivery Method Sepsis Recent Fever Within 48 Hours Sepsis New/Unexplained Change in Mental Status Sepsis Action Taken by Nursing 03/20/22 14:00 03/20/22 14:10 03/20/22 14:20 Temperature Temperature Source Pulse Rate 76 73 70 Pulse Rate [Apical] Pulse Rate from SpO2 Sensor 79 75 73 Pulse Strength [Apical] Respiratory Rate 19 17 21 Respiratory Effort / Characteristics Respiratory Depth Respiratory Pattern Blood Pressure Blood Pressure [Right Arm] Blood Pressure Mean Blood Pressure Mean [Right Arm] Blood Pressure Position Blood Pressure Position [Right Arm] Pulse Oximetry 98 95 94 Oxygen Delivery Method Sepsis Recent Fever Within 48 Hours Sepsis New/Unexplained Change in Mental Status Sepsis Action Taken by Nursing 03/20/22 14:25 03/20/22 14:25 03/20/22 14:30 Temperature Temperature Source Pulse Rate 72 67 Pulse Rate [Apical] Pulse Rate from SpO2 Sensor 58 L 68 Pulse Strength [Apical] Respiratory Rate 19 26 H Respiratory Effort / Characteristics Respiratory Depth Respiratory Pattern Blood Pressure 182/84 H Blood Pressure [Right Arm] Blood Pressure Mean 116 Blood Pressure Mean [Right Arm] Blood Pressure Position Blood Pressure Position [Right Arm] Pulse Oximetry 94 95 Oxygen Delivery Method Sepsis Recent Fever Within 48 Hours Sepsis New/Unexplained Change in Mental Status Sepsis Action Taken by Nursing 03/20/22 14:31 03/20/22 14:31 03/20/22 14:40 Temperature Temperature Source Pulse Rate 67 67 Pulse Rate [Apical] Pulse Rate from SpO2 Sensor 71 67 Pulse Strength [Apical] Respiratory Rate 19 19 Respiratory Effort / Characteristics Respiratory Depth Respiratory Pattern Blood Pressure 197/80 H Blood Pressure [Right Arm] Blood Pressure Mean 119 Blood Pressure Mean [Right Arm] Blood Pressure Position Blood Pressure Position [Right Arm] Pulse Oximetry 95 92 Oxygen Delivery Method Sepsis Recent Fever Within 48 Hours Sepsis New/Unexplained Change in Mental Status Sepsis Action Taken by Nursing 03/20/22 14:46 03/20/22 14:46 Temperature Temperature Source Pulse Rate 68 Pulse Rate [Apical] Pulse Rate from SpO2 Sensor 64 Pulse Strength [Apical] Respiratory Rate 17 Respiratory Effort / Characteristics Respiratory Depth Respiratory Pattern Blood Pressure 199/84 H Blood Pressure [Right Arm] Blood Pressure Mean 122 Blood Pressure Mean [Right Arm] Blood Pressure Position Blood Pressure Position [Right Arm] Pulse Oximetry 93 Oxygen Delivery Method Sepsis Recent Fever Within 48 Hours Sepsis New/Unexplained Change in Mental Status Sepsis Action Taken by Nursing Laboratory Data Attestation: I reviewed the patient's lab results. Result diagrams: 03/20/22 12:43 03/20/22 12:43 Lab Results 03/20/22 03/20/22 03/20/22 Range/Units 12:41 12:43 12:43 WBC 5.60 (4.8-10.8) K/ul RBC 3.55 L (3.93-5.22) M/uL Hgb 10.8 L (12.0-16.0) g/dl Hct 33.3 L (34.1-44.9) % MCV 93.8 (80.0-100.0) fL MCH 30.4 (25.0-34.0) pg MCHC 32.4 (32.0-36.0) g/dL RDW Std Deviation 61.3 H (36.4-46.3) fL RDW Coeff of Alessandro 18.1 H (11.5-14.5) % Plt Count 203 (130-400) K/uL MPV 10.2 (9.4-12.3) fL Immature Gran % (Auto) 0.2 % Neut % (Auto) 51.8 % Lymph % (Auto) 35.5 % Long % (Auto) 10.2 % Eos % (Auto) 1.4 % Baso % (Auto) 0.9 % Neut # (Auto) 2.90 (1.4-6.5) K/uL Lymph # (Auto) 1.99 (1.2-3.4) K/uL Long # (Auto) 0.57 (0.24-0.82) K/uL Eos # (Auto) 0.08 (0-0.50) K/uL Baso # (Auto) 0.05 (0-0.2) K/uL Immature Gran # (Auto) 0.01 (0.00-0.02) K/uL PT 12.4 H (9.0-12.0) Seconds INR 1.2 H (0.9-1.1) APTT 26.1 (21.0-31.0) Seconds PTT Ratio 0.9 Sodium (136-145) mmol/L Potassium (3.5-5.1) mmol/L Chloride (98-107) mmol/L Carbon Dioxide (21-32) mmol/L Anion Gap (3-11) BUN (6-23) mg/dl Creatinine (0.6-1.2) mg/dl Est Cr Clr Drug Dosing ml/min Est GFR ( Amer) ml/min Est GFR (Non-Af Amer) ml/min BUN/Creatinine Ratio (10-20) Glucose (70-99(Fasting)) mg/dl POC Glucose 109 H (70-99) mg/dl Calcium (8.5-10.1) mg/dl Phosphorus (2.5-4.9) mg/dl Magnesium (1.7-2.4) mg/dl Total Bilirubin (0.2-1.0) mg/dl AST (13-39) U/L ALT (7-52) U/L Alkaline Phosphatase (34-104) U/L Troponin I High Sens (0-14) pg/ml Total Protein (6.0-8.3) gm/dl Albumin (3.4-5.0) gm/dl Globulin (2.5-4.0) gm/dl Albumin/Globulin Ratio (0.9-2) Urine Color Urine Appearance (Clear) Urine pH (4.5-7.5) Ur Specific Pendroy (1.000-1.030) Urine Protein (Negative) Urine Glucose (UA) (Negative) Urine Ketones (Negative) Urine Blood (Negative) Urine Nitrite (Negative) Urine Bilirubin (Negative) Urine Urobilinogen (Negative) Ur Leukocyte Esterase (Negative) SARS-CoV-2, RNA, NAAT (NEGATIVE) 03/20/22 03/20/22 03/20/22 Range/Units 12:43 12:43 13:16 WBC (4.8-10.8) K/ul RBC (3.93-5.22) M/uL Hgb (12.0-16.0) g/dl Hct (34.1-44.9) % MCV (80.0-100.0) fL MCH (25.0-34.0) pg MCHC (32.0-36.0) g/dL RDW Std Deviation (36.4-46.3) fL RDW Coeff of Alessandro (11.5-14.5) % Plt Count (130-400) K/uL MPV (9.4-12.3) fL Immature Gran % (Auto) % Neut % (Auto) % Lymph % (Auto) % Long % (Auto) % Eos % (Auto) % Baso % (Auto) % Neut # (Auto) (1.4-6.5) K/uL Lymph # (Auto) (1.2-3.4) K/uL Long # (Auto) (0.24-0.82) K/uL Eos # (Auto) (0-0.50) K/uL Baso # (Auto) (0-0.2) K/uL Immature Gran # (Auto) (0.00-0.02) K/uL PT (9.0-12.0) Seconds INR (0.9-1.1) APTT (21.0-31.0) Seconds PTT Ratio Sodium 135 L (136-145) mmol/L Potassium 4.2 (3.5-5.1) mmol/L Chloride 102 (98-107) mmol/L Carbon Dioxide 28 (21-32) mmol/L Anion Gap 5 (3-11) BUN 16 (6-23) mg/dl Creatinine 0.72 (0.6-1.2) mg/dl Est Cr Clr Drug Dosing 46.4 ml/min Est GFR ( Amer) 87.3 ml/min Est GFR (Non-Af Amer) 75.3 ml/min BUN/Creatinine Ratio 22.2 H (10-20) Glucose 110 H (70-99(Fasting)) mg/dl POC Glucose (70-99) mg/dl Calcium 8.6 (8.5-10.1) mg/dl Phosphorus 3.4 (2.5-4.9) mg/dl Magnesium 1.7 (1.7-2.4) mg/dl Total Bilirubin 0.4 (0.2-1.0) mg/dl AST 17 (13-39) U/L ALT 10 (7-52) U/L Alkaline Phosphatase 61 (34-104) U/L Troponin I High Sens 9.5 D (0-14) pg/ml Total Protein 5.3 L (6.0-8.3) gm/dl Albumin 3.5 (3.4-5.0) gm/dl Globulin 1.8 L (2.5-4.0) gm/dl Albumin/Globulin Ratio 1.9 (0.9-2) Urine Color Urine Appearance (Clear) Urine pH (4.5-7.5) Ur Specific Pendroy (1.000-1.030) Urine Protein (Negative) Urine Glucose (UA) (Negative) Urine Ketones (Negative) Urine Blood (Negative) Urine Nitrite (Negative) Urine Bilirubin (Negative) Urine Urobilinogen (Negative) Ur Leukocyte Esterase (Negative) SARS-CoV-2, RNA, NAAT NEGATIVE (NEGATIVE) 03/20/22 Range/Units 13:45 WBC (4.8-10.8) K/ul RBC (3.93-5.22) M/uL Hgb (12.0-16.0) g/dl Hct (34.1-44.9) % MCV (80.0-100.0) fL MCH (25.0-34.0) pg MCHC (32.0-36.0) g/dL RDW Std Deviation (36.4-46.3) fL RDW Coeff of Alessandro (11.5-14.5) % Plt Count (130-400) K/uL MPV (9.4-12.3) fL Immature Gran % (Auto) % Neut % (Auto) % Lymph % (Auto) % Long % (Auto) % Eos % (Auto) % Baso % (Auto) % Neut # (Auto) (1.4-6.5) K/uL Lymph # (Auto) (1.2-3.4) K/uL Long # (Auto) (0.24-0.82) K/uL Eos # (Auto) (0-0.50) K/uL Baso # (Auto) (0-0.2) K/uL Immature Gran # (Auto) (0.00-0.02) K/uL PT (9.0-12.0) Seconds INR (0.9-1.1) APTT (21.0-31.0) Seconds PTT Ratio Sodium (136-145) mmol/L Potassium (3.5-5.1) mmol/L Chloride (98-107) mmol/L Carbon Dioxide (21-32) mmol/L Anion Gap (3-11) BUN (6-23) mg/dl Creatinine (0.6-1.2) mg/dl Est Cr Clr Drug Dosing ml/min Est GFR ( Amer) ml/min Est GFR (Non-Af Amer) ml/min BUN/Creatinine Ratio (10-20) Glucose (70-99(Fasting)) mg/dl POC Glucose (70-99) mg/dl Calcium (8.5-10.1) mg/dl Phosphorus (2.5-4.9) mg/dl Magnesium (1.7-2.4) mg/dl Total Bilirubin (0.2-1.0) mg/dl AST (13-39) U/L ALT (7-52) U/L Alkaline Phosphatase (34-104) U/L Troponin I High Sens (0-14) pg/ml Total Protein (6.0-8.3) gm/dl Albumin (3.4-5.0) gm/dl Globulin (2.5-4.0) gm/dl Albumin/Globulin Ratio (0.9-2) Urine Color Yellow Urine Appearance Clear (Clear) Urine pH 6.5 (4.5-7.5) Ur Specific Pendroy 1.030 (1.000-1.030) Urine Protein Negative (Negative) Urine Glucose (UA) Negative (Negative) Urine Ketones Negative (Negative) Urine Blood Negative (Negative) Urine Nitrite Negative (Negative) Urine Bilirubin Negative (Negative) Urine Urobilinogen Negative (Negative) Ur Leukocyte Esterase Negative (Negative) SARS-CoV-2, RNA, NAAT (NEGATIVE) Administered Medications Discontinued Medications Gadobutrol (Gadobutrol 65ml Vial) 5 ml IV ONCE ONE Stop: 03/20/22 20:46 Last Admin: 03/20/22 20:45 Dose: 5 ml Documented By: PAOLA Sodium Chloride (Nss) 250 mls @ 999 mls/hr IV .Q16M ONE Stop: 03/20/22 13:28 Last Infusion: 03/20/22 18:05 Dose: 0 mls/hr Documented By: Admin: 03/20/22 17:35 Dose: 999 mls/hr Documented By: JAMES Ioversol (Optiray 300 500ml) 113 ml IV ONCE ONE Stop: 03/20/22 12:42 Last Admin: 03/20/22 12:42 Dose: 113 ml Documented By: EDK Imaging Data Radiologist's Impression: Chest X-Ray 03/20/22 12:12 XR chest 1V portable HISTORY: 86 years-old Female Stroke Like Symptoms acute strokelike symptoms COMPARISON: Chest radiograph 01/11/2022 TECHNIQUE: AP view the chest FINDINGS: Cardiac silhouette is enlarged. Mitral annular calcifications. Atherosclerosis of the thoracic aorta. No pneumothorax, large pleural effusion or overt pulmonary edema. Chronic blunting of the costophrenic angles with subsegmental bibasilar densities suggestive of atelectasis versus scarring. There is a large amount of contrast present within the soft tissues of the right upper extremity. Contrast noted within the renal collecting systems. Abdominal left upper quadrant. Possible left renal calculus. IMPRESSION: 1. Cardiomegaly without acute process of the chest. 2. Large amount of contrast extravasation of the right upper extremity. ACT 112: Negative or not required by law. The above report was generated using voice recognition software. It may contain grammatical, syntax or spelling errors. Electronically signed by: Juanito Fernandez M.D. 03/20/2022 1:[address] 03/20/22 12:12 CT OF THE HEAD WITHOUT CONTRAST CLINICAL HISTORY: Stroke Like Symptoms COMPARISON STUDY: Head CT, MRI of the brain and CT of the head January 11, 2022. TECHNIQUE: Helical axial images of the head were obtained without IV contrast. Automated exposure control was utilized for the study. A dose lowering technique was utilized adhering to the principles of ALARA. FINDINGS: No acute intracranial hemorrhage, midline shift or mass effect is present. The ventricular system is stable. White matter hypodensities are unchanged and favor small vessel disease. 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 A calcified density along the inner table of the left frontal bone remains unchanged. The basal cisterns are patent. No extra- axial collections are present. There are no findings to suggest acute dural sinus thrombosis or acute territorial infarct. No significant calvarial abnormalities are present. Visualized portions of the sinuses and mastoid air cells are clear. IMPRESSION: No acute intracranial findings. No change in appearance of the brain. ACT 112: Negative or not required by law. Electronically signed by: Mina Vora M.D. 03/20/2022 12:50 PM Head CTA 03/20/22 12:12 HEAD CTA HISTORY: Stroke Like Symptoms TECHNIQUE: Multiaxial CT images of the head were performed both before and after the intravenous administration of contrast to evaluate the major cerebral vessels. Maximum intensity projection images were also obtained. A dose lowering technique was utilized adhering to the principles of ALARA. COMPARISON: Head CT 01/11/2022. FINDINGS: There is no mass, hematoma, midline shift, or acute infarct. Visualized intracranial internal carotid arteries, distal vertebral arteries, and basilar artery are widely patent. There is no significant stenosis, occlusion, or aneurysm seen within the bilateral ACAs, MCAs, or rider ticket worker. The major dural venous sinuses are patent. Calcified plaque within the bilateral carotid siphons again noted. IMPRESSION: No significant stenosis, occlusion, or aneurysm within the [place]. ACT 112: Negative or not required by law. Electronically signed by: Royer Garcia M.D. 03/20/2022 1:01 PM Neck CTA 03/20/22 12:12 CT ANGIOGRAM OF THE NECK CLINICAL HISTORY: Strokelike symptoms. COMPARISON STUDY: CT angiogram the neck dated 01/11/2022. TECHNIQUE: Following the IV administration of 113 of Optiray 300, CT angiogram of the neck was performed from the aortic arch to the skull base. Images are reviewed in the axial, sagittal, and coronal planes. 3-D MIPS images are created and assessed. IV contrast was administered without complication. All measurements were calculated based on NASCET criteria. A dose lowering technique was utilized adhering to the principles of ALARA. FINDINGS: Thoracic aorta: There is atherosclerotic calcification of the thoracic aorta. Visualized portions of the thoracic aorta are normal in caliber. The aortic arch demonstrates standard 3-vessel anatomy. Right carotid arterial system: The right common carotid artery is patent, as are the right internal and extra carotid arteries. Atherosclerotic plaque is noted in the carotid bulb. The right internal carotid artery is widely patent. Moderate stenosis at the origin of the right external carotid artery is unchanged. Left carotid arterial system: The left common carotid artery is patent, as are the left internal and external carotid arteries. Plaque is seen within the distal left common carotid artery and within the carotid bulb. Vertebral arteries: Widely patent bilaterally and codominant. Subclavian arteries: Widely patent bilaterally. Intracranial vasculature: The visualized intracranial vessels at the skull base are patent. Jugular veins: Widely patent bilaterally. Brain parenchyma: The visualized brain parenchyma the skull base is within normal limits noting age-related involutional change. Lung apices: Emphysematous change is noted. Upper lobe lung parenchyma is otherwise clear as imaged. Soft tissues: The visualized pharyngeal soft tissues are normal in appearance noting angiographic phase technique. The oropharyngeal airway appears widely patent. The salivary and thyroid glands are normal in appearance. No cervical lymphadenopathy is seen. Skeletal structures: The skeletal structures are osteopenic. The visualized calvarium at the skull base appears intact. The imaged cervical spine is maintained noting advanced multilevel spondylosis. No lytic or blastic lesion is seen. Sinuses and mastoids: The visualized paranasal sinuses are clear. The mastoid air cells are well pneumatized. IMPRESSION: 1. No significant change from 01/11/2022 or 07/15/2021. 2. 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 3. Otherwise unremarkable CT angiogram of the neck. ACT 112: Negative or not required by law. Electronically signed by: Austen Aguilar M.D. 03/20/2022 1:05 PM Discharge Plan Visit Data Chief Complaint: Stroke Alert ED Provider: Zach Rose Discharge Problem: Stroke-like symptom, Aphasia, Hypertension Patient Disposition: Admitted As Inpatient Discharge Instructions Interventions: ED Discharge Assessment Last Done: 03/20/22 14:57
[2022-03-20 13:34] LABS: Troponin I High Sensitivity 9.5 pg/ml (0-14)
[2022-03-20 13:47] LABS: Albumin Globulin Ratio 1.9 (0.9-2); Albumin Level 3.5 gm/dl (3.4-5.0); BUN Creatinine Ratio 22.2 (10-20); Bilirubin,Total 0.4 mg/dl (0.2-1.0); Calcium 8.6 mg/dl (8.5-10.1); Creatinine Clr Calc Pharmacy 46.4 ml/min; Est GFR (African American) 87.3 ml/min; Est GFR (Non-African American) 75.3 ml/min; Globulin 1.8 gm/dl (2.5-4.0); Magnesium 1.7 mg/dl (1.7-2.4); Potassium 4.2 mmol/L (3.5-5.1); Total Protein 5.3 gm/dl (6.0-8.3)
[2022-03-20 13:58] LABS: Appearance Urine Clear (Clear); Bilirubin Urine Negative (Negative); Blood Urine Negative (Negative); Color Urine Yellow; Glucose Urine UA Negative (Negative); Ketones Urine Negative (Negative); Leukocyte Esterase Urine Negative (Negative); Nitrite Urine Negative (Negative); Protein Urine Negative (Negative); Urobilinogen Urine Negative (Negative); pH Urine 6.5 (4.5-7.5)
--- NOTE | 2022-03-20 13:59 | Electrocardiogram Report ---
Test Reason : Blood Pressure : / mmHG Vent. Rate : 093 BPM Atrial Rate : 093 BPM P-R Int : 186 ms QRS Dur : 086 ms QT Int : 370 ms P-R-T Axes : 084 -13 090 degrees QTc Int : 460 ms Poor data quality, interpretation may be adversely affected Normal sinus rhythm with sinus arrhythmia Left ventricular hypertrophy with repolarization abnormality Abnormal ECG When compared with ECG of 11-JAN-2022 12:59, T wave amplitude has increased in Anterior leads Inverted T waves have replaced nonspecific T wave abnormality in Lateral leads Confirmed by Randell Hunter ([id number]) on 03/20/2022 1:59:10 PM Referred By: DERICK JOEL Confirmed By:Paul Hunter
--- NOTE | 2022-03-20 14:47 | History & Physical Report ---
Date of Service March 20, 2022 Assessment & Plan (1) Stroke-like symptom: (2) Transient confusion: (3) Brain TIA: (4) Chronic combined systolic and diastolic CHF (congestive heart failure): (5) HTN (hypertension): (6) PAF (paroxysmal atrial fibrillation): (7) Swelling of joint, shoulder, right: Plan: This is a 86-year-old female presented with aphagia. neck CTA: moderate carotid stenosis; unchanged. Stroke work up, no tPA. Brain MRI pending. R shoulder sw elling, x-ray pending. Questionable vascular dementia as recurrent events and no CVA noted. Stroke-like symptoms mixed aphasia: TIA: Stroke alert: awoke from a nap today and had difficulty with word finding. Similar to previous events over past few months. No true focal deficits extremities weak; expressive aphagia Head CT unremarkable CTA head and neck; moderate right carotid stenosis No tPA intervention and > 3 hour window. Brain MRI pending Neuro consult placed Passed swallow eval last admit; hold diet and meds until bedside dysphagia screen done on high dose statin already; continue atorvastatin Patient has some aphagia now, but she has returned near her baseline with speaking per son at 1715. Right Shoulder Joint swelling: Difficulty with raising right arm, some swelling also noted in shoulder no recent trauma. No erythema or signs of infection right shoulder x-ray ordered; pending Chronic combined systolic and diastolic CHF: Was on Torsemide, Isordil and Aldactone - not on current MAR from SNF; need to confirm why discontinued Discussed with son on the phone and he said he is not recalling any evident scenario why they were DC. HTN: pAF: elevated in ED; no PRN intervention unless SBP > 220 Continue Metoprolol Continue ASA No anticoagulation until MRI completed and stroke r/o HLD: Stable; continue atorvastatin lipid panel in AM Anxiety and depression: stable; Continue Lexapro Disposition: PCP: Dr. 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 Patient was recently admitted to [facility] from 12/31-01/06 with dyspnea and weakness and found to have acute systolic CHF with EF 25-30% and started on torsemide, isordil and aldactone. She was discharged to [facility] on 01/06. She also had an additional admission and was discharged on 01/11. Today, a CTA head/neck, head CT, and MRI of brain was all unremarkable aside from some moderate right carotid artery stenosis. CBC, BMP stable. EKG NSR. During our encounter, she still was struggling with word finding difficulty and had expressive aphasia.She did have a TIA episode in 07/2021. A stroke alert was called however no tele eval occurred due to her symptoms being outside the 3 hour randal and she is not a tPA candidate. Pt will be admitted under hospitalist service for further evaluation and management. Patient was sitting in her bed in no apparent distress. She was able to tell me her name but could not get the words out to tell me her birthday or other information. Her neuro exam was unremarkable; however, she had a difficult time raising her right arm. She did just receive contrast in her IV in that arm that was visible on CT. Will obtain right shoulder x-ray as well. Patient will be admitted for further evaluation and management. Please see A/P for further details. Allergies Allergy/AdvReac Type Severity Reaction Status Date / Time Penicillins Allergy Severe ANAPHYLAXIS--HEART Verified 03/20/22 16:05 STOPPED denosumab Allergy Intermediate bone pain Verified 03/20/22 16:05 mouse protein Allergy Intermediate bone pain Verified 03/20/22 16:05 cephalexin Allergy Mild RASH Verified 03/20/22 16:05 nitrofurazone Allergy Unknown PT NOT SURE Verified 03/20/22 16:05 nystatin Allergy Unknown PT NOT SURE Verified 03/20/22 16:05 codeine AdvReac Intermediate N/V - can Verified 03/20/22 16:05 take Oxycodone erythromycin base AdvReac Intermediate GI UPSET Verified 03/20/22 16:05 oxycodone AdvReac Intermediate NAUSEA/VOMI Verified 03/20/22 16:05 TING narcotics AdvReac Intermediate extreme Uncoded 03/20/22 16:05 drowsy and nausea Home Medications Medication Instructions Recorded Confirmed Type escitalopram oxalate 10 mg tablet 10 mg PO DAILY 07/29/18 03/20/22 History (Lexapro) vitamins A,C,Q-casm-kyigpi 14,320 1 cap PO BID 07/29/18 03/20/22 History unit-226 mg-200 unit capsule (PreserVision AREDS) calcium carbonate 500 mg-vitamin 1 tab PO DAILY 08/29/19 03/20/22 History D3 5 mcg (200 unit) tablet (Calcium 500 + D) acetaminophen 500 mg tablet 1,000 mg PO Q8 07/15/21 03/20/22 History (Tylenol Extra Strength) cholecalciferol (vitamin D3) 50 50 mcg PO DAILY 07/15/21 03/20/22 History mcg (2,000 unit) capsule (Vitamin D3) aspirin 81 mg tablet,delayed 81 mg PO DAILY 12/31/21 03/20/22 History release atorvastatin 40 mg tablet 40 mg PO DAILY 12/31/21 03/20/22 History ferrous sulfate 325 mg (65 mg 325 mg PO QAM #30 tabs 01/06/22 03/20/22 Rx iron) tablet,delayed release Saccharomyces boulardii 250 mg 250 mg PO BID 03/20/22 03/20/22 History capsule loratadine 10 mg tablet (Claritin) 10 mg PO DAILY 03/20/22 03/20/22 History metoprolol succinate 25 mg 25 mg PO DAILY 03/20/22 03/20/22 History tablet,extended release 24 hr multivitamin 1 tab PO DAILY 03/20/22 03/20/22 History Past Med/Surg History Medical History Anxiety and depression Asthma hasn't used PRN INH in over a year Cataract Essential tremor Hearing deficit Hip problem LEFT History of breast cancer s/p left mastectomy + chemo/radiation History of DVT (deep vein thrombosis) WITHIN LAST 10 YRS History of hypothyroidism History of pulmonary embolism WITHIN LAST 10 YRS History of skin cancer removed History of stomach ulcers HTN (hypertension) Hypertension Intracranial meningioma (Unknown) pt could not confirm. states "there was something small on my brain that wasn't supposed to be there. nobody was really worried about it." says it was found "years ago" Limb alert care status LUE Osteoarthritis Osteoporosis Patent foramen ovale PT DENIES Rotator cuff tear, right Rupture of hip abductor tendon Swelling of joint, shoulder, right TMJ click Surgical History History of appendectomy History of breast biopsy History of colonoscopy History of esophagogastroduodenoscopy (EGD) History of left hip replacement History of right cataract surgery Slow to wake up after anesthesia Status post left mastectomy HX OF Status post total knee replacement HX OF - BL Family History Father Diabetes Social History Smoking Status: Former smoker Tobacco Type: Cigarettes Second Hand Exposure: No; Do You Dip or Chew Tobacco: No; Tobacco Cessation Education Requested by Patient: No Hx Alcohol Use: No Hx Substance Use: No Preferred Language: [place] Communication Ability: aphasia Communication Ability Comment: pt has expressive aphasia Screening Technician Required: No Beliefs That Will Affect Care: None marital status: Current Living Situation: Personal Care Facility Current Living Situation Comment: pt lives at [facility] How many Children do You have: 2 Other Information That Helps Us Care for You: No Feels Safe at Home: Yes Safety Concerns: Feels Safe At This Time Assistive Devices: Wheelchair Review of Systems Review of Systems: Neuro: (-) Falls, trauma, slurred speech HEENT: (-) [place], dizziness, dysphagia, visual or auditory changes CV: (-) CP, palpitations, swelling Resp: (-) SOB GI: (-) appetite changes, N/V/D, bowel changes : (-) urinary changes Skin: (-) rashes Psych: (-) anxiety, depression Physical Exam Physical Exam: Neuro: AAOx1, (+) mixed aphagia, CN II-XII intact. HEENT: head normocephalic, moist mucus membranes CV: S1/S2, (-) M/G/R, (-) edema, cap refill < 3 seconds Resp: Lungs CTA in all beltran. On RA GI: Abdomen S/NT/ND, Ax4 bowel sounds, (-) CVA tenderness Musculoskeletal: 5/5 B/L UE strength, 5/5 B/L LE strength. No gait disturbance Skin: (-) rashes , (-) erythema. Psych: euthymic mood Results & Data Results & Data ([facility]) Vital Signs (Past 12 Hours) Vital Signs Temp Pulse Resp BP Pulse Ox O2 Del Method 03/20/22 13:10 73 21 Room Air 03/20/22 13:00 82 21 Room Air 03/20/22 13:00 183/93 H Room Air 03/20/22 12:51 193/80 H Room Air 03/20/22 12:51 85 97 Room Air 03/20/22 12:50 85 18 97 Room Air 03/20/22 12:47 208/109 H Room Air 03/20/22 12:47 90 15 98 Room Air 03/20/22 12:41 95 H 15 Room Air 03/20/22 12:42 Room Air 03/20/22 12:42 36.7 C 90 24 96 Room Air Laboratory Results Short CBC 03/20/22 Range/Units 12:43 WBC 5.60 (4.8-10.8) K/ul Hgb 10.8 L (12.0-16.0) g/dl Hct 33.3 L (34.1-44.9) % Plt Count 203 (130-400) K/uL BMP 03/20/22 12:43 Sodium 135 L Potassium 4.2 Chloride 102 Carbon Dioxide 28 BUN 16 Creatinine 0.72 Glucose 110 H Calcium 8.6 Liver Function 03/20/22 Range/Units 12:43 Total Bilirubin 0.4 (0.2-1.0) mg/dl AST 17 (13-39) U/L ALT 10 (7-52) U/L Alkaline Phosphatase 61 (34-104) U/L Albumin 3.5 (3.4-5.0) gm/dl Urine 03/20/22 Range/Units 13:45 Urine Color Yellow Urine Appearance Clear (Clear) Urine pH 6.5 (4.5-7.5) Ur Specific [place] 1.030 (1.000-1.030) Urine Protein Negative (Negative) Urine Glucose (UA) Negative (Negative) Diagnostic Findings Chest X-Ray 03/20/22 12:12 XR chest 1V portable HISTORY: 86 years-old Female Stroke Like Symptoms acute strokelike symptoms COMPARISON: Chest radiograph 01/11/2022 TECHNIQUE: AP view the chest FINDINGS: Cardiac silhouette is enlarged. Mitral annular calcifications. Atherosclerosis of the thoracic aorta. No pneumothorax, large pleural effusion or overt pulmonary edema. Chronic blunting of the costophrenic angles with subsegmental bibasilar densities suggestive of atelectasis versus scarring. There is a large amount of contrast present within the soft tissues of the right upper extremity. Contrast noted within the renal collecting systems. Abdominal left upper quadrant. Possible left renal calculus. IMPRESSION: 1. Cardiomegaly without acute process of the chest. 2. Large amount of contrast extravasation of the right upper extremity. ACT 112: Negative or not required by law. The above report was generated using voice recognition software. It may contain grammatical, syntax or spelling errors. Electronically signed by: Juanito Fernandez M.D. 03/20/2022 1:[address] 03/20/22 12:12 CT OF THE HEAD WITHOUT CONTRAST CLINICAL HISTORY: Stroke Like Symptoms COMPARISON STUDY: Head CT, MRI of the brain and CT of the head January 11, 2022. TECHNIQUE: Helical axial images of the head were obtained without IV contrast. Automated exposure control was utilized for the study. A dose lowering technique was utilized adhering to the principles of ALARA. FINDINGS: No acute intracranial hemorrhage, midline shift or mass effect is present. The ventricular system is stable. White matter hypodensities are unchanged and favor small vessel disease. 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 A calcified density along the inner table of the left frontal bone remains unchanged. The basal cisterns are patent. No extra- axial collections are present. There are no findings to suggest acute dural sinus thrombosis or acute territorial infarct. No significant calvarial abnormalities are present. Visualized portions of the sinuses and mastoid air cells are clear. IMPRESSION: No acute intracranial findings. No change in appearance of the brain. ACT 112: Negative or not required by law. Electronically signed by: Mina Vora M.D. 03/20/2022 12:50 PM Head CTA 03/20/22 12:12 HEAD CTA HISTORY: Stroke Like Symptoms TECHNIQUE: Multiaxial CT images of the head were performed both before and after the intravenous administration of contrast to evaluate the major cerebral vessels. Maximum intensity projection images were also obtained. A dose lowering technique was utilized adhering to the principles of ALARA. COMPARISON: Head CT 01/11/2022. FINDINGS: There is no mass, hematoma, midline shift, or acute infarct. Visualized intracranial internal carotid arteries, distal vertebral arteries, and basilar artery are widely patent. There is no significant stenosis, occlusion, or aneurysm seen within the bilateral ACAs, MCAs, or major assembly lineman. The major dural venous sinuses are patent. Calcified plaque within the bilateral carotid siphons again noted. IMPRESSION: No significant stenosis, occlusion, or aneurysm within the [place]. ACT 112: Negative or not required by law. Electronically signed by: Royer Garica M.D. 03/20/2022 1:01 PM Neck CTA 03/20/22 12:12 CT ANGIOGRAM OF THE NECK CLINICAL HISTORY: Strokelike symptoms. COMPARISON STUDY: CT angiogram the neck dated 01/11/2022. TECHNIQUE: Following the IV administration of 113 of Optiray 300, CT angiogram of the neck was performed from the aortic arch to the skull base. Images are reviewed in the axial, sagittal, and coronal planes. 3-D MIPS images are created and assessed. IV contrast was administered without complication. All measurements were calculated based on NASCET criteria. A dose lowering technique was utilized adhering to the principles of ALARA. FINDINGS: Thoracic aorta: There is atherosclerotic calcification of the thoracic aorta. Visualized portions of the thoracic aorta are normal in caliber. The aortic arch demonstrates standard 3-vessel anatomy. Right carotid arterial system: The right common carotid artery is patent, as are the right internal and extra carotid arteries. Atherosclerotic plaque is noted in the carotid bulb. The right internal carotid artery is widely patent. Moderate stenosis at the origin of the right external carotid artery is unchanged. Left carotid arterial system: The left common carotid artery is patent, as are the left internal and external carotid arteries. Plaque is seen within the distal left common carotid artery and within the carotid bulb. Vertebral arteries: Widely patent bilaterally and codominant. Subclavian arteries: Widely patent bilaterally. Intracranial vasculature: The visualized intracranial vessels at the skull base are patent. Jugular veins: Widely patent bilaterally. Brain parenchyma: The visualized brain parenchyma the skull base is within normal limits noting age-related involutional change. Lung apices: Emphysematous change is noted. Upper lobe lung parenchyma is otherwise clear as imaged. Soft tissues: The visualized pharyngeal soft tissues are normal in appearance noting angiographic phase technique. The oropharyngeal airway appears widely patent. The salivary and thyroid glands are normal in appearance. No cervical lymphadenopathy is seen. Skeletal structures: The skeletal structures are osteopenic. The visualized calvarium at the skull base appears intact. The imaged cervical spine is maintained noting advanced multilevel spondylosis. No lytic or blastic lesion is seen. Sinuses and mastoids: The visualized paranasal sinuses are clear. The mastoid air cells are well pneumatized. IMPRESSION: 1. No significant change from 01/11/2022 or 07/15/2021. 2. 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 3. Otherwise unremarkable CT angiogram of the neck. ACT 112: Negative or not required by law. Electronically signed by: Austen Aguilar M.D. 03/20/2022 1:05 PM Code Status & VTE Plan Code Status DNR/DNI in the event of cardiac or respiratory arrest VTE Prophylaxis Plan VTE Prophylaxis will be ordered: Yes Supervising Physician Co-Signing Physician Notes Patient is an 86-year-old female with multiple comorbidities presents with history of aphasia. Patient had similar episode in December and was hospitalized at the time as well. Patient was noted to have word finding difficulty and so was sent to ED for further evaluation. Imaging studies showed no acute findings. Patient is oriented to person and place during my encounter and follows simple commands. Patient is a poor historian secondary to aphasia. She denied any focal weakness and is able to move all extremities. Please review HPI for complete details of presentation. Blood work and imaging studies reviewed. Urinalysis is not suggestive of UTI. EKG showed normal sinus with sinus arrhythmia. Also showed nonspecific T wave changes.On exam patient is thin, frail, elderly, no apparent distress, normocephalic atraumatic, EOMI, normal breath sounds, clear to auscultation, S1-S2, no murmur, no pedal edema, abdomen soft, nontender, normal bowel sounds, alert, awake, oriented time and place. Has word finding difficulty but able to speak few sentences. Also has right upper extremity decreased range of movement--chronic appearing. Patient is admitted for management of strokelike symptoms. Imaging studies not contributory. MRI brain pending. Continue aspirin, Lipitor. Speech, PT OT evaluation. Neurochecks. Fall precautions. Neurology consulted. Will obtain right shoulder x-ray for further evaluation. I personally reviewed the record. Patient is interviewed and examined at bedside. Patient's care is coordinated with Natacha Reeves PA-C. Please refer to the documentation above for details of patient's presentation and for discussion of other issues.
[2022-03-20] MEDS ORDERED: ASPIRIN 81 MG ECTAB PO ONE (19:01)
--- NOTE | 2022-03-20 20:19 | XRay Report ---
XR shoulder RT min 2V routine CLINICAL HISTORY: Pain, decreased ROM COMPARISON: Right shoulder radiographs August 01, 2018. FINDINGS: Elevation of the right humeral head is unchanged. There is no acute fracture. Severe osteo arthritis of the right glenohumeral joint is noted. There are no osseous lesions. IMPRESSION: 1. No acute fracture or dislocation within the right shoulder. 2. Elevation of the right humeral head which suggests a chronic rotator cuff tear, unchanged. 3. Severe glenohumeral joint osteoarthritis. ACT 112: Negative or not required by law. Electronically signed by: Mina Vora M.D. 03/20/2022 8:18 PM
[2022-03-20] MEDS ORDERED: GADOBUTROL 65ML VIAL IV ONE (20:45)
[2022-03-20] MEDS ORDERED: PHARMACIST DISCHARGE MED REC CONSULT PRN (21:35)
--- NOTE | 2022-03-20 22:35 | XRay Report ---
XR chest 1V portable HISTORY: 86 years-old Female post-operative coughing and wheezing acute cough with wheezing COMPARISON: Chest radiograph 03/20/2022 TECHNIQUE: Portable AP view of the chest FINDINGS: Cardiac silhouette is enlarged. Atherosclerosis of the thoracic aorta with mitral annular calcificati on. The patient is mildly rotated towards the left. No pneumothorax, large pleural effusion or overt pulmonary edema. Surgical clips of the left upper quadrant abdomen. Degenerative changes of the shoul ders and spine. IMPRESSION: Cardiomegaly without acute process. ACT 112: Negative or not required by law. The above report was generated using voice recognition software. It may contain grammatical, syntax o r spelling errors. Electronically signed by: Juanito Fernandez M.D. 03/20/2022 10:34 PM
[2022-03-20] MEDS ORDERED: INFLUENZA VACCINE HIGH DOSE PF 65+ 0.7 ML SYR IM ONE (23:16)
[2022-03-21 06:05] LABS: Basophils # (auto) 0.07 K/uL (0-0.2); Basophils % (auto) 1.1 %; Eosinophils # (auto) 0.13 K/uL (0-0.50); Hematocrit (blood only) 38.4 % (34.1-44.9); Hemoglobin 12.8 g/dl (12.0-16.0); Immature Granulocytes # (auto) 0.01 K/uL (0.00-0.02); Immature Granulocytes % (auto) 0.2 %; Lymphocytes # (auto) 1.96 K/uL (1.2-3.4); Lymphocytes % (auto) 30.3 %; Mean Corpuscular Hemoglobin 30.2 pg (25.0-34.0); Mean Corpuscular Hgb Conc 33.3 g/dL (32.0-36.0); Mean Corpuscular Volume 90.6 fL (80.0-100.0); Mean Platelet Volume 9.8 fL (9.4-12.3); Monocytes # (auto) 0.73 K/uL (0.24-0.82); Monocytes % (auto) 11.3 %; Neutrophils # (auto) 3.56 K/uL (1.4-6.5); Neutrophils % (auto) 55.1 %; Platelet Count 220 K/uL (130-400); RDW Coefficient of Variation 18.3 % (11.5-14.5); RDW Standard Deviation 59.1 fL (36.4-46.3); Red Blood Count 4.24 M/uL (3.93-5.22); White Blood Count 6.46 K/ul (4.8-10.8)
[2022-03-21 07:04] LABS: BUN Creatinine Ratio 16.7 (10-20); Chol HDL Ratio 2.2 (0-5); Creatinine Clr Calc Pharmacy 43.5 ml/min; Est GFR (African American) 87.3 ml/min; Est GFR (Non-African American) 75.3 ml/min; Magnesium 1.7 mg/dl (1.7-2.4); Potassium 3.8 mmol/L (3.5-5.1)
--- NOTE | 2022-03-21 07:13 | Magnetic Resonance Report ---
MR brain wo/w con HISTORY: 86 years-old Female stroke like symptoms per ordering acute strokelike symptoms COMPARISON: Head CT of same day, brain MRI 01/11/2022. TECHNIQUE: Multiplanar multisequence MRI of the brain was obtained both with and without the use of 5 cc Gadavist FINDINGS: [employer]bish [employer] Supervisor localizer images demonstrate no gross extracranial abnormality. No restricted diffusion. The mi dline structures appear unremarkable with degenerative changes of the cervical spine. Partially empty sella. No acute intracranial hemorrhage, midline shift, abnormal extra axial collection, hydrocephal us or intra-axial mass. 1.2 x 1.2 cm enhancing extra-axial lesion adjacent to left frontal lobe. Invo lutional changes with mild to moderate T2/FLAIR hyperintense foci throughout the white matter. Ventri culomegaly is likely on a acute basis. 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 No abnormal intra-axial enhancement. Cerebral venous sinuses and major arterial flow voids are patent. Prior bilateral lens repair. Skull and soft tissues are within normal limits. Mastoid air cells and paranasal sinuses appear clear. IMPRESSION: 1. No acute intracranial abnormality. No acute or subacute infarct. 2. Involutional changes with chronic microvascular ischemic disease. 3. Unchanged 1.2 cm meningioma adjacent to left frontal lobe. ACT 112: Negative or not required by law. The above report was generated using voice recognition software. It may contain grammatical, syntax o r spelling errors. Electronically signed by: Juanito Fernandez M.D. 03/21/2022 7:11 AM
[2022-03-21 07:39] LABS: Estimated Average Glucose 120 mg/dl; Hemoglobin A1C 5.8 % (4.5-5.6)
[2022-03-21] MEDS ORDERED: MULTIVITAMIN TAB PO SCH (09:00)
[2022-03-21] MEDS: CALCIUM 600MG + VIT D 400 IU TAB PO SCH (09:40)
[2022-03-21] MEDS: LORATADINE 10 MG TAB PO SCH (09:40)
[2022-03-21] MEDS: FERROUS SULFATE 325 MG TAB PO SCH (09:40)
[2022-03-21] MEDS: ATORVASTATIN 40 MG TAB PO SCH (09:40)
[2022-03-21] MEDS: CHOLECALCIFEROL 1,000 UNITS 25 MCG TAB PO SCH (09:40)
[2022-03-21] MEDS: METOPROLOL SUCC 25MG EXT REL TAB PO SCH (09:40)
[2022-03-21] MEDS: ESCITALOPRAM OXALATE 10 MG TAB PO SCH (09:40)
[2022-03-21] MEDS: ASPIRIN 81 MG ECTAB PO SCH (09:40)
[2022-03-21] MEDS: CEROVITE ADV FORMULA TAB PO SCH ×2 (09:40→21:06)
--- NOTE | 2022-03-21 14:09 | Hospitalist Progress Note ---
Date of Service March 21, 2022 Assessment & Plan (1) Stroke-like symptom: (2) Transient confusion: (3) Brain TIA: (4) Chronic combined systolic and diastolic CHF (congestive heart failure): (5) HTN (hypertension): (6) PAF (paroxysmal atrial fibrillation): (7) Swelling of joint, shoulder, right: Plan: Patient is an 86 yr female who presents with aphagia. Stroke-like symptoms Aphasia Possible TIA --MRI Brain:No acute intracranial abnormality. No acute or subacute infarct. Involutional changes with chronic microvascular ischemic disease. Unchanged 1.2 cm meningioma adjacent to left frontal lobe. --Head CT:No acute intracranial findings. No change in appearance of the brain. --Head CTA:No significant stenosis, occlusion, or aneurysm within the [place]. --Neck CTA:No significant change from 01/11/2022 or 07/15/2021. 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 Otherwise unremarkable CT angiogram of the neck. --ECHO 01/01/22: Left ventricle is normal in size. Moderate concentric LVH. Moderate to severe global hypokinesis of left ventricle. EF 25 to 30%. Left atrium is severely dilated. Mild aortic regurgitation. Moderate to severe mitral regurgitation. Moderate tricuspid regurgitation. Right ventricle systolic function elevated at 40 to 45 mmHg --LDL 37 --Speech therapy, PT OT evaluation Fall precautions Neurology consult Continue neurochecks Continue aspirin 81 mg, Lipitor 40 mg Aphasia much improved Mental status at baseline Right Shoulder deformity Chronic rotator cuff tear H/O shoulder surgery Shoulder X ray: No acute fracture or dislocation within the right shoulder. Elevation of the right humeral head which suggests a chronic rotator cuff tear, unchanged. Severe glenohumeral joint osteoarthritis. No history of trauma Follow-up with orthopedics as outpatient Chronic combined systolic and diastolic CHF: Was on Torsemide, Isordil and Aldactone - not on current MAR from [facility] Euvolemic currently Monitor volume status HTN: P.AFib: Continue Metoprolol Not on chronic anticoagulation Prediabetes HbA1c 5.8 HLD: Continue atorvastatin Anxiety and depression: stable Continue Lexapro DVT Px: Heparin SQ Code Status DNR/DNI Disposition PT/OT prior to discharge Admission and Anticipated Discharge Date Admission Date: March 20, 2022 Subjective Patient is seen and examined at bedside Sitting in chair comfortably this morning Patient states feeling better today Patient admits to have some word finding difficulty which is gradually improving Denies any focal weakness Also denies any chest pain, shortness of breath, dizziness, nausea, abdominal pain Reports chronic right shoulder discomfort No other complaints Review of Systems Review of Systems: All systems reviewed & are unremarkable except as noted in Subjective Physical Exam Physical Exam: Physical Exam: Vitals signs as noted above General Appearance:Thin, frail, chronic ill appearing, No apparent distress Head: normocephalic, Atraumatic Eyes: normal inspection, EOMI Neck: supple, Trachea midline Respiratory/Chest: Normal breath sounds, CTA, No accessory muscle use Cardiovascular: S1, S2, No murmur Abdomen/GI:Soft, Non tender, Bowel sounds present Extremities/Musculoskeletal:normal inspection, no edema, Right shoulder decreased ROM Neurologic/Psych:AAOX3, grossly no focal neurological deficits, +Word finding difficulty Skin: normal color, warm Results & Data Results & Data ([facility]) Vital Signs (Past 12 Hours) Vital Signs Temp Pulse Resp BP Pulse Ox O2 Del Method 03/21/22 13:52 36.8 C 61 19 117/72 95 Room Air 03/21/22 03:51 36.7 C 73 16 144/72 H 95 Room Air Laboratory Results Short CBC 03/21/22 Range/Units 05:49 WBC 6.46 (4.8-10.8) K/ul Hgb 12.8 (12.0-16.0) g/dl Hct 38.4 (34.1-44.9) % Plt Count 220 (130-400) K/uL BMP 03/21/22 05:49 Sodium 137 Potassium 3.8 Chloride 101 Carbon Dioxide 28 BUN 12 Creatinine 0.72 Glucose 94 Calcium 9.0 Urine 03/20/22 Range/Units 13:45 Urine Color Yellow Urine Appearance Clear (Clear) Urine pH 6.5 (4.5-7.5) Ur Specific [place] 1.030 (1.000-1.030) Urine Protein Negative (Negative) Urine Glucose (UA) Negative (Negative)
--- NOTE | 2022-03-21 14:52 | Neurology Consultation ---
Date of Consultation March 21, 2022 Assessment & Plan (1) Aphasia: (2) PAF (paroxysmal atrial fibrillation): (3) Stroke-like symptom: (4) Transient confusion: (5) Brain TIA: Plan Assessment and plan: 1. Expressive speech difficulty, improved Impression: The patient was found slightly confused with expressive speech difficulty yesterday and code stroke was activated. However, brain MRI was negative for cerebrovascular accident. Since yesterday, speech has been improved. The patient had similar event in few months ago, with negative MRI. Cause of current event is unclear however TIA is still in differential. The patient has several stroke risk factors including paroxysmal atrial fibrillation. Plan/recommendations: We will keep the patient on aspirin 81 mg daily and Lipitor 40 mg at bedtime as before. We offered anticoagulation for stroke prevention based on the patient's history of paroxysmal atrial fibrillation. However, the patient would like to discuss this treatment option with other family members before making a decision. There is no indication for permissive hypertension. Goal blood pressure is lower than 130/80. Physical and Occupational Therapy consultations. There is no indication for another echocardiogram. The patient is neurologically stable and can be discharged home in next 24 hours. Follow-up at neurology clinic with Dr. Frazier in a month. Thank for the consultation. History of Present Illness Reason for Consultation: Speech disturbance Requesting Physician: Jeremie Lynn MD Attending Physician: Jeremie Lynn MD History of Present Illness The patient is a 86-year-old [place] [facility] resident, who was brought to emergency department yesterday, after they noticed that the patient was having expressive speech difficulty. There was no focal weakness or numbness however, the patient's motor examination was somewhat limited in upper extremities because of shoulder pain. Code stroke was activated. When imaging studies were completed, the patient was outside of thrombolytic treatment window. Head CT, CT angiogram of head and neck were unremarkable other than moderate right carotid artery stenosis. Since admission, the patient's speech difficulty has been improved back to her baseline. She talks well without any difficulty. Her swallowing has been improved as well. There is no focal neurological deficit. The patient has multiple stroke risk factors including paroxysmal atrial fibrillation, and history of transient ischemic attacks. She reports that she used to be on Coumadin, which was stopped for unknown reason. Apparently, the patient has high [id number] score and has indication for anticoagulation for stroke prevention. Risk and benefits are explained to the patient and she does not want to make a decision at this time and would like to discuss with her first. She was hospitalized with similar symptoms in December 2021. Imaging studies then were negative for cerebrovascular accident. Brain MRI did not show acute intracranial pathology yesterday. The patient has been on aspirin and Lipitor. Current LDL level was lower than 70. EKG showed normal sinus rhythm with sinus arrhythmia. Echocardiogram from December 2021 showed 25 to 30% ejection fraction with left atrium dilatation. I have reviewed the patient's chart including imaging studies and visualized them personally. I have discussed the case with the patient and answered her questions in detail. Allergies Allergy/AdvReac Type Severity Reaction Status Date / Time Penicillins Allergy Severe ANAPHYLAXIS--HEART Verified 03/20/22 16:05 STOPPED denosumab Allergy Intermediate bone pain Verified 03/20/22 16:05 mouse protein Allergy Intermediate bone pain Verified 03/20/22 16:05 cephalexin Allergy Mild RASH Verified 03/20/22 16:05 nitrofurazone Allergy Unknown PT NOT SURE Verified 03/20/22 16:05 nystatin Allergy Unknown PT NOT SURE Verified 03/20/22 16:05 codeine AdvReac Intermediate N/V - can Verified 03/20/22 16:05 take Oxycodone erythromycin base AdvReac Intermediate GI UPSET Verified 03/20/22 16:05 oxycodone AdvReac Intermediate NAUSEA/VOMI Verified 03/20/22 16:05 TING narcotics AdvReac Intermediate extreme Uncoded 03/20/22 16:05 drowsy and nausea Home Medications Medication Instructions Recorded Confirmed Type escitalopram oxalate 10 mg tablet 10 mg PO DAILY 07/29/18 03/20/22 History (Lexapro) vitamins A,C,B-ikfs-fqmakn 14,320 1 cap PO BID 07/29/18 03/20/22 History unit-226 mg-200 unit capsule (PreserVision AREDS) calcium carbonate 500 mg-vitamin 1 tab PO DAILY 08/29/19 03/20/22 History D3 5 mcg (200 unit) tablet (Calcium 500 + D) acetaminophen 500 mg tablet 1,000 mg PO Q8 07/15/21 03/20/22 History (Tylenol Extra Strength) cholecalciferol (vitamin D3) 50 50 mcg PO DAILY 07/15/21 03/20/22 History mcg (2,000 unit) capsule (Vitamin D3) aspirin 81 mg tablet,delayed 81 mg PO DAILY 12/31/21 03/20/22 History release atorvastatin 40 mg tablet 40 mg PO DAILY 12/31/21 03/20/22 History ferrous sulfate 325 mg (65 mg 325 mg PO QAM #30 tabs 01/06/22 03/20/22 Rx iron) tablet,delayed release Saccharomyces boulardii 250 mg 250 mg PO BID 03/20/22 03/20/22 History capsule loratadine 10 mg tablet (Claritin) 10 mg PO DAILY 03/20/22 03/20/22 History metoprolol succinate 25 mg 25 mg PO DAILY 03/20/22 03/20/22 History tablet,extended release 24 hr multivitamin 1 tab PO DAILY 03/20/22 03/20/22 History Patient History Medical History Anxiety and depression Asthma hasn't used PRN INH in over a year Cataract Essential tremor Hearing deficit Hip problem LEFT History of breast cancer s/p left mastectomy + chemo/radiation History of DVT (deep vein thrombosis) WITHIN LAST 10 YRS History of hypothyroidism History of pulmonary embolism WITHIN LAST 10 YRS History of skin cancer removed History of stomach ulcers HTN (hypertension) Hypertension Intracranial meningioma (Unknown) pt could not confirm. states "there was something small on my brain that wasn't supposed to be there. nobody was really worried about it." says it was found "years ago" Limb alert care status LUE Osteoarthritis Osteoporosis Patent foramen ovale PT DENIES Rotator cuff tear, right Rupture of hip abductor tendon Swelling of joint, shoulder, right TMJ click Surgical History History of appendectomy History of breast biopsy History of colonoscopy History of esophagogastroduodenoscopy (EGD) History of left hip replacement History of right cataract surgery Slow to wake up after anesthesia Status post left mastectomy HX OF Status post total knee replacement HX OF - BL Family History Father Diabetes Social History Smoking Status: Former smoker Tobacco Type: Cigarettes Second Hand Exposure: No; Do You Dip or Chew Tobacco: No; Tobacco Cessation Education Requested by Patient: No Hx Alcohol Use: No Hx Substance Use: No Preferred Language: Malaysian Communication Ability: Effective Communication Ability Comment: pt has expressive aphasia Party Host/Hostess Required: No Beliefs That Will Affect Care: None marital status: Current Living Situation: Personal Care Facility Current Living Situation Comment: pt lives at [facility] How many Children do You have: 2 Other Information That Helps Us Care for You: No Feels Safe at Home: Yes Safety Concerns: Feels Safe At This Time Assistive Devices: Glasses, Walker and Wheelchair Review of Systems Review of Systems: All systems reviewed & are unremarkable except as noted in HPI & below Physical Exam Physical Exam: General Examination: Constitutional: Well developed person in no acute distress. HEENT: Normal exam with inspection. CV: Hearth rhythm is sinus with PVCs. Neck: Supple, no carotid bruits. Lungs: Non-labored and comfortable breathing. Abdomen: Soft, non-tender, non-distended. Skin: No rash or ecchymosis. Extremities: No edema or cyanosis NEUROLOGICAL EXAMINATION: Mental Status: Alert and oriented to place, person and time. Cranial Nerves: II-XII are intact. No nystagmus. Funduscopy: Normal looking optic discs. Motor: 4+ to 5-/5 in all extremities without asymmetry. There is limited exam of proximal upper extremities due to shoulder pain. Tone: Normal without spasticity or rigidity. Sensory: Intact to all sensory modalities except decreased sensation in distal lower extremities symmetrically. Coordination: No dysmetria with FTN testing. DTRs: 1+ in upper extremities and 1- in lower extremities. No Babinski. Speech: Fluent. Comprehension is intact. Gait: Not assessed. She walks with walker on her baseline Musculoskeletal: Normal muscle bulk, no atrophy. Results & Data ([facility]) Vital Signs (Past 12 Hours) Vital Signs Temp Pulse Resp BP Pulse Ox O2 Del Method 03/21/22 13:52 36.8 C 61 19 117/72 95 Room Air 03/21/22 03:51 36.7 C 73 16 144/72 H 95 Room Air Laboratory Results Laboratory Results - last 24 hr 03/21/22 03/21/22 03/21/22 05:49 05:49 05:49 WBC 6.46 RBC 4.24 Hgb 12.8 Hct 38.4 MCV 90.6 MCH 30.2 MCHC 33.3 RDW Std Deviation 59.1 H RDW Coeff of Alessandro 18.3 H Plt Count 220 MPV 9.8 Immature Gran % (Auto) 0.2 Neut % (Auto) 55.1 Lymph % (Auto) 30.3 Grainger % (Auto) 11.3 Eos % (Auto) 2.0 Baso % (Auto) 1.1 Neut # (Auto) 3.56 Lymph # (Auto) 1.96 Grainger # (Auto) 0.73 Eos # (Auto) 0.13 Baso # (Auto) 0.07 Immature Gran # (Auto) 0.01 Sodium 137 Potassium 3.8 Chloride 101 Carbon Dioxide 28 Anion Gap 8 BUN 12 Creatinine 0.72 Est Cr Clr Drug Dosing 43.5 Est GFR ( Amer) 87.3 Est GFR (Non-Af Amer) 75.3 BUN/Creatinine Ratio 16.7 Glucose 94 Estimat Average Glucose 120 Hemoglobin A1c 5.8 H Calcium 9.0 Magnesium 1.7 Triglycerides 116 Cholesterol 109 LDL Cholesterol, Calc 37 VLDL Cholesterol, Calc 23 HDL Cholesterol 49 Cholesterol/HDL Ratio 2.2 Procalcitonin 03/21/22 05:49 WBC RBC Hgb Hct MCV MCH MCHC RDW Std Deviation RDW Coeff of Alessandro Plt Count MPV Immature Gran % (Auto) Neut % (Auto) Lymph % (Auto) Grainger % (Auto) Eos % (Auto) Baso % (Auto) Neut # (Auto) Lymph # (Auto) Grainger # (Auto) Eos # (Auto) Baso # (Auto) Immature Gran # (Auto) Sodium Potassium Chloride Carbon Dioxide Anion Gap BUN Creatinine Est Cr Clr Drug Dosing Est GFR ( Amer) Est GFR (Non-Af Amer) BUN/Creatinine Ratio Glucose Estimat Average Glucose Hemoglobin A1c Calcium Magnesium Triglycerides Cholesterol LDL Cholesterol, Calc VLDL Cholesterol, Calc HDL Cholesterol Cholesterol/HDL Ratio Procalcitonin < 0.05 Diagnostic Findings Chest X-Ray 03/20/22 12:12 XR chest 1V portable HISTORY: 86 years-old Female Stroke Like Symptoms acute strokelike symptoms COMPARISON: Chest radiograph 01/11/2022 TECHNIQUE: AP view the chest FINDINGS: Cardiac silhouette is enlarged. Mitral annular calcifications. Atherosclerosis of the thoracic aorta. No pneumothorax, large pleural effusion or overt pulmonary edema. Chronic blunting of the costophrenic angles with subsegmental bibasilar densities suggestive of atelectasis versus scarring. There is a large amount of contrast present within the soft tissues of the right upper extremity. Contrast noted within the renal collecting systems. Abdominal left upper quadrant. Possible left renal calculus. IMPRESSION: 1. Cardiomegaly without acute process of the chest. 2. Large amount of contrast extravasation of the right upper extremity. ACT 112: Negative or not required by law. The above report was generated using voice recognition software. It may contain grammatical, syntax or spelling errors. Electronically signed by: Juanito Fernandez M.D. 03/20/2022 1:[address] 03/20/22 12:12 CT OF THE HEAD WITHOUT CONTRAST CLINICAL HISTORY: Stroke Like Symptoms COMPARISON STUDY: Head CT, MRI of the brain and CT of the head January 11, 2022. TECHNIQUE: Helical axial images of the head were obtained without IV contrast. Automated exposure control was utilized for the study. A dose lowering technique was utilized adhering to the principles of ALARA. FINDINGS: No acute intracranial hemorrhage, midline shift or mass effect is present. The ventricular system is stable. White matter hypodensities are unchanged and favor small vessel disease. 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 A calcified density along the inner table of the left frontal bone remains unchanged. The basal cisterns are patent. No extra- axial collections are present. There are no findings to suggest acute dural sinus thrombosis or acute territorial infarct. No significant calvarial abnormalities are present. Visualized portions of the sinuses and mastoid air cells are clear. IMPRESSION: No acute intracranial findings. No change in appearance of the brain. ACT 112: Negative or not required by law. Electronically signed by: Mina Vora M.D. 03/20/2022 12:50 PM Head CTA 03/20/22 12:12 HEAD CTA HISTORY: Stroke Like Symptoms TECHNIQUE: Multiaxial CT images of the head were performed both before and after the intravenous administration of contrast to evaluate the major cerebral vessels. Maximum intensity projection images were also obtained. A dose lowering technique was utilized adhering to the principles of ALARA. COMPARISON: Head CT 01/11/2022. FINDINGS: There is no mass, hematoma, midline shift, or acute infarct. Visualized intracranial internal carotid arteries, distal vertebral arteries, and basilar artery are widely patent. There is no significant stenosis, occlusion, or aneurysm seen within the bilateral ACAs, MCAs, or blacktop spreader. The major dural venous sinuses are patent. Calcified plaque within the bilateral carotid siphons again noted. IMPRESSION: No significant stenosis, occlusion, or aneurysm within the [place]. ACT 112: Negative or not required by law. Electronically signed by: Royer Garcia M.D. 03/20/2022 1:01 PM Neck CTA 03/20/22 12:12 CT ANGIOGRAM OF THE NECK CLINICAL HISTORY: Strokelike symptoms. COMPARISON STUDY: CT angiogram the neck dated 01/11/2022. TECHNIQUE: Following the IV administration of 113 of Optiray 300, CT angiogram of the neck was performed from the aortic arch to the skull base. Images are reviewed in the axial, sagittal, and coronal planes. 3-D MIPS images are created and assessed. IV contrast was administered without complication. All measurements were calculated based on NASCET criteria. A dose lowering technique was utilized adhering to the principles of ALARA. FINDINGS: Thoracic aorta: There is atherosclerotic calcification of the thoracic aorta. Visualized portions of the thoracic aorta are normal in caliber. The aortic arch demonstrates standard 3-vessel anatomy. Right carotid arterial system: The right common carotid artery is patent, as are the right internal and extra carotid arteries. Atherosclerotic plaque is noted in the carotid bulb. The right internal carotid artery is widely patent. Moderate stenosis at the origin of the right external carotid artery is unchanged. Left carotid arterial system: The left common carotid artery is patent, as are the left internal and external carotid arteries. Plaque is seen within the distal left common carotid artery and within the carotid bulb. Vertebral arteries: Widely patent bilaterally and codominant. Subclavian arteries: Widely patent bilaterally. Intracranial vasculature: The visualized intracranial vessels at the skull base are patent. Jugular veins: Widely patent bilaterally. Brain parenchyma: The visualized brain parenchyma the skull base is within normal limits noting age-related involutional change. Lung apices: Emphysematous change is noted. Upper lobe lung parenchyma is otherwise clear as imaged. Soft tissues: The visualized pharyngeal soft tissues are normal in appearance noting angiographic phase technique. The oropharyngeal airway appears widely patent. The salivary and thyroid glands are normal in appearance. No cervical lymphadenopathy is seen. Skeletal structures: The skeletal structures are osteopenic. The visualized calvarium at the skull base appears intact. The imaged cervical spine is maintained noting advanced multilevel spondylosis. No lytic or blastic lesion is seen. Sinuses and mastoids: The visualized paranasal sinuses are clear. The mastoid air cells are well pneumatized. IMPRESSION: 1. No significant change from 01/11/2022 or 07/15/2021. 2. 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 3. Otherwise unremarkable CT angiogram of the neck. ACT 112: Negative or not required by law. Electronically signed by: Austen Aguilar M.D. 03/20/2022 1:05 PM Brain MRI 03/20/22 16:02 MR brain wo/w con HISTORY: 86 years-old Female stroke like symptoms per ordering acute strokelike symptoms COMPARISON: Head CT of same day, brain MRI 01/11/2022. TECHNIQUE: Multiplanar multisequence MRI of the brain was obtained both with and without the use of 5 cc Gadavist FINDINGS: Solid [place] localizer images demonstrate no gross extracranial abnormality. No restricted diffusion. The midline structures appear unremarkable with degenerative changes of the cervical spine. Partially empty sella. No acute intracranial hemorrhage, midline shift, abnormal extra axial collection, hydrocephalus or intra-axial mass. 1.2 x 1.2 cm enhancing extra-axial lesion adjacent to left frontal lobe. Involutional changes with mild to moderate T2/FLAIR hyperintense foci throughout the white matter. Ventriculomegaly is likely on a acute basis. 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 No abnormal intra-axial enhancement. Cerebral venous sinuses and major arterial flow voids are patent. Prior bilateral lens repair. Skull and soft tissues are within normal limits. Mastoid air cells and paranasal sinuses appear clear. IMPRESSION: 1. No acute intracranial abnormality. No acute or subacute infarct. 2. Involutional changes with chronic microvascular ischemic disease. 3. Unchanged 1.2 cm meningioma adjacent to left frontal lobe. ACT 112: Negative or not required by law. The above report was generated using voice recognition software. It may contain grammatical, syntax or spelling errors. Electronically signed by: Juanito Fernandez M.D. 03/21/2022 7:11 AM Shoulder X-Ray 03/20/22 18:48 XR shoulder RT min 2V routine CLINICAL HISTORY: Pain, decreased ROM COMPARISON: Right shoulder radiographs August 01, 2018. FINDINGS: Elevation of the right humeral head is unchanged. There is no acute fracture. Severe osteoarthritis of the right glenohumeral joint is noted. There are no osseous lesions. IMPRESSION: 1. No acute fracture or dislocation within the right shoulder. 2. Elevation of the right humeral head which suggests a chronic rotator cuff tear, unchanged. 3. Severe glenohumeral joint osteoarthritis. ACT 112: Negative or not required by law. Electronically signed by: Mina Vora M.D. 03/20/2022 8:18 PM Chest X-Ray 03/20/22 21:35 XR chest 1V portable HISTORY: 86 years-old Female post-operative coughing and wheezing acute cough with wheezing COMPARISON: Chest radiograph 03/20/2022 TECHNIQUE: Portable AP view of the chest FINDINGS: Cardiac silhouette is enlarged. Atherosclerosis of the thoracic aorta with mitral annular calcification. The patient is mildly rotated towards the left. No pneumothorax, large pleural effusion or overt pulmonary edema. Surgical clips of the left upper quadrant abdomen. Degenerative changes of the shoulders and spine. IMPRESSION: Cardiomegaly without acute process. ACT 112: Negative or not required by law. The above report was generated using voice recognition software. It may contain grammatical, syntax or spelling errors. Electronically signed by: Juanito Fernandez M.D. 03/20/2022 10:34 PM
[2022-03-22 07:15] LABS: Hematocrit (blood only) 35.5 % (34.1-44.9); Hemoglobin 11.9 g/dl (12.0-16.0); Mean Corpuscular Hemoglobin 30.8 pg (25.0-34.0); Mean Corpuscular Hgb Conc 33.5 g/dL (32.0-36.0); Mean Platelet Volume 9.9 fL (9.4-12.3); Platelet Count 200 K/uL (130-400); RDW Coefficient of Variation 18.1 % (11.5-14.5); RDW Standard Deviation 59.6 fL (36.4-46.3); Red Blood Count 3.86 M/uL (3.93-5.22)
[2022-03-22 08:02] LABS: Calcium 8.9 mg/dl (8.5-10.1); Creatinine Clr Calc Pharmacy 41.8 ml/min; Est GFR (African American) 83.1 ml/min; Est GFR (Non-African American) 71.7 ml/min; Potassium 3.7 mmol/L (3.5-5.1)
[2022-03-22] MEDS: FERROUS SULFATE 325 MG TAB PO SCH (09:17)
[2022-03-22] MEDS: CALCIUM 600MG + VIT D 400 IU TAB PO SCH (09:17)
[2022-03-22] MEDS: CHOLECALCIFEROL 1,000 UNITS 25 MCG TAB PO SCH (09:17)
[2022-03-22] MEDS: METOPROLOL SUCC 25MG EXT REL TAB PO SCH (09:17)
[2022-03-22] MEDS: ATORVASTATIN 40 MG TAB PO SCH (09:17)
[2022-03-22] MEDS: CEROVITE ADV FORMULA TAB PO SCH ×2 (09:17→19:52)
[2022-03-22] MEDS: ESCITALOPRAM OXALATE 10 MG TAB PO SCH (09:18)
[2022-03-22] MEDS: LORATADINE 10 MG TAB PO SCH (09:18)
[2022-03-22] MEDS: ASPIRIN 81 MG ECTAB PO SCH (09:18)
--- NOTE | 2022-03-22 16:01 | Hospitalist Progress Note ---
Date of Service March 22, 2022 Assessment & Plan (1) Stroke-like symptom: (2) Transient confusion: (3) Brain TIA: (4) Chronic combined systolic and diastolic CHF (congestive heart failure): (5) HTN (hypertension): (6) PAF (paroxysmal atrial fibrillation): (7) Swelling of joint, shoulder, right: Plan: Patient is an 86 yr female who presents with aphagia. Stroke-like symptoms Aphasia Possible TIA --MRI Brain:No acute intracranial abnormality. No acute or subacute infarct. Involutional changes with chronic microvascular ischemic disease. Unchanged 1.2 cm meningioma adjacent to left frontal lobe. --Head CT:No acute intracranial findings. No change in appearance of the brain. --Head CTA:No significant stenosis, occlusion, or aneurysm within the [place]. --Neck CTA:No significant change from 01/11/2022 or 07/15/2021. 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 Otherwise unremarkable CT angiogram of the neck. --ECHO 01/01/22: Left ventricle is normal in size. Moderate concentric LVH. Moderate to severe global hypokinesis of left ventricle. EF 25 to 30%. Left atrium is severely dilated. Mild aortic regurgitation. Moderate to severe mitral regurgitation. Moderate tricuspid regurgitation. Right ventricle systolic function elevated at 40 to 45 mmHg --LDL 37 --Speech therapy, PT OT evaluation Fall precautions Appreciate Neurology Input Continue neurochecks Continue aspirin 81 mg, Lipitor 40 mg Aphasia resolved Mental status at baseline Discussed regarding possible need for anticoagulation given H/O P.Afib: Patient prefers to discuss with PCP before making a decision Needs follow-up with Neurology upon discharge Right Shoulder deformity Chronic rotator cuff tear H/O shoulder surgery Shoulder X ray: No acute fracture or dislocation within the right shoulder. Elevation of the right humeral head which suggests a chronic rotator cuff tear, unchanged. Severe glenohumeral joint osteoarthritis. No history of trauma Follow-up with orthopedics as outpatient Chronic combined systolic and diastolic CHF: Was on Torsemide, Isordil and Aldactone - not on current MAR from [facility] Euvolemic currently Monitor volume status HTN: P.AFib: Continue Metoprolol Not on chronic anticoagulation Prediabetes HbA1c 5.8 HLD: Continue atorvastatin Anxiety and depression: stable Continue Lexapro DVT Px: Heparin SQ Code Status DNR/DNI Disposition PT/OT prior to discharge Admission and Anticipated Discharge Date Admission Date: March 20, 2022 Subjective Patient is seen and examined at bedside Doing much better today Aphasia resolved No new complaints Discussed about possible need for anticoagulation next Denies any chest pain, shortness of breath, dizziness, nausea, abdominal pain Review of Systems Review of Systems: All systems reviewed & are unremarkable except as noted in Subjective Physical Exam Physical Exam: Physical Exam: Vitals signs as noted above General Appearance:Thin, frail, chronic ill appearing, No apparent distress Head: normocephalic, Atraumatic Eyes: normal inspection, EOMI Neck: supple, Trachea midline Respiratory/Chest: Normal breath sounds, CTA, No accessory muscle use Cardiovascular: S1, S2, No murmur Abdomen/GI:Soft, Non tender, Bowel sounds present Extremities/Musculoskeletal:normal inspection, no edema, Right shoulder decreased ROM Neurologic/Psych:AAOX3, grossly no focal neurological deficits Skin: normal color, warm Results & Data Results & Data ([facility]) Vital Signs (Past 12 Hours) Vital Signs Temp Pulse Pulse Resp BP Pulse Ox O2 Del Method 03/22/22 11:52 36.3 C L 66 20 169/74 H 97 Room Air 03/22/22 08:00 71 03/22/22 07:21 36.7 C 68 20 145/78 H 95 Room Air Laboratory Results Short CBC 03/22/22 Range/Units 06:58 WBC 6.10 (4.8-10.8) K/ul Hgb 11.9 L (12.0-16.0) g/dl Hct 35.5 (34.1-44.9) % Plt Count 200 (130-400) K/uL BMP 03/22/22 03/22/22 06:58 09:43 Sodium 131 L 136 Potassium 3.7 Chloride 99 Carbon Dioxide 28 BUN 21 Creatinine 0.75 Glucose 107 H Calcium 8.9
[2022-03-22 16:43] LABS: Anion Gap 6.6 (3-11)
[2022-03-23] MEDS: ASPIRIN 81 MG ECTAB PO SCH (09:34)
[2022-03-23] MEDS: LORATADINE 10 MG TAB PO SCH (09:34)
[2022-03-23] MEDS: ESCITALOPRAM OXALATE 10 MG TAB PO SCH (09:34)
[2022-03-23] MEDS: METOPROLOL SUCC 25MG EXT REL TAB PO SCH (09:35)
[2022-03-23] MEDS: CEROVITE ADV FORMULA TAB PO SCH (09:35)
[2022-03-23] MEDS: FERROUS SULFATE 325 MG TAB PO SCH (09:35)
[2022-03-23] MEDS: ATORVASTATIN 40 MG TAB PO SCH (09:35)
[2022-03-23] MEDS: CHOLECALCIFEROL 1,000 UNITS 25 MCG TAB PO SCH (09:35)
[2022-03-23] MEDS: CALCIUM 600MG + VIT D 400 IU TAB PO SCH (09:35)
[2022-03-23 10:33] LABS: BUN Creatinine Ratio 23.9 (10-20); Creatinine Clr Calc Pharmacy 44.2 ml/min; Est GFR (African American) 88.8 ml/min; Est GFR (Non-African American) 76.6 ml/min; Potassium 4.1 mmol/L (3.5-5.1)
--- NOTE | 2022-03-23 13:45 | Hospitalist Progress Note ---
Date of Service March 23, 2022 Assessment & Plan (1) Stroke-like symptom: (2) Transient confusion: (3) Brain TIA: (4) Chronic combined systolic and diastolic CHF (congestive heart failure): (5) HTN (hypertension): (6) PAF (paroxysmal atrial fibrillation): (7) Swelling of joint, shoulder, right: Plan: Patient is an 86 yr female who presents with aphagia. Stroke-like symptoms Aphasia Possible TIA --MRI Brain:No acute intracranial abnormality. No acute or subacute infarct. Involutional changes with chronic microvascular ischemic disease. Unchanged 1.2 cm meningioma adjacent to left frontal lobe. --Head CT:No acute intracranial findings. No change in appearance of the brain. --Head CTA:No significant stenosis, occlusion, or aneurysm within the [place]. --Neck CTA:No significant change from 01/11/2022 or 07/15/2021. 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 Otherwise unremarkable CT angiogram of the neck. --ECHO 01/01/22: Left ventricle is normal in size. Moderate concentric LVH. Moderate to severe global hypokinesis of left ventricle. EF 25 to 30%. Left atrium is severely dilated. Mild aortic regurgitation. Moderate to severe mitral regurgitation. Moderate tricuspid regurgitation. Right ventricle systolic function elevated at 40 to 45 mmHg --LDL 37 --Speech therapy, PT OT evaluation Fall precautions Appreciate Neurology Input Continue Neuro checks Continue aspirin 81 mg, Lipitor 40 mg Aphasia resolved Mental status at baseline Discussed regarding possible need for anticoagulation given H/O P.Afib: Patient prefers to discuss with PCP before making a decision Needs follow-up with Neurology upon discharge Plan to discharge to SNF today Right Shoulder deformity Chronic rotator cuff tear H/O shoulder surgery Shoulder X ray: No acute fracture or dislocation within the right shoulder. Elevation of the right humeral head which suggests a chronic rotator cuff tear, unchanged. Severe glenohumeral joint osteoarthritis. No history of trauma Follow-up with orthopedics as outpatient Chronic combined systolic and diastolic CHF: Was on Torsemide, Isordil and Aldactone -not on current MAR from SNF Euvolemic currently Monitor volume status HTN: P.AFib: Continue Metoprolol Not on chronic anticoagulation Prediabetes HbA1c 5.8 HLD: Continue atorvastatin Anxiety and depression: stable Continue Lexapro DVT Px: Heparin SQ Code Status DNR/DNI Disposition SNF Admission and Anticipated Discharge Date Admission Date: March 20, 2022 Subjective Patient is seen and examined at bedside States feeling well today No new complaints Denies any chest pain, shortness of breath, dizziness, nausea, abdominal pain Plan to discharge back to SNF today Review of Systems Review of Systems: All systems reviewed & are unremarkable except as noted in Subjective Physical Exam Physical Exam: Physical Exam: Vitals signs as noted above General Appearance:Thin, frail, chronic ill appearing, No apparent distress Head: normocephalic, Atraumatic Eyes: normal inspection, EOMI Neck: supple, Trachea midline Respiratory/Chest: Normal breath sounds, CTA, No accessory muscle use Cardiovascular: S1, S2, No murmur Abdomen/GI:Soft, Non tender, Bowel sounds present Extremities/Musculoskeletal:normal inspection, no edema, Right shoulder decreased ROM Neurologic/Psych:AAOX3, grossly no focal neurological deficits Skin: normal color, warm Results & Data Results & Data ([facility]) Vital Signs (Past 12 Hours) Vital Signs Temp Pulse Pulse Resp BP Pulse Ox O2 Del Method 03/23/22 03:37 87 03/23/22 02:32 36.9 C 57 L 18 147/74 H 94 Room Air Laboratory Results BMP 03/22/22 03/23/22 06:58 09:51 Sodium 139 136 Potassium 4.1 Chloride 104 Carbon Dioxide 26 BUN 17 Creatinine 0.71 Glucose 85 Calcium 9.0
[2022-03-23] MEDS ORDERED: STROKE PATIENT DISCHARGE STA (13:52)
--- NOTE | 2022-03-23 13:56 | Discharge Summary ---
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 Patient was recently admitted to [facility] from 12/31-01/06 with dyspnea and weakness and found to have acute systolic CHF with EF 25-30% and started on torsemide, isordil and aldactone. She was [facility] on 01/[facility]. She also had an additional admission and was discharged on 01/11. Today, a CTA head/neck, head CT, and MRI of brain was all unremarkable aside from some moderate right carotid artery stenosis. CBC, BMP stable. EKG NSR. During our encounter, she still was struggling with word finding difficulty and had expressive aphasia.She did have a TIA episode in 07/2021. A stroke alert was called however no tele eval occurred due to her symptoms being outside the 3 hour randal and she is not a tPA candidate. Pt will be admitted under hospitalist service for further evaluation and management. Patient was sitting in her bed in no apparent distress. She was able to tell me her name but could not get the words out to tell me her birthday or other information. Her neuro exam was unremarkable; however, she had a difficult time raising her right arm. She did just receive contrast in her IV in that arm that was visible on CT. Will obtain right shoulder x-ray as well. Patient will be admitted for further evaluation and management. Please see A/P for further details. Admission Exam Per Admitting Provider Physical Exam Physical Exam: Neuro: AAOx1, (+) mixed aphagia, CN II-XII intact. HEENT: head normocephalic, moist mucus membranes CV: S1/S2, (-) M/G/R, (-) edema, cap refill < 3 seconds Resp: Lungs CTA in all beltran. On RA GI: Abdomen S/NT/ND, Ax4 bowel sounds, (-) CVA tenderness Musculoskeletal: 5/5 B/L UE strength, 5/5 B/L LE strength. No gait disturbance Skin: (-) rashes , (-) erythema. Psych: euthymic mood Principal Diagnosis Stroke-like symptoms Expressive aphasia Possible TIA Discharge Data Allergies Allergy/AdvReac Type Severity Reaction Status Date / Time Penicillins Allergy Severe ANAPHYLAXIS--HEART Verified 03/20/22 16:05 STOPPED denosumab Allergy Intermediate bone pain Verified 03/20/22 16:05 mouse protein Allergy Intermediate bone pain Verified 03/20/22 16:05 cephalexin Allergy Mild RASH Verified 03/20/22 16:05 nitrofurazone Allergy Unknown PT NOT SURE Verified 03/20/22 16:05 nystatin Allergy Unknown PT NOT SURE Verified 03/20/22 16:05 codeine AdvReac Intermediate N/V - can Verified 03/20/22 16:05 take Oxycodone erythromycin base AdvReac Intermediate GI UPSET Verified 03/20/22 16:05 oxycodone AdvReac Intermediate NAUSEA/VOMI Verified 03/20/22 16:05 TING narcotics AdvReac Intermediate extreme Uncoded 03/20/22 16:05 drowsy and nausea Consultations 03/20/22 14:01 ED Decision to Admit Stat 03/20/22 21:35 Consult Neurology Routine Procedures Performed Laboratory Results WBC 6.10 K/ul (4.8-10.8) 03/22/22 06:58 RBC 3.86 M/uL (3.93-5.22) L 03/22/22 06:58 Hgb 11.9 g/dl (12.0-16.0) L 03/22/22 06:58 Hct 35.5 % (34.1-44.9) 03/22/22 06:58 MCV 92.0 fL (80.0-100.0) 03/22/22 06:58 MCH 30.8 pg (25.0-34.0) 03/22/22 06:58 MCHC 33.5 g/dL (32.0-36.0) 03/22/22 06:58 RDW Std Deviation 59.6 fL (36.4-46.3) H 03/22/22 06:58 RDW Coeff of Alessandro 18.1 % (11.5-14.5) H 03/22/22 06:58 Plt Count 200 K/uL (130-400) 03/22/22 06:58 MPV 9.9 fL (9.4-12.3) 03/22/22 06:58 Immature Gran % (Auto) 0.2 % 03/21/22 05:49 Neut % (Auto) 55.1 % 03/21/22 05:49 Lymph % (Auto) 30.3 % 03/21/22 05:49 [place] % (Auto) 11.3 % 03/21/22 05:49 Eos % (Auto) 2.0 % 03/21/22 05:49 Baso % (Auto) 1.1 % 03/21/22 05:49 Neut # (Auto) 3.56 K/uL (1.4-6.5) 03/21/22 05:49 Lymph # (Auto) 1.96 K/uL (1.2-3.4) 03/21/22 05:49 [place] # (Auto) 0.73 K/uL (0.24-0.82) 03/21/22 05:49 Eos # (Auto) 0.13 K/uL (0-0.50) 03/21/22 05:49 Baso # (Auto) 0.07 K/uL (0-0.2) 03/21/22 05:49 Immature Gran # (Auto) 0.01 K/uL (0.00-0.02) 03/21/22 05:49 PT 12.4 Seconds (9.0-12.0) H 03/20/22 12:43 INR 1.2 (0.9-1.1) H 03/20/22 12:43 APTT 26.1 Seconds (21.0-31.0) 03/20/22 12:43 PTT Ratio 0.9 03/20/22 12:43 Sodium 136 mmol/L (136-145) 03/23/22 09:51 Potassium 4.1 mmol/L (3.5-5.1) 03/23/22 09:51 Chloride 104 mmol/L (98-107) 03/23/22 09:51 Carbon Dioxide 26 mmol/L (21-32) 03/23/22 09:51 Anion Gap 6 (3-11) 03/23/22 09:51 BUN 17 mg/dl (6-23) 03/23/22 09:51 Creatinine 0.71 mg/dl (0.6-1.2) 03/23/22 09:51 Est Cr Clr Drug Dosing 44.2 ml/min 03/23/22 09:51 Est GFR ( Amer) 88.8 ml/min 03/23/22 09:51 Est GFR (Non-Af Amer) 76.6 ml/min 03/23/22 09:51 BUN/Creatinine Ratio 23.9 (10-20) H 03/23/22 09:51 Glucose 85 mg/dl (70-99(Fasting)) 03/23/22 09:51 POC Glucose 109 mg/dl (70-99) H 03/20/22 12:41 Estimat Average Glucose 120 mg/dl 03/21/22 05:49 Hemoglobin A1c 5.8 % (4.5-5.6) H 03/21/22 05:49 Calcium 9.0 mg/dl (8.5-10.1) 03/23/22 09:51 Phosphorus 3.4 mg/dl (2.5-4.9) 03/20/22 12:43 Magnesium 1.7 mg/dl (1.7-2.4) 03/21/22 05:49 Total Bilirubin 0.4 mg/dl (0.2-1.0) 03/20/22 12:43 AST 17 U/L (13-39) 03/20/22 12:43 ALT 10 U/L (7-52) 03/20/22 12:43 Alkaline Phosphatase 61 U/L (34-104) 03/20/22 12:43 Troponin I High Sens 9.5 pg/ml (0-14) D 03/20/22 12:43 Total Protein 5.3 gm/dl (6.0-8.3) L 03/20/22 12:43 Albumin 3.5 gm/dl (3.4-5.0) 03/20/22 12:43 Globulin 1.8 gm/dl (2.5-4.0) L 03/20/22 12:43 Albumin/Globulin Ratio 1.9 (0.9-2) 03/20/22 12:43 Triglycerides 116 mg/dl (0-150) 03/21/22 05:49 Cholesterol 109 mg/dl (0-200) 03/21/22 05:49 LDL Cholesterol, Calc 37 mg/dl 03/21/22 05:49 VLDL Cholesterol, Calc 23 mg/dl (0-30) 03/21/22 05:49 HDL Cholesterol 49 mg/dl 03/21/22 05:49 Cholesterol/HDL Ratio 2.2 (0-5) 03/21/22 05:49 Procalcitonin < 0.05 ng/ml (0-0.5) 03/21/22 05:49 Urine Color Yellow 03/20/22 13:45 Urine Appearance Clear (Clear) 03/20/22 13:45 Urine pH 6.5 (4.5-7.5) 03/20/22 13:45 Ur Specific Slater 1.030 (1.000-1.030) 03/20/22 13:45 Urine Protein Negative (Negative) 03/20/22 13:45 Urine Glucose (UA) Negative (Negative) 03/20/22 13:45 Urine Ketones Negative (Negative) 03/20/22 13:45 Urine Blood Negative (Negative) 03/20/22 13:45 Urine Nitrite Negative (Negative) 03/20/22 13:45 Urine Bilirubin Negative (Negative) 03/20/22 13:45 Urine Urobilinogen Negative (Negative) 03/20/22 13:45 Ur Leukocyte Esterase Negative (Negative) 03/20/22 13:45 SARS-CoV-2, RNA, NAAT NEGATIVE (NEGATIVE) 03/20/22 13:[address] 03/20/22 12:12 CT OF THE HEAD WITHOUT CONTRAST CLINICAL HISTORY: Stroke Like Symptoms COMPARISON STUDY: Head CT, MRI of the brain and CT of the head January 11, 2022. TECHNIQUE: Helical axial images of the head were obtained without IV contrast. Automated exposure control was utilized for the study. A dose lowering technique was utilized adhering to the principles of ALARA. FINDINGS: No acute intracranial hemorrhage, midline shift or mass effect is present. The ventricular system is stable. White matter hypodensities are unchanged and favor small vessel disease. 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 A calcified density along the inner table of the left frontal bone remains unchanged. The basal cisterns are patent. No extra- axial collections are present. There are no findings to suggest acute dural sinus thrombosis or acute territorial infarct. No significant calvarial abnormalities are present. Visualized portions of the sinuses and mastoid air cells are clear. IMPRESSION: No acute intracranial findings. No change in appearance of the brain. ACT 112: Negative or not required by law. Electronically signed by: Mina Vora M.D. 03/20/2022 12:50 PM Head CTA 03/20/22 12:12 HEAD CTA HISTORY: Stroke Like Symptoms TECHNIQUE: Multiaxial CT images of the head were performed both before and after the intravenous administration of contrast to evaluate the major cerebral vessels. Maximum intensity projection images were also obtained. A dose lowering technique was utilized adhering to the principles of ALARA. COMPARISON: Head CT 01/11/2022. FINDINGS: There is no mass, hematoma, midline shift, or acute infarct. Visualized intracranial internal carotid arteries, distal vertebral arteries, and basilar artery are widely patent. There is no significant stenosis, occlusion, or aneurysm seen within the bilateral ACAs, MCAs, or customer professional. The major dural venous sinuses are patent. Calcified plaque within the bilateral carotid siphons again noted. IMPRESSION: No significant stenosis, occlusion, or aneurysm within the [place] of [place]. ACT 112: Negative or not required by law. Electronically signed by: Royer Garcia M.D. 03/20/2022 1:01 PM Neck CTA 03/20/22 12:12 CT ANGIOGRAM OF THE NECK CLINICAL HISTORY: Strokelike symptoms. COMPARISON STUDY: CT angiogram the neck dated 01/11/2022. TECHNIQUE: Following the IV administration of 113 of Optiray 300, CT angiogram of the neck was performed from the aortic arch to the skull base. Images are reviewed in the axial, sagittal, and coronal planes. 3-D MIPS images are created and assessed. IV contrast was administered without complication. All measurements were calculated based on NASCET criteria. A dose lowering technique was utilized adhering to the principles of ALARA. FINDINGS: Thoracic aorta: There is atherosclerotic calcification of the thoracic aorta. Visualized portions of the thoracic aorta are normal in caliber. The aortic arch demonstrates standard 3-vessel anatomy. Right carotid arterial system: The right common carotid artery is patent, as are the right internal and extra carotid arteries. Atherosclerotic plaque is noted in the carotid bulb. The right internal carotid artery is widely patent. Moderate stenosis at the origin of the right external carotid artery is unchanged. Left carotid arterial system: The left common carotid artery is patent, as are the left internal and external carotid arteries. Plaque is seen within the distal left common carotid artery and within the carotid bulb. Vertebral arteries: Widely patent bilaterally and codominant. Subclavian arteries: Widely patent bilaterally. Intracranial vasculature: The visualized intracranial vessels at the skull base are patent. Jugular veins: Widely patent bilaterally. Brain parenchyma: The visualized brain parenchyma the skull base is within normal limits noting age-related involutional change. Lung apices: Emphysematous change is noted. Upper lobe lung parenchyma is otherwise clear as imaged. Soft tissues: The visualized pharyngeal soft tissues are normal in appearance noting angiographic phase technique. The oropharyngeal airway appears widely patent. The salivary and thyroid glands are normal in appearance. No cervical lymphadenopathy is seen. Skeletal structures: The skeletal structures are osteopenic. The visualized calvarium at the skull base appears intact. The imaged cervical spine is maintained noting advanced multilevel spondylosis. No lytic or blastic lesion is seen. Sinuses and mastoids: The visualized paranasal sinuses are clear. The mastoid air cells are well pneumatized. IMPRESSION: 1. No significant change from 01/11/2022 or 07/15/2021. 2. 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 3. Otherwise unremarkable CT angiogram of the neck. ACT 112: Negative or not required by law. Electronically signed by: Austen Aguilar M.D. 03/20/2022 1:05 PM Brain MRI 03/20/22 16:02 MR brain wo/w con HISTORY: 86 years-old Female stroke like symptoms per ordering acute strokelike symptoms COMPARISON: Head CT of same day, brain MRI 01/11/2022. TECHNIQUE: Multiplanar multisequence MRI of the brain was obtained both with and without the use of 5 cc Gadavist FINDINGS: Patient Care Associate localizer images demonstrate no gross extracranial abnormality. No restricted diffusion. The midline structures appear unremarkable with degenerative changes of the cervical spine. Partially empty sella. No acute intracranial hemorrhage, midline shift, abnormal extra axial collection, hydrocephalus or intra-axial mass. 1.2 x 1.2 cm enhancing extra-axial lesion adjacent to left frontal lobe. Involutional changes with mild to moderate T2/FLAIR hyperintense foci throughout the white matter. Ventriculomegaly is lik karla on a acute basis. 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 No abnormal intra-axial enhancement. Cerebral venous sinuses and major arterial flow voids are patent. Prior bilateral lens repair. Skull and soft tissues are within normal limits. Mastoid air cells and paranasal sinuses appear clear. IMPRESSION: 1. No acute intracranial abnormality. No acute or subacute infarct. 2. Involutional changes with chronic microvascular ischemic disease. 3. Unchanged 1.2 cm meningioma adjacent to left frontal lobe. ACT 112: Negative or not required by law. The above report was generated using voice recognition software. It may contain grammatical, syntax or spelling errors. Electronically signed by: Juanito Fernandez M.D. 03/21/2022 7:11 AM Shoulder X-Ray 03/20/22 18:48 XR shoulder RT min 2V routine CLINICAL HISTORY: Pain, decreased ROM COMPARISON: Right shoulder radiographs August 01, 2018. FINDINGS: Elevation of the right humeral head is unchanged. There is no acute fracture. Severe osteoarthritis of the right glenohumeral joint is noted. There are no osseous lesions. IMPRESSION: 1. No acute fracture or dislocation within the right shoulder. 2. Elevation of the right humeral head which suggests a chronic rotator cuff tear, unchanged. 3. Severe glenohumeral joint osteoarthritis. ACT 112: Negative or not required by law. Electronically signed by: Mina Vora M.D. 03/20/2022 8:18 PM Chest X-Ray 03/20/22 21:35 XR chest 1V portable HISTORY: 86 years-old Female post-operative coughing and wheezing acute cough with wheezing COMPARISON: Chest radiograph 03/20/2022 TECHNIQUE: Portable AP view of the chest FINDINGS: Cardiac silhouette is enlarged. Atherosclerosis of the thoracic aorta with mitral annular calcification. The patient is mildly rotated towards the left. No pneumothorax, large pleural effusion or overt pulmonary edema. Surgical clips of the left upper quadrant abdomen. Degenerative changes of the shoulders and spine. IMPRESSION: Cardiomegaly without acute process. ACT 112: Negative or not required by law. The above report was generated using voice recognition software. It may contain grammatical, syntax or spelling errors. Electronically signed by: Juanito Fernandez M.D. 03/20/2022 10:34 PM Ordered Studies 03/20/22 12:12 CT angio head w con Stat CT angio neck with con Stat CT head/brain wo con Stat 03/20/22 16:02 MR brain wo/w con Routine Hospital Course (1) Stroke-like symptom: (2) Transient confusion: (3) Brain TIA: (4) Chronic combined systolic and diastolic CHF (congestive heart failure): (5) HTN (hypertension): (6) PAF (paroxysmal atrial fibrillation): (7) Swelling of joint, shoulder, right: Patient is an 86 yr female who presents with aphagia. Stroke-like symptoms Aphasia Possible TIA --MRI Brain:No acute intracranial abnormality. No acute or subacute infarct. Involutional changes with chronic microvascular ischemic disease. Unchanged 1.2 cm meningioma adjacent to left frontal lobe. --Head CT:No acute intracranial findings. No change in appearance of the brain. --Head CTA:No significant stenosis, occlusion, or aneurysm within the [place]. --Neck CTA:No significant change from 01/11/2022 or 07/15/2021. 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 Otherwise unremarkable CT angiogram of the neck. --ECHO 01/01/22: Left ventricle is normal in size. Moderate concentric LVH. Moderate to severe global hypokinesis of left ventricle. EF 25 to 30%. Left atrium is severely dilated. Mild aortic regurgitation. Moderate to severe mitral regurgitation. Moderate tricuspid regurgitation. Right ventricle systolic function elevated at 40 to 45 mmHg --LDL 37 --Speech therapy, PT OT evaluation Fall precautions Appreciate Neurology Input Continue Neuro checks Continue aspirin 81 mg, Lipitor 40 mg Aphasia resolved Mental status at baseline Discussed regarding possible need for anticoagulation given H/O P.Afib: Patient prefers to discuss with PCP before making a decision Needs follow-up with Neurology upon discharge Plan to discharge to SNF today Right Shoulder deformity Chronic rotator cuff tear H/O shoulder surgery Shoulder X ray: No acute fracture or dislocation within the right shoulder. Elevation of the right humeral head which suggests a chronic rotator cuff tear, unchanged. Severe glenohumeral joint osteoarthritis. No history of trauma Follow-up with orthopedics as outpatient Chronic combined systolic and diastolic CHF: Was on Torsemide, Isordil and Aldactone -not on current MAR from SNF Euvolemic currently Monitor volume status HTN: P.AFib: Continue Metoprolol Not on chronic anticoagulation Prediabetes HbA1c 5.8 HLD: Continue atorvastatin Anxiety and depression: stable Continue Lexapro DVT Px: Heparin SQ Code Status DNR/DNI Disposition SNF Total Time Total Time Spent Total Time Spent (In Minutes): 49 minutes Discharge Plan Discharge Items Patient Disposition: Personal Halfway Reason For Visit: APHAGIA Discharge Diagnosis: Stroke-like symptoms Expressive aphasia Possible TIA Activity: Per Instructions section Exercise/Sports: Gradually increase as tolerated Non-emergency contact: Primary Care Provider and Neurologist Call non-emergency contact if: you have any medication questions, your symptoms worsen and your pain is concerning for you Follow-up/Referrals: Ivett Constantino PA-C [Physician Cnc Lathe Programmer] - (Date & Time 03/27/2022 2:40 PM Provider Ivett Constantino PA-C Department Neurology [facility] ) Timur Rabago DO [Primary Care Provider] - (Date & Time 03/25/2022 1:40 PM Provider Timur Rabago DO Department [facility] ) Diet: Heart Healthy Diet Texture: Easy to Chew Addtl Attending Provider Instructions: Follow-up with your primary care physician on 03/25/2022 1:40 PM Follow-up with your neurologist Ivett Constantino PA-C on 03/27/2022 2:40 PM --- Given history of paroxysmal atrial fibrillation and recurrence of strokelike symptoms, discuss with your primary care physician regarding possible need to be started on blood thinner (anticoagulation) as recommended by your neurologist. Seek immediate medical attention if your symptoms reoccur or worsen Please take all medications as instructed on discharge list below. Please call if you have any questions or problems. You can reach a [facility] hospitalist on duty at [facility] 24 hours a day by calling [phone] Risk Factors for Stroke: You can reduce your chances of stroke by working with your medical provider to adopt a healthy lifestyle. Some specific ways to lower your chance of stroke are: * If you are a smoker, now is the time to stop smoking cigarettes * If you are diabetic, improve the control of your blood sugars * Avoid excessive amounts of alcohol * Control high blood pressure * Lose weight if you are overweight * Be sure to lead an active lifestyle * Eat a healthy diet low in salt, cholesterol and fat You should know about other risk factors for stroke that you are unable to control. These include: * Age 55 years or older * Male gender * Certain racial groups: , or / * Family History of Stroke, Mini stroke or Heart Attack * Sickle Cell Disease Follow Up: It is important for you to keep your follow up appointments with your medical provider. Who to Call and When: Medical Emergencies: Call 911 immediately if you experience any of the following warning signs and symptoms of Stroke: * Sudden numbness or weakness of the face, arm or leg, especially on one side of the body * Sudden confusion, trouble speaking or understanding * Sudden trouble seeing in one or both eyes * Sudden trouble walking, dizziness, loss of balance or coordination * Sudden severe headache with no cause Do not delay calling 911 if you experience any warning signs or symptoms of a stroke. Delay in seeking medical attention may affect what treatments can be given to you. . Pending Studies at Discharge: No Stand-Alone Forms: Medications to Prevent Stroke, Zeel, Smoking Cessation Skilled Items Patient informed of condition?: Yes DNR: Yes Discharge Level of Care: Skilled Communicable Disease: No Discharge Prognosis: Stable Lines: None Urinary Catheter: No Medications and DC Order Prescriptions: Continued escitalopram oxalate [Lexapro] 10 mg tablet 10 mg PO DAILY vitamins A,C,Y-bbxb-[id number] [PreserVision AREDS] [id number] capsule 1 cap PO BID calcium carbonate-vitamin D3 [Calcium 500 + D] 500 mg(1,250mg) -200 unit Tablet 1 tab PO DAILY atorvastatin 40 mg tablet 40 mg PO DAILY aspirin 81 mg Tablet,Delayed Release (Dr/Ec) 81 mg PO DAILY ferrous sulfate 325 mg (65 mg iron) Tablet,Delayed Release (Dr/Ec) 325 mg PO QAM Qty: 30 0RF acetaminophen [Tylenol Extra Strength] 500 mg Tablet 1,000 mg PO Q8 cholecalciferol (vitamin D3) [Vitamin D3] 50 mcg (2,000 unit) Capsule 50 mcg PO DAILY multivitamin Tablet 1 tab PO DAILY loratadine [Claritin] 10 mg Tablet 10 mg PO DAILY Saccharomyces boulardii 250 mg Capsule 250 mg PO BID metoprolol succinate 25 mg tablet extended release 24 hr 25 mg PO DAILY Discharge Orders: Discharge Order (Routine); Ordered 03/23/22 Ordered By: Jeremie Lynn Admission Data Admit Date/Time: 03/20/22 14:55 Attending Provider: Jeremie Lynn Admit Provider: Jeremie Lynn Primary Care Provider: Timur Rabago Other Providers: Marely Núñez ; Tyson Billy ; Primo Atkinson [facility]
== END 2022-03-23 16:35 | disposition home or self-care (01) | DRG 69 ==
LOC: ED 12:21 → 2W 14:55